=== PATIENT | male | born 1970 | race Caucasian/White ===

== ENCOUNTER 2022-11-08 13:57 | Outpatient (AMB) | payer MEDICAID, SELFPAY ==
--- NOTE | 2022-11-08 10:25 | MHC.OFFVIS ---
Intake Intake Visit Reasons: LDCT SD Allergies No Known Allergies Allergy (Unverified 12/02/19 15:49) HPI LDCT SD HPI Details Initial visit for this 52yo smoker with a 25+PYH. Patient has been smoking since age 15 for 37 years at 1/2-1ppd. Now down to 1/4ppd. . Denies marijuana use. Denies second hand smoke exposure. Denies exposure to chemicals or substances like asbestos. . Denies known family history of lung cancer. Dad had oral cancer. Denies personal history of cancers. Denies chest CT in last year. . Denies recent travel outside the [place]. Denies recent respiratory illness or recent hospitalization for respiratory issues. Denies testing positive for COVID. Admits receiving COVID Vaccine. x 5. . Denies fever, chills, new/worsening cough, hemoptysis, hoarseness or dysphagia. Denies significant chest pain, significant dyspnea or unintentional weight loss. Patient Lung Cancer Screening Questionnaire reviewed with patient by provider. . Shared Decision Making Completed. Patient meets criteria. Discussed in detail with patient, the risk vs benefit of LDCT screening. Patient consents to proceed with scan. Discussed smoking cessation. [facility] Medical History (Updated 11/08/22 @ 14:10 by Sofia Vázquez PA-C) Depression GERD (gastroesophageal reflux disease) History of colon polyps (~2017) HTN (hypertension) Microscopic hematuria Nephrolithiasis Nicotine dependence, cigarettes, uncomplicated Surgical History (Updated 10/31/22 @ 12:32 by Sofia Vázquez PA-C) History of colonoscopy History of esophagogastroduodenoscopy (EGD) Family History (Updated 11/08/22 @ 14:18 by Sofia áVzquez PA-C) Father Oral cancer Social History (Updated 11/08/22 @ 14:10 by Sofia Vázquez PA-C) Patient Tobacco Use Status: Current everyday Tobacco user Tobacco use type: Cigarette Years Smoked: (onset 15yo, 1/2-1ppd x 37yrs, 25+PYH) Assessment & Plan Assessment & Plan (1) Nicotine dependence, cigarettes, uncomplicated: Comment: (current smoker - onset 15yo, 1/2-1ppd x 37yrs, 25+PYH) Code(s): F17.210 - Nicotine dependence, cigarettes, uncomplicated Plan: - SDM visit completed today in office. - Patient meets criteria for LDCT for lung cancer screening purposes and is asymptomatic. - Smoking cessation counseling offered. Patients can always call [phone]. - Will arrange for a LDCT scan of the chest for screening purposes at [facility]. - Risks, benefits, and alternatives were discussed in detail and the patient agrees to proceed. - Risks discussed include but are not limited to: radiation exposure, anxiety during testing and while awaiting results, false negatives, false positives and possibility of additional intervention such as further imaging or surgical procedures for benign disease. - Benefits are obviously detection of lung cancer at an early stage which can lead to improved outcomes. - Discussed the importance of screening program compliance with adherence to yearly LDCT scan as scheduled - or sooner interval scans for personalized screening regimen. - Discussed follow up plan. Our office will send a letter discussing results and if needed set up phone call and office visit based on CT findings. - Patient educated on results categorization and the management decisions for suspicious findings potentially found on the screening LDCT scan. Any patient with a Lung RADS score of 3 or 4 will be reviewed by a multidisciplinary team at [facility] to form a plan of action in regards to scan findings. - If further work up is warranted for a suspicious lung finding this will be followed by the Lung Cancer Screening program in conjunction with the Thoracic Surgery Department at [facility]. - A copy of the office note and LDCT will be sent to the patient's PCP - as well as documentation on any associated further plans of care. - Incidental findings on LDCT are the PCP's responsibility. These findings are indicated with an S finding on the LDCT Assessment. A note discussing the findings will be sent to the PCP who is then responsible for further management. - All questions answered.? Coding Level of Care Code Lung Cancer Screening G0296 Diagnoses Nicotine dependence, cigarettes, uncomplicated F17.210
== END 2022-11-08 14:42 | disposition home or self-care (01) ==
PROVIDERS: PCP Family Medicine; Visit Provider Physician Assistant Medical
DX: F17.210 Nicotine dependence, cigarettes, uncomplicated (principal)
CPT/HCPCS: G0296

== ENCOUNTER 2022-11-08 14:20 | Outpatient (REF) | payer MEDICAID, SELFPAY ==
--- NOTE | ~2022-11-08 | CT_ITS ---
EXAMINATION: CT CHEST SCREENING CLINICAL INFORMATION: 38 pack-year smoking history COMPARISON: None available. TECHNIQUE: Multidetector volumetric CT imaging of the chest is performed without contrast using low dose technique. Additional 2D coronal and sagittal reformatted images and axial 3D maximum intensity projection (MIP) images are generated on the CT workstation. This CT examination was performed using dose optimization techniques as appropriate, variously including the following: *Automated exposure control *Adjustment of mA and/or kV according to patient size (this includes techniques or standardized protocols for targeted exams where dose is matched to indication/reason for exam; i.e. extremities or head) *Use of iterative reconstruction technique DLP: 78 mGy-cm FINDINGS: LUNGS: The lungs are clear with no evidence of inflammation or nodules. There is mild bibasilar dependent hypoaeration. MEDIASTINUM: The thyroid is unremarkable. There is no thoracic aortic aneurysm. There are mild atherosclerotic calcifications of the great vessel origins and thoracic aorta. 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 No mediastinal or hilar lymphadenopathy is seen. CORONARY ARTERY CALCIFICATION: None visualized on this study. PLEURA: There is no pleural effusion. No pleural mass or thickening. AXILLA: No lymphadenopathy. UPPER ABDOMEN: The left adrenal gland contains a 2.3 x 1.8 cm benign fat-containing adenoma with precontrast Hounsfield value of -10.8 units. OSSEOUS STRUCTURES: There is mild lower thoracic and upper lumbar spondylosis. No acute or aggressive osseous abnormality is seen. CT/CT lung screening IMPRESSION: 1. No pulmonary nodule is seen. 2. There is no pulmonary mass, infiltrate or groundglass opacity. 3. There is no thoracic lymphadenopathy or pleural effusion. 4. An aberrant right subclavian artery is noted. 5. A 2.3 cm benign, fat-containing left adrenal adenoma is seen. This requires no imaging follow-up. Current ACR [employer]ER RECOMMENDATIONS regarding incidental adrenal masses include; - Imaging can characterize adrenal adenomas with high accuracy but cannot be used to distinguish hyperfunctioning from nonhyperfunctioning masses - Current guidelines from the [place] [employer] and the [place] [employer] recommend an initial biochemical evaluation of all adrenal incidentalomas to exclude pheochromocytoma, subclinical [place]?s syndrome, and hyperaldosteronism. 6. There is some mild thoracic and upper lumbar spondylosis. No acute or aggressive finding is noted. ASSESSMENT: Lung-RADS category 1: Negative RECOMMENDATION: Routine annual low-dose CT screening in 12 months.
== END 2022-11-08 14:21 | disposition home or self-care (01) ==
LOC: HO.CT 14:20
PROVIDERS: Visit Provider Physician Assistant Medical
DX: Z12.2 Encounter for screening for malignant neoplasm of respiratory organs (principal); F17.210 Nicotine dependence, cigarettes, uncomplicated
CPT/HCPCS: 71271; G0296

== ENCOUNTER 2022-12-04 08:03 | Outpatient (AMB) | payer MEDICAID, SELFPAY ==
--- NOTE | 2022-12-04 08:21 | MHC.OFFVIS ---
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 He states that he gets random episodes of chest pain and can happen any time. Not clearly exertion. He also gets short of breath. This can happen with exertion but on rare occasions have also happen at rest. No history of any coronary artery disease or myocardial infarction or cardiomyopathy. Long history of smoking and he states he has cut down a lot. He also has a history of alcohol excess but states he has cut back on that too. Otherwise, family history of cardiac issues. According to him, grandmother had bicuspid aortic valve and had surgery for the same. Mother with possible leaky valve type issue but details are not clear. [facility] Medical History (Updated 12/04/22 @ 08:34 by Rafael Mahan MD) Nicotine dependence, cigarettes, uncomplicated History of colon polyps (~2017) Microscopic hematuria Nephrolithiasis Depression HTN (hypertension) GERD (gastroesophageal reflux disease) Surgical History History of esophagogastroduodenoscopy (EGD) History of colonoscopy Family History (Updated 12/04/22 @ 08:35 by Rafael Mahan MD) Father Oral cancer Maternal Grandmother Bicuspid aortic valve Mother Heart problem Social History (Updated 12/04/22 @ 08:36 by Rafael Mahan MD) Alcohol intake: former Patient Tobacco Use Status: Current everyday Tobacco user Tobacco use type: Cigarette Years Smoked: (onset 15yo, 1/2-1ppd x 37yrs, 25+PYH) Review of Systems Const Denies chills, Denies daytime sleepiness, Denies fatigue, Denies fever(s), Denies frequent falls, Denies night sweats, Denies snoring, Denies weakness, Denies weight gain and Denies weight loss Eyes Denies loss of vision ENT Denies dizziness and Denies hearing loss Card Denies chest pain, Denies chest pain with activity, Denies syncope, Denies rapid heart rate, Denies edema, Denies claudication, Denies leg edema, Denies lightheadedness, Denies palpitations, Denies dyspnea, Denies dyspnea on exertion and Denies orthopnea Resp Denies cough, Denies excessive phlegm production, Denies dyspnea, Denies dyspnea on exertion, Denies snoring and Denies wheezing GI Denies abdominal pain, Denies hematochezia, Denies change in bowel habits, Denies change in stool character, Denies heartburn, Denies nausea and Denies vomiting Denies hematuria, Denies dysuria and Denies urinary frequency Musc Denies arthralgias, Denies muscle weakness, Denies numbness and Denies tingling Skin/Breast Denies nail changes and Denies rash Neuro Denies Abnormal speech present, Denies dizziness, Denies syncope, Denies frequent falls, Denies loss of vision, Denies memory loss, Denies numbness, Denies tingling and Denies weakness Psych Denies depression and Denies memory loss Endo Denies fatigue and Denies palpitations Aller/Immun Denies wheezing Physical Exam Vital Signs: Last Vital Signs Pulse 84 12/04/22 08:24 BP 134/80 12/04/22 08:24 BMI result Body Mass Index 24.0 Const General: comfortable and no acute distress Orientation/consciousness: patient oriented x3 HEENT Other: Unremarkable Head: Yes normal to inspection Neck Neck: Yes normal visual inspection Chest Chest palpation & inspection: normal inspection of the chest Resp Auscultation: clear to auscultation bilaterally Cardio Palpation: normal PMI Heart sounds: S1 normal heart sound present, S2 normal heart sound present, no gallops, no murmurs and no rubs GI Palpation (GI): Soft to palpation Back/Spine/Pelvis Other: unremarkable Skin General skin exam: no rashes or lesions noted Neuro General: patient oriented x3 Speech: No Abnormal speech present Extrem General: Yes normal to inspection Psych Mental Status: mental status grossly normal Office Procedures EKG Details: EKG with sinus rhythm at 84/Min; incomplete right bundle-branch block; no significant ST-T changes and otherwise unremarkable. [id number], Complete Assessment & Plan Assessment & Plan (1) SOB (shortness of breath): Code(s): R06.02 - Shortness of breath (2) Precordial chest pain: Code(s): R07.2 - Precordial pain (3) Family history of bicuspid aortic valve: Code(s): Z82.79 - Family history of other congenital malformations, deformations and chromosomal abnormalities Plan Baseline EKG unremarkable. Based on the symptoms of chest pain and shortness of breath, will proceed with further workup. Echocardiogram and stress test can be completed. Based on findings, will plan further care. Orders: Orders CA echo transthoracic complete Today R06.02 - Shortness of breath CA echo stress exercise Today R07.2 - Precordial pain Coding Level of Care Code New Pt Level 4 (35467) Diagnoses SOB (shortness of breath) R06.02 Precordial chest pain R07.2 Family history of bicuspid aortic valve Z82.79 CPT Codes EKG - CPT: 64142-[id number], Complete ([id number])
[2022-12-04 08:24] VITALS: BP 134/80; PULSE 84; BMI 24.0
== END 2022-12-04 08:43 | disposition home or self-care (01) ==
PROVIDERS: PCP Student in an Organized Health Care Education/Training Program; Visit Provider Internal Medicine
DX: R06.02 Shortness of breath (principal); R07.2 Precordial pain; Z82.79 Family history of other congenital malformations, deformations and chromosomal abnormalities
CPT/HCPCS: 93010; 99204

== ENCOUNTER → 2022-12-04 08:03 | Outpatient (BNVA) | payer MEDICAID, SELFPAY | PROVIDERS: PCP Student in an Organized Health Care Education/Training Program; Visit Provider Internal Medicine | DX: R06.02 Shortness of breath (principal); R07.2 Precordial pain; Z82.79 Family history of other congenital malformations, deformations and chromosomal abnormalities | CPT/HCPCS: 93005 ==

== ENCOUNTER → 2023-01-10 07:40 | Outpatient (REF) | payer MEDICAID, SELFPAY ==
--- NOTE | 2023-01-10 07:43 | CA_ITS ---
Transthoracic Echocardiogram Patient (Last, First, Middle): Cortez Westfall, Gender: Male Date of : 1970 Age: 52 Procedure Date: 01/10/2023 Procedure Type: Transthoracic Echocardiogram Location: OP Height: 175.26 cm Weight: 72.58 kg BSA: 1.88 m2 Heart Rate: 72 bpm BP: 128 / 80 mmHg Night Assistant: LORENA Referring MD: Rafael Mahan MD Salsa Dance Instructor: Alphonse Gutierrez MD Symptoms: R06.02 - Shortness of breath/Fam hx bicuspid av Study Quality: Adequate ECG Rhythm: Sinus Conclusions: - 1. Normal measured LVEF of 60 65% with normal filling pattern 2. Normal cardiac valvular Dopplers 3. No gross pericardial effusion Findings Left Ventricle Normal left ventricular size, thickness, and systolic function. The visually estimated ejection fraction is between 60-65%. Spectral Doppler is indicative of a normal filling pattern. Peak GLS is -17.4%, borderline low. Right Ventricle Normal right ventricular cavity size and systolic function. Atria Both atria are normal in size. There is no evidence of interatrial shunt. Aortic Valve The aortic valve was not well visualized. There is no aortic valve stenosis. There is no aortic valve regurgitation. limited visualization of aortic valve, appears to be tricuspid although further imaging may be necessary Mitral Valve Likely normal mitral valve structure and function. There is trace mitral valve regurgitation. There is no mitral valve stenosis. Pulmonic Valve The pulmonic valve was not well visualized. Tricuspid Valve Likely normal tricuspid valve structure and function. Tricuspid regurgitation envelope is inadequate for calculation of right ventricular systolic pressure. Normal right atrial pressure. Great Vessels All visible segments of the aorta are normal in size. The pulmonary artery was not well visualized. There is no dilatation of the ascending aorta. Venous The inferior vena cava is normal in size and collapses greater than 50% with inspiration. Pericardium/Pleural There is no evidence of pericardial effusion. Prior Study Comparison No prior study available for comparison. Measurements 2D Linear Measurements IVSd: 1.00 0.6-0.9/0.6-1.0 cm LVIDd: 5.00 3.9-5.3/4.2-5.9 cm LVIDd Index: 2.66 2.4-3.2/2.2-3.1 cm/m2 LVIDs: 3.40 2.0-3.6 cm LVPWd: 0.70 0.7-1.1 cm LA Diam: 3.60 2.7-3.8/3.0-4.0 cm LAIDs Index: 1.91 1.5-2.3 cm/m2 LV Mass: 182.79 67-162/88-224 g LV Mass Index: 97.23 43-95/49-115 g/m2 LVOT Diam: 2.30 3.0+(-)1.3 cm Mitral Valve MV Pk E: 0.97 MV PK A: 0.86 MV Decel Time: 185.00 E/A: 1.10 E'Lateral: 12.90 E'Medial: 7.18 E/E' Med: 13.60 E/E' Lat: 7.50 PHT: 54.00 MVA PHT: 4.07 Decel Patrick: 5.25 Aortic Valve AoV Pk Ishan: 1.31 AoV Pk Grad: 7.00 ROLANDA: 3.62 LVOT LVOT Pk Ishan: 1.06 LVOT Mn Ishan: 0.82 LVOT VTI: 0.22 LVOT Pk Grad: 4.00 LVOT Mn Grad: 3.00 LVOT Diam: 2.30 LVOT Area: 4.15 Diastolic Function MV Pk E: 0.97 MV Pk A: 0.86 E/A: 1.10 E'Medial: 7.18 E/E' Med: 13.60 E' Laterial: 12.90 E/E' Lat: 7.50 Right Ventricle TAPSE (mm): 17.30 TVS' Ishan: 10.40 Tricuspid Valve RA Press: 3.00 Great Vessels Aorta Sinus of Valsalva: 3.30 2.0-3.5 cm Ao Asc: 3.10 2.1-3.4 cm Ao Arch: 2.50 Ao Desc: 1.80 Pulmonary Valve PV Pk Ishan: 0.67 Peak PV Grad: 2.00 Updated in Other Vendor System with Status of Final Alphonse Gutierrez MD electronically signed on 01/11/2023 10:31:34 AM with status of Final
== END ==
LOC: HO.CARD 07:40
PROVIDERS: PCP Student in an Organized Health Care Education/Training Program; Visit Provider Internal Medicine
DX: R06.02 Shortness of breath (principal)
CPT/HCPCS: 93306; 93356

== ENCOUNTER → 2023-01-10 07:43 | Outpatient (BNV) | payer MEDICAID, SELFPAY | PROVIDERS: PCP Student in an Organized Health Care Education/Training Program; Visit Provider Internal Medicine Cardiovascular Disease | DX: R06.02 Shortness of breath (principal); I45.10 Unspecified right bundle-branch block | CPT/HCPCS: 93306 ==

== ENCOUNTER → 2023-01-17 10:40 | Outpatient (REF) | payer MEDICAID, SELFPAY ==
--- NOTE | 2023-01-17 10:42 | CA_ITS ---
Acquisition Time: 2023-01-17 10:54:32 Total Exercise Time: 00:05:24 Test Indications: PRECORDIAL PAIN Medications: AMLODIPINE ESCITALOPRAM OMPERAZOLE Protocol: GADIEL Max HR: 164 BPM 98% of Pred: 166 BPM Max BP: 178/080 mmHG Max Work Load: 7.0 METS Exercise stress test exercise 5 min 24 sec of Gadiel protocol achieving 97% MPHR, without anginal symptoms, without arrhythmias, with normotensive response to exercise, without EKG changes, Echo images obtained by tect at rest and immedately post peak exercise. Definity contrast used. Test reviewed with Dr. Andrade. Referred By: Rafael Mahan Overread By: Ashlie Medina
== END ==
LOC: HO.CARD 10:40
PROVIDERS: PCP Student in an Organized Health Care Education/Training Program; Visit Provider Internal Medicine
DX: R07.2 Precordial pain (principal)
CPT/HCPCS: 93350; Q9957

== ENCOUNTER 2023-01-20 08:27 | Outpatient (AMB) | payer MEDICAID, SELFPAY ==
[2023-01-20 08:30] VITALS: BP 114/72; PULSE 85; BMI 23.7
--- NOTE | 2023-01-20 08:30 | MHC.OFFVIS ---
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 He recently underwent an echocardiogram and stress test. Today he reports he has been doing well. He did get a sharp pain in his left chest when he reached his left arm over his right shoulder to scratch his back. This is the discomfort he says he has been getting periodically at times with certain movements of that left arm. He has no chest pressure heaviness or tightness brought on by physical activity. He has vague reports of shortness of breath which he says is separate and can occur at any time, again not brought on by activity. No palpitations, presyncope, syncope, PND, orthopnea or edema. He takes his meds as directed. [facility] Medical History Nicotine dependence, cigarettes, uncomplicated History of colon polyps (~2017) Microscopic hematuria Nephrolithiasis Depression HTN (hypertension) GERD (gastroesophageal reflux disease) Surgical History History of esophagogastroduodenoscopy (EGD) History of colonoscopy Family History Father Oral cancer Maternal Grandmother Bicuspid aortic valve Mother Heart problem Social History Alcohol intake: former Patient Tobacco Use Status: Current everyday Tobacco user Tobacco use type: Cigarette Years Smoked: (onset 15yo, 1/2-1ppd x 37yrs, 25+PYH) Review of Systems Const All systems reviewed & are unremarkable except as noted in HPI and below ENT Denies dizziness Card Reports chest pain (Sharp, left chest when he moves left arm and shoulder at times), Denies chest pain at rest, Denies chest pain with activity, Denies rapid heart rate, Denies pedal edema, Denies edema, Denies leg edema, Denies lightheadedness, Denies palpitations, Denies dyspnea, Denies dyspnea on exertion and Denies orthopnea Resp Denies cough, Denies dyspnea and Denies dyspnea on exertion GI Denies hematochezia and Denies change in stool character Musc Denies abnormal gait, Denies limited range of motion, Denies muscle cramps, Denies muscle weakness, Denies numbness, Denies radiating pain into limb, Denies stiffness and Denies tingling Neuro Denies abnormal gait, Denies dizziness, Denies numbness and Denies tingling Endo Denies palpitations Physical Exam Vital Signs: Last Vital Signs Pulse 85 01/20/23 08:30 BP 114/72 01/20/23 08:30 BMI result Body Mass Index 23.7 Const General: cooperative, healthy appearing, comfortable and no acute distress Orientation/consciousness: patient oriented x3 Neck Neck: Yes normal visual inspection Resp Effort & Inspection: normal respiratory effort Auscultation: clear to auscultation bilaterally, no crackles, no rales, no rhonchi and no wheezes Cardio Jugular venous distension: no JVD Rate: regular rate Rhythm: regular rhythm Heart sounds: S1 normal heart sound present, S2 normal heart sound present, no murmurs and no rubs Neuro General: patient oriented x3 Extrem General: Yes normal to inspection Psych Appearance: grossly normal Mental Status: mental status grossly normal Speech and movement: Normal speech and movement present Assessment & Plan Assessment & Plan (1) Precordial chest pain: Code(s): R07.2 - Precordial pain Plan: Report of intermittent sharp left chest discomfort, brief, occurring with activities that involve movement of left arm and shoulder. No tenderness to palpation. EKG done last visit showing sinus rhythm with incomplete right bundle branch block, rate 84. Echocardiogram done 01/10/2023 showing EF 60-65%, no significant valve abnormalities, no pericardial effusion. He had stress echocardiogram on 01/17/2023 with exercise 5 minutes 24 seconds with no anginal symptoms, no EKG changes and no echo evidence of ischemia. Spent time reviewing results with him in detail. Based on his description of symptoms it seems more musculoskeletal in nature. He describes getting his pain 2 days ago when he reached his left arm over his right shoulder to scratches back and the pain occurred. This sounds more like musculoskeletal discomfort. He also has evidence of deconditioning as heart rate reached 97% mph are with 5.5 minutes of exercise. He tells me he does no routine physical activity. Suggested that he work on increasing physical activity as tolerated. No evidence that his chest discomfort is cardiac in nature. Cardiology follow-up as needed. (2) SOB (shortness of breath): Code(s): R06.02 - Shortness of breath Plan: Vague description of shortness of breath which he states occurs at times. Not clearly brought on by exertion. Stress echocardiogram as above with no significant shortness of breath. No cardiac findings for this symptom. (3) Nicotine dependence, cigarettes, uncomplicated: Comment: (current smoker - onset 15yo, 1/2-1ppd x 37yrs, 25+PYH) Code(s): F17.210 - Nicotine dependence, cigarettes, uncomplicated Plan: Continues to smoke. Benefits of smoking cessation reviewed (4) Family history of bicuspid aortic valve: Code(s): Z82.79 - Family history of other congenital malformations, deformations and chromosomal abnormalities Plan: Grandmother had history of bicuspid aortic valve. Echocardiogram done on this patient 01/10/2023 shows aortic valve not well visualized, appears to be tricuspid, no aortic stenosis and no aortic regurgitation. Since not well visualized future echo can be done if he has heart murmur or any concerning symptoms. Coding Level of Care Code Est Pt Level 3 (38330) Diagnoses Precordial chest pain R07.2 SOB (shortness of breath) R06.02 Nicotine dependence, cigarettes, uncomplicated F17.210 Family history of bicuspid aortic valve Z82.79 Time Spent (min) 22
== END 2023-01-20 08:50 | disposition home or self-care (01) ==
PROVIDERS: PCP Student in an Organized Health Care Education/Training Program; Visit Provider Nurse Practitioner Family
DX: R07.2 Precordial pain (principal); R06.02 Shortness of breath; F17.210 Nicotine dependence, cigarettes, uncomplicated; Z82.79 Family history of other congenital malformations, deformations and chromosomal abnormalities
CPT/HCPCS: 99213

== ENCOUNTER → 2023-01-20 08:27 | Outpatient (BNVA) | payer MEDICAID, SELFPAY | PROVIDERS: PCP Student in an Organized Health Care Education/Training Program; Visit Provider Nurse Practitioner Family | DX: R07.2 Precordial pain (principal); R06.02 Shortness of breath; F17.210 Nicotine dependence, cigarettes, uncomplicated; Z82.79 Family history of other congenital malformations, deformations and chromosomal abnormalities | CPT/HCPCS: 99212 ==

== ENCOUNTER 2023-01-24 09:27 | Day surgery (SDC) | payer MEDICAID, SELFPAY ==
--- NOTE | 2023-01-23 08:56 | P.CONAN_ITS ---
Documented by User: Jeannette Arroyo NP 01/23/23 08:57 HPI - Anesthesia Eval Consult details Narrative: 52yo M for Colonoscopy [facility] Active Problems Active Problems: All Active Problems (Updated 12/04/22 @ 08:34 by Rafael Mahan MD) Family history of bicuspid aortic valve (Acute) Precordial chest pain (Acute) SOB (shortness of breath) (Acute) Nicotine dependence, cigarettes, uncomplicated (Acute) Past Medical History Medical History Nicotine dependence, cigarettes, uncomplicated History of colon polyps (~2017) Microscopic hematuria Nephrolithiasis Depression HTN (hypertension) GERD (gastroesophageal reflux disease) Family History Family History Father Oral cancer Maternal Grandmother Bicuspid aortic valve Mother Heart problem Surgical History Surgical History (Updated 01/23/23 @ 13:46 by Emily Cordero RN) History of excision of pilonidal cyst History of esophagogastroduodenoscopy (EGD) History of colonoscopy Social History Alcohol intake: former Patient Tobacco Use Status: Current everyday Tobacco user Tobacco use type: Cigarette Cigarette Packs Per Day: 0.5 Cigarettes Per Day: 10.0 Years Smoked: (onset 15yo, 1/2-1ppd x 37yrs, 25+PYH) Second Hand Smoke Exposure: No Meds Allergies Allergy/AdvReac Type Severity Reaction Status Date / Time No Known Allergies Allergy Verified 01/20/23 08:33 Home Medications Medication Instructions Recorded Confirmed Last Taken Type amlodipine 10 mg tablet 10 mg PO DAILY 12/04/22 01/20/23 Unknown History escitalopram oxalate 10 mg tablet 10 mg PO QAM 12/04/22 01/20/23 Unknown History nicotine (polacrilex) 2 mg gum 2 mg PO 12/04/22 01/20/23 Unknown History omeprazole 20 mg capsule,delayed 20 mg PO QAM 12/04/22 01/20/23 Unknown History release multivitamin 1 tab PO DAILY 01/23/23 01/23/23 Unknown History Exam Exam Date and Time: January 23, 2023 0856 Narrative Narrative: EKG 11/2022 sinus rhythm at 84/Min; incomplete right bundle-branch block; no significant ST- T changes and otherwise unremarkable ECHO 12/2022 Conclusions: - 1. Normal measured LVEF of 60 65% with normal filling pattern 2. Normal cardiac valvular Dopplers 3. No gross pericardial effusion Stress ECHO 01/2023 Conclusion: Normal stress echo at the achieved workload. Assessment and Plan Assessment Anesthesia Assessment: Chart Reviewed Documented by User: Abraham Vance MD 02/06/23 17:42 HPI - Anesthesia Eval Consult details Narrative: 52yo M for Colonoscopy tremors both hands occassionally PMFSH Past Medical History Medical History Nicotine dependence, cigarettes, uncomplicated History of colon polyps (~2016) Microscopic hematuria Nephrolithiasis Depression HTN (hypertension) GERD (gastroesophageal reflux disease) Functional capacity: independent ambulation Family History Family History Father Oral cancer Maternal Grandmother Bicuspid aortic valve Mother Heart problem Family history of problems with anesthesia: No Surgical History Surgical History (Updated 01/23/23 @ 13:46 by Emily Cordero RN) History of excision of pilonidal cyst History of esophagogastroduodenoscopy (EGD) History of colonoscopy History of Problems with Anesthesia: No Social History Alcohol intake: former Patient Tobacco Use Status: Current everyday Tobacco user Tobacco use type: Cigarette Cigarette Packs Per Day: 0.5 Cigarettes Per Day: 10.0 Years Smoked: (onset 15yo, 1/2-1ppd x 37yrs, 25+PYH) Second Hand Smoke Exposure: No Meds Allergies Allergy/AdvReac Type Severity Reaction Status Date / Time No Known Allergies Allergy Verified 01/20/23 08:33 Home Medications Medication Instructions Recorded Confirmed Last Taken Type amlodipine 10 mg tablet 10 mg PO DAILY 12/04/22 01/20/23 Unknown History escitalopram oxalate 10 mg tablet 10 mg PO QAM 12/04/22 01/20/23 Unknown History nicotine (polacrilex) 2 mg gum 2 mg PO 12/04/22 01/20/23 Unknown History omeprazole 20 mg capsule,delayed 20 mg PO QAM 12/04/22 01/20/23 Unknown History release multivitamin 1 tab PO DAILY 01/23/23 01/23/23 Unknown History Exam Airway Mallampati Class: III Loose/Missing/Broken Teeth: Yes Assessment and Plan Assessment Anesthesia Assessment: Anesthesia Plan Discussed Final Anesthetic Review Family History of Problems with Anesthesia: No History of Problems with Anesthesia: No NPO: Yes ASA Class: III Final Preanesthetic Review: Meds/Allgs Chart Reviewed, Consent Obtained/Reviewed and Anes Risks/Benef Reviewed Patient Risk: Intermediate Procedure Risk: Intermediate Anesthetic Plan Anesthetic Plan: MAC: and Agree w/ Assess. and Plan Disposition: Standard PACU
[2023-01-24 10:51] VITALS: BMI 26.6
[2023-01-24 11:10] VITALS: BP 163/105; PULSE 118; RESP 16; TEMP 37.1; O2SAT 98
[2023-01-24] MEDS: Lactated Ringers 1,000 ML 100 ML IVCONT (11:11)
--- NOTE | 2023-01-24 11:11 | PC.NURSE ---
patient HR 100-120's and BP 163/105. patient very tremorous, arms shaking. Dr. Vance aware via [place].
--- NOTE | 2023-01-24 12:32 | PM.OP ---
Brief Operative Note Date of Service: 01/24/23 Pre-op diagnosis: Screening Post-op diagnosis: other (Colon polyps) Procedure: Colonoscopy to the cecum with hot snare polypectomy of appendiceal orifice polyp and transverse colon polyp, cold snare polypectomty at 50cm, and biopsies from cecum Surgeon: Darshan Khan MD Anesthesia: MAC Was an Business Unit Controller used for this Procedure?: No Estimated blood loss (mL): 2.0 Pathology: other (A. Polyp at 50cm B. Appendiceal orifice polyp C. Biopsies from cecum D. Transverse colon polyp) Condition: stable Disposition: PACU
[2023-01-24 12:37] VITALS: BP 129/84; PULSE 97; RESP 15; TEMP 37.6; O2SAT 98
[2023-01-24 12:52] VITALS: BP 127/82; PULSE 93; RESP 16; TEMP 37.3; O2SAT 97
--- NOTE | 2023-01-24 13:15 | OP_ITS ---
DATE OF SERVICE: 01/24/2023 SURGEON: Darshan Khan MD INDICATIONS: The patient presents for evaluation of family history of colon cancer, and colorectal cancer screening. Full consent has been obtained from him for this, including risks of bleeding and perforation. PREOPERATIVE DIAGNOSIS: Colorectal cancer screening and family history of colon cancer. POSTOPERATIVE DIAGNOSIS: PROCEDURE PERFORMED: Colonoscopy to the cecum with cold snare polypectomy x 1, hot snare polypectomy x 2, and biopsies. ESTIMATED BLOOD LOSS: COMPLICATIONS: ANESTHESIA: Monitored anesthesia care. ASSISTANTS: SPECIMENS: POSTOPERATIVE DIAGNOSES: Colorectal cancer screening and family history of colon cancer, colon polyps, questionable area in the cecum that was biopsied, diverticulosis, and internal hemorrhoids. DESCRIPTION OF PROCEDURE: The patient was placed in the left lateral decubitus position. The digital rectal exam revealed no abnormalities. The [employer] video pediatric colonoscope was entered into the rectum and advanced easily to the cecum. Once in the cecum, I did identify cecal pouch with appendiceal orifice and a normal-appearing ileocecal valve. The entire cecum was well visualized. In the appendiceal orifice was an approximately 5 or 6 mm grossly adenomatous polyp that was prolapsing into the cecum itself. This was removed by hot snare polypectomy and recovered with a biopsy forceps. The polypectomy site appeared clean, without any sign of residual polyp nor bleeding. Also in the cecum, in the vicinity of the appendiceal orifice, but separate from it, was an area of some central minimal ulceration, but with some surrounding edematous margins. It was not clear if this was definitively a mass or a diverticulum. Multiple biopsies were obtained from the margins of this. The remainder of the cecum appeared normal. The scope was then slowly withdrawn assessing all mucosal surfaces carefully. Preparation was excellent. In the transverse colon was an approximately 10 mm polyp, which was removed by hot snare polypectomy and recovered by suction. The polypectomy site appeared clean, without any sign of residual polyp nor bleeding. At 50 cm was an approximately 6 mm polyp, which was removed by cold snare polypectomy and recovered by suction. The polypectomy site appeared to be clean, without any sign of residual polyp nor any significant bleeding. I did not visualize any other polyps, colitis, or angiodysplasia. There was a mild amount of sigmoid diverticulosis. In the rectum, the scope was retroflexed visualizing internal hemorrhoids, but no other pathology. The scope was straightened and withdrawn from the patient. He tolerated the procedure well and was returned to the recovery area in stable condition. IMPRESSION: 1. Colon polyps. 2. Questionable area in the cecum, status post biopsy. 3. Diverticulosis. 4. Internal hemorrhoids. PLAN: The results of the pathology will be checked. Given the finding in the appendiceal orifice, if it is an adenoma, and his family history of colon cancer, I would recommend a repeat colonoscopy within 2 years for further screening and surveillance. Further decisions will also be made depending upon the findings on the biopsies from the cecum. He was advised not to use any aspirin and NSAIDs for at least 1 week. He will otherwise see me in the interim on a p.r.n. basis. This has been discussed with the patient and his mother. Of note, he did have a lot of coughing during the procedure, which most likely is related to his smoking history. This has been discussed with the patient and his mother as well MD MARLEN Mehta/ELIZABETH / [id number] MTDKaley
== END 2023-01-24 13:15 | disposition home or self-care (01) ==
PROVIDERS: PCP Student in an Organized Health Care Education/Training Program; Visit Provider Internal Medicine
PROC: 0DJD8ZZ Inspection of Lower Intestinal Tract, Via Natural or Artificial Opening Endoscopic (ICD-10-PCS; CPT 45378; principal; 2023-01-24 10:50)
DX: Z12.11 Encounter for screening for malignant neoplasm of colon (principal); D12.5 Benign neoplasm of sigmoid colon; D12.3 Benign neoplasm of transverse colon; K57.30 Diverticulosis of large intestine without perforation or abscess without bleeding; K64.8 Other hemorrhoids; Z80.0 Family history of malignant neoplasm of digestive organs; I10 Essential (primary) hypertension; K21.9 Gastro-esophageal reflux disease without esophagitis; F17.210 Nicotine dependence, cigarettes, uncomplicated; Z79.899 Other long term (current) drug therapy
CPT/HCPCS: 45385; 45380; 88305; J2250; J2704; J3010

== ENCOUNTER 2023-01-29 08:00 | Outpatient (REF) | payer MEDICAID, SELFPAY ==
[2023-01-29 11:08] LABS: MANUAL DIFF FLAG NO
[2023-01-29 11:53] LABS: Basophils Percent Auto 0.5 % (0-2); Eosinophils Absolute Auto 0.2 X10*3/uL (0.0-0.4); Eosinophils Percent Auto 1.8 % (0-4); Hematocrit 42.1 % (42.0-52.0); Hemoglobin 13.4 g/dl (14.0-18.0); Imm Gran Abs Auto 0.03 X10*3/uL (0.00-0.03); Imm Gran Pct Auto 0.4 % (0.0-0.4); Lymphocytes Absolute Auto 2.9 X10*3/uL (1.2-4.9); Lymphocytes Percent Auto 35.5 % (20-40); Mean Corpuscular HGB Conc 31.8 g/dl (31.0-36.0); Mean Corpuscular Hemoglobin 29.6 pg (27.0-33.0); Mean Corpuscular Volume 93.1 fL (80.0-98.0); Mean Platelet Volume 10.3 fL (9.4-12.4); Monocytes Absolute Auto 0.5 X10*3/uL (0.1-1.2); Monocytes Percent Auto 5.9 % (2-11); Neutrophils Absolute Auto 4.6 x10*3/uL (2.0-8.3); Neutrophils Percent Auto 55.9 % (45-73); Platelet Count 316 X10*3/uL (160-400); Red Blood Count 4.52 X10*6/uL (4.60-5.80); Red Cell Distribution Width 16.4 % (11.0-16.0); White Blood Count 8.2 X10*3/uL (4.8-10.8)
[2023-01-29 12:03] LABS: Alanine Aminotransferase 30 U/L (0-40); Albumin Level 4.4 g/dL (3.5-5.0); Alkaline Phosphatase 129 U/L (39-117); Anion Gap 12 (12-20); Aspartate Amino Transferase 40 U/L (5-37); Bilirubin Total 0.3 mg/dL (0.0-1.0); Blood Urea Nitrogen 11 mg/dL (9-16); Calcium 9.9 mg/dL (8.4-10.2); Carbon Dioxide 25 mmol/L (22-29); Chloride 109 mmol/L (96-108); Cholesterol 209 mg/dL (<200); Cortisol Random 15.1 ug/dL; Estimated Glomerular Filt Rate > 60; Glucose Random 119 mg/dL (60-115); HDL Cholesterol 51 mg/dL (>40); LDL Cholesterol Calculated 132 mg/dL (<100); Potassium 3.9 mmol/L (3.3-5.1); Sodium 142 mmol/L (135-145); Total Protein 7.8 g/dL (6.5-8.0); Triglycerides 134 mg/dL (<150)
[2023-01-31 03:33] LABS: DHEA Sulfate 29 mcg/dL (32-279)
[2023-02-04 11:53] LABS: Metanephrine, Free 74 pg/mL (<=57); Normetanephrines, Free 175 pg/mL (<=148); Total Metanephrine, Free 249 pg/mL (<=205)
[2023-02-04 17:48] LABS: Aldosterone/Renin Ratio 2.1 Ratio (0.9-28.9); Plasma Renin Activity 0.48 ng/mL/h (0.25-5.82)
== END 2023-01-29 08:01 | disposition home or self-care (01) ==
LOC: HO.LAB 08:00
PROVIDERS: PCP Student in an Organized Health Care Education/Training Program; Visit Provider Student in an Organized Health Care Education/Training Program
DX: E27.8 Other specified disorders of adrenal gland (principal); E78.2 Mixed hyperlipidemia
CPT/HCPCS: 36415; 80053; 80061; 82088; 82533; 82627; 83835; 85025

== ENCOUNTER 2023-01-30 11:54 | Outpatient (REF) | payer MEDICAID, SELFPAY ==
[2023-01-30 12:22] LABS: Appearance Urine Clear; Color Urine Yellow; Glucose Urine UA Negative (Negative); Leukocyte Esterase Urine Negative (Negative); Nitrite Urine Negative (Negative); PH 6.5 (5.0-9.0); Specific Gravity - Urine 1.025 (1.005-1.025); Urine Blood Negative (Negative); Urine Ketones Negative (Negative); Urine Protein Negative (Neg-Trace)
[2023-02-07 07:29] LABS: Creatinine Random Urine 134 mg/dL (20-320); Metanephrine, Free Rand Ur 149 mcg/g cr (21-153); Normetanephrine, Free Rand Ur 295 mcg/g cr (108-524); Total Metanephrine, Free RU 444 mcg/g cr (149-603)
== END 2023-01-30 11:55 | disposition home or self-care (01) ==
LOC: HO.LNP 11:54
PROVIDERS: Visit Provider Student in an Organized Health Care Education/Training Program
DX: E27.8 Other specified disorders of adrenal gland (principal); R31.29 Other microscopic hematuria
CPT/HCPCS: 81003; 83835

== ENCOUNTER 2023-03-05 11:09 | Outpatient (REF) | payer MEDICAID, SELFPAY ==
[2023-03-05 13:36] LABS: Rheumatoid Factor < 13.0 IU/mL (<15.0)
[2023-03-05 13:54] LABS: Alanine Aminotransferase 43 U/L (0-40); Albumin Level 4.4 g/dL (3.5-5.0); Alkaline Phosphatase 114 U/L (39-117); Anion Gap 11 (12-20); Aspartate Amino Transferase 38 U/L (5-37); Bilirubin Total 0.4 mg/dL (0.0-1.0); Blood Urea Nitrogen 10 mg/dL (9-16); C Reactive Protein 0.58 mg/dL (< or = 0.50); Calcium 9.5 mg/dL (8.4-10.2); Carbon Dioxide 26 mmol/L (22-29); Chloride 107 mmol/L (96-108); Estimated Glomerular Filt Rate > 60; Glucose Random 98 mg/dL (60-115); Iron 19 mcg/dL (45-160); Percent Iron Saturation 5 % (15-50); Potassium 3.9 mmol/L (3.3-5.1); Sodium 140 mmol/L (135-145); Total Iron Binding Capacity 419 mcg/dL (228-428); Total Protein 7.8 g/dL (6.5-8.0); Unsaturated Iron Binding 400 ug/dL; Uric Acid 3.8 mg/dL (3.4-7.0)
[2023-03-05 14:03] LABS: Erythrocyte Sedimentation Rate 12 MM/HR (0-15)
[2023-03-05 14:14] LABS: Ferritin 26 ng/mL (20-250)
[2023-03-07 12:23] LABS: Cyclic Citrullinated Peptide <16 UNITS
[2023-03-07 14:24] LABS: Anti Nuclear Antibody Screen NEGATIVE (NEGATIVE)
[2023-03-07 22:58] LABS: Prot Elec - Albumin 4.3 g/dL (3.8-4.8); Prot Elec - Alpha1 0.3 g/dL (0.2-0.3); Prot Elec - Alpha2 0.8 g/dL (0.5-0.9); Prot Elec - Beta 1 0.6 g/dL (0.4-0.6); Prot Elec - Beta 2 0.5 g/dL (0.2-0.5); Prot Elec - Gamma 0.9 g/dL (0.8-1.7); Prot Elec - Total Protein 7.4 g/dL (6.1-8.1)
[2023-03-11 17:03] LABS: IgA 396 mg/dL (47-310); IgG 1065 mg/dL (600-1640); IgM 23 mg/dL (50-300)
== END 2023-03-05 11:10 | disposition home or self-care (01) ==
LOC: HO.HHCL 11:09
PROVIDERS: Visit Provider Student in an Organized Health Care Education/Training Program
DX: M25.50 Pain in unspecified joint (principal)
CPT/HCPCS: 36415; 80053; 82728; 82784; 83540; 84165; 84550; 85652; 86038; 86140; 86200; 86334; 86431

== ENCOUNTER 2023-04-12 07:39 | Outpatient (REF) | payer MEDICAID, SELFPAY ==
[2023-04-12 10:45] LABS: Thyroid Stimulating Hormone 1.76 uIU/mL (0.32-4.0)
[2023-04-12 11:22] LABS: T4 Thyroxine 7.2 ug/dL (4.5-12.0)
[2023-04-19 18:29] LABS: Cortisol, Free 1.34 mcg/dL
== END 2023-04-12 07:40 | disposition home or self-care (01) ==
LOC: HO.LAB 07:39
PROVIDERS: PCP Student in an Organized Health Care Education/Training Program; Visit Provider Psychiatry & Neurology Neurology
DX: G25.0 Essential tremor (principal)
CPT/HCPCS: 36415; 82530; 84436; 84443

== ENCOUNTER 2023-04-16 11:24 | Outpatient (REF) | payer MEDICAID, SELFPAY ==
[2023-04-20 10:54] LABS: PEU-Protein Creat Ratio Rand 0.058 (0.025-0.148); PEU-Rand. Prot/Creat Ratio 58 mg/g creat (25-148); PEU-Random Ur. Gamma Globulin 0 %; PEU-Random Urine A1 Globulin 0 %; PEU-Random Urine A2 Globulin 0 %; PEU-Random Urine Albumin 100 %; PEU-Random Urine Beta Globulin 0 %; PEU-Random Urine Creatinine 173 mg/dL (20-320); PEU-Random Urine Protein 10 mg/dL (5-25)
== END 2023-04-16 11:25 | disposition home or self-care (01) ==
LOC: HO.HHCL 11:24
PROVIDERS: Visit Provider Student in an Organized Health Care Education/Training Program
DX: M25.50 Pain in unspecified joint (principal)
CPT/HCPCS: 82570; 84156; 84166

== ENCOUNTER 2023-08-08 10:07 | Outpatient (REF) | payer MEDICAID, SELFPAY ==
--- NOTE | ~2023-08-08 | US_ITS ---
EXAMINATION: US RETROPERITONEAL LIMITED (RENAL ONLY) CLINICAL INFORMATION: Noted in CT abdomen left kidney lesion of 0.8 cm described as exophytic lesion. COMPARISON: Ultrasound abdomen 10/18/2016. CT abdomen and pelvis 04/04/2011. TECHNIQUE: Real-time imaging of the kidneys. FINDINGS: RIGHT KIDNEY: 11.8 x 5.0 x 5.0 cm (SAG x AP x TRV). The kidney is normal in size, contour, and echogenicity. Renal cortical thickness is normal. No focal parenchymal lesions or hydronephrosis. 0.4 x 0.2 x 0.4 cm nonobstructing calculus is seen in the mid to lower pole. LEFT KIDNEY: 12.0 x 6.1 x 5.1 cm (SAG x AP x TRV). The kidney is normal in size, contour, and echogenicity. Renal cortical thickness is normal. No renal calculi or hydronephrosis. 0.5 x 0.4 x 0.7 cm simple exophytic cyst is seen in the mid kidney, no imaging follow-up is recommended. US/US renal BI IMPRESSION: 1. 0.4 cm nonobstructing calculus in the mid to lower pole of the right kidney. 2. 0.7 cm simple exophytic cyst in the mid left kidney, no imaging follow-up is recommended.
== END 2023-08-08 10:08 | disposition home or self-care (01) ==
LOC: HO.US 10:07
PROVIDERS: PCP Student in an Organized Health Care Education/Training Program; Visit Provider Student in an Organized Health Care Education/Training Program
DX: N28.9 Disorder of kidney and ureter, unspecified (principal)
CPT/HCPCS: 76775

== ENCOUNTER 2023-10-09 08:00 | Outpatient (REF) | payer MEDICAID, SELFPAY ==
[2023-10-09 11:37] LABS: Hemoglobin 15.6 g/dl (14.0-18.0); Mean Corpuscular HGB Conc 33.2 g/dl (31.0-36.0); Mean Corpuscular Hemoglobin 35.1 pg (27.0-33.0); Mean Corpuscular Volume 105.9 fL (80.0-98.0); Mean Platelet Volume 9.9 fL (9.4-12.4); Platelet Count 321 X10*3/uL (160-400); Red Blood Count 4.44 X10*6/uL (4.60-5.80); Red Cell Distribution Width 14.3 % (11.0-16.0); White Blood Count 6.3 X10*3/uL (4.8-10.8)
[2023-10-09 11:47] LABS: Estimated Average Glucose 100 mg/dL; Hemoglobin A1c % 5.1 % (<6.0)
[2023-10-09 12:04] LABS: Ferritin 96 ng/mL (20-250); TSH reflex Free T4 0.93 uIU/mL (0.32-4.0)
[2023-10-09 12:16] LABS: Alanine Aminotransferase 19 U/L (0-40); Albumin Level 4.1 g/dL (3.5-5.0); Alkaline Phosphatase 119 U/L (39-117); Anion Gap 11 (12-20); Aspartate Amino Transferase 28 U/L (5-37); Bilirubin Total 0.3 mg/dL (0.0-1.0); Blood Urea Nitrogen 12 mg/dL (9-16); C Reactive Protein 0.24 mg/dL (< or = 0.50); Calcium 9.6 mg/dL (8.4-10.2); Carbon Dioxide 23 mmol/L (22-29); Chloride 111 mmol/L (96-108); Cholesterol 254 mg/dL (<200); Estimated Glomerular Filt Rate > 60; Glucose Random 111 mg/dL (60-115); HDL Cholesterol 40 mg/dL (>40); Iron 183 mcg/dL (45-160); LDL Cholesterol Calculated 144 mg/dL (<100); Percent Iron Saturation 50 % (15-50); Potassium 4.2 mmol/L (3.3-5.1); Sodium 141 mmol/L (135-145); Total Iron Binding Capacity 366 mcg/dL (228-428); Total Protein 7.4 g/dL (6.5-8.0); Triglycerides 354 mg/dL (<150); Unsaturated Iron Binding 183 ug/dL
[2023-10-09 13:36] LABS: CT PCR NOT DETECTED (Not Detect.); NG PCR NOT DETECTED (Not Detect.)
[2023-10-09 15:05] LABS: Folate 4.8 ng/mL (> or = 4.0); Vitamin B12 199 pg/mL (200-900)
[2023-10-10 08:43] LABS: Syphilis Screen Nonreactive (Nonreactive)
[2023-10-10 09:40] LABS: HBS Num1 > 1000.00 mIU/mL (0-7.99); HBc Num1 0.07 S/CO (0.00-0.79); HBsAGNum1 0.29 S/CO (0.00-0.99); HIV AB/AG Nonreactive (Nonreactive); HIV Num 1 0.06 S/CO (0.00-0.99); Hepatitis B Core Antibody Nonreactive (Nonreactive); Hepatitis B Surface Antigen Negative (Negative); ~HepC Num1 0.12 S/CO (0.00-0.79); ~Hepatitis B Surface Antibody REACTIVE (Nonreactive); ~Hepatitis C Antibody Nonreactive (Nonreactive)
== END 2023-10-09 08:01 | disposition home or self-care (01) ==
LOC: HO.HHCL 08:00
PROVIDERS: Visit Provider Student in an Organized Health Care Education/Training Program
DX: Z00.00 Encounter for general adult medical examination without abnormal findings (principal)
CPT/HCPCS: 36415; 80053; 80061; 82607; 82728; 82746; 83036; 83540; 84443; 85027; 86140; 86704; 86706; 86780; 86803; 87340; 87389; 87491; 87591

== ENCOUNTER 2023-10-23 10:17 | Outpatient (AMB) | payer MEDICAID, SELFPAY ==
--- NOTE | 2023-10-23 10:32 | MHC.OFFVIS ---
Intake Visit Reasons: nephrolithiasis(IMAGING 08/08) Intake Note: New patient is present for Nephrolithiasis/ Exophtic Cyst/Kidney Stone Ultrasound completed: 08/08/23 Urology Med:None Antibiotic Allergies: None Blood Thinner: None Patient states that currently he is not in pain, currently Asymptomatic. Patient reports there is some pain time to time but nothing to bad. Patient reports that he has a history of kidney stones. Reports that he is not on medications for bladder,prostate or stones. Billing Supervisor Required: No Accompanied by: Self / Same As Patient Allergies No Known Allergies Allergy (Verified 10/23/23 10:46) Medication List - Last Reconciled 10/23/23 by Jerome Cutler MD amlodipine 10 mg PO DAILY amlodipine 5 mg PO DAILY ascorbic acid (vitamin C) 250 mg PO QAM carbamide peroxide 6.5% (Ear Drops (carbamide peroxide)) drps otic (ears) cetirizine 10 mg PO DAILY escitalopram oxalate 20 mg PO QAM ferrous gluconate 324 mg PO QAM multivitamin 1 tab PO DAILY nicotine (polacrilex) 2 mg PO omega 2-qhi-bfc-fish oil 300 mg (120 mg- 180mg)-1,000 mg 1 cap PO DAILY omeprazole 20 mg PO QAM propranolol ER 60 mg PO QAM sodium chloride 0.65% (Deep Sea Nasal) 1 spray intranasal DAILY PRN HPI Comments Details: Cortez is a 53-year-old male who is here has been evaluation due to history of kidney stones. History of nicotine use. The patient states that he has had kidney stones for over 10 years. He has previously passed stones. I have reviewed renal ultrasound 07/2023, 4 mm nonobstructing right renal stone and 0.7 cm exophytic simple left renal cyst. The patient states that he drinks a lot of water with lemon. I have discussed checking a 24 hour urine collection and will continue to monitor kidney stone. [facility] Medical History (Updated 10/23/23 @ 11:30 by Jerome Cutler MD) Renal lesion Skin lesion Anemia, unspecified Tremor of both hands Hyperlipidemia Nicotine dependence, cigarettes, uncomplicated History of colon polyps (~2017) Microscopic hematuria Nephrolithiasis Depression HTN (hypertension) GERD (gastroesophageal reflux disease) Surgical History History of excision of pilonidal cyst History of esophagogastroduodenoscopy (EGD) History of colonoscopy Family History Father Oral cancer Maternal Grandmother Bicuspid aortic valve Mother Heart problem Social History Alcohol intake: former Patient Tobacco Use Status: Current everyday Tobacco user Tobacco use type: Cigarette Cigarette Packs Per Day: 0.5 Cigarettes Per Day: 10.0 Years Smoked: (onset 15yo, 1/2-1ppd x 37yrs, 25+PYH) Second Hand Smoke Exposure: No Review of Systems Const All systems reviewed & are unremarkable except as noted in HPI and below Reports no additional complaints Eyes Reports no additional complaints ENT Reports no additional complaints Card Reports no additional complaints Resp Reports no additional complaints GI Reports no additional complaints Reports as per HPI Musc Reports no additional complaints Skin/Breast Reports system reviewed and no additional complaints, except as documented Neuro Reports no additional complaints Psych Reports no additional complaints Endo Reports no additional complaints Tomer/Lymph Reports no additional complaints Aller/Immun Reports no additional complaints Physical Exam Const General: healthy appearing, no acute distress and well developed Orientation/consciousness: patient oriented x3 HEENT Head: Yes normocephalic and Yes atraumatic Eyes Conjunctivae: conjunctivae normal Neck Neck: Yes normal visual inspection Chest Chest palpation & inspection: normal inspection of the chest Resp Effort & Inspection: normal respiratory effort Cardio Jugular venous distension: no JVD GI Inspection: Yes normal to inspection Neuro General: patient oriented x3 Psych Appearance: grossly normal Affect: normal affect Results AMB Urinalysis, Automated UA Leukoctes 0 Leah/uL Last Edit by MARCO A Sanchez on 10/23/23 11:13 UA Nitrite Negative Last Edit by MARCO A Sanchez on 10/23/23 11:13 UA Urobilinogen 0.2 mg/dL Last Edit by MARCO A Sanchez on 10/23/23 11:13 UA Protein 15 mg/dL Last Edit by MARCO A Sanchez on 10/23/23 11:13 UA pH 5.5 Last Edit by MARCO A Sanchez on 10/23/23 11:13 UA Blood 0 Jimbo/uL Last Edit by Gogo Givens, PAOLAA on 10/23/23 11:13 UA Specific Hermon 1.025 Last Edit by Gogo Givens, MARCO A on 10/23/23 11:13 UA Ketone Negative Last Edit by MARCO A Sanchez on 10/23/23 11:13 UA Bilirubin 0 mg/dL Last Edit by Gogo Givens PAOLAA on 10/23/23 11:13 UA Glucose 0 mg/dL Last Edit by Gogo Givens MARCO A on 10/23/23 11:13 Results Reviewed Results Reviewed: Date of Service: 08/08/23 EXAMINATION: US RETROPERITONEAL LIMITED (RENAL ONLY) CLINICAL INFORMATION: Noted in CT abdomen left kidney lesion of 0.8 cm described as exophytic lesion. COMPARISON: Ultrasound abdomen 10/18/2016. CT abdomen and pelvis 04/04/2011. TECHNIQUE: Real-time imaging of the kidneys. FINDINGS: RIGHT KIDNEY: 11.8 x 5.0 x 5.0 cm (SAG x AP x TRV). The kidney is normal in size, contour, and echogenicity. Renal cortical thickness is normal. No focal parenchymal lesions or hydronephrosis. 0.4 x 0.2 x 0.4 cm nonobstructing calculus is seen in the mid to lower pole. LEFT KIDNEY: 12.0 x 6.1 x 5.1 cm (SAG x AP x TRV). The kidney is normal in size, contour, and echogenicity. Renal cortical thickness is normal. No renal calculi or hydronephrosis. 0.5 x 0.4 x 0.7 cm simple exophytic cyst is seen in the mid kidney, no imaging follow-up is recommended. IMPRESSION: 1. 0.4 cm nonobstructing calculus in the mid to lower pole of the right kidney. 2. 0.7 cm simple exophytic cyst in the mid left kidney, no imaging follow-up is recommended. Assessment & Plan Assessment & Plan (1) Renal cyst: Code(s): N28.1 - Cyst of kidney, acquired Category: Medical (2) Nephrolithiasis: Code(s): N20.0 - Calculus of kidney Category: Medical (3) History of nicotine use: Code(s): Z87.891 - Personal history of nicotine dependence Category: Medical Plan Reviewed renal ultrasound 08/08/2023, 4 mm nonobstructing right renal stone and 0.7 cm exophytic simple left renal cyst. The patient states that he drinks a lot of water with lemon. I have discussed checking a 24 hour urine collection and will continue to monitor kidney stone. Orders: Orders AMB Urinalysis Automated Today Z13.9 - Encounter for screening, unspecified Patient Instructions: The patient had an opportunity to ask questions regarding treatment plan. The patient expressed understanding and agreement with the above treatment plan. The patient is aware they should contact our office by phone for worsening of their current condition or the appearance of new symptoms. Compliance is encouraged with any medications and followup testing that is ordered. It is a privilege to be allowed the opportunity to participate in the urologic care of your patient. If you have any questions or concerns regarding treatment for the above conditions please do not hesitate to contact me. The office telephone contact is [phone]. This note is constructed in part using voice recognition software. While every effort has been made to ensure accuracy high school guidance counselor errors may have been included. Yours sincerely, Jerome Cutler MD Coding Level of Care Code New Pt Level 3 (28909) Diagnoses Renal cyst N28.1 Nephrolithiasis N20.0 History of nicotine use Z87.891
== END 2023-10-23 11:23 | disposition home or self-care (01) ==
PROVIDERS: PCP Student in an Organized Health Care Education/Training Program; Visit Provider Urology
DX: N28.1 Cyst of kidney, acquired (principal); N20.0 Calculus of kidney; Z87.891 Personal history of nicotine dependence; Z13.9 Encounter for screening, unspecified
CPT/HCPCS: 99203

== ENCOUNTER → 2023-10-23 10:17 | Outpatient (BNVA) | payer MEDICAID, SELFPAY | PROVIDERS: PCP Student in an Organized Health Care Education/Training Program; Visit Provider Urology | DX: N28.1 Cyst of kidney, acquired (principal); N20.0 Calculus of kidney; Z87.891 Personal history of nicotine dependence | CPT/HCPCS: 81003; 99202 ==

== ENCOUNTER 2023-12-25 14:30 | Outpatient (REF) | payer MEDICAID, SELFPAY ==
--- NOTE | ~2023-12-25 | CT_ITS ---
EXAMINATION: CT LOW-DOSE SCREENING CHEST WITHOUT CONTRAST CLINICAL INFORMATION: Nicotine dependence, cigarettes, uncomplicated. The patient is a current smoker with a 38 pack-year history of smoking. COMPARISON: CT chest November 08, 2022. TECHNIQUE: Multidetector volumetric CT imaging of the chest is performed on a Siemens SOMATOM Definition scanner without contrast using low dose technique. Additional 2D coronal and sagittal reformatted images and axial 3D maximum intensity projection (MIP) images are generated on the CT workstation. This CT examination was performed using dose optimization techniques as appropriate, variously including the following: *Automated exposure control *Adjustment of mA and/or kV according to patient size (this includes techniques or standardized protocols for targeted exams where dose is matched to indication/reason for exam; i.e. extremities or head) *Use of iterative reconstruction technique TOTAL EXAM DLP: 50 mGy-cm. CTDIvol: 1.43 mGy. FINDINGS: PULMONARY NODULES: No suspicious pulmonary nodules. LUNGS: Lungs bilaterally symmetrically expanded. There is mild emphysema and bronchial thickening without bronchiectasis. No effusion or pneumothorax. Central airways patent. MEDIASTINUM: No mediastinal, hilar or axillary adenopathy or free fluid collection. CORONARY ARTERY CALCIFICATION: None visualized on this study. THYROID GLAND: Unremarkable to the extent seen. CARDIOVASCULAR STRUCTURES: There is an aberrant right subclavian artery. Aortic and heart size normal. No pericardial effusion. CHEST WALL/AXILLA: Unremarkable. UPPER ABDOMEN: Included portions of the solid organs in the upper abdomen unremarkable on noncontrast imaging. Fat-containing left adrenal adenoma is unchanged and needs no additional imaging or follow-up. OSSEOUS STRUCTURES: No suspicious focal findings. CT/CT lung screening IMPRESSION: No findings seen suspicious for malignancy. ASSESSMENT: 1. Lung-RADS Category 1: Negative. There are no nodules or there are definitely benign nodules. N/A 2. Lung-RADS Category S: Negative. There are no clinically significant or potentially clinically significant findings not related to the lungs requiring urgent additional evaluation. RECOMMENDATION: Continued routine annual low-dose CT lung screening in 1 year is recommended. An order for CT CHEST LOW DOSE CANCER SCREENING ([id number]) can be placed. Electronically signed by: Tarun Cotton MD 02/06/2024 11:23 PM [facility]
== END 2023-12-25 14:31 | disposition home or self-care (01) ==
LOC: HO.CT 14:30
PROVIDERS: PCP Student in an Organized Health Care Education/Training Program; Visit Provider Physician Assistant Medical
DX: Z12.2 Encounter for screening for malignant neoplasm of respiratory organs (principal); F17.210 Nicotine dependence, cigarettes, uncomplicated
CPT/HCPCS: 71271

== ENCOUNTER 2024-01-08 08:02 | Outpatient (REF) | payer MEDICAID, SELFPAY ==
[2024-01-08 11:10] LABS: Hematocrit 44.6 % (42.0-52.0); Hemoglobin 15.3 g/dl (14.0-18.0); Mean Corpuscular HGB Conc 34.3 g/dl (31.0-36.0); Mean Corpuscular Hemoglobin 34.5 pg (27.0-33.0); Mean Corpuscular Volume 100.7 fL (80.0-98.0); Mean Platelet Volume 9.9 fL (9.4-12.4); Platelet Count 332 X10*3/uL (160-400); Red Blood Count 4.43 X10*6/uL (4.60-5.80); Red Cell Distribution Width 14.1 % (11.0-16.0); White Blood Count 6.9 X10*3/uL (4.8-10.8)
[2024-01-08 11:33] LABS: Alanine Aminotransferase 25 U/L (0-40); Albumin Level 4.2 g/dL (3.5-5.0); Alkaline Phosphatase 107 U/L (39-117); Anion Gap 11 (12-20); Aspartate Amino Transferase 32 U/L (5-37); Bilirubin Total 0.3 mg/dL (0.0-1.0); Blood Urea Nitrogen 8 mg/dL (9-16); Calcium 9.8 mg/dL (8.4-10.2); Carbon Dioxide 24 mmol/L (22-29); Chloride 110 mmol/L (96-108); Cholesterol 193 mg/dL (<200); Estimated Glomerular Filt Rate > 60; Glucose Random 110 mg/dL (60-115); HDL Cholesterol 40 mg/dL (>40); Iron 56 mcg/dL (45-160); LDL Cholesterol Calculated 123 mg/dL (<100); Percent Iron Saturation 17 % (15-50); Potassium 3.9 mmol/L (3.3-5.1); Sodium 141 mmol/L (135-145); Total Iron Binding Capacity 333 mcg/dL (228-428); Total Protein 7.4 g/dL (6.5-8.0); Triglycerides 154 mg/dL (<150); Unsaturated Iron Binding 277 ug/dL
[2024-01-08 11:48] LABS: Creatinine Urine 194.82 mg/dL; Microalbum/Creatinine Ratio Ur 7.1 ug/mg cr (<30)
[2024-01-08 11:53] LABS: Ferritin 105 ng/mL (20-250)
[2024-01-08 12:05] LABS: Vitamin B12 486 pg/mL (200-900)
== END 2024-01-08 08:03 | disposition home or self-care (01) ==
LOC: HO.HHCL 08:02
PROVIDERS: Visit Provider Student in an Organized Health Care Education/Training Program
DX: D64.9 Anemia, unspecified (principal); E78.5 Hyperlipidemia, unspecified; I10 Essential (primary) hypertension
CPT/HCPCS: 36415; 80053; 80061; 82043; 82570; 82607; 82728; 82746; 83540; 85027

== ENCOUNTER 2024-01-22 09:43 | Outpatient (AMB) | payer MEDICAID, SELFPAY ==
--- NOTE | 2024-01-22 09:40 | MHC.OFFVIS ---
Intake Visit Reasons: 3m/[facility] Intake Note: Patient is present for 3M/[facility] U[facility] Medication:NONE Antibiotic Allergy:NONE Blood Thinner:NONE Private Branch Exchange Operator Required: No Allergies No Known Allergies Allergy (Verified 01/22/24 09:42) Medication List - Last Reconciled 01/22/24 by Jerome Cutler MD amlodipine 10 mg PO DAILY amlodipine 5 mg PO DAILY ascorbic acid (vitamin C) 250 mg PO QAM carbamide peroxide 6.5% (Ear Drops (carbamide peroxide)) drps otic (ears) cetirizine 10 mg PO DAILY escitalopram oxalate 20 mg PO QAM ferrous gluconate 324 mg PO QAM multivitamin 1 tab PO DAILY nicotine (polacrilex) 2 mg PO omega 1-otj-fec-fish oil 300 mg (120 mg- 180mg)-1,000 mg 1 cap PO DAILY omeprazole 20 mg PO QAM propranolol ER 60 mg PO QAM sodium chloride 0.65% (Deep Sea Nasal) 1 spray intranasal DAILY PRN HPI Comments Details: 01/22/24--telehealth video follow-up, history of nephrolithiasis. Discussed 24 hour urine results: Total volume 1.6 L, Calcium 80 mg; Oxalate 34 mg, Sodium 95, Citrate 338 mg. Instructed on importance of fluid intake, Low oxalate diet, low sodium diet. Discussed increase fluids, increase citrate in the diet. Plan monitor kidneys. PSA screening. Follow-up in 1 year renal ultrasound and PSA prior. 10/23/23--Cortez is a 53-year-old male who is here has been evaluation due to history of kidney stones. History of nicotine use. The patient states that he has had kidney stones for over 10 years. He has previously passed stones. I have reviewed renal ultrasound 07/2023, 4 mm nonobstructing right renal stone and 0.7 cm exophytic simple left renal cyst. The patient states that he drinks a lot of water with lemon. I have discussed checking a 24 hour urine collection and will continue to monitor kidney stone. [facility] Medical History Renal lesion Skin lesion Anemia, unspecified Tremor of both hands Hyperlipidemia Nicotine dependence, cigarettes, uncomplicated History of colon polyps (~2017) Microscopic hematuria Nephrolithiasis Depression HTN (hypertension) GERD (gastroesophageal reflux disease) Surgical History History of excision of pilonidal cyst History of esophagogastroduodenoscopy (EGD) History of colonoscopy Family History Father Oral cancer Maternal Grandmother Bicuspid aortic valve Mother Heart problem Social History Alcohol intake: former Patient Tobacco Use Status: Current everyday Tobacco user Tobacco use type: Cigarette Cigarette Packs Per Day: 0.5 Cigarettes Per Day: 10.0 Years Smoked: (onset 15yo, 1/2-1ppd x 37yrs, 25+PYH) Second Hand Smoke Exposure: No Review of Systems Const All systems reviewed & are unremarkable except as noted in HPI and below Reports no additional complaints Eyes Reports no additional complaints ENT Reports no additional complaints Card Reports no additional complaints Resp Reports no additional complaints GI Reports no additional complaints Reports as per HPI Musc Reports no additional complaints Skin/Breast Reports system reviewed and no additional complaints, except as documented Neuro Reports no additional complaints Psych Reports no additional complaints Endo Reports no additional complaints Tomer/Lymph Reports no additional complaints Aller/Immun Reports no additional complaints Telehealth Telehealth Telehealth Platform: [facility] Location of provider rendering services: practice address Location of patient: address on file Patient Identification confirmed using: Name, : Yes Telehealth method: video Patient verbally consented to treatment: Yes Patient verbally consented to billing insurance company: Yes Patient informed of any privacy concerns related to visit: Yes Results Reviewed Results Reviewed: Date of Service: 08/08/23 EXAMINATION: US RETROPERITONEAL LIMITED (RENAL ONLY) CLINICAL INFORMATION: Noted in CT abdomen left kidney lesion of 0.8 cm described as exophytic lesion. COMPARISON: Ultrasound abdomen 10/18/2016. CT abdomen and pelvis 04/04/2011. TECHNIQUE: Real-time imaging of the kidneys. FINDINGS: RIGHT KIDNEY: 11.8 x 5.0 x 5.0 cm (SAG x AP x TRV). The kidney is normal in size, contour, and echogenicity. Renal cortical thickness is normal. No focal parenchymal lesions or hydronephrosis. 0.4 x 0.2 x 0.4 cm nonobstructing calculus is seen in the mid to lower pole. LEFT KIDNEY: 12.0 x 6.1 x 5.1 cm (SAG x AP x TRV). The kidney is normal in size, contour, and echogenicity. Renal cortical thickness is normal. No renal calculi or hydronephrosis. 0.5 x 0.4 x 0.7 cm simple exophytic cyst is seen in the mid kidney, no imaging follow-up is recommended. IMPRESSION: 1. 0.4 cm nonobstructing calculus in the mid to lower pole of the right kidney. 2. 0.7 cm simple exophytic cyst in the mid left kidney, no imaging follow-up is recommended. Assessment & Plan Assessment & Plan (1) Nephrolithiasis: Code(s): N20.0 - Calculus of kidney Category: Medical (2) Renal cyst: Code(s): N28.1 - Cyst of kidney, acquired Category: Medical (3) Screening PSA (prostate specific antigen): Code(s): Z12.5 - Encounter for screening for malignant neoplasm of prostate Category: Medical Plan Discussed increase fluids, increase citrate in the diet. Plan monitor kidneys. PSA screening. Follow-up in 1 year renal ultrasound and PSA prior. Orders: Orders US renal BI 11 Months N20.0 - Calculus of kidney, N28.1 - Cyst of kidney, acquired PSA,Total (Free>4and<10) 10 Months Z12.5 - Encounter for screening for malignant neoplasm of prostate Patient Instructions: The patient had an opportunity to ask questions regarding treatment plan. The patient expressed understanding and agreement with the above treatment plan. The patient is aware they should contact our office by phone for worsening of their current condition or the appearance of new symptoms. Compliance is encouraged with any medications and followup testing that is ordered. It is a privilege to be allowed the opportunity to participate in the urologic care of your patient. If you have any questions or concerns regarding treatment for the above conditions please do not hesitate to contact me. The office telephone contact is [phone]. This note is constructed in part using voice recognition software. While every effort has been made to ensure accuracy wrapper selector errors may have been included. Yours sincerely, Jerome Cutler MD Coding Level of Care Code Tele Est Pt Level 4 (63477) Diagnoses Nephrolithiasis N20.0 Renal cyst N28.1 Screening PSA (prostate specific antigen) Z12.5
== END 2024-01-22 10:35 | disposition home or self-care (01) ==
LOC: HO.HUSH 09:43
PROVIDERS: PCP Student in an Organized Health Care Education/Training Program; Visit Provider Urology
DX: N20.0 Calculus of kidney (principal); N28.1 Cyst of kidney, acquired; Z12.5 Encounter for screening for malignant neoplasm of prostate
CPT/HCPCS: 99214

== ENCOUNTER 2024-04-27 08:09 | Outpatient (REF) | payer MEDICAID, SELFPAY ==
--- OUTSIDE RECORDS SUMMARY | 2024-04-27 08:20 | XMS_ITS | Patient Health Record ---
Author Organization [facility] Address [address] [place] [address] Care Team Providers Care Technical Program Manager Name Role Phone Keli Montalvo Primary Care Provider Darshan Ball [phone] ALLERGIES Allergen (clinical drug ingredient) Drug/Non Drug Allergy documented on EMR Reaction Allergy Type Onset Date Status seasonal (uncoded) Unknown Allergy A ctive REASON FOR REFERRAL No Information MEDICATIONS Medication SIG (Take, Route, Frequency, Duration) Notes Start Date End Date Status Escitalopram Oxalate 10 MG TAKE 1 TABLET BY MOUTH DAILY IN THE MORNING Oral for 30 Active Tylenol Allergy Sinus Not-Taking Multi Vitamin/Minerals Active amLODIPine Besylate 10 MG 1 tablet Orall y Once a day Active Omeprazole 20 MG 1 capsule Orally Onc e a day for 30 day(s) 12/27/2016 Active ibuprofen Active SOCIAL HISTORY Tobacco Use: Social History Observation Description Date Details (start date - stop date) Current Smoker NA - NA Sex Assigned At : Social History Observation Description Sex Assigned At Unknown Tobacco Use/Smoking Question Answer Notes Patient is a current smoker How often do you smoke cigarettes? every day How many cigarettes a day do you smoke? 5 or les s How soon after you wake up do you smoke your fir st cigarette? after 60 minutes Are you interested in quitting? Ready to quit Alcohol Screen Question Answer Notes Did you have a drink contain ing alcohol in the past year? Yes How often did you have a dri nk containing alcohol in the past year? 2 to 4 times a month (2 points) How many drinks did you have on a typical day when you were drinking in the past year? 1 or 2 drinks (0 point) How often did you have 6 or more drinks on one occasion in the past year? Never (0 point) Points 2 Interpretation Negative PROBLEMS Problem Type ICD Code Onset Dates Problem Status W/U Status Risk SNOMED Code Notes Problem Gastroesophageal reflux disease, esophagitis presence not specified (K21.9) Active confirmed 657117833 Problem Abdominal pain, epigastric (R10.13) Active confirmed 44296183 Problem Irritable bowel syndrome, unspecified type (K58.9) Active confirmed 83750150 Problem Family history of colon cancer (Z80.0) Active confirmed 138589410 Problem Encounter for screening for malignant neoplasm of colon (Z12.11) Active confirmed 101700409 Problem Gastroesophageal reflux disease with esophagitis without hemorrhage (K21.00) Active confirmed 542322445 Problem Diverticulosis of large intestine without perforation or abscess without bleeding (K57.30) Active confirmed Diverticul ar disease of colon (882448429) PLAN OF TREATMENT Future Test Test Name Order Date UPPER GI ENDOSCOPY 12/27/2016 COLONOSCOPY 12/27/2016 COLONOSCOPY 11/26/2022 Insurance Providers Payer Name Payer Address Payer Phone Subscriber Number Group Number Insured Name Patient Relationship to Insured Coverage Start Date Coverage End Date [facility]ICA[facility] [address] [place] [address] [id number] JAROD HUSSEIN Self - patient is the insured MEDICAL (GENERAL) HISTORY Medical History History ICD Code Hypertension Nephrolithiasis Denies ME,DM,CVA,Lung disease,renal dise ase Depression GERD--upper endoscopy in Feb revealed a small hiatal hernia and some erosive esophagitis, but biopsies were negative for Girard's esophagus Colonoscopy in February revealed only a hyperplastic polyp that was removed. Surgical History Surgery Date(Month/Year) Pilonidal cyst excision
--- OUTSIDE RECORDS SUMMARY | 2024-04-27 08:21 | XMS_ITS ---
Author Organization [facility] Address [address] [place] [address] Care Team Providers Care Trial Examiner Name Role Phone Keli Montalvo Primary Care Provider Darshan Ball [phone] ALLERGIES Allergen (clinical drug ingredient) Drug/Non Drug Allergy documented on EMR Reaction Allergy Type Onset Date Status seasonal (uncoded) Unknown Allergy A ctive REASON FOR VISIT Patient presents today for a COLON SCREENING MEDICATIONS Medication SIG (Take, Route, Frequency, Duration) Notes Start Date End Date Status Escitalopram Oxalate 10 MG TAKE 1 TABLET BY MOUTH DAILY IN THE MORNING Oral for 30 Active Tylenol Allergy Sinus Not-Taking Multi Vitamin/Minerals Active Omeprazole 20 MG 1 capsule Orally Onc e a day for 30 day(s) 12/27/2016 Active ibuprofen Active amLODIPine Besylate 10 MG 1 tablet Orall y Once a day Active SOCIAL HISTORY Tobacco Use: Social History [...] Risk SNOMED Code Notes Problem Gastroesophageal reflux disease with esophagitis without hemorrhage (K21.00) Active confirmed 627755002 VITAL SIGNS BMI 23.63 kg/m2 11/26/2022 Blood pressure systolic 000 mm Hg 11/27/19 23 Blood pressure diastolic 00 mm Hg 023 Height 69 in 11/26/2022 Temperature 99.3 degrees Fahrenheit 11/27/19 23 Weight 160 lbs 11/26/2022 Encounters Encounter Location Date Provider Diagnosis [facility] [address] [place] [address] 11/26/2022 Darshan Khan Family history of co angela cancer Z80.0 ; Gastroesophageal reflux disease with esophagitis without hemorrhage K21.00 and Encounter for screening for malignant neoplasm of colon Z12.11 ASSESSMENTS Encounter Date Diagnosis Assessment Notes Treatment Notes Treatment Clinical Notes 11/26/2022 Family history of co angela cancer (ICD-10 - Z80.0) 11/26/2022 Gastroesophageal ref lux disease with esophagitis without hemorrhage (ICD-10 - K21.00) 11/26/2022 Encounter for screen ing for malignant neoplasm of colon (ICD-10 - Z12.11) PLAN OF TREATMENT Future Test Test Name Order Date COLONOSCOPY 11/26/2022 Next Appt Details Follow Up: prn, Reason: Progress Notes * Examination Category Sub-Category Detail Notes General Examination GENERAL APPEARANCE: pleasant , well nourished, well developed, in no acute distress HEAD: EYES: sclera non-icteric EARS: NOSE: THROAT: NECK/THYROID: no cervical lymphade nopathy, neck supple HEART: S1, S2 normal CHEST: LUNGS: clear to auscultatio n bilaterally ABDOMEN: normal bowel sounds, no guarding or rigidity, no guarding or rigidity, no masses palpable, soft, nontender, nondistended NEUROLOGIC: alert and oriented SKIN: nonjaundiced, no spi geoff angiomata EXTREMITIES: no edema PERIPHERAL PULSES: BACK: BREASTS: MUSCULOSKELETAL: MALE GENITOURINARY: LYMPH NODES: RECTAL EXAM: FEMALE GENITOURINARY: ORAL CAVITY: mucosa moist
--- OUTSIDE RECORDS SUMMARY | 2024-04-27 08:21 | XMS_ITS ---
Author Organization [facility] Address [address] [place] [address] Care Team Providers Care Vehicle Upholsterer Name Role Phone Keli Montalvo Primary Care Provider Darshan Ball [phone] REASON FOR VISIT Address path Encounters Encounter Location Date Provider Diagnosis [facility] [address] [place] [phone] 03/06/2023 Darshan Khan PLAN OF TREATMENT No Information
--- OUTSIDE RECORDS SUMMARY | 2024-04-27 08:21 | XMS_ITS ---
Author Organization [facility] Address [address] [place] [address] Care Team Providers Care Materials Planning Manager Name Role Phone Keli Montalvo Primary Care Provider Darshan Ball [phone] REASON FOR VISIT screening,fam hx colon ca PROBLEMS Problem Type ICD Code Onset Dates Problem Status W/U Status Risk SNOMED Code Notes Problem Diverticulosis of large intestine without perforation or abscess without bleeding (K57.30) Active confirmed Diverticul ar disease of colon (351017641) Encounters Encounter Location Date Provider Diagnosis [facility] [place] [facility] [address] [place], [place] [id number] 01/24/2023 Darshan Khan Encounter for scre ening colonoscopy Z12.11 ; Colon polyps K63.5 ; Family history of colon cancer Z80.0 ; Diverticulosis of large intestine without perforation or abscess without bleeding K57.30 and Other hemorrhoids K64.8 ASSESSMENTS Encounter Date Diagnosis Assessment Notes Treatment Notes Treatment Clinical Notes 01/24/2023 Encounter for screening colonoscopy (ICD-10 - Z12.11) 01/24/2023 Colon polyps (ICD-10 - K63.5) 01/24/2023 Family history of colon cancer (ICD-10 - Z80.0) 01/24/2023 Diverticulosis of large intestine without perforation or abscess without bleeding (ICD-10 - K57.30) 01/24/2023 Other hemorrhoids (ICD-10 - K64.8) PLAN OF TREATMENT No Information
[2024-04-27 11:14] LABS: Hematocrit 44.3 % (42.0-52.0); Hemoglobin 14.9 g/dl (14.0-18.0); Mean Corpuscular HGB Conc 33.6 g/dl (31.0-36.0); Mean Corpuscular Hemoglobin 34.3 pg (27.0-33.0); Mean Corpuscular Volume 101.8 fL (80.0-98.0); Mean Platelet Volume 10.3 fL (9.4-12.4); Platelet Count 290 X10*3/uL (160-400); Red Blood Count 4.35 X10*6/uL (4.60-5.80)
[2024-04-27 11:26] LABS: Alanine Aminotransferase 42 U/L (0-40); Albumin Level 4.2 g/dL (3.5-5.0); Alkaline Phosphatase 100 U/L (39-117); Anion Gap 10 (12-20); Aspartate Amino Transferase 37 U/L (5-37); Bilirubin Total 0.5 mg/dL (0.0-1.0); Blood Urea Nitrogen 8 mg/dL (9-16); Calcium 9.2 mg/dL (8.4-10.2); Carbon Dioxide 27 mmol/L (22-29); Chloride 109 mmol/L (96-108); Cholesterol 173 mg/dL (<200); Estimated Glomerular Filt Rate > 60; Glucose Random 109 mg/dL (60-115); HDL Cholesterol 42 mg/dL (>40); LDL Cholesterol Calculated 96 mg/dL (<100); Potassium 4.1 mmol/L (3.3-5.1); Sodium 142 mmol/L (135-145); Total Protein 7.5 g/dL (6.5-8.0); Triglycerides 178 mg/dL (<150)
== END 2024-04-27 08:10 | disposition home or self-care (01) ==
LOC: HO.HHCL 08:09
PROVIDERS: Visit Provider Student in an Organized Health Care Education/Training Program
DX: E78.5 Hyperlipidemia, unspecified (principal); D75.89 Other specified diseases of blood and blood-forming organs
CPT/HCPCS: 36415; 80053; 80061; 85027

== ENCOUNTER 2024-07-09 12:20 | Outpatient (REF) | payer MEDICAID, SELFPAY ==
--- OUTSIDE RECORDS SUMMARY | 2024-07-09 13:03 | XMS_ITS | Clinical Summary ---
Author Organization [employer] Address [address] [place] [address] Care Team Providers Care Data Systems Manager Name Role Phone Keli Montalvo MD Primary Care Pro vider Allergies No known active allergies Medications * This document contains information received from the source organization and may not represent a complete record from that organization. nicotine polacrilex (Nicorelief) 2 MG gum Chew 1 each (2 mg) if needed for smoking cessation. 100 each 01/14/20 23 Active Multiple Vitamin (multivitamin) tablet TAKE 1 TABLET BY MOUTH EVERY MORNING 90 tablet 1 01/14/20 24 Active acetaminophen (Tylenol) 500 MG tablet Take 1 tablet (500 mg) by mouth every 6 (six) hours if needed for mild pain for up to 20 doses. 20 tablet 02/04/20 24 Active omeprazole (PriLOSEC) [address] capsule TAKE 1 CAPSULE BY MOUTH BEFORE BREAKFAST. DO NOT CRUSH OR CHEW. 90 capsule 1 02/10/20 24 Active escitalopram (Lexapro) 20 MG tablet TAKE 1 TABLET BY MOUTH EVERY MORNING 90 tablet 1 02/10/20 24 Active propranolol LA (Inderal LA) 60 MG 24 hr capsule TAKE 1 CAPSULE BY MOUTH EVERY MORNING. DO NOT CRUSH, CHEW OR SPLIT. 90 capsule 1 02/10/20 24 Active tretinoin (Retin-A) 0.025 % creamIndicatio ns:Epidermoid cyst Apply topically at bedtime. 45 g 2 02/17/20 24 12/03/2 025 Active atorvastatin (Lipitor) 20 MG tablet Take 1 tablet (20 mg) by mouth Once per day. 90 tablet 04/16/19 25 026 Active cyanocobalamin (Vitamin B-12) 500 MCG tablet Take 1 tablet (500 mcg) by mouth Once per day. 90 tablet 1 04/27/19 25 026 Active cetirizine (ZyrTEC) 10 MG tablet Take 1 tablet (10 mg) by mouth Once per day. 90 tablet 04/27/19 25 025 Active omega-3 (Ultra Rebecca 3) 1000 MG capsule TAKE 1 CAPSULE BY MOUTH EVERY DAY 90 capsule 1 05/20/19 25 Active amLODIPine (Norvasc) 5 MG tablet TAKE 1 TABLET BY MOUTH EVERY DAY 90 tablet 06/16/19 25 Active Ascorbic Acid (vitamin C) 250 MG tablet Take 1 tablet (250 mg) by mouth 3 (three) times a week. 40 tablet 07/10/19 25 Active sodium chloride ([place] Nasal [place]) 0.65 % nasal spray Administer 1 spray into each nostril if needed for congestion. 30 mL 2 07/10/19 25 026 Active ferrous gluconate (Fergon) 324 (38 Fe) MG tablet Take 1 tablet (324 mg) by mouth 3 (three) times a week. 40 tablet 07/10/19 25 Active sodium chloride ([place] Nasal [place]) 0.65 % nasal spray Administer 1 spray into each nostril if needed for congestion. 30 mL 2 07/15/19 24 025 Discontinued(Re order (will not trigger notification to Pharmacy)) tretinoin (Retin-A) 0.025 % creamIndicatio ns:Milium Apply topically at bedtime. 45 g 11 09/23/19 24 025 Discontinued(Ot her) amLODIPine (Norvasc) 5 MG tablet TAKE 1 TABLET BY MOUTH EVERY DAY 90 tablet 03/09/20 24 025 Discontinued(Re order (will not trigger notification to Pharmacy)) ferrous gluconate (Fergon) 324 (38 Fe) MG tablet Take 1 tablet (324 mg) by mouth 3 (three) times a week. 40 tablet 04/16/19 25 025 Discontinued(Re order (will not trigger notification to Pharmacy)) Ascorbic Acid (vitamin C) 250 MG tablet Take 1 tablet (250 mg) by mouth 3 (three) times a week. 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 The left adrenal gland contains a 2.3 x 1.8 cm benign fat containing adenoma-this requires no image follow up . No pulmonary nodules or masses . -seems from the description of mass a myelolipoma ? -will discuss w pt CT image results at upcoming visit ( obtained report after pt left ) -will check at next apt DHEAS,am cortisol,serum,urine metanephrines,aldosterone and renin -given mass is less than 4 cm,will do f up image in 3 and 6 months and then annually for 1-2 years with US vs consider endo referral at next apt Hyperlipidemia 10/04/2022 Assessment & Plan (11/15/2022 11:53 PM EDT): 08/2022 total ch 202, HDL 41, LDL 122, trig 244 ASCVD 14% ( rec x statins) -advised life style changes advised -pt refusing to start statins xnow -advised to avoid ETOH consumption -repeat fasting lipids in fasting in 5 weeks -ordered today -and will f result at next apt Assessment & Plan (10/04/2022 8:53 PM EDT): 08/2022 total ch 202, HDL 41, LDL 122, trig 244 ASCVD 14% ( rec x statins) -advised life style changes advised -pt refusing to start statins xnow -advised to avoid ETOH consumption -repeat fasting lipids and chem in 3 mo Tobacco use 09/04/2022 Assessment & Plan (11/15/2022 11:16 PM EDT): Started smoking 16 years until now -per pt currently down to 1 from 10 cigarettes a day but used to smoke x 10 years 1 PQT a day ---smoking so far x 37 years -PQT calc a year 27.7 -CT chest low dose screening 10/2022: Mild bibasilar dependent hypoaeration . There are mild atherosclerotic calcifications of the great vessels origins and thoracic aorta ,none coronary artery calcification. The left adrenal gland contains a 2.3 x 1.8 cm benign fat containing adenoma-this requires no image follow up . No pulmonary nodules or masses . -advised to continue tobacco cessation -continue nicotine patches 14 mg daily -for another 4 weeks ( to complete 8 weeks) and then will decrease to 7 mg(px today for 2 weeks) + gums -continue to monitor x cessation -will need AAA US screening at 63 y of age Assessment & Plan (10/04/2022 8:49 PM EDT): Started smoking 16 years until now -10 cigarettes a day but used to smoke x 10 years 1 PQT a day ---smoking so far x 37 years -PQT calc a year 27.7 ---currently reports x last month 5 cig a day -advised in length x tobacco cessation -pt interested in stopping -start nicotine patches 14 mg daily -will try for 8 weeks and then will decrease to 7 mg + start gums-prescribed at last visit but only tried gums -start bupropion -continue to monitor x cessation -referred to lung ca screening program -apt x 10/2022 -will need AAA US screening at 63 y of age Assessment & Plan (09/04/2022 6:06 PM EDT): Started smoking 16 years until now -10 cigarettes a day but used to smoke x 10 years 1 PQT a day ---smoking so far x 37 years -PQT calc a year 27.7 -advised in length x tobacco cessation -pt interested in stopping -start nicotine patches 14 mg daily -will try for 8 weeks and then will decrease to 7 mg + start gums -continue to monitor x cessation -referred today to lung ca screening program -will need AAA US screening at 63 y of age Alcohol abuse 09/04/2022 Assessment & Plan (11/15/2022 11:50 PM EDT): Pt w hx of heavy drinking ,later drinking once or twice a week -drinking hard liquor as vodka can finish 1 bottle a day And for the past 6 weeks stopped -had 1 glass of wine last week Does reports some withdrawal symptoms as tremors and palpitations the 1st two days that is not drinking and then feels well -advised pt to go to meetings for substance dx in [facility] building or AA meetings -pt to start care by [facility] team Assessment & Plan (10/04/2022 8:54 PM EDT): Pt w hx of heavy drinking ,now reports drinking once or twice a week -drinking hard liquor as vodka can finish 1 bottle a day Does reports some withdrawal symptoms as tremors and palpitations the 1st two days that is not drinking and then feels well -States not to be drinking for the past month -advised pt to go to AA meetings but wants to think about it -advised to go to alcohol abuse program at [facility] and pt agreed -cced today this note to [facility] team -continue to monitor -if continues drinking will start folic acid and thiamine but states not drinking x last month and normal labs Assessment & Plan (09/04/2022 6:04 PM EDT): Pt w hx of heavy drinking ,now reports drinking once or twice a week -drinking hard liquor as vodka can finish 1 bottle a day Does reports some withdrawal symptoms as tremors and palpitations the 1st two days that is not drinking and then feels well -advised pt to go to meetings for substance dx in [facility] building or AA meetings but wants to think about it-I explained about naltrexone option that can be tx there but wants to hold x now -pt to start care w therapy here Health care maintenance 09/04/2022 Assessment & Plan (11/15/2022 11:48 PM EDT): -pt reports neg Tb test -colonoscopy-per pt has polyps aprox 5 y ago told need to repeat --referred already-apt x 11/2022 -vaccines: s/P hep Bx3-immune,,covid 19x4 and Bivalent x1, p23 in 2017-S/p p20 x smoking hx ,tdap 2017,zoster vaccine x2 ----- 08/2022 : WBC wnl,lymph mild elevated to 4.142--repeat CBC today Assessment & Plan (10/04/2022 8:57 PM EDT): -pt reports neg Tb test -colonoscopy-per pt has polyps aprox 5 y ago told need to repeat but was told by GI that needs referral --referred already-apt x 11/2022 -vaccines: s/P hep Bx3-immune,,covid 19x4 and Bivalent x1, p23 in 2017-S/p p20 x smoking hx ,tdap 2017,zoster vaccine x2 ----- 08/2022 : WBC wnl,lymph mild elevated to 4.142--repeat CBC in 3 mo Assessment & Plan (09/04/2022 6:10 PM EDT): -pt reports neg Tb test -colonoscopy-per pt has polyps aprox 5 y ago told need to repeat but was told by GI that needs referral --referred today -vaccines: s/P hep Bx3,covid 19x4 and Bivalent x1, p23 in 2017-today p20 x smoking hx ,tdap 2017,zoster vaccine x2 -labs x annual exam-will RTC in fasting -pt agreed to have STI testing including HIV to have for baseline Dental calculus 05/29/2022 Dental caries extending into pulp 05/09/2022 Periodontal disease 05/09/2022 Chronic gastritis 09/23/2016 Assessment & Plan (11/15/2022 11:09 PM EDT): Chronic gastritis on PPis Father w gastric ca hx -referred to his GI to continue care --Has apt x 11/2022 Assessment & Plan (10/04/2022 8:31 PM EDT): Chronic gastritis on PPis Father w gastric ca hx -referred to his GI to continue care --Has apt x 11/2022 Assessment & Plan (09/04/2022 5:42 PM EDT): Chronic gastritis on PPis Father w gastric ca hx -referred today to his GI to continue care Essential hypertension 09/23/2016 Assessment & Plan (11/15/2022 11:50 PM EDT): BP controlled today Reports home BP < 140/90 EKG 08/2022 HR 103 NSR no ischemic findings 08/2022 Microalb neg -Continue amlodipine 5 mg daily -saw business services intern in 05/2022 Normal complete exam per pt -referred to cards with non specific sporadic chest discomfort and with comorbidities --apt x 11/2022 Assessment & Plan (10/04/2022 8:55 PM EDT): BP noted mild elevated diastolic but states at home is < 140/90 On amlodipine started 4 weeks ago w no SE EKG 08/2022 HR 103 NSR no ischemic findings 08/2022 Microalb neg -Continue amlodipine 5 mg daily -will monitor BP at next visit and pt to bring home BP readings 3 times a week -saw business services intern in 05/2022 Normal complete exam per pt -referred to cards with non specific sporadic chest discomfort and with comorbidities --apt x 11/2022 Assessment & Plan (09/04/2022 6:05 PM EDT): Pt w HTN dx not taking meds given lost care Used to take amlodipine w no SE EKG today HR 103 NSR no ischemic findings -advised pt to resume amlodipine 5 mg daily -will monitor BP at next visit -saw business services intern in 05/2022 Normal complete exam per pt -microalb -referred today to cards with non specific sporadic chest discomfort and with comorbidities Kidney stone 09/23/2016 Mild major depression, single episode 09/23/2016 Assessment & Plan (11/15/2022 11:52 PM EDT): PHQ9 : 8<---15 ,DARINEL 7, feeling depressed x more than 10 years ,denies SI ,no noel no hallucinations , no fx hx of psych dx ,tried in the past bupropion x depression and smoking cessation but lost care ,denies SE w med. Tried fluoxetine but caused dizziness and blurry vision ,Insomnia,and sleepy In am as well resumed recent bupropion BID causing worsening anxiety and insomnia. - saw pt at last apt -already spoke w CM x job insecurity -stop bupropion and will try escitalopram-will start low dose to eval if pt tolerates -will take 5 mg daily for 2 weeks ( 1/2 Tab ) and then 10 mg daily if tolerating -discussed possible SE and risk of SI -advised to stop med in that case and call 911 -will monitor in 6 weeks Assessment & Plan (10/04/2022 8:58 PM EDT): PHQ9 : 13 feeling depressed x more than 10 years ,denies SI ,no noel no hallucinations , no fx hx of psych dx ,tried in the past bupropion x depression and smoking cessation but lost care ,denies SE w med. Tried fluoxetine but caused dizziness and blurry vision ,Insomnia,and sleepy In am - saw pt at last apt -already spoke w CM x job insecurity -stop fluoxetine and pt states would prefer to try bupropion but I am concern w risk of seizures with alcohol abuse and reported mild withdrawal symptoms before --pt states he is not drinking Since last 4 weeks and he used ti take med years ago w no SE-pt understands the risk for seizures if taking med and mixing w alcohol and prefers to try bupropion rather than other SSRis offered today--will start 100 mg daily x 3 days and then to increase to BID -will monitor in 6 weeks Assessment & Plan (09/05/2022 10:18 AM EDT): Assessment: Patient with history of depression, (depressed mood, decreased interest in activities he used to enjoy, ) and Alcohol use (2-4 times a month, 10 or more drinks). Symptoms are in the context of bio-psychosocial stressors. [place] declined referral to OP therapy at this time and reported that he will consider follow up BE's. Patient will benefit from follow up BE's. (modality/interventions). At this time Cortez Westfall meets criteria for Visit Diagnoses: Problem List Items Addressed This Visit Other Mild major depression, single episode (CMS/HCC) Patient ready to address current needs No PLAN: 1. Follow up with [facility]: Recommended for follow-up: Patient will consider 2. Patient goal is to decrease depression symptoms and increase coping mechanisms 3. Behavioral Recommendations a. Explore coping mechanisms b. Consider OP therapy and follow up BE's Assessment & Plan (09/04/2022 6:10 PM EDT): PHQ9 : 13 feeling depressed x more than 10 years ,denies SI ,no noel no hallucinations , no fx hx of psych dx ,tried in the past bupropion x depression and smoking cessation but lost care ,denies SE w med. - saw today pt in clinic -already spoke w CM x job insecurity -will start fluoxetine 10 mg daily x now ( initially planned x resume bupropion but I am concern w risk of seizures with alcohol abuse and reported mild withdrawal symptoms)--I called pt and informed change in med and to not take bupropion. -will f here in 4 weeks Resolved Problems Problem Noted Date Diagnosed Date Resolved Date Normocytic anemia 03/06/2023 01/14/2024 Microscopic hematuria 09/23/20162022 Assessment & Plan (11/15/2022 11:10 PM EDT): Mention from hx that had hematuria and hx of nephrolithiasis -will check UA to check x blood Assessment & Plan (10/04/2022 8:32 PM EDT): Mention from hx that had hematuria and hx of nephrolithiasis -will check UA to check x blood -Was ordered at lat visit but not done at lab- will reorder at next apt in 3 mo Assessment & Plan (09/04/2022 5:44 PM EDT): Mention from hx that had hematuria and hx of nephrolithiasis -will check UA to check x blood Encounters Date Type Department Care Team Description 07/09/2024 11:15 AM EDT Office Visit [facility] [address] [place] [id number] Keli Montalvo MD Arthralgia, unspecified joint (Primary Dx) 07/09/2024 Travel 07/08/2024 Telephone [facility] [address] [place], [place] [address] [address] Keli Montalvo MD chart prep 07/01/2024 Patient Outreach [facility] [place] [address] Keli Montalvo MD Pre-visit Planning (Pre visit planning LVM ) 06/14/2024 Refill [facility] [address] [place] [address] Jesus Quach MD 06/11/2024 1:45 PM EDT Office Visit [facility] [place] [place] [address] Tyson Ortega MD Alcohol use disorder, severe, dependence (CMS/HCC) (Primary Dx) 06/11/2024 Travel 06/04/2024 Telephone [facility] [place] [address] Lacey Shah RN AUD f/u 05/28/2024 Population Health Risk Score [facility] ([facility]) Department [address] [place] [phone] Provider, Population Health Generic 05/26/2024 Telephone [facility] [place] [address] Keli Montalvo MD june05/18/2024 Refill [facility] [place] [address] Keli Montalvo MD 04/27/2024 Refill [facility] [address] [facility] [place] [address] Keli Montalvo MD 04/16/2024 Refill [facility] [address] [facility] [place] [address] Keli Montalvo MD from Last 3 Months Immunizations Name Administration Dates Next Due Hep B, adult 11/20/2017,12/20/2016,11/06/2016 Influenza Injectable Quadriv alant Preservative Free IIV4 MDCK 02/02/2021 Influenza injectable quadriv alent preservative free 01/13/2023,02/16/2018 Pfizer Covid-19 Vaccine 12+ 01/14/2024,0 04/16/2023,02/02/2021,07/25,06/29/2020 Pfizer Covid-19 Vaccine 12+ corinna-sucrose (Godinez Cap) 09/14/2021,06/29/2020 Pneumococcal Conjugate PCV 20 09/04/2022 Pneumococcal Polysaccharide PPSV23 09/23/2016 Tdap 09/23/2016 Zoster, Recombinant 07/31/2022,05/29/2022 Family History Medical History Relation Name Comments gastric ca Father parathyroid cancer??, heart disease , pituitary adenoma [Other] Mother Relation Name Status Comments Father Mother Social History Tobacco Use Types Packs/Day Years Used Date Smoking Tobacco: Some Days Cigarettes 0.1 20 Passive Smoke Exposure: Past Smokeless Tobacco: Never Tobacco Cessation:Ready to Q uit: Not Asked; Counseling Given: Not Answered Comments:Started smoking 16 years until now -10 cigarettes a day but used to smoke x 10 years 1 PQT a day ---smoking so far x 37 years -PQT calc a year 27.7 Alcohol Use Standard Drinks/Week Comments Yes 0 (1 standard drink = 0.6 oz pure alcohol) hx of heavy alcohol use -now twice atwice -hard liquor 1 bottle Alcohol Answer Date Recorded Frequency of Alcohol Consumption Not on file 01/14/2024 Average Number of Drinks Not on file 024 Frequency of Binge Drinking Not on file 12/17 Score 0 01/14/2024 Depression Answer Date Recorded Patient Health Questionnaire-9 Score 2 09/16/2023 Patient Health Questionnaire-9 Score 2 09/16/2023 Last PHQ-9: Questionnaire Data Not on file 0 09/16/2023 Housing Stability Answer Date Recorded What is your housing situation today? I have dar griffith 01/14/[address] you li ve. Do you have problems with any of the following? None of the above 01/14/2024 Food Insecurity Answer Date Recorded Within the past 12 months, y ou worried that your food would run out before you got money to buy more: Never True 01/14/2024 Within the past 12 months,th e food you bought just didn't last and you didn't have enough money to get more: Never True Transportation Answer Date Recorded In the past 12 months, has l ack of transportation kept you from medical appts, meetings, work or from getting things needed for daily living? No 01/14/2024 Utilities Answer Date Recorded In the past 12 months, has t he electric, gas, oil or water company threatened to shut off services in your home? No 01/14/2024 Depression Answer Date Recorded Patient Health Questionnaire-2 Score 0 09/16/2023 Internet Access Answer Date Recorded Internet Access Q1 Yes 01/14/2024 Internet Access Q2 Not on file 01/14/2024 Sex and Gender Information Value Date Recorded Sex Assigned at Male 01/14/2022 10:24 AM EDT Legal Sex Male 10:24 AM EDT Gender Identity Male 01/14/2022 10:24 AM EDT Sexual Orientation Straight 01/14/2022 10 :24 AM EDT Last Filed Vital Signs Vital Sign Reading Time Taken Comments Blood Pressure 124/85 07/09/2024 11:15 AM EDT Pulse 84 07/09/2024 11:15 AM EDT Temperature 36.1 ??C (96.9 ??F) 07/09/2024 11:15 AM E DT Respiratory Rate 17 07/09/2024 11:15 AM EDT Oxygen Saturation 98% 07/09/2024 11:15 AM EDT Inhaled Oxygen Concentration - - Weight 80.5 kg (177 lb 6.4 oz) 07/09/2024 11:15 AM EDT Height 174.6 cm (5' 8.75 ) 07/09/2024 11:15 AM E DT Body Mass Index 26.39 07/09/2024 11:15 AM EDT Plan of Treatment Upcoming Encounters Date Type Department Care Team (Late st Contact Info) Description 07/26/2024 9:45 AM EDT Office Visit [facility] [address] [place] [address] Arlene Jarrell, OD [address] [place] [address] 08/13/2024 1:30 PM EDT Office Visit [facility] [address] [place] [address] Tyson Ortega MD [address] [place] [address] 10/13/2024 10:45 AM EDT Office Visit [facility] [address] [place] [address] Keli Montalvo MD [address] [place], [place] [phone] Health Maintenance Due Date Last Done Comments CT Colonography 1968 FIT DNA/Cologuard 1968 FIT 1968 FOBT 1968 Sigmoidoscopy 1968 Influenza Vaccine (#1) 2023 , 02/02/2021, 02/16/2018 Dental Oral Exam 12/08/2023 06/06/2023, 05/01/2022 Dental Prophylaxis 12/08/2023 06/06/2023, 05/29/2022 Dental X-Ray: Bitewings 06/06/2024 06/06/2023, 05/01 Depression Screening 09/15/2024 09/16/2023, 09/16/19 24 Alcohol/Substance Use Screening 01/13/2025 01/14/2024 SDOH Screening 01/13/2025 01/14/2024 Dental X-Ray: Full Mouth 05/02/2025 05/01/2022 Tobacco Screening 07/09/2025 07/09/2024 DTaP/Tdap/Td Vaccines (2 - Td or Tdap) 09/23/2026 09/23/2016 Colonoscopy 01/25/2028 01/24/2023 Colorectal Cancer Screening 01/25/2028 Lipid Panel 04/27/2029 04/27/2024, 12/16, 10/09/2023, Additional history exists RSV Patients and Patients Aged 60 years or older (1 - 1-dose 75+ series) 10/09/2043 Hepatitis B Vaccines Completed 11/20/2017, 12/20/2016, 11/06/2016 Zoster Vaccines Completed 07/31/2022, 05/29/2022 Pneumococcal Vaccine: 50+ Years Completed 09/04/2022, 09/23/2016 HIV Screening Completed 10/09/2023, 09/12/2022 Hepatitis C Screening Completed 10/09/2023, 023 COVID-19 Vaccine Completed 01/14/2024, , 02/02/2022, Additional history exists HIB Vaccines Aged Out No longer eligi ble based on patient's age to complete this topic HPV Vaccines Aged Out No longer eligi ble based on patient's age to complete this topic Hepatitis A Vaccines Aged Out No long er eligible based on patient's age to complete this topic IPV Vaccines Aged Out No longer eligi ble based on patient's age to complete this topic Meningococcal Vaccine Aged Out No angela ga eligible based on patient's age to complete this topic RSV under 20 months Aged Out No longe r eligible based on patient's age to complete this topic Rotavirus Vaccines Aged Out No longer eligible based on patient's age to complete this topic Procedures Procedure Name Priority Date/Time Associated Diagnosis Comments CBC Routine 04/27/2024 8:11 AM EST Macrocytosis LIPID PANEL, STANDARD Routine 04/27/2024 8:11 AM EST Hyperlipidemia, unspecified hyperlipidemia type COMPREHENSIVE METABOLIC PANEL Routine 04/27/2024 8:11 AM EST Hyperlipidemia, unspecified hyperlipidemia type HEPATITIS C AB W/REFL TO HCV RNA, QN, PCR Routine 10/09/2023 8:05 AM EDT Annual physical exam HIV 1/2 ANTIGEN/ANTIBODY, FOURTH GENERATION W/RFL Routine 10/09/2023 8:05 AM EDT Annual physical exam PROPHYLAXIS - ADULT Routine 06/06/2023 1 0:00 AM EDT Periodontal disease Dental calculus BITEWINGS - 4 RADIOGRAPHIC IMAGES Routine 06/06/2023 10:00 AM EDT Periodontal disease Dental calculus Dental caries extending into pulp Dental caries PERIODIC ORAL EVALUATION - ESTABLISHED PATIENT Routine 06/06/2023 10:00 AM EDT HM COLONOSCOPY Routine 01/24/2023 11:12 AM EST INTRAORAL - COMPLETE SERIES OF RADIOGRAPHIC IMAGES Routine 05/01/2022 9:15 AM EST from Last 3 Months or Most Recently Relevant to Health Maintenance Results * (ABNORMAL) CBC (04/27/2024 8:11 AM EST) White Blood Count 9.0 4.8 - 10.8 X10*3/uL [facility] Red Blood Count 4.35(L) 4.60 - 5.80 X10*6/uL [facility] Hemoglobin 14.9 14.0 - 18.0 g/dl [facility] Hematocrit 44.3 42.0 - 52.0 % [facility] Mean Corpuscular Volume 101.8(H) 80.0 - 98.0 fL [facility] Mean Corpuscular Hemoglobin 34.3(H) 27.0 - 33.0 pg [facility] Mean Corpuscular HGB Conc 33.6 31.0 - 36.0 g/dl [facility] Red Cell Distribution Width 14.0 11.0 - 16.0 % [facility] Platelet Count 290 160 - 400 X10*3/uL [facility] Mean Platelet Volume 10.3 9.4 - 12.4 fL [facility] NRBC Pct Auto 0.0 0.0 - 0.2 /100WBC [facility] NRBC Abs Auto 0.000 0.0 - 0.012 X10*3/uL [facility] Blood Venous blood specimen / Unknown 04/27/2024 8:11 AM EST 04/27/2024 10:51 AM EST us Keli Colon MD LAB BLOOD ORDERAB LES Final Result [facility] [address] [place] [phone] * (ABNORMAL) Lipid Panel, Standard (04/27/2024 8:11 AM EST) Triglycerides 178(H) <150 mg/dL [facility] Comment:Desirable Triglyceri de: less than 150 mg/dLBorderline High Triglyceride 150-199 mg/dLHigh Triglyceride: 200-499 mg/dLVery High Triglyceride: greater than or equal to 5OO mg/dL Cholesterol 173 <200 mg/dL [facility] Comment:Desirable Cholestero l: less than 200 mg/dLBorderline High Cholesterol: 200-239 mg/dLHigh Cholesterol: greater than 239 mg/dL LDL Cholesterol Calculated 96 <100 mg/dL [facility] Comment:Desirable LDL: less than 100 mg/dLNear Optimal/Above Optimal LDL: 110- 129 mg/dLBorderline High LDL: 130-159 mg/dLHigh LDL: 160-189 mg/dLVery High LDL: greater than or equal to 190 mg/dL HDL Cholesterol 42 >40 mg/dL [facility] Comment:Desirable HDL: great er than 40 mg/dL Note: This HDL assay may give artificially low results in patients with liver disease. Blood Venous blood specimen / Unknown 04/27/2024 8:11 AM EST 04/27/2024 10:51 AM EST us Keli Colon MD LAB BLOOD ORDERAB LES Final Result [facility] [address] [place] [phone] * (ABNORMAL) Comprehensive Metabolic Panel (04/27/2024 8:11 AM EST) Sodium 142 135 - 145 mmol/L [facility] Potassium 4.1 3.3 - 5.1 mmol/L [facility] Chloride 109(H) 96 - 108 mmol/L [facility] Carbon Dioxide 27 22 - 29 mmol/L [facility] Anion Gap 10(L) 12 - 20 [facility] Urea Nitrogen (BUN) 8(L) 9 - 16 mg/dL [facility] Creatinine, Serum 0.59 0.5 - 1.4 mg/dL [facility] Estimated Glomerular Filt Rate >60 [facility] Comment:Chronic Kidney Disea se: Estimated GFR < 60 mL/min/1.40a6Ptvzon Kidney Disease: Estimated GFR < 15 mL/min/1.73m2 Glucose 109 60 - 115 mg/dL [facility] Calcium 9.2 8.4 - 10.2 mg/dL [facility] Bilirubin, Total 0.5 0.0 - 1.0 mg/dL [facility] Aspartate Amino Transferase 37 5 - 37 U/L [facility] Alanine Aminotransferase 42(H) 0 - 40 U/L [facility] Total Protein 7.5 6.5 - 8.0 g/dL [facility] Albumin Level 4.2 3.5 - 5.0 g/dL [facility] Alkaline Phosphatase 100 39 - 117 U/L [facility] Blood Venous blood specimen / Unknown 04/27/2024 8:11 AM EST 04/27/2024 10:51 AM EST Keli Colon MD LAB BLOOD ORDERAB LES Final Result Performing Organization Address [facility]/ZIP Co de Phone Number [facility] [address] [place] [address] [phone] * Hepatitis C Antibody with Reflex to HCV, RNA, Quantitative, Real-Time PCR (10/09/2023 8:05 AM EDT) Hepatitis C Antibody Nonreactive Nonreactive [facility] Comment:Antibodies to HCV no t detected; does not exclude early acuteHCV infection. Blood Venous blood specimen / Unknown 10/09/2023 8:05 AM EDT 10/09/2023 11:21 AM EDT us Keli Colon MD LAB BLOOD ORDERAB LES Final Result Performing Organization Address [facility]/ZIP Co de Phone Number [facility] [address] [place] [address] [phone] * HIV-1/2 Antigen and Antibodies, Fourth Generation, with Reflexes (10/09/2023 8:05 AM EDT) HIV AB/AG Nonreactive Nonreactive [facility] Comment:HIV-1 p24 Ag and/or HIV-1/HIV-2 Ab not detected.A test result that is nonreactive does not exclude thepossibility of exposure to or infection with HIV-1 and/orHIV-2. Nonreactive results in this assay for individualswith prior exposure to HIV-1 and/or HIV-2 may be due toantigen and antibody levels that are below the limit ofdetection of this assay.The [employer] HIV Ag/Ab Combo assay result andsupplemental assay results should be interpreted inconjunction with the patient's clinical presentation,history and other laboratory results. If the results areinconsistent with clinical evidence, additional testing issuggested to confirm the result. Blood Venous blood specimen / Unknown 10/09/2023 8:05 AM EDT 10/09/2023 11:21 AM EDT Keli Colon MD LAB BLOOD ORDERAB LES Final Result [facility] [address] [place] [phone] * Hm Colonoscopy (01/24/2023 11:12 AM EST) Historical Provider HEALTH MAINTENANCE Final Result from Last 3 Months or Most Recently Relevant to Health Maintenance Insurance [facility] C3 DENTAL-[facility] MEDICAID STAND ADULT Care Teams Data Systems Manager Relationship Specialty Start Date End Date Keli Montalvo MD [address] [place] [phone] PCP - General Internal Medicine 11/14/22
--- OUTSIDE RECORDS SUMMARY | 2024-07-09 13:03 | XMS_ITS | Encounter Summary ---
Author Organization [employer] Address [address] [facility] [address] [address] 7t [place] [address] Care Team Providers Care Deputy Director Of Public Works Name Role Phone Keli Montalvo MD Primary Care Pro vider Encounter Details Date Type Department Care Team (Late Contact Info) Description 05/17/2022 Abstract [facility] ADULT DENTAL [address] [place] [address] El Lockhart, DUNG Social History Tobacco Use Types Packs/Day Years Used Date Smoking Tobacco: Former Cigarettes 0.5 20 Smokeless Tobacco: Former Alcohol Use Standard Drinks/Week Comments Yes 0 (1 standard drink = 0.6 oz pur e alcohol) Sex and Gender Information Value Date Recorded Sex Assigned at Male 01/14/2022 10:24 AM EDT Legal Sex Male 10:24 AM EDT Gender Identity Male 01/14/2022 10:24 AM EDT Sexual Orientation Straight 01/14/2022 10 :24 AM EDT COVID-19 Exposure Response Date Recorded In the last 10 days, have yo u been in contact with someone who was confirmed or suspected to have Coronavirus/COVID-19? No / Unsure 05/09/2022 2:21 PM EST documented as of this encounter Plan of Treatment Upcoming Encounters Date Type Department Care Team (Late Contact Info) Description 07/26/2024 9:45 AM EDT Office Visit [facility] OPTOMETRY [address] [place] [address] Arlene Jarrell OD [address] [place] [address] 08/13/2024 1:30 PM EDT Office Visit [facility] MEDICINE [address] [place] [address] Tyson Ortega MD [address] [place] [address] 10/13/2024 10:45 AM EDT Office Visit [facility] MEDICINE [address] [place] [address] [phone] Keli Montalvo MD [address] [place] [address] [phone] documented as of this encounter Visit Diagnoses Not on filedocumented in this encounter Care Teams Deputy Director Of Public Works Relationship Specialty Start Date End Date Keli Montalvo MD [address] [place] [address] [phone] PCP - General Internal Medicine 11/14/22 documented as of this encounter
--- OUTSIDE RECORDS SUMMARY | 2024-07-09 13:03 | XMS_ITS | Encounter Summary ---
Author Organization [employer] Address [address] [facility] 7t [place] [address] Care Team Providers Care Teletype Mechanic Name Role Phone Keli Montalvo MD Primary Care Pro vider Reason for Visit * Reason Onset Date Comments New Patient Appt 09/19/2022 Encounter Details Date Type Department Care Team ([facility] st Contact Info) Description 09/19/2022 Telephone [facility] MEDICINE [address] [place], [place] [phone] Jesus Quach MD [address] [place] [address] New Patient Appt Social History Tobacco Use Types Packs/Day Years Used Date Smoking Tobacco: Every Day Cigarettes 0.3 20 Smokeless Tobacco: Former Comments:Started smoking 14 years until now -10 cigarettes a day but used to smoke x 10 years 1 PQT a day ---smoking so far x 37 years -PQT calc a year 27.7 Alcohol Use Standard Drinks/Week Comments Yes 0 (1 standard drink = 0.6 oz pure alcohol) hx of heavy alcohol use -now twice atwice -hard liquor 1 bottle Alcohol Answer Date Recorded How often do you have a drink containing alcohol ? 2 09/04/2022 How many drinks containing a lcohol do you have on a typical day when you are drinking? 4 09/04/2022 How often do you have six or more drinks on one occasion? 2 09/04/2022 Sex and Gender Information Value Date Recorded [...] suspected to have Coronavirus/COVID-19? No / Unsure 09/20/2022 8:24 AM EDT documented as of this encounter Miscellaneous Notes * Telephone Encounter - Jostin Milton Maxwell - 09/19/2022 11:47 AM EDT Tc to , to offer NIB FINISHER Appt, pt states is not interested at the time for Paper Core Machine Operator with Facility. Advised if change of mind to please give facility a call at [phone] documented in this encounter Plan of Treatment Upcoming Encounters Date Type Department Care Team (Late st Contact Info) Description 07/26/2024 9:45 AM EDT Office Visit [facility] OPTOMETRY [address] [place] [phone] Arlene Jarrell, MACKENZIE [address] [place] [phone] 08/13/2024 1:30 PM EDT Office Visit [facility] MEDICINE [address] [place] [address] Tyson Ortega MD [address] [place] [address] 10/13/2024 10:45 AM EDT Office Visit [facility] MEDICINE [address] [place] [address] Keli Montalvo MD [address] [place] [phone] documented as of this encounter Visit Diagnoses Not on filedocumented in this encounter Additional Health Concerns Assessment Noted Time PHQ-9 Depression Total Score: 15 023 2:15 PM EDT documented as of this encounter Care Teams Teletype Mechanic Relationship Specialty Start Date End Date Keli Montalvo MD [address] [place] [phone] PCP - General Internal Medicine 11/14/22 documented as of this encounter
--- OUTSIDE RECORDS SUMMARY | 2024-07-09 13:03 | XMS_ITS | Encounter Summary ---
Author Organization [employer] Address [address] [facility] [address] 7t [place] [address] Care Team Providers Care Memorial Counselor Name Role Phone Keli Montalvo MD Primary Care Pro vider Encounter Details Date Type Department Care Team (Late Contact Info) Description 06/24/2022 Abstract [facility] ADULT DENTAL [address] [place] [address] Pippa, Keyanna [address] [place] [address] Social History Tobacco Use Types Packs/Day Years [...] suspected to have Coronavirus/COVID-19? No / Unsure 06/27/2022 10:51 AM EDT documented as of this encounter Plan of Treatment Upcoming Encounters Date Type Department Care Team (Late Contact Info) Description 07/26/2024 9:45 AM EDT Office Visit [facility] OPTOMETRY [address] [place] [address] Chrystal Arlene, OD [address] [place] [address] 08/13/2024 1:30 PM EDT Office Visit [facility] MEDICINE [address] [place] [address] Tyson Ortega MD [address] [place] [address] 10/13/2024 10:45 AM EDT Office Visit [facility] MEDICINE [address] [place] [address] Keli Montalvo MD [address] [place] [address] documented as of this encounter Visit Diagnoses Not on filedocumented in this encounter Care Teams Memorial Counselor Relationship Specialty Start Date End Date Keli Montalvo MD [address] [place] [phone] PCP - General Internal Medicine 11/14/22 documented as of this encounter
--- OUTSIDE RECORDS SUMMARY | 2024-07-09 13:03 | XMS_ITS | Encounter Summary ---
Author Organization [employer] Address [address] [facility] 7t [place] [address] Care Team Providers Care Featheredger And Reducer Machine Name Role Phone Keli Montalvo MD Primary Care Pro vider Reason for Visit * Reason Onset Date Comments New Patient Appt 07/31/2022 Encounter Details Date Type Department Care Team ([facility] st Contact Info) Description 07/31/2022 Telephone [facility] MEDICINE [address] [place], [place] [phone] Jesus Quach MD [address] [place] [address] New Patient Appt Social History Tobacco Use Types Packs/Day Years Used Date Smoking Tobacco: Some Days Cigarettes 0.3 20 Smokeless Tobacco: Former Alcohol Use Standard [...] suspected to have Coronavirus/COVID-19? No / Unsure 07/31/2022 1:48 PM EDT documented as of this encounter Miscellaneous Notes * Telephone Encounter - Jostin Milton Maxwell - 07/31/2022 3:11 PM EDT New Patients Par Catalinokade Milton called to schedule New patient appt, pt did not answer left voicemail to give a call at [phone]. documented in this encounter Plan of Treatment Upcoming Encounters Date Type Department Care Team (Late st Contact Info) Description 07/26/2024 9:45 AM EDT Office Visit [facility] OPTOMETRY [address] [place] [address] Arlene Jarrell, OD [address] [place] [address] 08/13/2024 1:30 PM EDT Office Visit [facility] MEDICINE [address] [place] [phone] Tyson Ortega MD [address] [place] [address] 10/13/2024 10:45 AM EDT Office Visit [facility] MEDICINE [address] [place] [address] Keli Montalvo MD [address] [place] [address] documented as of this encounter Visit Diagnoses Not on filedocumented in this encounter Care Teams Featheredger And Reducer Machine Relationship Specialty Start Date End Date Keli Montalvo MD [address] [place] [phone] PCP - General Internal Medicine 11/14/22 documented as of this encounter
--- OUTSIDE RECORDS SUMMARY | 2024-07-09 13:03 | XMS_ITS | Encounter Summary ---
Author Organization [employer] Address [address] [facility] [place] [address] Care Team Providers Care Family Independence Case Manager Name Role Phone Keli Montalvo MD Primary Care Pro vider Reason for Visit * Reason Onset Date Comments chart prep 07/08/2024 Encounter Details Date Type Department Care Team ([facility] st Contact Info) Description 07/08/2024 Telephone [facility] MEDICINE [address] [place] [address] Keli Montalvo MD [address] [place] [address] chart prep Social History Tobacco Use Types Packs/Day Years Used Date Smoking Tobacco: Some Days Cigarettes 0.1 20 Passive Smoke Exposure: Past Smokeless Tobacco: Never Comments:Started smoking 14 years until now -10 [...] Orientation Straight 01/14/2022 10 :24 AM EDT documented as of this encounter Miscellaneous Notes * Telephone Encounter - Shaila Ivey MA - 07/08/2024 4:11 PM EDT Chart Prep Labs: done Images: done Vaccines due: Updated Referrals: Plastic Surgery Requested notes by Fax. Waiting for notes. Screenings: Foot Exam Overdue care gaps: Sbirt, SDOH, PQ9, GAD7, Disability , and Oral Health documented in this encounter Plan of Treatment Upcoming Encounters Date Type Department Care Team (Late st Contact Info) Description 07/26/2024 9:45 AM EDT Office Visit [facility] OPTOMETRY [address] [place] [address] Chrystal Arlene, OD [address] [place] [address] 08/13/2024 1:30 PM EDT Office Visit [facility] MEDICINE [address] [place] [address] Tyson Ortega MD 230 [place] [address] 10/13/2024 10:45 AM EDT Office Visit [facility] MEDICINE [address] [place] [address] Keli Montalvo MD [address] [place] [address] documented as of this encounter Visit Diagnoses Not on filedocumented in this encounter Additional Health Concerns Assessment Noted Time PHQ-9 Depression Total Score: 2 09/16/19 24 10:50 AM EDT documented as of this encounter Care Teams Family Independence Case Manager Relationship Specialty Start Date End Date Keli Montalvo MD [address] [place] [address] [phone] PCP - General Internal Medicine 11/14/22 documented as of this encounter
--- OUTSIDE RECORDS SUMMARY | 2024-07-09 13:03 | XMS_ITS | Encounter Summary ---
Author Organization [employer] Address [address] [facility] [address] 7t [place] [address] Care Team Providers Care Driver/Sales Workers Name Role Phone Keli Montalvo MD Primary Care Pro vider Encounter Details Date Type Department Care Team (Late st Contact Info) Description 03/04/2024 Orders Only [facility] MEDICINE [address] [place] [address] Provider, MD Katia Social History Tobacco Use Types Packs/Day Years [...] Description 07/26/2024 9:45 AM EDT Office Visit [facility] OPTOMETRY [address] [place] [address] Arlene Jarrell, OD [address] [place] [address] 08/13/2024 1:30 PM EDT Office Visit [facility] MEDICINE [address] [place] [address] Tyson Ortega MD [address] [place] [address] 10/13/2024 10:45 AM EDT Office Visit [facility] MEDICINE [address] [place] [address] Keli Montalvo MD [address] [place] [address] documented as of this encounter Procedures Procedure Name Priority Date/Time Associated Diagnosis Comments HM COLONOSCOPY Routine 01/24/2023 11:12 AM EST documented in this encounter Results * Hm Colonoscopy (01/24/2023 11:12 AM EST) us Historical Provider HEALTH MAINTENANCE Final Result documented in this encounter Visit Diagnoses Not on filedocumented in this encounter Additional Health Concerns Assessment Noted Time PHQ-9 Depression Total Score: 2 09/16/19 24 10:50 AM EDT documented as of this encounter Care Teams Driver/Sales Workers Relationship Specialty Start Date End Date Keli Montalvo MD [address] [place] [address] PCP - General Internal Medicine 11/14/22 documented as of this encounter
--- OUTSIDE RECORDS SUMMARY | 2024-07-09 13:03 | XMS_ITS | Encounter Summary ---
Author Organization [employer] Address [address] [facility] [place] [address] Care Team Providers Care Instructional Design Specialist Name Role Phone Keli Montalvo MD Primary Care Pro vider Reason for Visit * Reason Onset Date Comments Med Refill 05/14/2023 Encounter Details Date Type Department Care Team (Late st Contact Info) Description 05/14/[address] [facility] MEDICINE [address] [place] [address] Keli Montalvo MD [address] [place] [address] Social History Tobacco Use Types Packs/Day Years Used Date Smoking Tobacco: Former Cigarettes 0.1 20 Passive Smoke Exposure: Past [...] more drinks on one occasion? 2 09/04/2022 Depression Answer Date Recorded Patient Health Questionnaire-9 Score 2 01/13/2023 Patient Health Questionnaire-9 Score 2 01/13/2023 Last PHQ-9: Questionnaire Data Not on file 1 Housing Stability Answer Date Recorded What is your housing situation today? I have dar griffith 12/30/[address] you li ve. Do you have problems with any of the following? None of the above 12/30/2022 Food Insecurity Answer Date Recorded Within the past 12 months, y ou worried that your food would run out before you got money to buy more: Never True 12/30/2022 Within the past 12 months,th e food you bought just didn't last and you didn't have enough money to get more: Never True Transportation Answer Date Recorded In the past 12 months, has l ack of transportation kept you from medical appts, meetings, work or from getting things needed for daily living? No 12/30/2022 Utilities Answer Date Recorded In the past 12 months, has t he electric, gas, oil or water company threatened to shut off services in your home? No 12/30/2022 Depression Answer Date Recorded Patient Health Questionnaire-2 Score 0 01/13/2023 Sex and Gender Information Value Date Recorded [...] 9:45 AM EDT Office Visit [facility] OPTOMETRY [address] [place] [address] Arlene Jarrell, OD [address] [place] [address] 08/13/2024 1:30 PM EDT Office Visit [facility] MEDICINE [address] [place] [address] Tyson Ortega MD 230 [place] [address] 10/13/2024 10:45 AM EDT Office Visit [facility] MEDICINE [address] [place] [address] Keli Montalvo MD [address] [place] [address] documented as of this encounter Visit Diagnoses Not on filedocumented in this encounter Additional Health Concerns Assessment Noted Time PHQ-9 Depression Total Score: 2 01/14/20 9:57 AM EDT documented as of this encounter Care Teams Instructional Design Specialist Relationship Specialty Start Date End Date Keli Montalvo MD [address] [place] [address] PCP - General Internal Medicine 11/14/22 documented as of this encounter
--- OUTSIDE RECORDS SUMMARY | 2024-07-09 13:03 | XMS_ITS | Encounter Summary ---
Author Organization [employer] Address [address] [facility] [address] 7[address] [place] [address] Care Team Providers Care Electrician Aircraft Name Role Phone Keli Montalvo MD Primary Care Pro vider Encounter Details Date Type Department Care Team (Latest Contact Info) Description 07/09/2024 Travel Social History Tobacco Use Types Packs/Day Years [...] Description 07/26/2024 9:45 AM EDT Office Visit [facility] OPTOMETRY [address] [place] [address] Chrystal Arlene, OD [address] [place] [address] 08/13/2024 1:30 PM EDT Office Visit [facility] MEDICINE [address] [place] [phone] Tyson Ortega MD [address] [place] [address] 10/13/2024 10:45 AM EDT Office Visit [facility] MEDICINE [address] [place] [address] Keli Montalvo MD [address] [place] [address] documented as of this encounter Visit Diagnoses Not on filedocumented in this encounter Additional Health Concerns Assessment Noted Time PHQ-9 Depression Total Score: 2 09/16/19 24 10:50 AM EDT documented as of this encounter Care Teams Electrician Aircraft Relationship Specialty Start Date End Date Keli Montalvo MD [address] [place] [phone] PCP - General Internal Medicine 11/14/22 documented as of this encounter
--- OUTSIDE RECORDS SUMMARY | 2024-07-09 13:03 | XMS_ITS | Encounter Summary ---
Author Organization [employer] Address [address] [facility] 7 [place] [address] Care Team Providers Care Reformatory Attendant Name Role Phone Keli Montalvo MD Primary Care Pro vider Reason for Visit * Reason Comments Follow-up Chronic condition Encounter Details Date Type Department Care Team (Late st Contact Info) Description 07/09/2024 11:15 AM EDT Office Visit [facility] [address] [place] [address] Keli Montalvo MD [address] [place] [address] Arthralgia, unspecified joint (Primary Dx) Social History Tobacco Use Types Packs/Day Years [...] AM EDT documented as of this encounter Last Filed Vital Signs Vital Sign Reading [...] Mass Index 26.39 07/09/2024 11:15 AM EDT documented in this encounter Plan of Treatment Upcoming Encounters Date Type Department Care Team (Late st Contact Info) Description 07/26/2024 9:45 AM EDT Office Visit [facility] [address] [place], [place] [phone] Arlene Jarrell, OD [address] [place] [address] 08/13/2024 1:30 PM EDT Office Visit [facility] [address] [place] [address] Tyson Ortega MD [address] [place] [address] 10/13/2024 10:45 AM EDT Office Visit [facility] [address] [place] [address] Keli Motnalvo MD [address] [place] [address] Scheduled Orders Name Type Priority Associated Diagnoses Orde r Schedule TSH with Reflex to Free T4 Lab Routine Arthralgia, unspecified joint Expected: 07/09/2024 (Approximate), Expires: 07/09/2025 C-reactive Protein Lab Routine Arthralgia, unspecified joint Expected: 07/09/2024 (Approximate), Expires: 07/09/2025 Sed Rate by Modified Westergren Lab Routine Arthralgia, unspecified joint Expected: 07/09/2024 (Approximate), Expires: 07/09/2025 Uric acid Lab Routine Arthralgia, unspecified joint Expected: 07/09/2024 (Approximate), Expires: 07/09/2025 ANTHONY Screen,IFA, with Reflex to Titer and Pattern Lab Routine Arthralgia, unspecified joint Expected: 07/09/2024 (Approximate), Expires: 07/09/2025 documented as of this encounter Visit Diagnoses Diagnosis Arthralgia, unspecified joint- Primary documented in this encounter Additional Health Concerns Assessment Noted Time PHQ-9 Depression Total Score: 2 09/16/19 24 10:50 AM EDT documented as of this encounter Care Teams Reformatory Attendant Relationship Specialty Start Date End Date Keli Montalvo MD [address] [place] [phone] PCP - General Internal Medicine 11/14/22 documented as of this encounter
--- OUTSIDE RECORDS SUMMARY | 2024-07-09 13:03 | XMS_ITS | Encounter Summary ---
Author Organization [employer] Address [address] [facility] [address] 7[address] [place] [address] Care Team Providers Care Production Assistant Name Role Phone Keli Montalvo MD Primary Care Pro vider Encounter Details Date Type Department Care Team ([facility] Contact Info) Description 06/12/2022 Abstract [facility] [address] [place] [address] [place], [place] [address] [place] [address] Social History Tobacco Use Types Packs/Day Years [...] suspected to have Coronavirus/COVID-19? No / Unsure 06/14/2022 12:54 PM EDT documented as of this encounter Plan of Treatment Upcoming Encounters Date Type Department Care Team (Late Contact Info) Description 07/26/2024 9:45 AM EDT Office Visit [facility] [address] [place] [address] Chrystal Arlene, OD [address] [place] [address] 08/13/2024 1:30 PM EDT Office Visit [facility] [address] [place] [address] Tyson Ortega MD [address] [place] [address] 10/13/2024 10:45 AM EDT Office Visit [facility] [address] [place] [address] Keli Montalvo MD [address] [place] [address] documented as of this encounter Visit Diagnoses Not on filedocumented in this encounter Care Teams Production Assistant Relationship Specialty Start Date End Date Keli Montalvo MD [address] [place] [phone] PCP - General Internal Medicine 11/14/22 documented as of this encounter
[2024-07-09 13:52] LABS: Uric Acid 5.1 mg/dL (3.4-7.0)
[2024-07-09 14:07] LABS: Erythrocyte Sedimentation Rate 12 MM/HR (0-15)
[2024-07-09 14:09] LABS: TSH reflex Free T4 1.48 uIU/mL (0.32-4.0)
[2024-07-13 11:33] LABS: Anti Nuclear Antibody Pattern Nuclear, Speckled; Anti Nuclear Antibody Screen POSITIVE (NEGATIVE); Anti Nuclear Antibody Titer 1:40 titer
== END 2024-07-09 12:21 | disposition home or self-care (01) ==
LOC: HO.HHCL 12:20
PROVIDERS: Visit Provider Student in an Organized Health Care Education/Training Program
DX: M25.50 Pain in unspecified joint (principal)
CPT/HCPCS: 36415; 84443; 84550; 85652; 86038; 86039; 86140

== ENCOUNTER 2024-11-05 12:17 | Day surgery (SDC) | payer MEDICAID, SELFPAY ==
--- OUTSIDE RECORDS SUMMARY | 2024-10-19 13:58 | XMS_ITS | Patient Health Record ---
Author Organization [facility] Address [address] [place] [address] Care Team Providers Care Continuous Improvement Manager Name Role Phone Keli Montalvo Primary Care Provider Darshan Ball Unavailable [phone] Allergies Allergen (clinical drug ingredient) Drug/Non Drug Allergy documented on EMR Reaction Allergy Type Onset Date Status seasonal (uncoded) Unknown Allergy A ctive Reason For Referral Referring Provider First Name Keli Referring Provider Last Name Anuj beltran Referred Organization [facility] Referred Provider Darshan Khan Referred Address [address] [facility],[place], [place],[address], Referred Provider Specialty Gastroentero logy General Notes Tara Zuniga 2024 07:39:37 AM >requested a m;[facility] referral from [facility] for visit with Dr. Khan on 10-19-24, Tara Zuniga 09/20/2024 05:40:08 PM >, Tara Zuniga 09/20/2024 05:40:15 PM > requested referral again Referral Priority Routine Medications Medication SIG (Take, Route, Frequency, Duration) Notes Start Date End Date Status Vitamin C 250 MG TAKE 1 TABLET BY AJ 3 TIMES A WEEK Oral for 90 Days Active Omeprazole 20 MG 1 capsule Orally Onc e a day for 30 day(s) 12/27/2016 Active Propranolol HCl ER 60 MG TAKE 1 CAPSULE BY MOUTH EVERY DAY Oral for 90 Days Active ibuprofen PRN Active Cetirizine HCl 10 MG TAKE 1 TABLET BY [facility] DAILY Oral for 90 Days Active Testosterone Cypionate 200 MG/ML INJECT 0.5 ML (100 MG) INTRAMUSCULARLY EVERY 7 DAYS. DISCARD EACH VIAL AFTER USE. Intramuscular for 28 Days Active Tylenol Allergy Sinus Not-Taking Escitalopram Oxalate 10 MG TAKE 1 TABLET BY MOUTH DAILY IN THE MORNING Oral for 30 Active Atorvastatin Calcium 20 MG TAKE 1 TABLET BY MOUTH EVERY DAY Oral for 90 Days Active amLODIPine Besylate 5 MG TAKE 1 TABLET BY MOUTH DAILY Oral for 90 Days Active dexAMETHasone 1 MG TAKE 1 TABLET BY AJ TH ONCE AT 11 pm THE NIGHT BEFORE YOUR 8 am BLOOD work Oral for 1 Days Not-Taking Multivitamin - TAKE 1 TABLET BY AJ TH EVERY DAY IN THE MORNING Oral for 90 Days Active Acetaminophen Extra Strength 500 MG TAKE 1 TABLET BY MOUTH EVERY 8 HOURS NEEDED FOR PAIN FOR UP TO 7 DAYS Oral for 7 Days Active amLODIPine Besylate 10 MG 1 tablet Orally Once a day Not-Taking Escitalopram Oxalate 20 MG TAKE 1 TABLET BY MOUTH EVERY DAY IN THE MORNING Oral for 90 Days Not-Taking Ferrous Gluconate 324 (38 Fe) MG TAKE 1 TABLET BY MOUTH 3 TIMES A WEEK Oral for 90 Days QOD Active Multi Vitamin/Minerals Active Immunizations Vaccine Route Administration Date Status Comme nts Influenza Unknown 01/07/2024 Administered Social History Tobacco Use: Social History Observation Description Date Details (start date - stop date) Current Smoker NA - NA Tobacco Use/Smoking Question Answer Notes Patient is [...] Never (0 point) Points 2 Interpretation Negative Section Notes: Smoker 1cigs QD; occ. wine Smoker 8 cigs QD; occ. wine Smoker 1cigs QD; occ. wine Problems Problem Type SNOMED Code ICD Code Onset Dates Problem Status W/U Status Risk Notes Problem 363218258 Encounter for screening for malignant neoplasm of colon (Z12.11) Active confirmed Problem Diverticulosis o f large intestine without perforation or abscess without bleeding (K57.30) Active confirmed Problem 81648413 Abdominal pain, epigastric (R10.13) Active confirmed Problem 556594249 Gastroesophageal reflux disease, esophagitis presence not specified (K21.9) Active confirmed Problem 942076117 Family history o f colon cancer (Z80.0) Active confirmed Problem 10012290 Irritable bowel syndrome, unspecified type (K58.9) Active confirmed Problem Serrated polyp of colon (574487240) Serrated polyp of colon (K63.5) Active confirmed Problem 532188666 Gastroesophageal reflux disease with esophagitis without hemorrhage (K21.00) Active confirmed Problem History of adenomatous polyp of colon (949201871) History of adenomatous polyp of colon (Z86.0101) Active confirmed Vital Signs Temperature 98.6 degrees Fahrenheit 10/19/2024 Blood pressure diastolic 01 mm Hg 10/19/2024 Height 69 in 10/19/2024 Blood pressure systolic 001 mm Hg 10/19/2024 Weight 175.2 lbs 10/19/2024 BMI 25.87 kg/m2 10/19/2024 Procedures Procedure Date Ordered Date Performed Result Body Sit e COLONOSCOPY 10/19/2024 N/A Encounters Encounter Location Date Provider Diagnosis [facility] [address] [place] [phone] 10/19/2024 Darshan Khan Gastroesophageal ref lux disease, esophagitis presence not specified K21.9 ; Family history of colon cancer Z80.0 ; History of adenomatous polyp of colon Z86.0101 ; Serrated polyp of colon K63.5 and Colon cancer screening Z12.11 Assessments Encounter Date Diagnosis (ICD Code) Assessment Notes Treatment Notes Treatment Clinical Notes Section Notes 10/19/2024 Gastroesophageal reflux disease, esophagitis presence not specified (ICD-10 - K21.9) 10/19/2024 Family history of colon cancer (ICD-10 - Z80.0) 10/19/2024 History of adenomatous polyp of colon (ICD-10 - Z86.0101) 10/19/2024 Serrated polyp of colon (ICD-10 - K63.5) 10/19/2024 Colon cancer screening (ICD-10 - Z12.11) Plan Of Treatment Pending Test Test Name Order Date COLONOSCOPY 10/19/2024 Future Test Test Name Order Date UPPER GI ENDOSCOPY 12/27/2016 COLONOSCOPY 12/27/2016 COLONOSCOPY 11/26/2022 Next Appt Details Provider Name:Darshan Khan , 11/05/2024 01:30:00 PM, [address] [place] [address] , [place], [place], [phone], Insurance Providers Payer Name Payer Address Payer Phone Subscriber Number Group Number Insured Name Patient Relationship to Insured Coverage Start Date Coverage End Date MEDICAID OF [email or web address] [address] [place] [phone] [id number] JAROD HUSSEIN Self - patient is the insured Medical (General) History Medical History History ICD Code Hypertension Nephrolithiasis Denies HI,DM,CVA,Lung disease,renal dise ase Depression GERD- upper endoscopy in Feb revealed a small hiatal hernia and some erosive esophagitis, but biopsies were negative for Girard's esophagus Colonoscopy in February revealed only a hyperplastic polyp that was removed. Surgical History Surgery Date(Month/Year) Pilonidal cyst excision
--- OUTSIDE RECORDS SUMMARY | 2024-10-19 13:58 | XMS_ITS | Clinical Summary ---
Author Organization [employer] Address [address] [place] [address] Care Team Providers Care Statistics Tutor Name Role Phone Keli Montalvo MD Primary Care Pro vider Allergies No known active allergies Medications * This document contains information received from the source organization and may not represent a complete record from that organization. nicotine polacrilex (Nicorelief) 2 MG gum Chew 1 each (2 mg) if needed for smoking cessation. 100 each 01/14/20 23 Active acetaminophen (Tylenol) 500 MG tablet Take 1 tablet (500 mg) by mouth every 6 (six) hours if needed for mild pain for up to 20 doses. 20 tablet 02/04/20 24 Active propranolol LA (Inderal LA) 60 MG 24 hr capsule TAKE 1 CAPSULE BY MOUTH EVERY MORNING. DO NOT CRUSH, CHEW OR SPLIT. 90 capsule 1 02/10/20 24 Active tretinoin (Retin-A) 0.025 % creamIndicatio ns:Epidermoid cyst Apply topically at bedtime. 45 g 2 02/17/20 24 025 Active cyanocobalamin (Vitamin B-12) 500 MCG tablet Take 1 tablet (500 mcg) by mouth Once per day. 90 tablet 1 04/27/19 25 026 Active omega-3 (Ultra Atwood 3) 1000 MG capsule TAKE 1 CAPSULE BY MOUTH EVERY DAY 90 capsule 1 05/20/19 25 Active Ascorbic Acid (vitamin C) 250 MG tablet Take 1 tablet (250 mg) by mouth 3 (three) times a week. 40 tablet 07/10/19 25 Active sodium chloride (Deaf Smith Nasal Harris) 0.65 % nasal spray Administer 1 spray into each nostril if needed for congestion. 30 mL 2 07/10/19 25 026 Active ferrous gluconate (Fergon) 324 (38 Fe) MG tablet Take 1 tablet (324 mg) by mouth 3 (three) times a week. 40 tablet 07/10/19 25 Active atorvastatin (Lipitor) 20 MG tablet TAKE 1 TABLET BY MOUTH EVERY DAY 90 tablet 1 07/28/19 25 Active escitalopram (Lexapro) 20 MG tablet TAKE 1 TABLET BY MOUTH DAILY IN THE MORNING 90 tablet 1 08/13/19 25 Active omeprazole (PriLOSEC) [address] capsule TAKE 1 CAPSULE BY MOUTH DAILY BEFORE BREAKFAST. DO NOT BREAK, CRUSH, DISSOLVE OR CHEW 90 capsule 1 08/13/19 25 Active Multiple Vitamin (Multivitamin) tablet TAKE 1 TABLET BY MOUTH EVERY MORNING 90 tablet 1 08/13/19 25 Active cetirizine (ZyrTEC) 10 MG tablet Take 1 tablet (10 mg) by mouth Once per day. 90 tablet 08/20/19 25 025 Active amLODIPine (Norvasc) 5 MG tablet TAKE 1 TABLET BY MOUTH EVERY DAY 90 tablet 1 09/24/19 25 Active amLODIPine (Norvasc) 5 MG tablet TAKE 1 TABLET BY MOUTH EVERY DAY 90 tablet 06/16/19 25 025 Discontinued(Re order (will not trigger notification to Pharmacy)) carbamide peroxide (Debrox) 6.5 % otic solution Administer 5-10 drops into affected ear(s) 2 times daily for 4 days. 30 mL 10/14/19 25 025 Active Problems Problem Noted Date Diagnosed Date Chronic pain of both knees 10/13/2024 Hypogonadism, testicular 07/09/2024 Ill-fitting dentures 02/04/2024 Closed fracture of tooth [...] to go to alcohol abuse program at [facility] and pt agreed -cced today this [...] in 2017-today p20 x smoking hx ,tdap 2016,zoster vaccine x2 -labs x annual exam-will RTC [...] neg -Continue amlodipine 5 mg daily -saw trim machine adjuster in 05/2022 Normal complete exam per pt [...] BP readings 3 times a week -saw trim machine adjuster in 05/2022 Normal complete exam per pt [...] -will monitor BP at next visit -saw trim machine adjuster in 05/2022 Normal complete exam per pt [...] needs No PLAN: 1. Follow up with [facility]: Recommended for follow-up: Patient will consider 2. [...] Encounters Date Type Department Care Team Description 10/13/2024 10:45 AM EDT Office Visit [address] [address] Keli Montalvo MD Chronic pain of both knees (Primary Dx); Health care maintenance; Increased abdominal girth; Essential hypertension; Mixed hyperlipidemia; Adrenal incidentaloma (CMS/HCC); Macrocytosis; Alcohol abuse; Mild major depression, single episode (CMS/HCC); Arthralgia, unspecified joint; Tobacco use 10/13/2024 Telephone [facility] [address] [place] [phone] Mervat Diaz Provide support for current mental health needs 10/13/2024 Travel 10/12/[address] [address] Keli Montalvo MD CHART PREP 10/06/2024 Patient Outreach [address] [address] Keli Montalvo MD Pre-visit Planning (SDOH Screening negative and Tobacco screening positive) 09/23/2024 Refill [facility] [address] [place] [address] Jesus Quach MD 09/23/2024 Refill [facility] [address] [place] [address] Keli Montalvo MD 09/08/2024 11:15 AM EDT Office Visit [facility] [address] [place] [address] Tristin, Ashley, OD Presbyopia (Primary Dx) 09/07/2024 10:45 AM EDT Office Visit [facility] ADULT DENTAL [address] [place] [address] Alvaro Glass, DDS 08/20/2024 Refill [facility] [address] [place] [address] Jesus Quach MD 08/19/2024 Refill [facility] [address] [place] [address] Keli Montalvo MD 08/18/2024 Refill [facility] [address] [place] [address] Jesus Quach MD 08/13/2024 1:30 PM EDT Office Visit [facility] [address] [place] [address] Tyson Ortega MD Alcohol use disorder, severe, dependence (CMS/HCC) (Primary Dx) 08/13/2024 Travel 08/11/2024 Refill [facility] [address] [place] [address] Keli Montalvo MD 07/28/2024 Refill [facility] [address] [place] [address] Keli Montalvo MD 07/28/2024 Refill [facility] [address] [place] [address] Keli Montalvo MD 07/27/2024 Refill [facility] [address] [place] [address] Urszula Lynch MD 07/26/2024 11:00 AM EDT Office Visit [facility] ADULT DENT[facility] [address] [place] [address] Fausto Rojas DMD 07/26/2024 9:45 AM EDT Office Visit [facility] [address] [place] [address] Arlene Jarrell, OD Presbyopia (Primary Dx); Dermatochalasis of both upper eyelids; Hypertensive retinopathy of both eyes; Arcus senilis of both eyes; Generalized headaches 07/26/2024 Travel 07/22/2024 Refill [facility] [address] [place] [address] Keli Montalvo MD 07/21/2024 Telephone [facility] [address] [place] [phone] Keli Montalvo MD referral 07/19/2024 Orders Only [facility] [address] [place] [phone] Keli Montalvo MD Polyarthralgia (Primary Dx); ANTHONY positive from Last 3 Months Immunizations Immunization Administration Dates Next Due Hep B, adult 11/20/2017,12/20/2016,11/06/2016 Influenza Injectable Quadriv alant Preservative Free IIV4 MDCK 02/02/2021 Influenza injectable quadriv alent preservative free 01/13/2023,02/16/2018 Pfizer Covid-19 Vaccine 12+ 01/14/2024,0 04/16/2023,02/02/2021,07/25,06/29/2020 Pfizer Covid-19 Vaccine 12+ corinna-sucrose (Godinez Cap) 09/14/2021,06/29/2020 Pneumococcal Conjugate PCV 20 09/04/2022 Pneumococcal Polysaccharide PPSV23 09/23/2016 Tdap 09/23/2016 Zoster, Recombinant 07/31/2022,05/29/2022 Family History Medical History Relation Name Comments gastric ca Father Glaucoma Mother parathyroid cancer??, heart disease , pituitary adenoma [...] Answer Date Recorded Patient Health Questionnaire-9 Score 0 10/13/2024 Patient Health Questionnaire-9 Score 0 10/13/2024 Last PHQ-9: Questionnaire Data Not on file 0 10/13/2024 Housing Stability Answer Date Recorded What is [...] Date Recorded Patient Health Questionnaire-2 Score 0 10/13/2024 Internet Access Answer Date Recorded Internet Access [...] Sign Reading Time Taken Comments Blood Pressure 108/70 10/13/2024 11:02 AM EDT Pulse 74 10/13/2024 11:02 AM EDT Temperature 36.2 C (97.1 F) 10/13/2024 11:02 AM EDT Respiratory Rate 20 10/13/2024 11:02 AM EDT Oxygen Saturation 98% 10/13/2024 11:02 AM EDT Inhaled Oxygen Concentration - - Weight 79.5 kg (175 lb 3.2 oz) 10/13/2024 11:02 AM EDT Height 174.6 cm (5' 8.75 ) 10/13/2024 11:02 AM E DT Body Mass Index 26.06 10/13/2024 11:02 AM EDT Plan of Treatment Upcoming Encounters Date Type Department Care Team (Late st Contact Info) Description 11/12/2024 1:15 PM EDT Office Visit [facility] [address] [place] [phone] Tyson Ortega MD [address] [place] [phone] 12/07/2024 10:00 AM EDT Office Visit [address] [address] Keli Montalvo MD [address] [place] [phone] Health Maintenance Due Date Last Done Comments CT Colonography 1968 FIT DNA/Cologuard 1968 FIT 1968 FOBT 1970 Sigmoidoscopy 1968 Dental Oral Exam 12/08/2023 06/06/2023, 05/01/2022 Dental Prophylaxis 12/08/2023 06/06/2023, 05/29/2022 Dental X-Ray: Bitewings 06/06/2024 06/06/2023, 05/01 Influenza Vaccine (#1) 2024 , 02/02/2021, 02/16/2018 Alcohol/Substance Use Screening 01/13/2025 01/14/2024 Dental X-Ray: Full Mouth 05/02/2025 05/01/2022 SDOH Screening 10/06/2025 10/06/2024 Depression Screening 10/13/2025 10/13/2024, 10/14/19 Disability Screening 10/13/2025 10/13/2024 Tobacco Screening 10/13/2025 10/13/2024 DTaP/Tdap/Td Vaccines (2 - Td or Tdap) [...] patient's age to complete this topic Meningococcal B Vaccine Aged Out No l onger eligible based on patient's age to complete [...] Procedure Name Priority Date/Time Associated Diagnosis Comments CASE PRESENTATION, DETAILED AND EXTENSIVE TREATMENT PLANNING Routine 09/07/2024 10:45 AM EDT 3 EXTRACTION, ERUPTED TOOTH OR EXPOSED ROOT (ELEVATION/FORCEPS REMOVAL) Routine 09/07/2024 10:45 AM EDT CASE PRESENTATION, DETAILED AND EXTENSIVE TREATMENT PLANNING Routine 07/26/2024 11:00 AM EDT INTRAORAL - PERIAPICAL FIRST RADIOGRAPHIC IMAGE Routine 07/26/2024 11:00 AM EDT PALLIATIVE (EMERGENCY) TREATMENT OF DENTAL PAIN - MINOR PROCEDURE Routine 07/26/2024 11:00 AM EDT LIPID PANEL, STANDARD Routine 04/27/2024 8:11 AM [...] Relevant to Health Maintenance Results * (ABNORMAL) Lipid Panel, Standard (04/27/2024 8:11 AM EST) Triglycerides 178(H) <150 mg/dL [facility] Comment:Desirable Triglyceri de: less than 150 mg/dLBorderline High Triglyceride 150-199 mg/dLHigh Triglyceride: 200-499 mg/dLVery High Triglyceride: greater than or equal to 5OO mg/dL Cholesterol 173 <200 mg/dL [facility] Comment:Desirable Cholestero l: less than 200 mg/dLBorderline High Cholesterol: 200-239 mg/dLHigh Cholesterol: greater than 239 mg/dL LDL Cholesterol Calculated 96 <100 mg/dL [facility] Comment:Desirable LDL: less than 100 mg/dLNear Optimal/Above Optimal LDL: 110- 129 mg/dLBorderline High LDL: 130-159 mg/dLHigh LDL: 160-189 mg/dLVery High LDL: greater than or equal to 190 mg/dL HDL Cholesterol 42 >40 mg/dL [facility] Comment:Desirable HDL: great er than 40 mg/dL Note: This HDL assay may give artificially low results in patients with liver disease. Blood Venous blood specimen / Unknown 04/27/2024 8:11 AM EST 04/27/2024 10:51 AM EST us Keli Colon MD LAB BLOOD ORDERAB LES Final Result Performing Organization Address [facility]/ZIP Co de Phone Number [facility] [address] [place] [phone] * Hepatitis C Antibody with Reflex to HCV, RNA, Quantitative, Real-Time PCR (10/09/2023 8:05 AM EDT) Hepatitis C Antibody Nonreactive Nonreactive [facility] Comment:Antibodies to HCV no t detected; does not exclude early acuteHCV infection. Blood Venous blood specimen / Unknown 10/09/2023 8:05 AM EDT 10/09/2023 11:21 AM EDT us Keli Colon MD LAB BLOOD ORDERAB LES Final Result Performing Organization Address [facility]/ZIP Co de Phone Number [facility] [address] [place] [phone] * HIV-1/2 Antigen and Antibodies, Fourth Generation, with Reflexes (10/09/2023 8:05 AM EDT) HIV AB/AG Nonreactive Nonreactive [facility] Comment:HIV-1 p24 Ag and/or HIV-1/HIV-2 Ab not detected.A test result that is nonreactive does not exclude thepossibility of exposure to or infection with HIV-1 and/orHIV-2. Nonreactive results in this assay for individualswith prior exposure to HIV-1 and/or HIV-2 may be due toantigen and antibody levels that are below the limit ofdetection of this assay.The [employer] HIV Ag/Ab Combo assay result andsupplemental assay results should be interpreted inconjunction with the patient's clinical presentation,history and other laboratory results. If the results areinconsistent with clinical evidence, additional testing issuggested to confirm the result. Blood Venous blood specimen / Unknown 10/09/2023 8:05 AM EDT 10/09/2023 11:21 AM EDT Keli Colon MD LAB BLOOD ORDERAB LES Final Result [facility] [address] [place] [phone] * Hm Colonoscopy (01/24/2023 11:12 AM EST) Historical Provider HEALTH MAINTENANCE Final Result from Last 3 Months or Most Recently Relevant to Health Maintenance Insurance [facility] C3 DENTAL-[facility] MEDICAID STAND ADULT Care Teams Statistics Tutor Relationship Specialty Start Date End Date Keli Montalvo MD [address] [place] [phone] PCP - General Internal Medicine 11/14/22
--- OUTSIDE RECORDS SUMMARY | 2024-10-19 13:58 | XMS_ITS | Patient Health Record ---
Author Organization [employer] Address [address] [place], [place] [id number] Care Team Providers Care Attenuator Name Role Phone Fausto Joe MD Primary Care Provider Migration, Provider Unavailable Unavailable Reason For Referral No Information Medications Medication SIG (Take, Route, Frequency, Duration) Notes Start Date End Date Status Wellbutrin XL 150 MG/24 HOURS 1 TAB(S) ORALLY EVERY 24 HOURS; Duration: 90 *Please review and pick correct strength-formulation from [employer] [facility] [employer] options. If intended option is not shown, [...] once a day; Duration: 90 days Active Problems Problem Type SNOMED Code ICD Code Onset Dates Problem Status W/U Status Risk Notes Problem Hypercholesterolemia (15423865) Hypercholesterolemia NOS (272.4) Active confirmed Problem Essential hypertension (11013368) HTN [Hypertension] (401.9) Active confirmed Encounters Encounter Location Date Provider Diagnosis [facility] [address], [place] [phone] 08/28/2024 Provider Migration Plan Of Treatment Pending Test Test Name Order Date PSA 05/23/2009 PSA 01/07/2014 PSA 12/29/2012 PSA 12/26/2011 BMP 12/26/2011 BMP 12/29/2012 BMP 01/07/2014 BMP 05/23/2009 BMP 03/03/2008 LIPID PROFILE 03/03/2008 LIPID PROFILE 05/23/2009 LIPID PROFILE 01/07/2014 LIPID PROFILE 12/29/2012 LIPID PROFILE 12/26/2011 URINALYSIS, AUTOMATED ONLY 12/26/2011 URINALYSIS, AUTOMATED ONLY 12/29/2012 URINALYSIS, AUTOMATED ONLY 01/07/2014 URINALYSIS, AUTOMATED ONLY 05/23/2009 URINALYSIS, AUTOMATED ONLY 03/03/2008 CBC With Differential/Platelet 8 CBC With Differential/Platelet 0 CBC With Differential/Platelet 4 CBC With Differential/Platelet 3 CBC With Differential/Platelet 2 ALT/SGPT 01/07/2014 AST/SGOT 01/07/2014 Insurance Providers Payer Name Payer Address Payer Phone Subscriber Number Group Number Insured Name Patient Relationship to Insured Coverage Start Date Coverage End Date [facility] [address] [place] [phone] [id number] Cortez Westfall Self - patient is the insured Medical (General) History Medical History History ICD Code allergic rhinitis hypertension headache anxiety depression nephrolithiasis hyperlipidemia onychomycosis Surgical History Surgery Date(Month/Year) Pilonidal cyst
--- NOTE | 2024-11-04 12:16 | HO.ANESPROP2 ---
Documented by User: Jeannette Arroyo NP 11/04/24 12:17 HPI - Anesthesia Eval Consult details Narrative: 54yo M for Colonoscopy PMFSH Active Problems Active Problems: All Active Problems Screening PSA (prostate specific antigen) (Acute) Nephrolithiasis (Acute) Renal cyst (Acute) Family history of bicuspid aortic valve (Acute) Precordial chest pain (Acute) SOB (shortness of breath) (Acute) Nicotine dependence, cigarettes, uncomplicated (Acute) Past Medical History Medical History Renal lesion Skin lesion Anemia, unspecified Tremor of both hands Hyperlipidemia Nicotine dependence, cigarettes, uncomplicated History of colon polyps (~2017) Microscopic hematuria Nephrolithiasis Depression HTN (hypertension) GERD (gastroesophageal reflux disease) Family History Family History Father Oral cancer Maternal Grandmother Bicuspid aortic valve Mother Heart problem Family history of problems with anesthesia: No Surgical History Surgical History History of excision of pilonidal cyst History of esophagogastroduodenoscopy (EGD) History of colonoscopy History of Problems with Anesthesia: No Social History Social History Alcohol intake: former Patient Tobacco Use Status: Current everyday Tobacco user Tobacco use type: Cigarette Cigarette Packs Per Day: 0.5 Cigarettes Per Day: 10.0 Years Smoked: (onset 15yo, 1/2-1ppd x 37yrs, 25+PYH) Second Hand Smoke Exposure: No Meds Allergies Allergy/AdvReac Type Severity Reaction Status Date / Time No Known Allergies Allergy Verified 01/22/24 09:42 Home Medications ?Medication ?Instructions ?Recorded ?Confirmed ?Last Taken ?Type amlodipine 10 mg tablet 10 mg PO DAILY 12/04/22 01/22/24 Unknown History nicotine (polacrilex) 2 mg gum 2 mg PO 12/04/22 01/22/24 Unknown History omeprazole 20 mg capsule,delayed 20 mg PO QAM 12/04/22 01/22/24 Unknown History release multivitamin 1 tab PO DAILY 01/23/23 01/22/24 Unknown History amlodipine 5 mg tablet 5 mg PO DAILY 10/23/23 01/22/24 Unknown History ascorbic acid (vitamin C) 250 mg 250 mg PO QAM 10/23/23 01/22/24 Unknown History tablet carbamide peroxide 6.5 % ear drops drp otic (ears) 10/23/23 01/22/24 Unknown History (Ear Drops (carbamide peroxide)) cetirizine 10 mg tablet 10 mg PO DAILY 10/23/23 01/22/24 Unknown History escitalopram oxalate 20 mg tablet 20 mg PO QAM 10/23/23 01/22/24 Unknown History ferrous gluconate 324 mg (38 mg 324 mg PO QAM 10/23/23 01/22/24 Unknown History iron) tablet omega-3 300 mg-dha 120 mg-epa 180 1 cap PO DAILY 10/23/23 01/22/24 Unknown History mg-fish oil 1,000 mg capsule propranolol 60 mg capsule,24 60 mg PO QAM 10/23/23 01/22/24 Unknown History hr,extended release sodium chloride 0.65 % nasal spray 1 spray intranasal DAILY PRN 10/23/23 01/22/24 Unknown History aerosol (Deep Sea Nasal) congestion Exam Pertinent Lab Results Pertinent Lab Results: Laboratory Tests 04/27/24 08:11 WBC 9.0 Hgb 14.9 Hct 44.3 Plt Count 290 Sodium 142 Potassium 4.1 Chloride 109 H Carbon Dioxide 27 BUN 8 L Creatinine 0.59 Assessment and Plan Assessment Anesthesia Assessment: Chart Reviewed Final Anesthetic Review Family History of Problems with Anesthesia: No History of Problems with Anesthesia: No Documented by User: Malinda Peters MD 11/05/24 11:42 PMFSH Past Medical History Medical History Renal lesion Skin lesion Anemia, unspecified Tremor of both hands Hyperlipidemia Nicotine dependence, cigarettes, uncomplicated History of colon polyps (~2017) Microscopic hematuria Nephrolithiasis Depression HTN (hypertension) GERD (gastroesophageal reflux disease) Family History Family History Father Oral cancer Maternal Grandmother Bicuspid aortic valve Mother Heart problem Surgical History Surgical History History of excision of pilonidal cyst History of esophagogastroduodenoscopy (EGD) History of colonoscopy Social History Social History Alcohol intake: former Patient Tobacco Use Status: Current everyday Tobacco user Tobacco use type: Cigarette Cigarette Packs Per Day: 0.5 Cigarettes Per Day: 10.0 Years Smoked: (onset 15yo, 1/2-1ppd x 37yrs, 25+PYH) Second Hand Smoke Exposure: No Meds Allergies Allergy/AdvReac Type Severity Reaction Status Date / Time No Known Allergies Allergy Verified 01/22/24 09:42 Home Medications ?Medication ?Instructions ?Recorded ?Confirmed ?Last Taken ?Type amlodipine 10 mg tablet 10 mg PO DAILY 12/04/22 01/22/24 Unknown History nicotine (polacrilex) 2 mg gum 2 mg PO 12/04/22 01/22/24 Unknown History omeprazole 20 mg capsule,delayed 20 mg PO QAM 12/04/22 01/22/24 Unknown History release multivitamin 1 tab PO DAILY 01/23/23 01/22/24 Unknown History amlodipine 5 mg tablet 5 mg PO DAILY 10/23/23 01/22/24 Unknown History ascorbic acid (vitamin C) 250 mg 250 mg PO QAM 10/23/23 01/22/24 Unknown History tablet carbamide peroxide 6.5 % ear drops drp otic (ears) 10/23/23 01/22/24 Unknown History (Ear Drops (carbamide peroxide)) cetirizine 10 mg tablet 10 mg PO DAILY 10/23/23 01/22/24 Unknown History escitalopram oxalate 20 mg tablet 20 mg PO QAM 10/23/23 01/22/24 Unknown History ferrous gluconate 324 mg (38 mg 324 mg PO QAM 10/23/23 01/22/24 Unknown History iron) tablet omega-3 300 mg-dha 120 mg-epa 180 1 cap PO DAILY 10/23/23 01/22/24 Unknown History mg-fish oil 1,000 mg capsule propranolol 60 mg capsule,24 60 mg PO QAM 10/23/23 01/22/24 Unknown History hr,extended release sodium chloride 0.65 % nasal spray 1 spray intranasal DAILY PRN 10/23/23 01/22/24 Unknown History aerosol (Deep Sea Nasal) congestion Exam Airway Mallampati Class: II TM Dist: >3cm Neck ROM: Full Heart: rrr Lungs: cta Assessment and Plan Assessment Anesthesia Assessment: Anesthesia Plan Discussed Final Anesthetic Review NPO: Yes ASA Class: II Final Preanesthetic Review: No Changes in Pt Med Stat, Meds/Allgs Chart Reviewed, Consent Obtained/Reviewed and Anes Risks/Benef Reviewed Patient Risk: Low Procedure Risk: Low Anesthetic Plan Anesthetic Plan: MAC: Disposition: Standard PACU
[2024-11-05 12:33] VITALS: BP 114/81; PULSE 86; RESP 20; TEMP 36.4; O2SAT 96; BMI 24.4
[2024-11-05] MEDS: Lactated Ringers 1,000 ML 100 ML IVCONT (12:43)
[2024-11-05 15:03] VITALS: BP 107/61; PULSE 68; RESP 16; TEMP 36.9; O2SAT 96
--- NOTE | 2024-11-05 15:27 | P.BOP_ITS ---
Brief Operative Note Date of Service: 11/05/24 Pre-op diagnosis: Screening Post-op diagnosis: other (Colon polyps) Procedure: Colonoscopy to the cecum with hot snare polypectomies x 3 in TC, cecum, and AC; cold biopsies of cecal polyp as well; and cold snare polypectomies in TC, at 50cm, and at 60cm Surgeon: Darshan Khan MD Anesthesia: MAC Was an Graphic Design Specialist used for this Procedure?: No Estimated blood loss (mL): 2.0 Pathology: other (A. Transverse colon polyps x 2 B. Cecal polyp C. Ascending colon polyp D. Polyp at 60cm E. Polyp at 50cm) Condition: stable Disposition: PACU
--- NOTE | 2024-11-06 00:07 | OP_ITS ---
DATE OF SERVICE: 11/05/2024 SURGEON: Darshan Khan MD INDICATIONS: The patient presents for evaluation of colorectal cancer screening in regard to previous history of tubular adenomas of the colon and serrated colon polyps. Full consent has been obtained from him for this, including risks of bleeding and perforation. PREOPERATIVE DIAGNOSIS: POSTOPERATIVE DIAGNOSIS: PROCEDURE PERFORMED: Colonoscopy to the cecum with hot snare polypectomies, cold snare polypectomies, and biopsies. ESTIMATED BLOOD LOSS: COMPLICATIONS: ANESTHESIA: Medication used, monitored anesthesia care. ASSISTANTS: SPECIMENS: PREOPERATIVE DIAGNOSES: Colorectal cancer screening, personal history of tubular adenomas of the colon, personal history of serrated colon polyps. POSTOPERATIVE DIAGNOSES: Colorectal cancer screening, personal history of tubular adenomas of the colon, personal history of serrated colon polyps, colon polyps, diverticulosis, and internal hemorrhoids. DESCRIPTION OF PROCEDURE: The patient was placed in the left lateral decubitus position. The digital rectal exam revealed no abnormalities. The [employer] video pediatric colonoscope was entered into the rectum and advanced easily to the cecum. Once in the cecum, I did identify cecal pouch with appendiceal orifice. The ileocecal valve appeared normal. The entire cecum was well visualized. In the cecum, adjacent to the region of the appendiceal orifice, was a raised area of polypoid type tissue but with a central umbilication. The ridge of the umbilication did appear adenomatous. I used a hot snare to remove all of the grossly adenomatous tissue in piecemeal fashion. All pieces were recovered by suction. I then took some cold biopsies of the base of the polyp in the area of umbilication. This was all put in the same container. The remainder of the cecum appeared normal. The scope was then slowly withdrawn assessing all mucosal surfaces carefully. Preparation was excellent. In the relatively proximal ascending colon was an approximately 12 to 15 mm polyp, which was removed by hot snare polypectomy and then recovered by withdrawing it on the tip of the scope out of the patient. The colonoscope was then re-entered into the rectum and advanced back to the polypectomy site in the ascending colon. The polypectomy site appeared clean, without any sign of residual polyp nor bleeding. In the transverse colon were 2 polyps. One was approximately 5 mm and removed by cold snare polypectomy and recovered by suction. The polypectomy site appeared clean, without any sign of residual polyp nor significant bleeding in the more proximal transverse colon was an approximately 12 mm polyp, which was removed by hot snare polypectomy and recovered by suction. At 60 cm and at 50 cm were flat, but raised approximately 5 or 6 mm polyps, which were removed by cold snare polypectomies. Both polypectomy sites appeared clean, without any sign of residual polyp nor significant bleeding. I did not visualize any other polyps, colitis, nor angiodysplasia. There was a mild amount of sigmoid diverticulosis. In the rectum, scope was retroflexed visualizing internal hemorrhoids, but no other pathology. The rectal mucosa appeared normal. The scope was straightened and withdrawn from the patient. He tolerated the procedure well and was returned to the recovery area in stable condition. IMPRESSION: 1. Colon polyps. 2. Diverticulosis. 3. Internal hemorrhoids. PLAN: The results of the pathology will be checked. He was advised not to use any aspirin nor NSAIDs for 2 weeks. The results of the biopsy will be checked and based on that, we will make plans for a followup colonoscopy. In particular, if the cecal polyp is adenomatous or serrated, then I would definitely recommend a colonoscopy within 1 year. MD MARLEN Mehta/ELIZABETH / [id number] MTDD
== END 2024-11-05 15:23 | disposition home or self-care (01) ==
PROVIDERS: PCP Student in an Organized Health Care Education/Training Program; Visit Provider Internal Medicine
PROC: 0DJD8ZZ Inspection of Lower Intestinal Tract, Via Natural or Artificial Opening Endoscopic (ICD-10-PCS; CPT 45378; principal; 2024-11-05 13:30)
DX: Z12.11 Encounter for screening for malignant neoplasm of colon (principal); Z80.0 Family history of malignant neoplasm of digestive organs; Z86.0101 Personal history of adenomatous and serrated colon polyps; D12.0 Benign neoplasm of cecum; D12.2 Benign neoplasm of ascending colon; D12.3 Benign neoplasm of transverse colon; D12.4 Benign neoplasm of descending colon; R14.0 Abdominal distension (gaseous); D12.5 Benign neoplasm of sigmoid colon; K57.30 Diverticulosis of large intestine without perforation or abscess without bleeding; K64.8 Other hemorrhoids; K21.9 Gastro-esophageal reflux disease without esophagitis; I10 Essential (primary) hypertension; N20.0 Calculus of kidney; F32.A Depression, unspecified; Z79.1 Long term (current) use of non-steroidal anti-inflammatories (NSAID); Z79.899 Other long term (current) drug therapy; F17.210 Nicotine dependence, cigarettes, uncomplicated; Z56.0 Unemployment, unspecified
CPT/HCPCS: 45385; 45380; 88305; J2371; J2704

== ENCOUNTER 2024-12-08 08:34 | Outpatient (REF) | payer MEDICAID, SELFPAY ==
--- OUTSIDE RECORDS SUMMARY | 2024-08-28 17:30 | XMS_ITS ---
Author Organization [employer] Address [address] [place], [place] [phone] Care Team Providers Care Electric Golf Cart Repairer Name Role Phone Fausto Joe MD Primary [...] Date Provider Diagnosis [facility] [address] [place] [phone] 08/28/2024 Provider Migration Plan Of Treatment Medication [...] * Rip HUSSEINoDOB: [birth year] (54 yo M)Acc No.[id number]:08/28/2024 Patient: Cortez JOSÉ Provider: :1970 A ge:53 Y S ex:Male Date:08/28/2024 Address:[address] [place], [place] [phone] Pcp:Fausto Joe MD Subjective: * Chief Complaints: [...] Electronic signature of Prov ider Migration on 12/08/2024 at 09:36 AM EDT Sign off status: Pending * Provider: Date: 08/28/2024 Generated for Eulalio vergara/Dia/Annaitting on: 12/08/2024 09:36 AM EDT
--- OUTSIDE RECORDS SUMMARY | 2024-11-05 08:30 | XMS_ITS ---
Author Organization [facility] Address [address] [place] [address] Care Team Providers Care Corporate Risk Analyst Name Role Phone Keli Montalvo Primary Care Provider Darshan Ball [phone] REASON FOR VISIT screening,hx polyps,serrated polyp of colon, fam hx colon cancer Encounters Encounter Location Date Provider Diagnosis [facility] [place] [address] [place] [phone] 11/05/2024 Darshan Khan Plan Of Treatment No Information Progress Notes * JAROD HUSSEIN ADOB:[birth year] (54 yo M)Acc No.[id number]:11/05/2024 COLON WITH MAC Patient: JAROD JOSÉ Provider: Hadley Khan MD :1970 A ge:54 Y S ex:Male Date:11/05/2024 Address:[address] [place], [place] [phone] Pcp:Keli Colon Subjective: * Chief Complaints: * [...] 0 11/05/2024 Generated for Eulalio vergara/Dia/eTransmitting on: 0 12/08/2024 09:36 AM EDT
--- OUTSIDE RECORDS SUMMARY | 2024-12-03 13:00 | XMS_ITS | Encounter Summary ---
Author Organization [employer] Address [address] [facility] 7t [place] [address] Care Team Providers Care Road Gang Supervisor Name Role Phone Keli Motnalvo MD Primary Care Pro vider Encounter Details Date Type Department Care Team (Late st Contact Info) Description 12/03/2024 1:00 PM EDT Telemedicine [facility] [address] [place] [address] Tyson Ortega MD [address] [place] [address] Alcohol use disorder, severe, dependence (CMS/HCC) (Primary Dx) Social History Tobacco Use Types [...] AM EDT documented as of this encounter Progress Notes * Tyson Ortega MD - 12/03/2024 1:00 PM EDT AUD PHYSICIAN TELE-F/U 12/03/2024 Tele-F/U for the patient with AUD who recently started Naltrexone PO. States he feels better on themedication, but developed some dizziness. States this is tolerable and would like to continue the medication. Denies syncope or LOC. He was at his niece's wedding last week and did not drink, which is quite rare for him. However, she sounds under the influence of alcohol today. He is alert and oriented x3. Admits to drinking today. He would like to schedule an in-person appointment next week. Communications with daughter and brother have been challenging, but making efforts to reach out. Daughter moved to [place] for a graduate school. Making amends with family members (brother who is a police lieutenant patrol). Typically drinks alone, but went out with a friend about 1 month ago. Had 4 whiskey drinks. Admits to being intoxicated. [place] bad both physically and mentally. Would like to stop drinking as he provides care for his elderly mother. He typically drinks like this once a month. Happy with his current a ntidepressant medication (Escitalopram). Denies any use of opiates. Explained potential opiate withdrawal symptoms when taken together. Patient doesn't have access to internet and camera for video. Patient gave verbal consent to be seen in this manner. A complete assessment and plan is detailed in the note, all of which were conducted remotely using virtual technology; video was offered but patient was unable to support video techno logy. Patient identity was verbally confirmed with 2 identifiers at the start of the visit. Patientverbalized being located in the [facility] during the televisit. Provider was located in an Ambulatory exam room at a secure location during the visits. Previous HPI: Patient presents to discuss his alcohol use disorder. Undergone AUD intake in 11/2022. Underlying HTN and MDD. States he has made significant lifestyle modification and is not seeking any MAT medications at this time. Previously admitted to having binge drinking events every month or so. 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 His alcohol use gradually became worse, peaking in 2020 with daily hard liquor (vodka and whiskey) up to 1 pint to 750mL per day. During this time, he admits other people being worriedabout his alcohol consumption. He was often drinking in the morning. He started thinking about thisand made significant effort in reducing the amount. His main goal is to be healthy and have improved relationship with people. Since his last visit, he had durations of 30 days and 45 days without alcohol (with 2-3 days of binging in-between). Currently he is 5-months sober (longest duration in recent years). Denies any legal issues. Never had DT or withdrawal- related seizure. Denies any other drug use. Has been feeling ambivalent about trying MAT for his AUD. Risks, benefits, and potential adverse reactions of various MAT options reviewed. Patient reports Neurology started him on Propranolol LA (Inderal) for tremors. Although this has been helpful with tremors, he notices worsening depression and increased fatigue. PCP recently loweredthe dose of Inderal. He is otherwise satisfied with Escitalopram 20mg dose. Review of Systems Psychiatric/Behavioral: Negative for behavioral problems and dysphoric mood. The patient is not nervous/anxious. Physical Exam Neurological: Mental Status: He is alert. Psychiatric: Mood and Affect: Mood normal. Behavior: Behavior normal. Thought Content: Thought content normal. Judgment: Judgment normal. Diagnoses and all orders for this visit: Alcohol use disorder, severe, dependence (CMS/HCC) (Primary) Patient with AUD Tele Visit Consumes alcohol typically once monthly Some dizziness when Naltrexone PO was started, but no syncope or LOC Patient would like to continue the medication at this time Recently was at a family function (), but did not drink at all He finds this to be a success Admits to drinking today Discussed various treatment options and their risks, benefits and alternatives Previous CBC/LFT does not suggest cirrhosis at this time Admitted to drinking heavily when he was feeling lonely; now he is more aware of his triggers Discussed strategies to handle triggering situations Discussed about action plan when these triggers occur Thinking about volunteering options Also discussed about mindful practices Interested in starting MAT Pharmacologic treatment options discussed Potential adverse effects of the medication reviewed Previously discussed about AA meetings and group meetings offered at [facility] Denies any history of withdrawal-related seizure or DT Discussed about the risks of alcohol withdrawal in a home setting, including DT, seizure and Indications for ER and inpatient detox reviewed Advised to contact the clinic with any worsening symptoms Follow up in 1 week in-person to discuss further Patient agrees with the plan This information has been disclosed to you from records protected by federal confidentiality rules (42 CFR Part 2). The federal rules prohibit you from making any further disclosure of information inthis record that identifies a patient as having or having had a substance use disorder either directly, by reference to publicly available information, or through verification of such identification by another person unless further disclosure is expressly permitted by the written consent of the individual whose information is being disclosed or as otherwise permitted by (see2.3.1). The federal rules restrict any use of the information to investigate or prosecute with regard to a crime any patient with a substance use disorder, except as provided at 2.12??(5) and 2.65. documented in this encounter Plan of Treatment Upcoming Encounters Date Type Department Care Team (Late st Contact Info) Description 12/10/2024 1:30 PM EDT Office Visit [facility] [address] [place] [phone] Tyson Ortega MD [address] [place] [address] [phone] documented as of this encounter Visit Diagnoses Diagnosis Alcohol use disorder, severe, dependence (CMS/HCC)- Primary documented in this encounter Additional Health Concerns Assessment Noted Time PHQ-9 Depression Total Score: 0 10/14/19 25 11:04 AM EDT documented as of this encounter Care Teams Road Gang Supervisor Relationship Specialty Start Date End Date Keli Montalvo MD [address] [place] [address] [phone] PCP - General Internal Medicine 11/14/22 documented as of this encounter
--- NOTE | ~2024-12-08 | US_ITS ---
EXAMINATION: US COMPLETE ABDOMEN WITH LIVER ELASTOGRAPHY CLINICAL INFORMATION: alcohol abuse/dependence, noted enlarged abdominal girth COMPARISON: Abdomen ultrasound 10/18/2016 TECHNIQUE: Real-time imaging of the abdominal viscera. Noninvasive ultrasound liver fibrosis assessment is performed using Anish ElastPQ point quantification shear wave elastography (pSWE) with a C5-2 MHz transducer. Multiple elastography samples are obtained. FINDINGS: PANCREAS: The visualized pancreatic head and body are normal in appearance. The remainder of the pancreas is obscured from visualization by the overlying bowel gas. ABDOMINAL AORTA: No aortic aneurysm is seen. INFERIOR VENA CAVA: Visualized portions are normal. LIVER: The liver demonstrates coarse echotexture. No focal lesion or intrahepatic biliary duct dilatation. The right lobe measures 13 cm in length. The left lobe measures 12 cm in length. The main portal vein is patent with a normal direction of flow and a continuous venous waveform. Shear wave liver elastography median stiffness is 1.6 m/s (reference: normal median stiffness is 1.3 m/s or less). IQR/median stiffness to assess sampling precision is 0.25 (reference: good quality data set is IQR/median stiffness of 0.15 or less). GALLBLADDER: The gallbladder is physiologically distended without evidence of stones, sludge, polyps, wall thickening or pericholecystic fluid. COMMON BILE DUCT: Normal in caliber measuring 0.4 cm in diameter. RIGHT KIDNEY: No hydronephrosis. . There is increased echogenicity of the renal cortex. The kidney measures 12 cm in maximum dimension. 3 mm calcification is present in the central portion of the kidney. There is also a 9 mm anechoic cyst in the same region. LEFT KIDNEY: No hydronephrosis. There is increased echogenicity of the renal cortex. The kidney measures 13.5 cm in maximum dimension. SPLEEN: Unremarkable. The spleen measures 7 cm in maximum dimension. FREE FLUID: None seen. US/US abdomen comp w elastography IMPRESSION: The liver demonstrates a coarse hyperechoic appearance suggesting hepatocellular disease or hepatic steatosis. Liver elastography: In the absence of other known clinical signs, measurements rule out compensated advanced chronic liver disease. If there are known clinical signs, further testing may be needed for confirmation. There is subjectively increased echogenicity of the renal cortex bilaterally raising question of underlying medical renal disease. There is a 3 mm nonobstructing stone in the mid right kidney, similar to the prior. REFERENCE: Society of Radiologists in Ultrasound Liver Stiffness Thresholds (2020): LIVER STIFFNESS THRESHOLDS: *Liver Stiffness equal or less than 1.3 m/s: High probability of being normal. *Liver Stiffness less than 1.7 m/s: In the absence of other known clinical signs, rules out compensated advanced chronic liver disease. *Liver Stiffness 1.7-2.1 m/s: Suggestive of compensated advanced chronic liver disease but need further test for confirmation. *Liver Stiffness over 2.1 m/s: Rules in compensated advanced chronic liver disease. *Liver Stiffness over 2.4 m/s: Suggestive of clinically significant portal hypertension. QUALITY OF DATA SET: *IQR/Median value equal or less than 0.15 implies a quality data set. *IQR/Median value over 0.15 implies a poor quality data set. SIGNIFICANT CHANGE FROM PRIOR EXAM: Significant change if liver stiffness measurement is 10% or greater from prior exam. OTHER CONSIDERATIONS: The stage of liver fibrosis may be overestimated in the setting of acute hepatitis, liver inflammation, elevated liver function tests, hepatic vascular congestion, obstructive cholestasis, non-fasting state, and infiltrative diseases such as amyloidosis and lymphoma. In some patients with NAFLD, the liver stiffness thresholds for compensated advanced chronic liver disease may be lower. In causes other than viral hepatitis and NAFLD, liver stiffness thresholds are not well established. Electronically signed by: Joey Dobbs MD 12/08/2024 12:01 PM EDT
--- OUTSIDE RECORDS SUMMARY | 2024-12-08 09:36 | XMS_ITS | Encounter Summary ---
Author Organization [employer] Address [address] [facility] 7[address] [place] [address] Care Team Providers Care Chief Security And Safety Officer Name Role Phone Keli Montalvo MD Primary Care Pro vider Encounter Details Date Type Department Care Team (Late Contact Info) Description 05/17/[address] [facility] ADULT DENTAL [address] [place] [address] El Lockhart DMD Social History Tobacco Use Types Packs/Day Years [...] Department Care Team (Late Contact Info) Description 12/10/2024 1:30 PM EDT Office Visit [facility] [address] [place] [address] Tyson Ortega MD [address] [place], [place] [phone] documented as of this encounter Visit Diagnoses Not on filedocumented in this encounter Care Teams Chief Security And Safety Officer Relationship Specialty Start Date End Date Keli Montalvo MD [address] [place] [phone] PCP - General Internal Medicine 11/14/22 documented as of this encounter
--- OUTSIDE RECORDS SUMMARY | 2024-12-08 09:36 | XMS_ITS | Encounter Summary ---
Author Organization [employer] Address [address] [facility] 7t [place] [address] Care Team Providers Care Contact Lens Blocker And Cutter Name Role Phone Keli Montalvo MD Primary Care Pro vider Encounter Details Date Type Department Care Team ([facility] Contact Info) Description 06/12/2022 Abstract [facility] AD[facility] [address] [place] [address] Pippa, Keyanna [address] [place] [address] Social History Tobacco Use Types Packs/Day Years [...] Description 12/10/2024 1:30 PM EDT Office Visit [facility] [address] [place], [place] [phone] Tyson Ortega MD [address] [place] [address] documented as of this encounter Visit Diagnoses Not on filedocumented in this encounter Care Teams Contact Lens Blocker And Cutter Relationship Specialty Start Date End Date Keli Montalvo MD [address] [place], [place] [phone] PCP - General Internal Medicine 11/14/22 documented as of this encounter
--- OUTSIDE RECORDS SUMMARY | 2024-12-08 09:36 | XMS_ITS | Patient Health Record ---
Author Organization [facility] Address [address] [place], [place] [phone] Care Team Providers Care Manufacturing Cost Estimator Name Role Phone Fausto Jeo MD Primary Care Provider Migration, Provider Unavailable Unavailable Reason For Referral No Information Medications Medication SIG (Take, Route, Frequency, Duration) Notes Start Date End Date Status Wellbutrin XL 150 MG/24 HOURS 1 TAB(S) ORALLY EVERY 24 HOURS; Duration: 90 *Please review and pick correct strength-formulation from [employer] microcapsspan options. If intended option is not shown, [...] Status W/U Status Risk Notes Problem Hypercholesterolemia (43783270) Hypercholesterolemia NOS (272.4) Active confirmed Problem Essential hypertension (99023447) HTN [Hypertension] (401.9) Active confirmed Encounters Encounter Location Date Provider Diagnosis [facility] [address] [place], [place] [phone] 08/28/2024 Provider Migration Plan Of Treatment Pending Test Test Name Order Date PSA 05/23/2009 PSA 12/26/2011 PSA 12/29/2012 PSA 01/07/2014 BMP 01/07/2014 BMP 12/29/2012 BMP 12/26/2011 BMP 05/23/2009 BMP 03/03/2008 LIPID PROFILE 03/03/2008 LIPID PROFILE 05/23/2009 LIPID PROFILE 12/26/2011 LIPID PROFILE 12/29/2012 LIPID PROFILE 01/07/2014 URINALYSIS, AUTOMATED ONLY 01/07/2014 URINALYSIS, AUTOMATED ONLY 12/29/2012 URINALYSIS, AUTOMATED ONLY 12/26/2011 URINALYSIS, AUTOMATED ONLY 05/23/2009 URINALYSIS, AUTOMATED ONLY 03/03/2008 CBC With Differential/Platelet 8 CBC With Differential/Platelet 0 CBC With Differential/Platelet 2 CBC With Differential/Platelet 3 CBC With Differential/Platelet 4 ALT/SGPT 01/07/2014 AST/SGOT 01/07/2014 Insurance Providers Payer Name Payer Address Payer Phone Subscriber Number Group Number Insured Name Patient Relationship to Insured Coverage Start Date Coverage End Date [facility] [address] [place] [address] [id number] Cortez Westfall Self - patient is the insured Medical (General) History Medical History History ICD Code allergic rhinitis hypertension headache anxiety depression nephrolithiasis hyperlipidemia onychomycosis Surgical History Surgery Date(Month/Year) Pilonidal cyst
--- OUTSIDE RECORDS SUMMARY | 2024-12-08 09:36 | XMS_ITS | Encounter Summary ---
Author Organization [employer] Address [address] [facility] 7 [place] [address] Care Team Providers Care Inspector Insulation Name Role Phone Keli Montalvo MD Primary Care Pro vider Reason for Visit * Reason Onset Date Comments New Patient Appt 07/31/2022 Encounter Details Date Type Department Care Team ([facility] st Contact Info) Description 07/31/2022 Telephone [facility] [address] [place], [place] [phone] Jesus Quach MD [address] [place] [address] New Patient Appt Social History Tobacco Use [...] Miscellaneous Notes * Telephone Encounter - Jostin Maxwell - 07/31/2022 3:11 PM EDT New Patients Par Merceddevin ManriquezMilton called to schedule New patient appt, pt did not answer left voicemail to give a call at [phone]. documented in this encounter Plan of Treatment Upcoming Encounters Date Type Department Care Team (Late st Contact Info) Description 12/10/2024 1:30 PM EDT Office Visit [facility] [address] [place] [address] [phone] Tyson Ortega MD [address] [place] [phone] documented as of this encounter Visit Diagnoses Not on filedocumented in this encounter Care Teams Inspector Insulation Relationship Specialty Start Date End Date Keli Montalvo MD [address] [place] [phone] PCP - General Internal Medicine 11/14/22 documented as of this encounter
--- OUTSIDE RECORDS SUMMARY | 2024-12-08 09:36 | XMS_ITS | Clinical Summary ---
Author Organization [email or web address] Address [address] [place] [address] Care Team Providers Care Parcel Post Carrier Name Role Phone Keli Montalvo MD Primary [...] 1 04/27/19 25 026 Active omega-3 (Ultra Rye 3) 1000 MG capsule TAKE 1 CAPSULE BY MOUTH EVERY DAY 90 capsule 1 05/20/19 25 Active Ascorbic Acid (vitamin C) 250 MG tablet Take 1 tablet (250 mg) by mouth 3 (three) times a week. 40 tablet 07/10/19 25 Active sodium chloride ([place] Nasal [place]) 0.65 % nasal spray Administer 1 spray [...] MORNING 90 tablet 1 08/13/19 25 Active amLODIPine (Norvasc) 5 MG tablet TAKE 1 TABLET BY MOUTH EVERY DAY 90 tablet 1 09/24/19 25 Active naltrexone (Depade) 50 MG tabletIndicati ons:Alcohol use disorder, severe, dependence (CMS/HCC) Take 1 tablet (50 mg) by mouth Once per day. Start with 1/2 tab (=25mg) daily for 4 days, then increase to 1 tab daily. 30 tablet 1 11/13/19 25 025 Active cetirizine (ZyrTEC) 10 MG tablet TAKE 1 TABLET BY MOUTH EVERY DAY 90 tablet 1 11/30/19 25 Active cetirizine (ZyrTEC) 10 MG tablet Take 1 tablet (10 mg) by mouth Once per day. 90 tablet 08/20/19 25 025 Discontinued(Re order (will not trigger [...] to go to alcohol abuse program at [facility] and pt agreed -cced today this note [...] neg -Continue amlodipine 5 mg daily -saw rn neonatal in 05/2022 Normal complete exam per pt [...] BP readings 3 times a week -saw rn neonatal in 05/2022 Normal complete exam per pt [...] -will monitor BP at next visit -saw rn neonatal in 05/2022 Normal complete exam per pt [...] Visit Other Mild major depression, single episode (CMS/[facility]) Patient ready to address current needs No PLAN: 1. Follow up with [facility] [place]: Recommended for follow-up: Patient will consider 2. [...] Encounters Date Type Department Care Team Description 12/06/2024 Telephone [facility] [address] [place] [address] [phone] Keli Montalvo MD chart prep 12/03/2024 1:00 PM EDT Telemedicine [facility] [address] [place] [address] [phone] Tyson Ortega MD Alcohol use disorder, severe, dependence (CMS/HCC) (Primary Dx) 12/03/2024 Travel 11/28/2024 Refill [facility] [address] [place] [address] [phone] Keli Montalvo MD 11/28/2024 Refill [facility] [address] [place] [address] [phone] Jesus Quach MD 11/12/2024 1:15 PM EDT Office Visit [facility] [address] [place] [address] Tyson Ortega MD Alcohol use disorder, severe, dependence (CMS/HCC) (Primary Dx) 11/12/2024 Travel 11/08/2024 Refill [facility] [address] [place] [address] Keli Montalvo MD 11/08/2024 Refill [facility] [address] [place] [address] Keli Montalvo MD 11/05/2024 Orders Only GENERIC EXTERNAL DATA DEPARTMENT Provider, Generic External Data 10/13/2024 10:45 AM EDT Office Visit [facility] [address] [place] [phone] Keli Montalvo MD Chronic pain of both knees (Primary Dx); Health care maintenance; Increased abdominal girth; Essential hypertension; Mixed hyperlipidemia; Adrenal incidentaloma (CMS/HCC); Macrocytosis; Alcohol abuse; Mild major depression, single episode (CMS/HCC); Arthralgia, unspecified joint; Tobacco use 10/13/2024 Telephone [facility] [address] [place] [phone] Mervat Diaz Provide support for current mental health needs 10/13/2024 Travel 10/12/2024 Telephone [facility] [address] [place] [address] [phone] Klei Montalvo MD CHART PREP 10/06/2024 Patient Outreach [facility] [address] [place] [address] [phone] Keli Montalvo MD Pre-visit Planning (SDOH Screening negative and Tobacco screening positive) 09/23/2024 Refill [facility] [address] [place] [address] [phone] Jesus Quach MD 09/23/2024 Refill [facility] [address] [place] [address] [phone] Keli Montalvo MD 09/08/2024 11:15 AM EDT Office Visit [facility] OPTOMET[facility] [address] [place] [phone] Tristin, Ashley, OD Presbyopia (Primary Dx) 09/07/2024 10:45 AM EDT Office Visit [facility] ADULT DENTAL [address] [place] [address] Alvaro Glass DDS from Last 3 Months Immunizations Immunization Administration [...] Sign Reading Time Taken Comments Blood Pressure 118/78 11/12/2024 1:22 PM EDT Pulse 72 11/12/2024 1:22 PM EDT Temperature 36.4 C (97.6 F) 11/12/2024 1:22 PM EDT Respiratory Rate 20 11/12/2024 1:22 PM EDT Oxygen Saturation 98% 10/13/2024 11:02 AM [...] Description 12/10/2024 1:30 PM EDT Office Visit [facility] [address] [place] [address] Tyson Ortega MD [address] [place] [address] Health Maintenance Due Date Last Done Comments CT Colonography 1970 FIT DNA/Cologuard 1970 FIT 1970 FOBT 1970 Sigmoidoscopy 1970 Dental Oral Exam 12/08/2023 06/06/2023, 05/01/2022 Dental Prophylaxis 12/08/2023 06/06/2023, 05/29/2022 Dental X-Ray: Bitewings 06/06/2024 06/06/2023, 05/01 Influenza Vaccine (#1) 2024 , 02/02/2021, 02/16/2018 Alcohol/Substance Use Screening 01/13/2025 01/14/2024 Dental X-Ray: Full Mouth 05/02/2025 05/01/2022 SDOH Screening 10/06/2025 10/06/2024 Depression Screening 10/13/2025 10/13/2024, 10/14/19 25 Disability Screening 10/13/2025 10/13/2024 Tobacco Screening 10/13/2025 [...] Procedure Name Priority Date/Time Associated Diagnosis Comments HEMATOXYLIN AND EOSIN STAIN Routine 11/05/2024 2:14 PM EDT CASE PRESENTATION, DETAILED AND EXTENSIVE TREATMENT PLANNING Routine 09/07/2024 10:45 AM EDT 3 EXTRACTION, ERUPTED TOOTH OR EXPOSED ROOT (ELEVATION/FORCEPS REMOVAL) Routine 09/07/2024 10:45 AM EDT LIPID PANEL, STANDARD Routine 04/27/2024 [...] Recently Relevant to Health Maintenance Results * Hematoxylin and Eosin Stain (11/05/2024 2:14 PM EDT) 11/05/2024 2:14 PM EDT 11/08/2024 8:22 AM EDT [facility] - 11/09/2024 11:38 AM EDT ----- ------- Name: Cortez Westfall Age/Sex: 54/M : 1970 Unit#: [id number] Attend Dr: Darshan Khan MD Re11/05/24 Status: [facility] Location: HO.SSS Disch: ----- ------- SPEC : [id number] RECD: 11/08/24 STATUS: VINCENT FULLER NUM: [id number] PEMA: 11/05/[address] [facility] [address]: Darshan Khan MD ENTERED: 11/08/24 SP TYPE: Surgical OTHR DR: Keli Montalvo MD ORDERED: HE Stain/15, Gross Micro L4/5 Diagnosis A. Colon, transverse, polypectomies: - Tubular adenoma; negative for high-grade dysplasia or carcinoma. - Fragments of sessile serrated lesion/polyp; negative for cytologic dysplasia. B. Cecum, polypectomy: Fragments of sessile serrated lesion/polyp; negative for cytologic dysplasia. C. Colon, ascending, polypectomy: Tubular adenoma; negative for high-grade dysplasia or carcinoma. D. Colon, 60 cm, polypectomy: Fragments of tubular adenoma; negative for high-grade dysplasia or carcinoma. E. Colon, 50 cm, polypectomy: Tubular adenoma; negative for high-grade dysplasia or carcinoma. Clinical History Pre-Op Dx: Screening, polyp, history of malignant neoplasm of digestive colon Post-Op Dx: Colon polyps, diverticulosis, hemorrhoids Microscopic Description A-E. Microscopic sections reviewed. Material Received A. Transverse colon polyps B. Cecal polyp C. Ascending colon polyp D. Colon polyp at 60 cm E. Colon polyp at 50 cm Gross Description A. Received in formalin are 2 viera 4-5 mm soft tissue fragments, the larger of which is inked at the base and bisected, totally submitted in A1. B. Received in formalin are multiple viera 1-3 mm soft tissue fragments, totally submitted in B1. C. Received in formalin is 1 viera 6 mm polypoid soft tissue, inked at the base, bisected, totally submitted in C1. D. Received in formalin are 2 viera 1-3 mm soft tissue fragments, totally submitted in D1. CONTINUED ON NEXT PAGE ----- ------- Name: Cortez Westfall Age/Sex: 54/M : 1970 Unit#: [id number] Attend Dr: Darshan Khan MD Re11/05/24 Status: [facility] Location: [facility] Disch: ----- ------- SPEC : [id number] RECD: 11/08/24 STATUS: VINCENT FULLER NUM: [id number] PEMA: 11/05/24-[address] [facility] [address]: Darshan Khan MD ENTERED: 11/08/24 SP TYPE: Surgical OTHR DR: Keli Montalvo MD ORDERED: HE Stain/15, Gross Micro L4/5 Gross Description (Continued) E. Received in formalin is 1 viera 3 mm soft tissue fragment, totally submitted in E1. (RJD) IHC S/NG Disclaimer NOTE: Unless otherwise stated, all tissue is formalin-fixed and paraffin-embedded. Some or all of the immunohistochemical tests reported herein may have been developed and their performance characteristics determined by [facility]. They have not been cleared or approved by the U.S. Food and Drug Administration (FDA). However, the FDA has determined that such clearance or approval is not necessary. This laboratory is certified under the Clinical Laboratory Improvement Amendments of 1988 (CLIA) as qualified to perform high complexity clinical laboratory testing. Copies To: Keli Montalvo MD [address] [place] [address] [id number] Darshan Khan MD [facility] [address] [place] [address] ----- ------- Signed (signature on file) Aroldo Camacho MD 11/09/24 1138 ----- ------- END OF REPORT Generic External Data Provider LAB BLOOD ORDERAB LES Final Result Performing Organization Address [facility] [address]/ZIP Co de Phone Number [facility] [address] [place] [address] [phone] * (ABNORMAL) Lipid Panel, Standard (04/27/2024 8:11 AM EST) Triglycerides 178(H) <150 mg/dL [facility] Comment:Desirable Triglyceri de: less than 150 mg/dLBorderline High Triglyceride 150-199 mg/dLHigh Triglyceride: 200-499 mg/dLVery High Triglyceride: greater than or equal to 5OO mg/dL Cholesterol 173 <200 mg/dL [facility] Comment:Desirable Cholestero l: less than 200 mg/dLBorderline High Cholesterol: 200-239 mg/dLHigh Cholesterol: greater than 239 mg/dL LDL Cholesterol Calculated 96 <100 mg/dL [facility] Comment:Desirable LDL: less than 100 mg/dLNear Optimal/Above Optimal LDL: 110- 129 mg/dLBorderline High LDL: 130-159 mg/dLHigh LDL: 160-189 mg/dLVery High LDL: greater than or equal to 190 mg/dL HDL Cholesterol 42 >40 mg/dL [facility] Comment:Desirable HDL: great er than 40 mg/dL Note: This HDL assay may give artificially low results in patients with liver disease. Blood Venous blood specimen / Unknown 04/27/2024 8:11 AM EST 04/27/2024 10:51 AM EST us Keli Colon MD LAB BLOOD ORDERAB LES Final Result Performing Organization Address City/[facility] [address]/ZIP Co de Phone Number [facility] [address] [place] [phone] * Hepatitis C Antibody with Reflex to HCV, RNA, Quantitative, Real-Time PCR (10/09/2023 8:05 AM EDT) Hepatitis C Antibody Nonreactive Nonreactive [facility] Comment:Antibodies to HCV no t detected; does not exclude early acuteHCV infection. Blood Venous blood specimen / Unknown 10/09/2023 8:05 AM EDT 10/09/2023 11:21 AM EDT Keli Colon MD LAB BLOOD ORDERAB LES Final Result Performing Organization Address [facility] [address]/ZIP Co de Phone Number [facility] [address] [place] [address] [phone] * HIV-1/2 Antigen and Antibodies, Fourth Generation, with Reflexes (10/09/2023 8:05 AM EDT) HIV AB/AG Nonreactive Nonreactive [facility] Comment:HIV-1 p24 Ag and/or HIV-1/HIV-2 Ab not detected.A test result that is nonreactive does not exclude thepossibility of exposure to or infection with HIV-1 and/orHIV-2. Nonreactive results in this assay for individualswith prior exposure to HIV-1 and/or HIV-2 may be due toantigen and antibody levels that are below the limit ofdetection of this assay.The [employer] HIV Ag/Ab Combo assay result andsupplemental assay results should be interpreted inconjunction with the patient's clinical presentation,history and other laboratory results. If the results areinconsistent with clinical evidence, additional testing issuggested to confirm the result. Blood Venous blood specimen / Unknown 10/09/2023 8:05 AM EDT 10/09/2023 11:21 AM EDT us Keli Colon MD LAB BLOOD ORDERAB LES Final Result Performing Organization Address [facility] [address]/ZIP Co de Phone Number [facility] [address] [place] [address] [phone] * Hm Colonoscopy (01/24/2023 11:12 AM EST) us Historical Provider HEALTH MAINTENANCE Final Result from Last 3 Months or Most Recently Relevant to Health Maintenance Insurance [facility] C3 DENTAL-[facility] MEDICAID STAND ADULT Care Teams Parcel Post Carrier Relationship Specialty Start Date End Date Keli Montalvo MD [address] [place] [phone] PCP - General Internal Medicine 11/14/22
--- OUTSIDE RECORDS SUMMARY | 2024-12-08 09:36 | XMS_ITS | Encounter Summary ---
Author Organization [employer] Address [address] [place] [address] Care Team Providers Care Nursing Informatics Analyst Name Role Phone Keli Montalvo MD Primary Care Pro vider Encounter Details Date Type Department Care Team ([facility] Contact Info) Description 06/24/2022 Abstract [facility] ADULT DENTAL [address] [place] [address] P[place], [place]anna [address] [place] [address] Social History Tobacco Use Types Packs/Day Years [...] Description 12/10/2024 1:30 PM EDT Office Visit [facility] [address] [place], [place] [phone] Tyson Ortega MD [address] [place] [address] documented as of this encounter Visit Diagnoses Not on filedocumented in this encounter Care Teams Nursing Informatics Analyst Relationship Specialty Start Date End Date Keli Montalvo MD [address] [place], [place] [phone] PCP - General Internal Medicine 11/14/22 documented as of this encounter
--- OUTSIDE RECORDS SUMMARY | 2024-12-08 09:36 | XMS_ITS | Encounter Summary ---
Author Organization [employer] Address [address] [place] [address] [place] [address] Care Team Providers Care Shuttle Threader Name Role Phone Keli Montalvo MD Primary Care Pro vider Reason for Visit * Reason Onset Date Comments Med Refill 11/28/2024 Encounter Details Date Type Department Care Team (Late st Contact Info) Description 11/28/2024 Refill [facility] [address] [place] [address] Keli Montalvo MD [address] [place] [address] Social History Tobacco Use Types Packs/Day Years [...] Description 12/10/2024 1:30 PM EDT Office Visit [facility] [address] [place] [address] Tyson Ortega MD [address] [place] [address] documented as of this encounter Visit Diagnoses Not on filedocumented in this encounter Additional Health Concerns Assessment Noted Time PHQ-9 Depression Total Score: 0 10/14/19 25 11:04 AM EDT documented as of this encounter Care Teams Shuttle Threader Relationship Specialty Start Date End Date Keli Montalvo MD [address] [place] [phone] PCP - General Internal Medicine 11/14/22 documented as of this encounter
--- OUTSIDE RECORDS SUMMARY | 2024-12-08 09:36 | XMS_ITS | Patient Health Record ---
Author Organization [facility] Address 10 [facility] [address] [place] [address] Care Team Providers Care Stone Gluer Name Role Phone Keli Montalvo Primary Care Provider Darshan Ball Unavailable [phone] Allergies Allergen (clinical drug ingredient) Drug/Non Drug Allergy documented on EMR Reaction Allergy Type Onset Date Status seasonal (uncoded) Unknown Allergy A ctive Results Component Value Reference Range Notes Pathology (Not yet reviewed by provider) Interpretation: Performing Lab:[facility], [address] [place] [phone] Notes/Report: Reason For Referral Referring Provider First Name Keli Referring Provider Last Name Anuj beltran Referred Organization [facility] Referred Provider Darshan Khan Referred Address [address] [place] [address], ite [address] [place] [phone], Referred Provider Specialty Gastroentero logy General Notes Tara Zuniga 2024 07:39:37 AM >requested a m;[facility] referral from [facility] for visit with Dr. Khan on [...] 10 MG TAKE 1 TABLET BY MO [facility] DAILY Oral for 90 Days Active Testosterone [...] Multivitamin - TAKE 1 TABLET BY AJ EVERY DAY IN THE MORNING Oral for [...] Points 2 Interpretation Negative Section Notes: Smoker 8 cigs QD; occ. wine Smoker 1cigs QD; occ. wine Smoker 1cigs QD; occ. wine Problems Problem Type SNOMED Code ICD Code Onset Dates Problem Status W/U Status Risk Notes Problem Colon cancer screening (034582939) Colon cancer screening (Z12.11) Active confirmed Problem 157913956 Encounter for screening for malignant neoplasm of colon (Z12.11) Active confirmed Problem Diverticular disease of colon (346819918) Diverticulosis of large intestine without perforation or abscess without bleeding (K57.30) Active confirmed Problem 34645246 Abdominal pain, epigastric (R10.13) Active confirmed Problem 742862486 Gastroesophageal reflux disease, esophagitis presence not specified (K21.9) Active confirmed Problem 199694528 Family history o f colon cancer (Z80.0) Active confirmed Problem 86628618 Irritable bowel syndrome, unspecified type (K58.9) Active confirmed Problem Serrated polyp of colon (940603648) Serrated polyp of colon (K63.5) Active confirmed Problem 204474504 Gastroesophageal reflux disease with esophagitis without hemorrhage (K21.00) Active confirmed Problem History of adenomatous polyp of colon (210855510) History of adenomatous polyp of colon (Z86.0101) Active confirmed Vital Signs Temperature 98.6 degrees Fahrenheit 10/19/2024 Blood pressure diastolic 01 mm Hg 10/19/2024 Height 69 in 10/19/2024 Blood pressure systolic 001 mm Hg 10/19/2024 Weight 175.2 lbs 10/19/2024 BMI 25.87 kg/m2 10/19/2024 Procedures Procedure Date Ordered Date Performed Result Body Sit e COLONOSCOPY 10/19/2024 N/A Encounters Encounter Location Date Provider Diagnosis [facility] [address] [place] [id number] 11/05/2024 Darshan Khan [facility] [address] [place] [address] 10/19/2024 Darshan Khan Gastroesophageal ref lux disease, [...] esophagitis presence not specified (ICD-10 - K21.9) Overall, Jarod appears well from a clinical standpoint. It does not appear that he is having any particularly worrisome or new GI symptoms. We did review his current abdominal symptoms and mildly increased reflux symptoms. I explained to him this increasing GI symptomatology is most likely from his dietary indiscretionand weight gain, I do not think this indicates anything worrisome such as worsening esophagitis or peptic ulcer disease. I advised him that he should continue the daily omeprazole at 20 mg but definitely needs to watch his diet and attempt to lose weight. I do not think a repeat upper endoscopy is required. I did recommend a follow-up colonoscopy later this year at a relatively shorter 2-year interval than usual due to the finding of the questionable serrated polyp in the cecum, another serrated polyp in the transverse colon, and his father's significant history of colon cancer in his 40s. We did review the rationale for this in regard to colon cancer prevention. Full consent has been obtained for this, including risks of bleeding and perforation. The procedure will be done with monitored anesthesia care. He was given the below instructions regarding adjustment of his medications for the procedure. Jarod was comfortable with this plan. Thank you again for allowing me to participate in Jarod's care. I shall continue to keep you advised of his progress. 10/19/2024 Family history of colon cancer (ICD-10 - Z80.0) Overall, Jarod appears well from a clinical standpoint. It does not appear that he is having any particularly worrisome or new GI symptoms. We did review his current abdominal symptoms and mildly increased reflux symptoms. I explained to him this increasing GI symptomatology is most likely from his dietary indiscretionand weight gain, I do not think this indicates anything worrisome such as worsening esophagitis or peptic ulcer disease. I advised him that he should continue the daily omeprazole at 20 mg but definitely needs to watch his diet and attempt to lose weight. I do not think a repeat upper endoscopy is required. I did recommend a follow-up colonoscopy later this year at a relatively shorter 2-year interval than usual due to the finding of the questionable serrated polyp in the cecum, another serrated polyp in the transverse colon, and his father's significant history of colon cancer in his 40s. We did review the rationale for this in regard to colon cancer prevention. Full consent has been obtained for this, including risks of bleeding and perforation. The procedure will be done with monitored anesthesia care. He was given the below instructions regarding adjustment of his medications for the procedure. Jarod was comfortable with this plan. Thank you again for allowing me to participate in Jarod's care. I shall continue to keep you advised of his progress. 10/19/2024 History of adenomatous polyp of colon (ICD-10 - Z86.0101) Overall, Jarod appears well from a clinical standpoint. It does not appear that he is having any particularly worrisome or new GI symptoms. We did review his current abdominal symptoms and mildly increased reflux symptoms. I explained to him this increasing GI symptomatology is most likely from his dietary indiscretionand weight gain, I do not think this indicates anything worrisome such as worsening esophagitis or peptic ulcer disease. I advised him that he should continue the daily omeprazole at 20 mg but definitely needs to watch his diet and attempt to lose weight. I do not think a repeat upper endoscopy is required. I did recommend a follow-up colonoscopy later this year at a relatively shorter 2-year interval than usual due to the finding of the questionable serrated polyp in the cecum, another serrated polyp in the transverse colon, and his father's significant history of colon cancer in his 40s. We did review the rationale for this in regard to colon cancer prevention. Full consent has been obtained for this, including risks of bleeding and perforation. The procedure will be done with monitored anesthesia care. He was given the below instructions regarding adjustment of his medications for the procedure. Jarod was comfortable with this plan. Thank you again for allowing me to participate in Jarod's care. I shall continue to keep you advised of his progress. 10/19/2024 Serrated polyp of colon (ICD-10 - K63.5) Overall, Jarod appears well from a clinical standpoint. It does not appear that he is having any particularly worrisome or new GI symptoms. We did review his current abdominal symptoms and mildly increased reflux symptoms. I explained to him this increasing GI symptomatology is most likely from his dietary indiscretionand weight gain, I do not think this indicates anything worrisome such as worsening esophagitis or peptic ulcer disease. I advised him that he should continue the daily omeprazole at 20 mg but definitely needs to watch his diet and attempt to lose weight. I do not think a repeat upper endoscopy is required. I did recommend a follow-up colonoscopy later this year at a relatively shorter 2-year interval than usual due to the finding of the questionable serrated polyp in the cecum, another serrated polyp in the transverse colon, and his father's significant history of colon cancer in his 40s. We did review the rationale for this in regard to colon cancer prevention. Full consent has been obtained for this, including risks of bleeding and perforation. The procedure will be done with monitored anesthesia care. He was given the below instructions regarding adjustment of his medications for the procedure. Jarod was comfortable with this plan. Thank you again for allowing me to participate in Jarod's care. I shall continue to keep you advised of his progress. 10/19/2024 Colon cancer screening (ICD-10 - Z12.11) Overall, Jarod appears well from a clinical standpoint. It does not appear that he is having any particularly worrisome or new GI symptoms. We did review his current abdominal symptoms and mildly increased reflux symptoms. I explained to him this increasing GI symptomatology is most likely from his dietary indiscretionand weight gain, I do not think this indicates anything worrisome such as worsening esophagitis or peptic ulcer disease. I advised him that he should continue the daily omeprazole at 20 mg but definitely needs to watch his diet and attempt to lose weight. I do not think a repeat upper endoscopy is required. I did recommend a follow-up colonoscopy later this year at a relatively shorter 2-year interval than usual due to the finding of the questionable serrated polyp in the cecum, another serrated polyp in the transverse colon, and his father's significant history of colon cancer in his 40s. We did review the rationale for this in regard to colon cancer prevention. Full consent has been obtained for this, including risks of bleeding and perforation. The procedure will be done with monitored anesthesia care. He was given the below instructions regarding adjustment of his medications for the procedure. Jarod was comfortable with this plan. Thank you again for allowing me to participate in Jarod's care. I shall continue to keep you advised of his progress. Plan Of Treatment Pending Test Test Name Order Date COLONOSCOPY 10/19/2024 Pathology 11/05/2024 Future Test Test Name Order Date UPPER GI ENDOSCOPY 12/27/2016 COLONOSCOPY 12/27/2016 COLONOSCOPY 11/26/2022 Insurance Providers Payer Name Payer Address Payer Phone Subscriber Number Group Number Insured Name Patient Relationship to Insured Coverage Start Date Coverage End Date MEDICAID OF [facility] [address] [place] [id number] JOVITA JAROD Self - patient is the insured Medical (General) History Medical History History ICD Code Hypertension Nephrolithiasis Denies DE,DM,CVA,Lung disease,renal dise ase Depression GERD- upper endoscopy in Feb revealed a small hiatal hernia and some erosive esophagitis, but biopsies were negative for Girard's esophagus Colonoscopy in February revealed only a hyperplastic polyp that was removed. Screening colonoscopy in revealed a serrated polyp removed from the transverse colon, a non-adenomatous polyp removed from the appendiceal orifice, and a questionable hyperplastic and/or serrated polyp within an area of inflammation in the cecum. The latter was only biopsied. Surgical History Surgery Date(Month/Year) Pilonidal cyst excision
--- OUTSIDE RECORDS SUMMARY | 2024-12-08 09:36 | XMS_ITS | Encounter Summary ---
Author Organization [employer] Address [address] [place] [address] [place] [address] Care Team Providers Care Supervisor Rubber Covering Name Role Phone Keli Montalvo MD Primary Care Pro vider Reason for Visit * Reason Onset Date Comments Med Refill 11/08/2024 Encounter Details Date Type Department Care Team (Late st Contact Info) Description 11/08/2024 Refill [facility] [address] [place] [address] Keli Montalvo MD [address] [place] [address] Social History Tobacco Use Types Packs/Day Years [...] Description 12/10/2024 1:30 PM EDT Office Visit [facility] [address] [place] [address] Tyson Ortega MD [address] [place] [address] documented as of this encounter Visit Diagnoses Not on filedocumented in this encounter Additional Health Concerns Assessment Noted Time PHQ-9 Depression Total Score: 0 10/14/19 25 11:04 AM EDT documented as of this encounter Care Teams Supervisor Rubber Covering Relationship Specialty Start Date End Date Keli Montalvo MD [address] [place] [phone] PCP - General Internal Medicine 11/14/22 documented as of this encounter
--- OUTSIDE RECORDS SUMMARY | 2024-12-08 09:36 | XMS_ITS | Encounter Summary ---
Author Organization [employer] Address [address] [place] [address] Care Team Providers Care Senior Receptionist Name Role Phone Keli Montalvo MD Primary Care Pro vider Reason for Visit * Reason Onset Date Comments chart prep 12/06/2024 Encounter Details Date Type Department Care Team ([facility] st Contact Info) Description 12/06/2024 Telephone [facility] [address] [place] [address] Keli Montalvo MD [address] [place] [address] chart prep Social History Tobacco Use Types [...] encounter Miscellaneous Notes * Telephone Encounter - Cece Milton [place] - 12/06/2024 9:50 AM EDT Chart Prep Labs: not done Images: not done Referrals: complete Vaccines due: Flu Screenings: not applicable Overdue care gaps: SB[facility] Called patient advised that appointment for tomorrow is to follow up on labs and imagine that were ordered in September, and patient did not did labs or imagine so patient wishes to reschedule appointment, advised that he can get it done today 12/06 but stated that he already ate. Patient want to reschedule appointment will but him on recall list. Anuj dose not have any openings. documented in this encounter Plan of Treatment Upcoming Encounters Date Type Department Care Team (Late st Contact Info) Description 12/10/2024 1:30 PM EDT Office Visit [facility] [address] [place] [phone] Tyson Ortega MD [address] [place] [phone] documented as of this encounter Visit Diagnoses Not on filedocumented in this encounter Additional Health Concerns Assessment Noted Time PHQ-9 Depression Total Score: 0 10/14/19 25 11:04 AM EDT documented as of this encounter Care Teams Senior Receptionist Relationship Specialty Start Date End Date Keli Montalvo MD [address] [place] [phone] PCP - General Internal Medicine 11/14/22 documented as of this encounter
--- OUTSIDE RECORDS SUMMARY | 2024-12-08 09:37 | XMS_ITS | Encounter Summary ---
Author Organization [employer] Address [address] [place] [address] [place] [address] Care Team Providers Care Bellstand Attendant Name Role Phone Keli Montalvo MD Primary Care Pro vider Reason for Visit * Reason Onset Date Comments Med Refill 07/22/2024 Encounter Details Date Type Department Care Team (Late st Contact Info) Description 07/22/2024 Refill [facility] [address] [place] [address] Keli Montalvo MD [address] [place] [address] Social History Tobacco Use Types Packs/Day Years [...] Description 12/10/2024 1:30 PM EDT Office Visit [facility] [address] [place] [address] Tyson Ortega MD [address] [place] [address] documented as of this encounter Visit Diagnoses Not on filedocumented in this encounter Additional Health Concerns Assessment Noted Time PHQ-9 Depression Total Score: 2 09/16/19 24 10:50 AM EDT documented as of this encounter Care Teams Bellstand Attendant Relationship Specialty Start Date End Date Keli Montalvo MD [address] [place] [phone] PCP - General Internal Medicine 11/14/22 documented as of this encounter
--- OUTSIDE RECORDS SUMMARY | 2024-12-08 09:37 | XMS_ITS | Encounter Summary ---
Author Organization [employer] Address [address] [place] [address] [place] [address] Care Team Providers Care Licensed Customs Broker Name Role Phone Keli Montalvo MD Primary Care Pro vider Reason for Visit * Reason Onset Date Comments Med Refill 07/28/2024 Encounter Details Date Type Department Care Team (Late st Contact Info) Description 07/28/2024 Refill [facility] [address] [place] [address] Keli Montalvo MD [address] [place] [address] Social History Tobacco Use Types Packs/Day Years [...] Description 12/10/2024 1:30 PM EDT Office Visit [facility] [address] [place] [address] Tyson Ortega MD [address] [place] [address] documented as of this encounter Visit Diagnoses Not on filedocumented in this encounter Additional Health Concerns Assessment Noted Time PHQ-9 Depression Total Score: 2 09/16/19 24 10:50 AM EDT documented as of this encounter Care Teams Licensed Customs Broker Relationship Specialty Start Date End Date Keli Montalvo MD [address] [place] [phone] PCP - General Internal Medicine 11/14/22 documented as of this encounter
--- OUTSIDE RECORDS SUMMARY | 2024-12-08 09:37 | XMS_ITS | Encounter Summary ---
Author Organization [employer] Address [address] [place] [address] [place] [address] Care Team Providers Care Author Agent Name Role Phone Keli Montalvo MD Primary Care Pro vider Reason for Visit * Reason Onset Date Comments Med Refill 07/28/2024 Encounter Details Date Type Department Care Team (Late st Contact Info) Description 07/28/2024 Refill [facility] [address] [place] [address] Keli Montalvo MD [address] [place] [address] Social History Tobacco Use Types Packs/Day Years [...] Description 12/10/2024 1:30 PM EDT Office Visit [facility] [address] [place] [address] Tyson Orteag MD [address] [place] [address] documented as of this encounter Visit Diagnoses Not on filedocumented in this encounter Additional Health Concerns Assessment Noted Time PHQ-9 Depression Total Score: 2 09/16/19 24 10:50 AM EDT documented as of this encounter Care Teams Author Agent Relationship Specialty Start Date End Date Keli Montalvo MD [address] [place] [phone] PCP - General Internal Medicine 11/14/22 documented as of this encounter
--- OUTSIDE RECORDS SUMMARY | 2024-12-08 09:37 | XMS_ITS | Encounter Summary ---
Author Organization [employer] Address [address] [facility] [address] [place] [address] Care Team Providers Care Loan Consultant Name Role Phone Keli Montalvo MD Primary Care Pro vider Encounter Details Date Type Department Care Team (Latest Contact Info) Description 12/03/2024 Travel Social History Tobacco Use Types Packs/Day [...] 12/10/2024 1:30 PM EDT Office Visit [facility] [address] [place] [phone] Tyson Ortega MD [address] [place] [address] documented as of this encounter Visit Diagnoses Not on filedocumented in this encounter Additional Health Concerns Assessment Noted Time PHQ-9 Depression Total Score: 0 10/14/19 25 11:04 AM EDT documented as of this encounter Care Teams Loan Consultant Relationship Specialty Start Date End Date Keli Montalvo MD [address] [place] [phone] PCP - General Internal Medicine 11/14/22 documented as of this encounter
--- OUTSIDE RECORDS SUMMARY | 2024-12-08 09:37 | XMS_ITS | Encounter Summary ---
Author Organization [employer] Address [address] [place] [address] [place] [address] Care Team Providers Care Courier Name Role Phone Keli Montalvo MD Primary Care Pro vider Reason for Visit * Reason Onset Date Comments Med Refill 11/08/2024 Encounter Details Date Type Department Care Team (Late st Contact Info) Description 11/08/2024 Refill [facility] [address] [place] [address] Keli Montalvo MD [address] [place] [address] Social History Tobacco Use Types Packs/Day Years [...] Description 12/10/2024 1:30 PM EDT Office Visit [facility] [address] [place] [address] Tyson Ortega MD [address] [place] [address] documented as of this encounter Visit Diagnoses Not on filedocumented in this encounter Additional Health Concerns Assessment Noted Time PHQ-9 Depression Total Score: 0 10/14/19 25 11:04 AM EDT documented as of this encounter Care Teams Courier Relationship Specialty Start Date End Date Keli Montalvo MD [address] [place] [phone] PCP - General Internal Medicine 11/14/22 documented as of this encounter
--- OUTSIDE RECORDS SUMMARY | 2024-12-08 09:37 | XMS_ITS | Encounter Summary ---
Author Organization [employer] Address [address] [facility] 7t [place] [address] Care Team Providers Care Digital Marketing Associate Name Role Phone Keli Montalvo MD Primary Care Pro vider Reason for Visit * Reason Onset Date Comments Med Refill 08/20/2024 Encounter Details Date Type Department Care Team (Late st Contact Info) Description 08/20/[address] [facility] [address] [place], [place] [phone] Jesus Quach MD [address] [place] [address] Social History Tobacco Use Types Packs/Day Years [...] [facility] [address] [place] [address] Tyson Ortega MD [address] [place] [address] documented as of this encounter Visit Diagnoses Not on filedocumented in this encounter Additional Health Concerns Assessment Noted Time PHQ-9 Depression Total Score: 2 09/16/19 24 10:50 AM EDT documented as of this encounter Care Teams Digital Marketing Associate Relationship Specialty Start Date End Date Keli Montalvo MD [address] [place] [phone] PCP - General Internal Medicine 11/14/22 documented as of this encounter
--- OUTSIDE RECORDS SUMMARY | 2024-12-08 09:37 | XMS_ITS | Encounter Summary ---
Author Organization [employer] Address [address] [facility] [address] [place] [address] Care Team Providers Care Mechanic Foreman Name Role Phone Keli Montalvo MD Primary Care Pro vider Encounter Details Date Type Department Care Team (Late st Contact Info) Description 03/04/2024 Orders Only [facility] [address] [place] [address] Provider, MD Katia Social History Tobacco Use [...] Description 12/10/2024 1:30 PM EDT Office Visit [facility] [address] [place] [phone] Tyson Ortega MD [address] [place] [address] documented as of this encounter Procedures Procedure [...] documented as of this encounter Care Teams Mechanic Foreman Relationship Specialty Start Date End Date Keli Montalvo MD [address] [place] [phone] PCP - General Internal Medicine 11/14/22 documented as of this encounter
--- OUTSIDE RECORDS SUMMARY | 2024-12-08 09:37 | XMS_ITS | Encounter Summary ---
Author Organization [employer] Address [address] [facility] 7t [place] [address] Care Team Providers Care Needle Polisher Name Role Phone Keli Montalvo MD Primary Care Pro vider Reason for Visit * Reason Onset Date Comments Med Refill 09/23/2024 Encounter Details Date Type Department Care Team (Late st Contact Info) Description 09/23/2024 Refill [facility] MEDICINE [address] [place] [address] Jesus Quach MD [address] [place] [address] Social History Tobacco Use Types Packs/Day Years [...] Description 12/10/2024 1:30 PM EDT Office Visit [facility] MEDICINE [address] [place] [address] Tyson Ortega MD [address] [place] [address] documented as of this encounter Visit Diagnoses Not on filedocumented in this encounter Additional Health Concerns Assessment Noted Time PHQ-9 Depression Total Score: 2 09/16/19 24 10:50 AM EDT documented as of this encounter Care Teams Needle Polisher Relationship Specialty Start Date End Date Keli Montalvo MD [address] [place] [phone] PCP - General Internal Medicine 11/14/22 documented as of this encounter
--- OUTSIDE RECORDS SUMMARY | 2024-12-08 09:37 | XMS_ITS | Encounter Summary ---
Author Organization [employer] Address 75 [facility] 7 [place] [address] Care Team Providers Care Russet Repairer Name Role Phone Keli Montalvo MD Primary Care Pro vider Reason for Visit * Reason Onset Date Comments New Patient Appt 09/19/2022 Encounter Details Date Type Department Care Team ([facility] st Contact Info) Description 09/19/2022 Telephone [facility] MEDICINE [address] [place], [place] [phone] Jesus Quach MD 230 [place] [address] New Patient Appt Social History Tobacco Use [...] Notes * Telephone Encounter - Jostin Milton Hans - 09/19/2022 11:47 AM EDT Tc to , to offer FAUCET POLISHER Appt, pt states is not interested at the time for Senior Software Quality Engineer with Facility. Advised if change of mind to please give facility a call at [phone] documented in this encounter Plan of Treatment Upcoming Encounters Date Type Department Care Team (Late st Contact Info) Description 12/10/2024 1:30 PM EDT Office Visit [facility] [address] [place] [address] [phone] Tyson Ortega MD [address] [place] [address] [phone] documented as of this encounter Visit Diagnoses Not on filedocumented in this encounter Additional Health Concerns Assessment Noted Time PHQ-9 Depression Total Score: 15 023 2:15 PM EDT documented as of this encounter Care Teams Russet Repairer Relationship Specialty Start Date End Date Keli Montalvo MD [address] [place] [address] [phone] PCP - General Internal Medicine 11/14/22 documented as of this encounter
--- OUTSIDE RECORDS SUMMARY | 2024-12-08 09:37 | XMS_ITS | Encounter Summary ---
Author Organization [employer] Address [address] [place] [address] [place] [address] Care Team Providers Care Exterior Work Helper Name Role Phone Keli Montalvo MD Primary Care Pro vider Reason for Visit * Reason Onset Date Comments Med Refill 08/19/2024 Encounter Details Date Type Department Care Team (Late st Contact Info) Description 08/19/2024 Refill [facility] MEDICINE [address] [place] [address] Keli Montalvo MD 230 [place] [address] Social History Tobacco Use Types Packs/Day Years [...] Description 12/10/2024 1:30 PM EDT Office Visit [facility] MEDICINE [address] [place] [address] Tyson Ortega MD 230 [place] [address] documented as of this encounter Visit Diagnoses Not on filedocumented in this encounter Additional Health Concerns Assessment Noted Time PHQ-9 Depression Total Score: 2 09/16/19 24 10:50 AM EDT documented as of this encounter Care Teams Exterior Work Helper Relationship Specialty Start Date End Date Keil Montalvo MD [address] [place] [phone] PCP - General Internal Medicine 11/14/22 documented as of this encounter
--- OUTSIDE RECORDS SUMMARY | 2024-12-08 09:37 | XMS_ITS | Encounter Summary ---
Author Organization [employer] Address [address] [place] [address] [place] [address] Care Team Providers Care Jawbone Breaker Name Role Phone Keli Montalvo MD Primary Care Pro vider Reason for Visit * Reason Onset Date Comments Med Refill 05/14/2023 Encounter Details Date Type Department Care Team (Late st Contact Info) Description 05/14/[address] [facility] MEDICINE [address] [place] [address] Keli Montalvo MD [address] [place] [address] Social History Tobacco Use Types Packs/Day Years [...] 12/10/2024 1:30 PM EDT Office Visit [facility] MEDICINE [address] [place] [phone] Tyson Ortega MD 230 [place] [address] documented as of this encounter Visit Diagnoses Not on filedocumented in this encounter Additional Health Concerns Assessment Noted Time PHQ-9 Depression Total Score: 2 01/14/20 23 9:57 AM EDT documented as of this encounter Care Teams Jawbone Breaker Relationship Specialty Start Date End Date Keli Montalvo MD [address] [place] [phone] PCP - General Internal Medicine 11/14/22 documented as of this encounter
== END 2024-12-08 08:35 | disposition home or self-care (01) ==
LOC: HO.US 08:34
PROVIDERS: PCP Student in an Organized Health Care Education/Training Program; Visit Provider Student in an Organized Health Care Education/Training Program
DX: R19.8 Other specified symptoms and signs involving the digestive system and abdomen (principal)
CPT/HCPCS: 76700; 76981

== ENCOUNTER → 2024-12-08 08:36 | Outpatient (BNV) | payer MEDICAID, SELFPAY | PROVIDERS: PCP Student in an Organized Health Care Education/Training Program; Visit Provider Radiology Diagnostic Radiology | DX: R93.2 Abnormal findings on diagnostic imaging of liver and biliary tract (principal) | CPT/HCPCS: 76700 ==

== ENCOUNTER 2024-12-29 09:57 | Outpatient (REF) | payer MEDICAID, SELFPAY ==
--- OUTSIDE RECORDS SUMMARY | 2024-08-28 17:30 | XMS_ITS ---
Author Organization [employer] Address [address] [place], [place] [phone] Care Team Providers Care Phone Banker Name Role Phone Fausto Joe MD Primary [...] Date Provider Diagnosis [facility] [address] [place] [phone] 08/28/2024 Provider Migration Plan Of Treatment Medication [...] * Rip HUSSEINoDOB: [birth year] (54 yo M)Acc No.[id number]:08/28/2024 Patient: Cortez JOSÉ Provider: :1970 A ge:53 Y S ex:Male Date:08/28/2024 Address:[address] [place], [place] [phone] Pcp:Fausto Joe MD Subjective: * Chief Complaints: [...] Electronic signature of Prov ider Migration on 12/29/2024 at 11:43 AM EDT Sign off status: Pending * Provider: Date: 0 08/28/2024 Generated for Eulalio vergara/Dia/Annaitting on: 11:43 AM EDT
--- OUTSIDE RECORDS SUMMARY | 2024-11-05 08:30 | XMS_ITS ---
Author Organization [facility] Address [address] [place] [address] Care Team Providers Care Leave Specialist Name Role Phone Keli Montalvo Primary Care Provider Darshan Ball [phone] REASON FOR VISIT screening,hx polyps,serrated polyp of colon, fam hx colon cancer Encounters Encounter Location Date Provider Diagnosis [facility] [place] [address] [place] [phone] 11/05/2024 Darshan Khan Plan Of Treatment No Information Progress Notes * JAROD HUSSEIN ADOB:[birth year] (54 yo M)Acc No.[id number]:11/05/2024 COLON WITH MAC Patient: JAROD JOSÉ Provider: Hadley Khan MD :1970 A ge:54 Y S ex:Male Date:11/05/2024 Address:[address] [place], [place] [phone] Pcp:Keli Colon Subjective: * Chief Complaints: * [...] 0 11/05/2024 Generated for Eulalio vergara/Dia/eTransmitting on: 1 11:43 AM EDT
--- NOTE | ~2024-12-29 | CT_ITS ---
EXAMINATION: CT LUNG SCREENING HISTORY: F17.210 - Nicotine dependence, cigarettes, uncomplicated TECHNIQUE: Low dose axial images were obtained from the sternal notch to upper abdomen without IV contrast per standard departmental protocol. Sagittal and coronal reformatted images were also obtained and reviewed. One or more of the following techniques was used for dose reduction: Automated exposure control, adjustment of the mA and/or kV according to patient size, use of iterative reconstruction technique. DLP: 55 mGy-cm COMPARISON: Previous CT exams most recent December 2023 and renal and bladder ultrasound July 2023 FINDINGS: Lung nodules: 5 mm peripheral or subpleural right lower lobe nodule axial image 106 series 4. This is similar to previous exams and probably represents a peripheral or subpleural lymph node. No new or suspicious pulmonary nodule. Emphysema: mild. Central airways are clear. Coronary Calcification: none Aortic Arch Calcification: mild. Replaced right subclavian artery. Potentially Significant Incidentals : none Additional Chest Findings: There is no pleural or pericardial effusion. No mediastinal or axillary lymphadenopathy is identified. Visualized upper abdomen: The visualized portions of the liver, and spleen have an unremarkable unenhanced appearance. There is a thickening of the left adrenal gland unchanged. There is a slight contour abnormality of the anterior lateral mid left kidney axial image 68 series 3. This may correspond to a hyperdense cyst when compared with previous ultrasound. Mild degenerative changes of the spine. Small stable sclerotic density in the left lateral sixth rib probably representing a bone island. CT/CT lung screening IMPRESSION: No suspicious pulmonary nodules are identified. Mild emphysema. LUNG-RADS ASSESSMENT: Lung-RADS 2: Benign MANAGEMENT: Continue annual screening with LDCT in 12 months Category S: N/A Electronically signed by: Tabitha Maldonado MD 12/29/2024 10:32 AM EDT
--- OUTSIDE RECORDS SUMMARY | 2024-12-29 11:43 | XMS_ITS | Encounter Summary ---
Author Organization [employer] Address [address] [facility] 7t [place] [address] Care Team Providers Care Operating Room Surgical Technician Name Role Phone Keli Montalvo MD Primary Care Pro vider Encounter Details Date Type Department Care Team ([facility] Contact Info) Description 06/24/2022 Abstract [facility] ADULT DENTAL [address] [place] [address] Pippa, Keyanna [address] [place] [address] Social History Tobacco Use Types Packs/Day Years [...] Upcoming Encounters Date Type Department Care Team ([facility] Contact Info) Description 01/07/2025 2:00 PM EDT Office Visit [facility] MEDICINE [address] [place], [place] [phone] Tyson Ortega MD [address] [place] [address] documented as of this encounter Visit Diagnoses Not on filedocumented in this encounter Care Teams Operating Room Surgical Technician Relationship Specialty Start Date End Date Keli Montalvo MD [address] [place], [place] [phone] PCP - General Internal Medicine 11/14/22 documented as of this encounter
--- OUTSIDE RECORDS SUMMARY | 2024-12-29 11:43 | XMS_ITS | Patient Health Record ---
Author Organization [employer] Address [address] [place], [place] [phone] Care Team Providers Care Engineering Technical Analyst Name Role Phone Fausto Joe MD Primary Care Provider Migration, Provider Unavailable Unavailable Reason For Referral No Information Medications Medication SIG (Take, Route, Frequency, Duration) Notes Start Date End Date Status Wellbutrin XL 150 MG/24 HOURS 1 TAB(S) ORALLY EVERY 24 HOURS; Duration: 90 *Please review and pick correct strength-formulation from [employer] options. If intended option is not shown, [...] Status W/U Status Risk Notes Problem Hypercholesterolemia (95968476) Hypercholesterolemia NOS (272.4) Active confirmed Problem Essential hypertension (56054426) HTN [Hypertension] (401.9) Active confirmed Encounters Encounter Location Date Provider Diagnosis [facility] [address] [place], [place] [phone] 08/28/2024 Provider Migration Plan Of Treatment Pending Test Test Name Order Date PSA 12/29/2012 PSA 01/07/2014 PSA 12/26/2011 PSA 05/23/2009 BMP 05/23/2009 BMP 12/26/2011 BMP 01/07/2014 BMP 12/29/2012 BMP 03/03/2008 LIPID PROFILE 03/03/2008 LIPID PROFILE 12/29/2012 LIPID PROFILE 01/07/2014 LIPID PROFILE 12/26/2011 LIPID PROFILE 05/23/2009 URINALYSIS, AUTOMATED ONLY 05/23/2009 URINALYSIS, AUTOMATED ONLY 12/26/2011 URINALYSIS, AUTOMATED ONLY 01/07/2014 URINALYSIS, AUTOMATED ONLY 12/29/2012 URINALYSIS, AUTOMATED ONLY 03/03/2008 CBC With Differential/Platelet 8 CBC With Differential/Platelet 3 CBC With Differential/Platelet 4 CBC With Differential/Platelet 2 CBC With Differential/Platelet 0 ALT/SGPT 01/07/2014 AST/SGOT 01/07/2014 Insurance Providers Payer Name Payer Address Payer Phone Subscriber Number Group Number Insured Name Patient Relationship to Insured Coverage Start Date Coverage End Date [facility] [address] [place] [phone] [id number] Cortez Westfall Self - patient is the insured Medical (General) History Medical History History ICD Code allergic rhinitis hypertension headache anxiety depression nephrolithiasis hyperlipidemia onychomycosis Surgical History Surgery Date(Month/Year) Pilonidal cyst
--- OUTSIDE RECORDS SUMMARY | 2024-12-29 11:43 | XMS_ITS | Encounter Summary ---
Author Organization [employer] Address [address] [facility] 7 [place] [address] Care Team Providers Care Claims Correspondence Clerk Name Role Phone Keli Montalvo MD Primary Care Pro vider Reason for Visit * Reason Onset Date Comments New Patient Appt 07/31/2022 Encounter Details Date Type Department Care Team ([facility] st Contact Info) Description 07/31/2022 Telephone [facility] MEDICINE [address] [place], [place] [phone] Jesus Quach MD [address] [place] [address] New Patient Appt Social History Tobacco Use [...] left voicemail to give a call at [phone]. documented in this encounter Plan of Treatment Upcoming Encounters Date Type Department Care Team (Late st Contact Info) Description 01/07/2025 2:00 PM EDT Office Visit [facility] MEDICINE [address] [place] [address] [phone] Tyson Ortega MD [address] [place] [address] [phone] documented as of this encounter Visit Diagnoses Not on filedocumented in this encounter Care Teams Claims Correspondence Clerk Relationship Specialty Start Date End Date Keli Montalvo MD [address] [place] [address] [phone] PCP - General Internal Medicine 11/14/22 documented as of this encounter
--- OUTSIDE RECORDS SUMMARY | 2024-12-29 11:43 | XMS_ITS | Patient Health Record ---
Author Organization [employer] [facility] [facility] Address [address] [facility] [address] [place] [phone] Care Team Providers Care Check Processing Clerk Name Role Phone Keli Montalvo Primary Care Provider Darshan Ball Unavailable [phone] Allergies Allergen (clinical drug ingredient) Drug/Non Drug Allergy documented on EMR Reaction Allergy Type Onset Date Status seasonal (uncoded) Unknown Allergy A ctive Results Component Value Reference Range Notes Pathology (Not yet reviewed by provider) Interpretation: Performing Lab:[facility], [address] [place] [phone] Notes/Report: Reason For Referral Referring Provider First Name Keli Referring Provider Last Name Anuj beltran Referred Organization [facility] Referred Provider Darshan Khan Referred Address [address] [place] [address], ite [address] [place] [phone], Referred Provider Specialty Gastroentero logy General Notes Tara Zuniga 2024 07:39:37 AM >requested a m[facility] referral from [facility] for visit with Dr. Khan on 10-19-24, Tara Zuniga 09/20/2024 05:40:08 PM >, Tara Zuniga 09/20/2024 05:40:15 PM > requested referral again Referral Priority Routine Medications Medication SIG (Take, Route, Frequency, Duration) Notes Start Date End Date Status Vitamin C 250 MG TAKE 1 TABLET BY 3 TIMES A WEEK Oral; Duration: 90 Days Active Omeprazole 20 MG 1 capsule Orally Onc e a day; Duration: 30 day(s) 12/27/2016 Active Propranolol HCl ER 60 MG TAKE 1 CAPSULE BY MOUTH EVERY DAY Oral; Duration: 90 Days Active ibuprofen PRN Active Cetirizine HCl 10 MG TAKE 1 TABLET BY MO [facility] DAILY Oral; Duration: 90 Days Active Testosterone Cypionate 200 MG/ML INJECT 0.5 ML (100 MG) INTRAMUSCULARLY EVERY 7 DAYS. DISCARD EACH VIAL AFTER USE. Intramuscular; Duration: 28 Days Active Tylenol Allergy Sinus Not-Taking Escitalopram Oxalate 10 MG TAKE 1 TABLET BY MOUTH DAILY IN THE MORNING Oral; Duration: 30 Active Atorvastatin Calcium 20 MG TAKE 1 TABLET BY MOUTH EVERY DAY Oral; Duration: 90 Days Active amLODIPine Besylate 5 MG TAKE 1 TABLET BY MOUTH DAILY Oral; Duration: 90 Days Active dexAMETHasone 1 MG TAKE 1 TABLET BY AJ TH ONCE AT 11 pm THE NIGHT BEFORE YOUR 8 am BLOOD work Oral; Duration: 1 Days Not-Taking Multivitamin - TAKE 1 TABLET BY AJ TH EVERY DAY IN THE MORNING Oral; Duration: 90 Days Active Acetaminophen Extra Strength 500 MG TAKE 1 TABLET BY MOUTH EVERY 8 HOURS NEEDED FOR PAIN FOR UP TO 7 DAYS Oral; Duration: 7 Days Active amLODIPine Besylate 10 MG 1 tablet Orally Once a day Not-Taking Escitalopram Oxalate 20 MG TAKE 1 TABLET BY MOUTH EVERY DAY IN THE MORNING Oral; Duration: 90 Days Not-Taki ng Ferrous Gluconate 324 (38 Fe) MG TAKE 1 TABLET BY MOUTH 3 TIMES A WEEK Oral; Duration: 90 Days QOD Active Multi Vitamin/Minerals Active [...] Status Risk Notes Problem Colon cancer screening (985336432) Colon cancer screening (Z12.11) Active confirmed Problem Screening for malignant neoplasm of colon (303355826) Encounter for screening for malignant neoplasm of colon (Z12.11) Active confirmed Problem Diverticular disease of colon (776764189) Diverticulosis of large intestine without perforation or abscess without bleeding (K57.30) Active confirmed Problem Epigastric pain (67916497) Abdominal pain, epigastric (R10.13) Active confirmed Problem Gastroesophageal reflux disease (356157850) Gastroesophageal reflux disease, esophagitis presence not specified (K21.9) Active confirmed Problem Family History of Cancer of Colon (Situation) (524593524) Family history of colon cancer (Z80.0) Active confirmed Problem Irritable bowel syndrome (80641763) Irritable bowel syndrome, unspecified type (K58.9) Active confirmed Problem Serrated polyp of colon (988899243) Serrated polyp of colon (K63.5) Active confirmed Problem Gastroesophageal reflux disease with esophagitis (disorder) (633703619) Gastroesophageal reflux disease with esophagitis without hemorrhage (K21.00) Active confirmed Problem History of adenomatous polyp of colon (141649135) History of adenomatous polyp of colon (Z86.0101) Active confirmed Vital Signs Temperature 98.6 degrees Fahrenheit 10/19/2024 Blood pressure diastolic 01 mm Hg 10/19/2024 Height 69 in 10/19/2024 Blood pressure systolic 001 mm Hg 10/19/2024 Weight 175.2 lbs 10/19/2024 BMI 25.87 kg/m2 10/19/2024 Procedures Procedure Date Ordered Date Performed Result Body Sit e COLONOSCOPY 10/19/2024 N/A Encounters Encounter Location Date Provider Diagnosis [facility] Outpatient [address] [place], [place] [phone] 11/05/2024 Darshan Khan [facility] [address] [place] [address] 10/19/2024 Darshan Khan Gastroesophageal ref lux disease, [...] Start Date Coverage End Date MEDICAID OF [facility] [address] [place] [phone] [id number] JAROD HUSSEIN Self - patient is the insured Medical (General) History Medical History History ICD Code Hypertension Nephrolithiasis Denies [place],DM,CVA,Lung disease,renal dise ase Depression GERD- upper endoscopy [...]
--- OUTSIDE RECORDS SUMMARY | 2024-12-29 11:43 | XMS_ITS | Encounter Summary ---
Author Organization [employer] Address [address] [facility] 7t [place] [address] Care Team Providers Care Youth Services Librarian Name Role Phone Keli Montalvo MD Primary Care Pro vider Encounter Details Date Type Department Care Team (Late Contact Info) Description 05/17/2022 Abstract [facility] ADULT DENTAL [address] [place] [address] El Lockhart DMD Social History Tobacco Use [...] Department Care Team (Late Contact Info) Description 01/07/2025 2:00 PM EDT Office Visit [facility] MEDICINE [address] [place] [address] Tyson Ortega MD [address] [place], [place] [phone] documented as of this encounter Visit Diagnoses Not on filedocumented in this encounter Care Teams Youth Services Librarian Relationship Specialty Start Date End Date Keli Montalvo MD [address] [place] [address] [phone] PCP - General Internal Medicine 11/14/22 documented as of this encounter
--- OUTSIDE RECORDS SUMMARY | 2024-12-29 11:43 | XMS_ITS | Encounter Summary ---
Author Organization [employer] Address [address] [facility] 7t [place] [address] Care Team Providers Care Chestnut Tanner Name Role Phone Keli Montalvo MD Primary Care Pro vider Encounter Details Date Type Department Care Team ([facility] Contact Info) Description 06/12/2022 Abstract [facility] ADULT DENTAL [address] [place] [address] Pippa, Keyanna [address] [place] [address] Social History Tobacco Use Types Packs/Day Years [...] Upcoming Encounters Date Type Department Care Team ([facility] Contact Info) Description 01/07/2025 2:00 PM EDT Office Visit [facility] MEDICINE [address] [place], [place] [phone] Tyson Ortega MD [address] [place] [address] documented as of this encounter Visit Diagnoses Not on filedocumented in this encounter Care Teams Chestnut Tanner Relationship Specialty Start Date End Date Keli Montalvo MD [address] [place], [place] [phone] PCP - General Internal Medicine 11/14/22 documented as of this encounter
--- OUTSIDE RECORDS SUMMARY | 2024-12-29 11:43 | XMS_ITS | Clinical Summary ---
Author Organization [employer] Address [address] [place] [address] Care Team Providers Care Biological Scientist Name Role Phone Keli Montalvo MD Primary [...] 20 doses. 20 tablet 02/04/20 24 Active tretinoin (Retin-A) 0.025 % creamIndicatio ns:Epidermoid cyst Apply topically at bedtime. 45 g 2 02/17/20 24 025 Active cyanocobalamin (Vitamin B-12) 500 MCG tablet Take 1 tablet (500 mcg) by mouth Once per day. 90 tablet 1 04/27/19 25 026 Active sodium chloride (Kelly Nasal [place]) 0.65 % nasal spray Administer 1 spray into each nostril if needed for congestion. 30 mL 2 07/10/19 25 026 Active atorvastatin (Lipitor) 20 MG tablet TAKE 1 TABLET BY MOUTH EVERY DAY 90 tablet 1 07/28/19 25 Active escitalopram (Lexapro) 20 MG tablet TAKE 1 TABLET BY MOUTH DAILY IN THE MORNING 90 tablet 1 08/13/19 25 Active amLODIPine (Norvasc) 5 MG tablet TAKE 1 TABLET BY MOUTH EVERY DAY 90 tablet 1 09/24/19 25 Active cetirizine (ZyrTEC) 10 MG tablet TAKE 1 TABLET BY MOUTH EVERY DAY 90 tablet 1 11/30/19 25 Active propranolol LA (Inderal LA) 60 MG 24 hr capsule TAKE 1 CAPSULE BY MOUTH EVERY MORNING. DO NOT CRUSH, CHEW OR SPLIT. 90 capsule 1 12/11/19 25 Active Ascorbic Acid (vitamin C) 250 MG tablet TAKE 1 TABLET BY MOUTH THREE TIMES A WEEK 40 tablet 12/11/19 25 Active ferrous gluconate (Fergon) 324 (38 Fe) MG tablet TAKE 1 TABLET BY MOUTH THREE TIMES A WEEK 40 tablet 12/11/19 25 Active omeprazole (PriLOSEC) [address] capsule TAKE 1 CAPSULE BY MOUTH DAILY BEFORE BREAKFAST. DO NOT BREAK, CRUSH, DISSOLVE OR CHEW 90 capsule 12/22/19 25 Active Multiple Vitamin (Multivitamin) tablet Take 1 tablet by mouth in the morning. 90 tablet 1 12/22/19 25 Active omega-3 (Ultra [place]idge 3) 1000 MG capsule TAKE 1 CAPSULE BY MOUTH EVERY DAY 90 capsule 1 12/22/19 25 Active naltrexone (Depade) 50 MG tabletIndicati ons:Alcohol use disorder, severe, dependence (CMS/HCC) (HCC) Take 1 tablet (50 mg) by mouth Once per day. 30 tablet 12/22/19 25 025 Active propranolol LA (Inderal LA) 60 MG 24 hr capsule TAKE 1 CAPSULE BY MOUTH EVERY MORNING. DO NOT CRUSH, CHEW OR SPLIT. 90 capsule 1 02/10/20 24 025 Discontinued(Re order (will not trigger notification to Pharmacy)) omega-3 (Ultra [place] 3) 1000 MG capsule TAKE 1 CAPSULE BY MOUTH EVERY DAY 90 capsule 1 05/20/19 25 025 Discontinued(Re order (will not trigger notification to Pharmacy)) Ascorbic Acid (vitamin C) 250 MG tablet Take 1 tablet (250 mg) by mouth 3 (three) times a week. 40 tablet 07/10/19 25 025 Discontinued(Re order (will not trigger notification to Pharmacy)) ferrous gluconate (Fergon) 324 (38 Fe) MG tablet Take 1 tablet (324 mg) by mouth 3 (three) times a week. 40 tablet 07/10/19 25 025 Discontinued(Re order (will not trigger notification to Pharmacy)) omeprazole (PriLOSEC) [address] capsule TAKE 1 CAPSULE BY MOUTH DAILY BEFORE BREAKFAST. DO NOT BREAK, CRUSH, DISSOLVE OR CHEW 90 capsule 1 08/13/19 25 025 Discontinued(Re order (will not trigger notification to Pharmacy)) Multiple Vitamin (Multivitamin) tablet TAKE 1 TABLET BY MOUTH EVERY MORNING 90 tablet 1 08/13/19 25 025 Discontinued(Re order (will not trigger notification to Pharmacy)) naltrexone (Depade) 50 MG tabletIndicati ons:Alcohol use disorder, severe, dependence (CMS/HCC) (HCC) Take 1 tablet (50 mg) by mouth Once per day. Start with 1/2 tab (=25mg) daily for 4 days, then increase to 1 tab daily. 30 tablet 1 11/13/19 025 Discontinued(Re order (will not trigger notification [...] to go to alcohol abuse program at [facility] and pt agreed -cced today this [...] Bx3-immune,,covid 19x4 and Bivalent x1, p23 in 2016-S/p p20 x smoking hx ,tdap 2016,zoster vaccine x2 ----- 08/2022 : WBC wnl,lymph [...] neg -Continue amlodipine 5 mg daily -saw bereavement counselor in 05/2022 Normal complete exam per pt [...] BP readings 3 times a week -saw bereavement counselor in 05/2022 Normal complete exam per pt [...] -will monitor BP at next visit -saw bereavement counselor in 05/2022 Normal complete exam per pt -microalb -referred today to cards with non specific sporadic chest discomfort and with comorbidities Kidney stone 09/23/2016 Mild major depression, single episode 09/23/2016 Assessment & Plan (11/15/2022 11:52 PM EDT): PHQ9 : 8<---15 ,ADRINEL 7, feeling depressed x more than 10 [...] needs No PLAN: 1. Follow up with [facility]: Recommended for follow-up: Patient will consider 2. [...] Encounters Date Type Department Care Team Description 12/29/2024 Orders Only [facility] External Provider, [facility] 12/21/2024 Refill [facility] [address] [place] [id number] Keli Montalvo MD Alcohol use disorder, severe, dependence (CMS/HCC) ([facility]LY [facility]) 12/21/2024 Refill [facility] [address] [place] [id number] Alma Rosa Ochoa ANP 12/21/2024 Refill [facility] [address] [place] [address] Tyson Ortega MD Alcohol use disorder, severe, dependence (CMS/HCC) (HCC) 12/10/2024 1:30 PM EDT Office Visit [address] [address] Tyson Ortega MD Alcohol use disorder, severe, dependence (CMS/HCC) (Primary Dx) 12/10/2024 Travel 12/09/2024 Travel 12/09/[address] [address] Keli Montalvo MD 12/08/2024 Results Follow-Up [address] [address] Keli Montalvo MD US Abdomen Comp w elastography 12/06/[address] [address] Keli Montalvo MD chart prep 12/03/2024 1:00 PM EDT Telemedicine [address] [address] Tyson Ortega MD Alcohol use disorder, severe, dependence (CMS/HCC) (Primary Dx) 12/03/2024 Travel 11/28/2024 Refill [facility] [place] [address] Keli Montalvo MD 11/28/2024 Refill [facility] [place] [address] Jesus Quach MD 11/12/2024 1:15 PM EDT Office Visit [facility] [place] [address] Tyson Ortega MD Alcohol use disorder, severe, dependence (CMS/HCC) (Primary Dx) 11/12/2024 Travel 11/08/2024 Refill [facility] [place] [place] [address] Keli Montalvo MD 11/08/2024 Refill [facility] [place] [address] Keli Montalvo MD 11/05/2024 Orders Only GENERIC EXTERNAL DATA DEPARTMENT Provider, Generic External Data 10/13/2024 10:45 AM EDT Office Visit [facility] [place] [place] [address] Keli Montalvo MD Chronic pain of both knees (Primary Dx); Health care maintenance; Increased abdominal girth; Essential hypertension; Mixed hyperlipidemia; Adrenal incidentaloma (CMS/HCC); Macrocytosis; Alcohol abuse; Mild major depression, single episode (CMS/HCC); Arthralgia, unspecified joint; Tobacco use 10/13/2024 Telephone [facility] [address] Mervat Diaz Provide support for current mental health needs 10/13/2024 Travel 10/12/2024 Telephone [facility] [place] [address] Keli Montalvo MD CHART PREP 10/06/2024 Patient Outreach [facility] [place] [address] Keli Montalvo MD Pre-visit Planning (SDOH Screening negative and Tobacco screening positive) from Last 3 Months Immunizations Immunization Administration [...] Description 01/07/2025 2:00 PM EDT Office Visit [facility] [address] [place] [address] Tyson Ortega MD [address] [place] [address] Health Maintenance Due Date Last Done Comments CT Colonography 1968 FIT DNA/Cologuard 1968 FIT 1970 FOBT 1970 Sigmoidoscopy 1970 Dental Oral Exam 12/08/2023 06/06/2023, 05/01/2022 Dental Prophylaxis 12/08/2023 06/06/2023, 05/29/2022 Dental X-Ray: Bitewings 06/06/2024 06/06/2023, 05/01 Influenza Vaccine (#1) 2024 , 02/02/2021, 02/16/2018 Alcohol/Substance Use Screening 01/13/2025 01/14/2024 Dental X-Ray: Full Mouth 05/02/2025 05/01/2022 SDOH Screening 10/06/2025 10/06/2024 Depression Screening 10/13/2025 10/13/2024, 10/14/19 Tobacco Screening 10/13/2025 10/13/2024 Disability Screening 12/09/2025 12/09/2024 DTaP/Tdap/Td Vaccines (2 - Td or Tdap) [...] Procedure Name Priority Date/Time Associated Diagnosis Comments LDCT LUNG SCREENING Routine 12/29/2024 1 0:02 AM EDT US ABDOMEN COMPLETE WITH ELASTOGRAPHY Routine 12/08/2024 9:00 AM EDT Increased abdominal girth HEMATOXYLIN AND EOSIN STAIN Routine 11/05/2024 2:14 PM EDT LIPID PANEL, STANDARD Routine 04/27/2024 8:11 [...] Recently Relevant to Health Maintenance Results * CT Lung Screening Low dose (12/29/2024 10:02 AM EDT) Anatomical Region Laterality Modality Lung Computed Tomogra phy 12/29/2024 10:0 2 AM EDT Narrative 12/29/2024 10:35 AM EDT [place] [address] CT Scan Report Signed Patient: Cortez Westfall MR#: [id number] 2076 : 1970 Acct:[id number] Age/Sex: 54 / M ADM Date: 12/29/24 Loc: HO.CT Attending Dr: Sofia Vázquez PA-C Ordering Physician: Sofia Vázquez PA-C Date of Service: 12/29/24 Procedure(s): CT lung screening Accession Number(s): [id number] cc: Sofia Vázquez PA-C; Keli Montalvo MD Report Number: [id number]: Total DLP = 55.00 mGy-cm Reason for Exam: F17.210 - Nicotine dependence, cigarettes, uncomplicated EXAMINATION: CT LUNG SCREENING HISTORY: F17.210 - Nicotine dependence, cigarettes, uncomplicated TECHNIQUE: Low dose axial images were obtained from the sternal notch to upper abdomen without IV contrast per standard departmental protocol. Sagittal and coronal reformatted images were also obtained and reviewed. One or more of the following techniques was used for dose reduction: Automated exposure control, adjustment of the mA and/or kV according to patient size, use of iterative reconstruction technique. DLP: 55 mGy-cm COMPARISON: Previous CT exams most recent December 2023 and renal and bladder ultrasound July 2023 FINDINGS: Lung nodules: 5 mm peripheral or subpleural right lower lobe nodule axial image 106 series 4. This is similar to previous exams and probably represents a peripheral or subpleural lymph node. No new or suspicious pulmonary nodule. Emphysema: mild. Central airways are clear. Coronary Calcification: none Aortic Arch Calcification: mild. Replaced right subclavian artery. Potentially Significant Incidentals : none Additional Chest Findings: There is no pleural or pericardial effusion. No mediastinal or axillary lymphadenopathy is identified. Visualized upper abdomen: The visualized portions of the liver, and spleen have an unremarkable unenhanced appearance. There is a thickening of the left adrenal gland unchanged. There is a slight contour abnormality of the anterior lateral mid left kidney axial image 68 series 3. This may correspond to a hyperdense cyst when compared with previous ultrasound. Mild degenerative changes of the spine. Small stable sclerotic density in the left lateral sixth rib probably representing a bone island. CT/CT lung screening IMPRESSION: No suspicious pulmonary nodules are identified. Mild emphysema. LUNG-RADS ASSESSMENT: Lung-RADS 2: Benign MANAGEMENT: Continue annual screening with LDCT in 12 months Category S: N/A Electronically signed by: Tabitha Maldonado MD 12/29/2024 10:32 AM EDT RP Dictated By: Tabitha Maldonado MD Signed By: <Electronically signed by Tabitha Maldonado MD in OV> 12/29/24 1032 DD/ 1002 TD/TT: 12/29/24 1014 Body Designer: DAHLIA Procedure Note Donotuseinterpreter, Image - 12/29/[address] [place] [address] [address] Scan Report Signed Patient: Jose Westfall#: [id number] 2076 : 1970Acct:[id number] Age/Sex: 54 / MADM Date: 12/29/24 Loc: HO.CT Attending Dr: Sofia Vázquez PA-C Ordering Physician: Sofia Vázquez PA-C Date of Service: 12/29/24 Procedure(s): CT lung screening Accession Number(s): [id number] cc: Sofia Vázquez PA-C; Keli Montalvo MD Report Number: [id number]: Total DLP = 55.00 mGy-cm Reason for Exam: F17.210 - Nicotine dependence, cigarettes, uncomplicated EXAMINATION: CT LUNG SCREENING HISTORY: F17.210 - Nicotine dependence, cigarettes, uncomplicated TECHNIQUE: Low dose axial images were obtained from the sternal notch to upper abdomen without IV contrast per standard departmental protocol. Sagittal and coronal reformatted images were also obtained and reviewed. One or more of the following techniques was used for dose reduction: Automated exposure control, adjustment of the mA and/or kV according to patient size, use of iterative reconstruction technique. DLP: 55 mGy-cm COMPARISON: Previous CT exams most recent December 2023 and renal and bladder ultrasound July 2023 FINDINGS: Lung nodules: 5 mm peripheral or subpleural right lower lobe nodule axial image 106 series 4. This is similar to previous exams and probably represents a peripheral or subpleural lymph node. No new or suspicious pulmonary nodule. Emphysema: mild. Central airways are clear. Coronary Calcification: none Aortic Arch Calcification: mild. Replaced right subclavian artery. Potentially Significant Incidentals : none Additional Chest Findings: There is no pleural or pericardial effusion. No mediastinal or axillary lymphadenopathy is identified. Visualized upper abdomen: The visualized portions of the liver, and spleen have an unremarkable unenhanced appearance. There is a thickening of the left adrenal gland unchanged. There is a slight contour abnormality of the anterior lateral mid left kidney axial image 68 series 3. This may correspond to a hyperdense cyst when compared with previous ultrasound. Mild degenerative changes of the spine. Small stable sclerotic density in the left lateral sixth rib probably representing a bone island. CT/CT lung screening IMPRESSION: No suspicious pulmonary nodules are identified. Mild emphysema. LUNG-RADS ASSESSMENT: Lung-RADS 2: Benign MANAGEMENT: Continue annual screening with LDCT in 12 months Category S: N/A Electronically signed by: Tabitha Maldonado MD 12/29/2024 10:32 AM EDT Dictated By: Tabitha Maldonado MD Signed By: <Electronically signed by Tabitha Maldonado MD in OV> 12/29/24 1032 DD/ 1002 TD/TT: 12/29/24 1014 Body Designer: DAHLIA [facility] External Provider IMG CT PROCEDURES Final Result * US Abdomen Comp w elastography (12/08/2024 9:00 AM EDT) Anatomical Region Laterality Modality Abdomen Ultrasound 12/08/2024 9:00 AM EDT Narrative 12/08/2024 12:03 PM EDT [address] [address] Ultrasound Report Signed Patient: Cortez Westfall MR#: [id number] 2076 : 1970 Acct:[id number] Age/Sex: 54 / M ADM Date: 12/08/24 Loc: HO.US Attending Dr: Keli Colon MD Ordering Physician: Keli Montalvo MD Date of Service: 12/08/24 Procedure(s): US abdomen comp w elastography Accession Number(s): [id number] cc: Keli Montalvo MD Reason for Exam: pt w alcohol abuse , noted enlarged abominal girth EXAMINATION: US COMPLETE ABDOMEN WITH LIVER ELASTOGRAPHY CLINICAL INFORMATION: alcohol abuse/dependence, noted enlarged abdominal girth COMPARISON: Abdomen ultrasound 10/18/2016 TECHNIQUE: Real-time imaging of the abdominal viscera. Noninvasive ultrasound liver fibrosis assessment is performed using Anish ElastPQ point quantification shear wave elastography (pSWE) with a C5-2 MHz transducer. Multiple elastography samples are obtained. FINDINGS: PANCREAS: The visualized pancreatic head and body are normal in appearance. The remainder of the pancreas is obscured from visualization by the overlying bowel gas. ABDOMINAL AORTA: No aortic aneurysm is seen. INFERIOR VENA CAVA: Visualized portions are normal. LIVER: The liver demonstrates coarse echotexture. No focal lesion or intrahepatic biliary duct dilatation. The right lobe measures 13 cm in length. The left lobe measures 12 cm in length. The main portal vein is patent with a normal direction of flow and a continuous venous waveform. Shear wave liver elastography median stiffness is 1.6 m/s (reference: normal median stiffness is 1.3 m/s or less). IQR/median stiffness to assess sampling precision is 0.25 (reference: good quality data set is IQR/median stiffness of 0.15 or less). GALLBLADDER: The gallbladder is physiologically distended without evidence of stones, sludge, polyps, wall thickening or pericholecystic fluid. COMMON BILE DUCT: Normal in caliber measuring 0.4 cm in diameter. RIGHT KIDNEY: No hydronephrosis. . There is increased echogenicity of the renal cortex. The kidney measures 12 cm in maximum dimension. 3 mm calcification is present in the central portion of the kidney. There is also a 9 mm anechoic cyst in the same region. LEFT KIDNEY: No hydronephrosis. There is increased echogenicity of the renal cortex. The kidney measures 13.5 cm in maximum dimension. SPLEEN: Unremarkable. The spleen measures 7 cm in maximum dimension. FREE FLUID: None seen. US/US abdomen comp w elastography IMPRESSION: The liver demonstrates a coarse hyperechoic appearance suggesting hepatocellular disease or hepatic steatosis. Liver elastography: In the absence of other known clinical signs, measurements rule out compensated advanced chronic liver disease. If there are known clinical signs, further testing may be needed for confirmation. There is subjectively increased echogenicity of the renal cortex bilaterally raising question of underlying medical renal disease. There is a 3 mm nonobstructing stone in the mid right kidney, similar to the prior. REFERENCE: Society of Radiologists in Ultrasound Liver Stiffness Thresholds (2019): LIVER STIFFNESS THRESHOLDS: *Liver Stiffness equal or less than 1.3 m/s: High probability of being normal. *Liver Stiffness less than 1.7 m/s: In the absence of other known clinical signs, rules out compensated advanced chronic liver disease. *Liver Stiffness 1.7-2.1 m/s: Suggestive of compensated advanced chronic liver disease but need further test for confirmation. *Liver Stiffness over 2.1 m/s: Rules in compensated advanced chronic liver disease. *Liver Stiffness over 2.4 m/s: Suggestive of clinically significant portal hypertension. QUALITY OF DATA SET: *IQR/Median value equal or less than 0.15 implies a quality data set. *IQR/Median value over 0.15 implies a poor quality data set. SIGNIFICANT CHANGE FROM PRIOR EXAM: Significant change if liver stiffness measurement is 10% or greater from prior exam. OTHER CONSIDERATIONS: The stage of liver fibrosis may be overestimated in the setting of acute hepatitis, liver inflammation, elevated liver function tests, hepatic vascular congestion, obstructive cholestasis, non-fasting state, and infiltrative diseases such as amyloidosis and lymphoma. In some patients with NAFLD, the liver stiffness thresholds for compensated advanced chronic liver disease may be lower. In causes other than viral hepatitis and NAFLD, liver stiffness thresholds are not well established. Electronically signed by: Joey Dobbs MD 12/08/2024 12:01 PM EDT Dictated By: Joey Dobbs MD Signed By: <Electronically signed by Joey Dobbs MD in OV> 12/08/24 1201 DD/ 0900 TD/TT: 12/08/24 0941 Body Designer: Procedure Note Donotuseinterpreter, Image - 12/08/2024 [place] [address] Ultrasound Report Signed Patient: Jose Westfall#: [id number] 2076 : 1970Acct:[id number] Age/Sex: 54 / MADM Date: 12/08/24 Loc: HO.US Attending Dr: Keli Colon MD Ordering Physician: Keli Montalvo MD Date of Service: 12/08/24 Procedure(s): US abdomen comp w elastography Accession Number(s): [id number] cc: Keli Montalvo MD Reason for Exam: pt w alcohol abuse , noted enlarged abominal girth EXAMINATION: US COMPLETE ABDOMEN WITH LIVER ELASTOGRAPHY CLINICAL INFORMATION: alcohol abuse/dependence, noted enlarged abdominal girth COMPARISON: Abdomen ultrasound 10/18/2016 TECHNIQUE: Real-time imaging of the abdominal viscera. Noninvasive ultrasound liver fibrosis assessment is performed using Anish ElastPQ point quantification shear wave elastography (pSWE) with a C5-2 MHz transducer. Multiple elastography samples are obtained. FINDINGS: PANCREAS: The visualized pancreatic head and body are normal in appearance. The remainder of the pancreas is obscured from visualization by the overlying bowel gas. ABDOMINAL AORTA: No aortic aneurysm is seen. INFERIOR VENA CAVA: Visualized portions are normal. LIVER: The liver demonstrates coarse echotexture. No focal lesion or intrahepatic biliary duct dilatation. The right lobe measures 13 cm in length. The left lobe measures 12 cm in length. The main portal vein is patent with a normal direction of flow and a continuous venous waveform. Shear wave liver elastography median stiffness is 1.6 m/s (reference: normal median stiffness is 1.3 m/s or less). IQR/median stiffness to assess sampling precision is 0.25 (reference: good quality data set is IQR/median stiffness of 0.15 or less). GALLBLADDER: The gallbladder is physiologically distended without evidence of stones, sludge, polyps, wall thickening or pericholecystic fluid. COMMON BILE DUCT: Normal in caliber measuring 0.4 cm in diameter. RIGHT KIDNEY: No hydronephrosis. . There is increased echogenicity of the renal cortex. The kidney measures 12 cm in maximum dimension. 3 mm calcification is present in the central portion of the kidney. There is also a 9 mm anechoic cyst in the same region. LEFT KIDNEY: No hydronephrosis. There is increased echogenicity of the renal cortex. The kidney measures 13.5 cm in maximum dimension. SPLEEN: Unremarkable. The spleen measures 7 cm in maximum dimension. FREE FLUID: None seen. US/US abdomen comp w elastography IMPRESSION: The liver demonstrates a coarse hyperechoic appearance suggesting hepatocellular disease or hepatic steatosis. Liver elastography: In the absence of other known clinical signs, measurements rule out compensated advanced chronic liver disease. If there are known clinical signs, further testing may be needed for confirmation. There is subjectively increased echogenicity of the renal cortex bilaterally raising question of underlying medical renal disease. There is a 3 mm nonobstructing stone in the mid right kidney, similar to the prior. REFERENCE: Society of Radiologists in Ultrasound Liver Stiffness Thresholds (2020): LIVER STIFFNESS THRESHOLDS: *Liver Stiffness equal or less than 1.3 m/s: High probability of being normal. *Liver Stiffness less than 1.7 m/s: In the absence of other known clinical signs, rules out compensated advanced chronic liver disease. *Liver Stiffness 1.7-2.1 m/s: Suggestive of compensated advanced chronic liver disease but need further test for confirmation. *Liver Stiffness over 2.1 m/s: Rules in compensated advanced chronic liver disease. *Liver Stiffness over 2.4 m/s: Suggestive of clinically significant portal hypertension. QUALITY OF DATA SET: *IQR/Median value equal or less than 0.15 implies a quality data set. *IQR/Median value over 0.15 implies a poor quality data set. SIGNIFICANT CHANGE FROM PRIOR EXAM: Significant change if liver stiffness measurement is 10% or greater from prior exam. OTHER CONSIDERATIONS: The stage of liver fibrosis may be overestimated in the setting of acute hepatitis, liver inflammation, elevated liver function tests, hepatic vascular congestion, obstructive cholestasis, non-fasting state, and infiltrative diseases such as amyloidosis and lymphoma. In some patients with NAFLD, the liver stiffness thresholds for compensated advanced chronic liver disease may be lower. In causes other than viral hepatitis and NAFLD, liver stiffness thresholds are not well established. Electronically signed by: Joey Dobbs MD 12/08/2024 12:01 PM EDT Dictated By: Joey Dobbs MD Signed By: <Electronically signed by Joey Dobbs MD in OV> 12/08/24 1201 DD/ 0900 TD/TT: 12/08/24 0941 Body Designer: us Keli Colon MD IM US PROCEDURES Final Result * Hematoxylin and Eosin Stain (11/05/2024 2:14 PM EDT) 11/05/2024 2:14 PM EDT 11/08/2024 8:22 AM EDT [facility] LABS - 11/09/2024 11:38 AM EDT ----- ------- Name: Cortez Westflal Age/Sex: 54/M : 1970 Unit#: [id number] Attend Dr: Darshan Khan MD Re11/05/24 Status: [facility] Location[facility] Disch: ----- ------- SPEC : [id number] RECD: 11/08/24 STATUS: VINCENT FULLER NUM: [id number] PEMA: 11/05/24-1414 [facility] DR: Darshan Khan MD ENTERED: 11/08/24 [...] Name: Cortez Westfall Age/Sex: 54/M : 1970 [id number]#: [id number] Attend Dr: Darshan Khan MD Re11/05/24 Status: [facility] Location: [place] Disch: ----- ------- SPEC : [id number] RECD: 11/08/24 STATUS: VINCENT FULLER NUM: [id number] PEMA: 11/05/24 [facility] DR: Darshan Khan MD ENTERED: 11/08/24 [...] developed and their performance characteristics determined by [facility]. They have not been cleared or approved by the U.S. Food and Drug Administration (FDA). However, the FDA has determined that such clearance or approval is not necessary. This laboratory is certified under the Clinical Laboratory Improvement Amendments of 1988 (CLIA) as qualified to perform high complexity clinical laboratory testing. Copies To: Keli Montalvo MD [address] [place] [address] Darshan Khan MD [facility] [address] [place] [address] ----- ------- Signed (signature on file) Aroldo Camacho MD 11/09/24 1138 ----- ------- END OF REPORT us Generic External Data Provider LAB BLOOD ORDERAB LES Final Result [facility] [address] [place] [phone] * (ABNORMAL) Lipid Panel, Standard (04/27/2024 8:11 AM EST) Triglycerides 178(H) <150 mg/dL [facility] Comment:Desirable Triglyceri de: less than 150 mg/dLBorderline High Triglyceride 150-199 mg/dLHigh Triglyceride: 200-499 mg/dLVery High Triglyceride: greater than or equal to 5OO mg/dL Cholesterol 173 <200 mg/dL [facility] Comment:Desirable Cholestero l: less than 200 mg/dLBorderline High Cholesterol: 200-239 mg/dLHigh Cholesterol: greater than 239 mg/dL LDL Cholesterol Calculated 96 <100 mg/dL [facility] Comment:Desirable LDL: less than 100 mg/dLNear Optimal/Above Optimal LDL: 110- 129 mg/dLBorderline High LDL: 130-159 mg/dLHigh LDL: 160-189 mg/dLVery High LDL: greater than or equal to 190 mg/dL HDL Cholesterol 42 >40 mg/dL [facility] Comment:Desirable HDL: great er than 40 mg/dL Note: This HDL assay may give artificially low results in patients with liver disease. Blood Venous blood specimen / Unknown 04/27/2024 8:11 AM EST 04/27/2024 10:51 AM EST us Keli Colon MD LAB BLOOD ORDERAB LES Final Result Performing Organization Address [facility]/ZIP Co de Phone Number [facility] [address] [place] [phone] * Hepatitis C Antibody with Reflex to HCV, RNA, Quantitative, Real-Time PCR (10/09/2023 8:05 AM EDT) Hepatitis C Antibody Nonreactive Nonreactive [facility] Comment:Antibodies to HCV no t detected; does not exclude early acuteHCV infection. Blood Venous blood specimen / Unknown 10/09/2023 8:05 AM EDT 10/09/2023 11:21 AM EDT Keli Colon MD LAB BLOOD ORDERAB LES Final Result Performing Organization Address [facility] Co de Phone Number [facility] [address] [place] [phone] * HIV-1/2 Antigen and Antibodies, Fourth Generation, with Reflexes (10/09/2023 8:05 AM EDT) HIV AB/AG Nonreactive Nonreactive [facility] Comment:HIV-1 p24 Ag and/or HIV-1/HIV-2 Ab not detected.A test result that is nonreactive does not exclude thepossibility of exposure to or infection with HIV-1 and/orHIV-2. Nonreactive results in this assay for individualswith prior exposure to HIV-1 and/or HIV-2 may be due toantigen and antibody levels that are below the limit ofdetection of this assay.The [employer] HIV Ag/Ab Combo assay result andsupplemental assay results should be interpreted inconjunction with the patient's clinical presentation,history and other laboratory results. If the results areinconsistent with clinical evidence, additional testing issuggested to confirm the result. Blood Venous blood specimen / Unknown 10/09/2023 8:05 AM EDT 10/09/2023 11:21 AM EDT us Keli Colon MD LAB BLOOD ORDERAB LES Final Result [facility] [address] [place] [phone] * Hm Colonoscopy (01/24/2023 11:12 AM EST) Historical Provider HEALTH MAINTENANCE Final Result from Last 3 Months or Most Recently Relevant to Health Maintenance Insurance [facility] C3 DENTAL-[facility] MEDICAID STAND ADULT Care Teams Biological Scientist Relationship Specialty Start Date End Date Keli Montalvo MD [address] [place] [phone] PCP - General Internal Medicine 11/14/22
--- OUTSIDE RECORDS SUMMARY | 2024-12-29 11:44 | XMS_ITS | Encounter Summary ---
Author Organization [employer] Address [address] [facility] 7t [place] [address] Care Team Providers Care Sheet Metal Apprentice Name Role Phone Keli Montalvo MD Primary Care Pro vider Reason for Visit * Reason Onset Date Comments Med Refill 12/21/2024 Encounter Details Date Type Department Care Team (Late st Contact Info) Description 12/21/2024 Refill [facility] [address] [place] [address] Alma Rosa Ochoa, ANP [address] [place] [address] Social History Tobacco Use Types Packs/Day Years [...] Description 01/07/2025 2:00 PM EDT Office Visit [facility] [address] [place] [address] Tyson Ortega MD [address] [place] [address] documented as of this encounter Visit Diagnoses Not on filedocumented in this encounter Additional Health Concerns Assessment Noted Time PHQ-9 Depression Total Score: 0 10/14/19 25 11:04 AM EDT documented as of this encounter Care Teams Sheet Metal Apprentice Relationship Specialty Start Date End Date Keli Montalvo MD [address] [place] [phone] PCP - General Internal Medicine 11/14/22 documented as of this encounter
--- OUTSIDE RECORDS SUMMARY | 2024-12-29 11:44 | XMS_ITS | Encounter Summary ---
Author Organization [employer] Address [address] [facility] 7t [place] [address] Care Team Providers Care Chainstitch Binder Name Role Phone Keli Montalvo MD Primary Care Pro vider Reason for Visit * Reason Onset Date Comments Med Refill 08/20/2024 Encounter Details Date Type Department Care Team (Late st Contact Info) Description 08/20/2024 Refill [facility] [address] [place], [place] [phone] Jesus Quach MD [address] [place] [address] Social History Tobacco Use Types Packs/Day Years [...] Description 01/07/2025 2:00 PM EDT Office Visit [facility] [address] [place] [address] Tyson Ortega MD [address] [place] [address] documented as of this encounter Visit Diagnoses Not on filedocumented in this encounter Additional Health Concerns Assessment Noted Time PHQ-9 Depression Total Score: 2 09/16/19 24 10:50 AM EDT documented as of this encounter Care Teams Chainstitch Binder Relationship Specialty Start Date End Date Keli Montalvo MD [address] [place] [phone] PCP - General Internal Medicine 11/14/22 documented as of this encounter
--- OUTSIDE RECORDS SUMMARY | 2024-12-29 11:44 | XMS_ITS | Encounter Summary ---
Author Organization [employer] Address [address] [place] [address] [place] [address] Care Team Providers Care Tank Terminal Gauger Name Role Phone Keli Montalvo MD Primary Care Pro vider Reason for Visit * Reason Onset Date Comments Med Refill 11/28/2024 Encounter Details Date Type Department Care Team (Late st Contact Info) Description 11/28/2024 Refill [facility] [address] [place] [address] Keli Montalvo MD [address] [place] [address] Social History Tobacco Use Types Packs/Day Years [...] Description 01/07/2025 2:00 PM EDT Office Visit [facility] [address] [place] [address] Tyson Ortega MD [address] [place] [address] documented as of this encounter Visit Diagnoses Not on filedocumented in this encounter Additional Health Concerns Assessment Noted Time PHQ-9 Depression Total Score: 0 10/14/19 25 11:04 AM EDT documented as of this encounter Care Teams Tank Terminal Gauger Relationship Specialty Start Date End Date Keli Montalvo MD [address] [place] [phone] PCP - General Internal Medicine 11/14/22 documented as of this encounter
--- OUTSIDE RECORDS SUMMARY | 2024-12-29 11:44 | XMS_ITS | Encounter Summary ---
Author Organization [employer] Address [address] [place] [address] [place] [address] Care Team Providers Care Playground Equipment Erector Name Role Phone Keli Montalvo MD Primary Care Pro vider Reason for Visit * Reason Onset Date Comments Med Refill 05/14/2023 Encounter Details Date Type Department Care Team (Late st Contact Info) Description 05/14/2023 Refill [facility] [address] [place] [address] Keli Montalvo MD [address] [place] [address] Social History Tobacco Use Types Packs/Day Years [...] Description 01/07/2025 2:00 PM EDT Office Visit [facility] [address] [place] [phone] Tyson Ortega MD [address] [place] [address] documented as of this encounter Visit Diagnoses Not on filedocumented in this encounter Additional Health Concerns Assessment Noted Time PHQ-9 Depression Total Score: 2 01/14/20 23 9:57 AM EDT documented as of this encounter Care Teams Playground Equipment Erector Relationship Specialty Start Date End Date Keli Montalvo MD [address] [place] [phone] PCP - General Internal Medicine 11/14/22 documented as of this encounter
--- OUTSIDE RECORDS SUMMARY | 2024-12-29 11:44 | XMS_ITS | Encounter Summary ---
Author Organization [employer] Address [address] [facility] 7t [place] [address] Care Team Providers Care Language Translator Name Role Phone Keli Montalvo MD Primary Care Pro vider Encounter Details Date Type Department Care Team (Latest Contact Info) Description 12/08/2024 Results Follow-Up [facility] MED[facility]INE [address] [place] [address] Keli Montalvo MD [address] [place] [address] US Abdomen Comp w elastography Social History Tobacco Use Types Packs/Day Years [...] Description 01/07/2025 2:00 PM EDT Office Visit [facility] 230 [place] [address] Tyson Ortega MD [address] [place] [address] documented as of this encounter Visit Diagnoses Not on filedocumented in this encounter Additional Health Concerns Assessment Noted Time PHQ-9 Depression Total Score: 0 10/14/19 25 11:04 AM EDT documented as of this encounter Care Teams Language Translator Relationship Specialty Start Date End Date Keli Montalvo MD [address] [place] [phone] PCP - General Internal Medicine 11/14/22 documented as of this encounter
--- OUTSIDE RECORDS SUMMARY | 2024-12-29 11:44 | XMS_ITS | Encounter Summary ---
Author Organization [employer] Address [address] [place] [address] [place] [address] Care Team Providers Care Web Developer Name Role Phone Keli Montalvo MD Primary Care Pro vider Reason for Visit * Reason Onset Date Comments Med Refill 07/28/2024 Encounter Details Date Type Department Care Team (Late st Contact Info) Description 07/28/2024 Refill [facility] [address] [place] [address] Keli Montalvo MD [address] [place] [address] Social History Tobacco Use Types Packs/Day Years [...] Description 01/07/2025 2:00 PM EDT Office Visit [facility] [address] [place] [address] Tyson Ortega MD [address] [place] [address] documented as of this encounter Visit Diagnoses Not on filedocumented in this encounter Additional Health Concerns Assessment Noted Time PHQ-9 Depression Total Score: 2 09/16/19 24 10:50 AM EDT documented as of this encounter Care Teams Web Developer Relationship Specialty Start Date End Date Keli Montalvo MD [address] [place] [phone] PCP - General Internal Medicine 11/14/22 documented as of this encounter
--- OUTSIDE RECORDS SUMMARY | 2024-12-29 11:44 | XMS_ITS | Encounter Summary ---
Author Organization [employer] Address [address] [facility] [address] 7t [place] [address] Care Team Providers Care Vp Strategy Name Role Phone Keli Montalvo MD Primary Care Pro vider Encounter Details Date Type Department Care Team (Late st Contact Info) Description 03/04/[address] [facility] [address] [place] [address] Provider, MD Katia Social History Tobacco Use [...] Description 01/07/2025 2:00 PM EDT Office Visit [facility] [address] [place] [phone] Tyson Ortega MD [address] [place] [address] documented as of this encounter Procedures Procedure [...] documented as of this encounter Care Teams Vp Strategy Relationship Specialty Start Date End Date Keli Montalvo MD [address] [place] [phone] PCP - General Internal Medicine 11/14/22 documented as of this encounter
--- OUTSIDE RECORDS SUMMARY | 2024-12-29 11:44 | XMS_ITS | Encounter Summary ---
Author Organization [employer] Address [address] [place] [address] [place] [address] Care Team Providers Care Multiple Knife Edge Trimmer Operator Name Role Phone Keli Montalvo MD Primary Care Pro vider Reason for Visit * Reason Onset Date Comments Med Refill 07/28/2024 Encounter Details Date Type Department Care Team (Late st Contact Info) Description 07/28/2024 Refill [facility] MEDICINE [address] [place] [address] Keli Montalvo MD [address] [place] [address] Social History Tobacco Use Types Packs/Day Years [...] Description 01/07/2025 2:00 PM EDT Office Visit [facility] MEDICINE [address] [place] [address] Tyson Ortega MD [address] [place] [address] documented as of this encounter Visit Diagnoses Not on filedocumented in this encounter Additional Health Concerns Assessment Noted Time PHQ-9 Depression Total Score: 2 09/16/19 24 10:50 AM EDT documented as of this encounter Care Teams Multiple Knife Edge Trimmer Operator Relationship Specialty Start Date End Date Keli Montalvo MD [address] [place] [phone] PCP - General Internal Medicine 11/14/22 documented as of this encounter
--- OUTSIDE RECORDS SUMMARY | 2024-12-29 11:44 | XMS_ITS | Encounter Summary ---
Author Organization [employer] Address [address] [facility] 7t [place] [address] Care Team Providers Care Qc Chemist Name Role Phone Keli Montalvo MD Primary Care Pro vider Reason for Visit * Reason Onset Date Comments Med Refill 09/23/2024 Encounter Details Date Type Department Care Team (Late st Contact Info) Description 09/23/[address] [facility] MEDICINE [address] [place] [address] Jesus Quach MD [address] [place] [address] Social History Tobacco Use Types Packs/Day Years [...] 01/07/2025 2:00 PM EDT Office Visit [facility] MED[facility]INE [address] [place] [address] Tyson Ortega MD [address] [place] [address] documented as of this encounter Visit Diagnoses Not on filedocumented in this encounter Additional Health Concerns Assessment Noted Time PHQ-9 Depression Total Score: 2 09/16/19 24 10:50 AM EDT documented as of this encounter Care Teams Qc Chemist Relationship Specialty Start Date End Date Keli Montalvo MD [address] [place] [phone] PCP - General Internal Medicine 11/14/22 documented as of this encounter
--- OUTSIDE RECORDS SUMMARY | 2024-12-29 11:44 | XMS_ITS | Encounter Summary ---
Author Organization [employer] Address [address] [place] [address] [place] [address] Care Team Providers Care Enterprise Application Analyst Name Role Phone Keli Montalvo MD Primary Care Pro vider Reason for Visit * Reason Onset Date Comments Med Refill 08/19/2024 Encounter Details Date Type Department Care Team (Late st Contact Info) Description 08/19/2024 Refill [facility] MEDICINE [address] [place] [address] Keli Montalvo MD [address] [place] [address] Social History Tobacco Use Types Packs/Day Years [...] Description 01/07/2025 2:00 PM EDT Office Visit [facility] MEDICINE [address] [place] [address] Tyson Ortega MD [address] [place] [address] documented as of this encounter Visit Diagnoses Not on filedocumented in this encounter Additional Health Concerns Assessment Noted Time PHQ-9 Depression Total Score: 2 09/16/19 24 10:50 AM EDT documented as of this encounter Care Teams Enterprise Application Analyst Relationship Specialty Start Date End Date Keli Montalvo MD [address] [place] [phone] PCP - General Internal Medicine 11/14/22 documented as of this encounter
--- OUTSIDE RECORDS SUMMARY | 2024-12-29 11:44 | XMS_ITS | Encounter Summary ---
Author Organization [employer] Address [address] [facility] 7 [place] [address] Care Team Providers Care Box Toe Cementer Name Role Phone Keli Montalvo MD Primary Care Pro vider Reason for Visit * Reason Onset Date Comments New Patient Appt 09/19/2022 Encounter Details Date Type Department Care Team ([facility] st Contact Info) Description 09/19/2022 Telephone [facility] [address] [place], [place] [phone] Jesus Quach MD [address] [place] [address] New Patient Appt Social History Tobacco Use [...] AM EDT Tc to , to offer DATA SPECIALIST Appt, pt states is not interested at the time for Vocational Trainer with Facility. Advised if change of mind to please give facility a call at [phone] documented in this encounter Plan of Treatment Upcoming Encounters Date Type Department Care Team (Late st Contact Info) Description 01/07/2025 2:00 PM EDT Office Visit [facility] [address] [place] [address] [phone] Tyson Ortega MD [address] [place] [address] [phone] documented as of this encounter Visit Diagnoses Not on filedocumented in this encounter Additional Health Concerns Assessment Noted Time PHQ-9 Depression Total Score: 15 023 2:15 PM EDT documented as of this encounter Care Teams Box Toe Cementer Relationship Specialty Start Date End Date Keli Montalvo MD [address] [place] [address] [phone] PCP - General Internal Medicine 11/14/22 documented as of this encounter
--- OUTSIDE RECORDS SUMMARY | 2024-12-29 11:44 | XMS_ITS | Encounter Summary ---
Author Organization [employer] Address [address] [facility] 7t [place] [address] Care Team Providers Care Personal Consultant Name Role Phone Keli Montalvo MD Primary Care Pro vider Reason for Visit * Reason Onset Date Comments Med Refill 12/21/2024 Encounter Details Date Type Department Care Team (Late st Contact Info) Description 12/21/2024 Refill [facility] MEDICINE [address] [place] [address] Tyson Ortega MD [address] [place] [address] Alcohol use disorder, severe, dependence (CMS/HCC) (HCC) Social History Tobacco Use Types Packs/Day Years [...] Description 01/07/2025 2:00 PM EDT Office Visit [facility] MEDICINE [address] [place] [address] Tyson Ortega MD [address] [place] [address] documented as of this encounter Visit Diagnoses Diagnosis Alcohol use disorder, severe, dependence (CMS/HCC) (HCC) documented in this encounter Additional Health Concerns Assessment Noted Time PHQ-9 Depression Total Score: 0 10/14/19 25 11:04 AM EDT documented as of this encounter Care Teams Personal Consultant Relationship Specialty Start Date End Date Keli Montalvo MD [address] [place] [phone] PCP - General Internal Medicine 11/14/22 documented as of this encounter
--- OUTSIDE RECORDS SUMMARY | 2024-12-29 11:44 | XMS_ITS | Encounter Summary ---
Author Organization [employer] Address [address] [place] [address] [place] [address] Care Team Providers Care Brush Hand Name Role Phone Keli Montalvo MD Primary Care Pro vider Reason for Visit * Reason Onset Date Comments Med Refill 11/08/2024 Encounter Details Date Type Department Care Team (Late st Contact Info) Description 11/08/2024 Refill [facility] MEDICINE [address] [place] [address] Keli Montalvo MD [address] [place] [address] Social History Tobacco Use Types Packs/Day Years [...] 01/07/2025 2:00 PM EDT Office Visit [facility] MEDICINE [address] [place] [address] Tyson Ortega MD [address] [place] [address] documented as of this encounter Visit Diagnoses Not on filedocumented in this encounter Additional Health Concerns Assessment Noted Time PHQ-9 Depression Total Score: 0 10/14/19 25 11:04 AM EDT documented as of this encounter Care Teams Brush Hand Relationship Specialty Start Date End Date Keli Montalvo MD [address] [place] [phone] PCP - General Internal Medicine 11/14/22 documented as of this encounter
--- OUTSIDE RECORDS SUMMARY | 2024-12-29 11:44 | XMS_ITS | Encounter Summary ---
Author Organization [employer] Address [address] [place] [address] [place] [address] Care Team Providers Care Claims Agent Right Of Way Name Role Phone Keli Montalvo MD Primary Care Pro vider Reason for Visit * Reason Onset Date Comments Med Refill 11/08/2024 Encounter Details Date Type Department Care Team (Late st Contact Info) Description 11/08/2024 Refill [facility] MEDICINE [address] [place] [address] Keli Montalvo MD [address] [place] [address] Social History Tobacco Use Types Packs/Day Years [...] Description 01/07/2025 2:00 PM EDT Office Visit [facility] MED[facility]INE [address] [place] [address] Tyson Ortega MD [address] [place] [address] documented as of this encounter Visit Diagnoses Not on filedocumented in this encounter Additional Health Concerns Assessment Noted Time PHQ-9 Depression Total Score: 0 10/14/19 25 11:04 AM EDT documented as of this encounter Care Teams Claims Agent Right Of Way Relationship Specialty Start Date End Date Keli Montalvo MD [address] [place] [address] PCP - General Internal Medicine 11/14/22 documented as of this encounter
--- OUTSIDE RECORDS SUMMARY | 2024-12-29 11:44 | XMS_ITS | Encounter Summary ---
Author Organization [employer] Address [address] [facility] [address] [place] [address] Care Team Providers Care Artificial Teeth Inspector Name Role Phone Keli Montalvo MD Primary Care Pro vider Encounter Details Date Type Department Care Team ([facility] Contact Info) Description 12/29/2024 Orders Only [facility] External Provider, [facility] Social History Tobacco Use Types Packs/Day Years [...] Description 01/07/2025 2:00 PM EDT Office Visit [facility] [address] [place] [address] Tyson Ortega MD [address] [place] [address] documented as of this encounter Procedures Procedure Name Priority Date/Time Associated Diagnosis Comments LDCT LUNG SCREENING Routine 12/29/2024 1 0:02 AM EDT documented in this encounter Results * CT Lung Screening Low dose (12/29/2024 10:02 AM EDT) Anatomical Region Laterality Modality Lung Computed Tomogra phy 12/29/2024 10:0 2 AM EDT Narrative 12/29/2024 10:35 AM EDT [address] [address] [address] Scan Report Signed Patient: Cortez Westfall MR#: [id number] 2076 : 1970 Acct:[id number] Age/Sex: 54 / M ADM Date: 12/29/24 Loc: HO.CT Attending Dr: Sofia Vázquez PA-C Ordering Physician: Sofia Vázquez PA-C Date of Service: 12/29/24 Procedure(s): CT lung screening Accession Number(s): [id number] cc: Sofia Vázquez PA-C; Keli Montalvo MD Report Number: [id number]: Total DLP = 55.00 mGy-cm Reason for [...] 12/29/24 1032 DD/ 1002 TD/TT: 12/29/24 1014 City Solicitor: DAHLIA Procedure Note Donotuseinterpreter, Image - 12/29/[address] [place] [address] [address] Scan Report Signed Patient: Jose Westfall#: [id number] : 1970Acct:[id number] Age/Sex: 54 / MADM Date: 12/29/24 Loc: HO.CT Attending Dr: Sofia Vázquez PA-C Ordering Physician: Sofia Vázquez PA-C Date of Service: 12/29/24 Procedure(s): CT lung screening Accession Number(s): [id number] cc: Sofia Vázquez PA-C; Keli Montalvo MD Report Number: [id number]: Total DLP = 55.00 mGy-cm Reason for [...] 12/29/24 1032 DD/ 1002 TD/TT: 12/29/24 1014 City Solicitor: DAHLIA [facility] External Provider IMG CT PROCEDURES Final Result documented in this encounter Visit Diagnoses Not on filedocumented in this encounter Additional Health Concerns Assessment Noted Time PHQ-9 Depression Total Score: 0 10/14/19 25 11:04 AM EDT documented as of this encounter Care Teams Artificial Teeth Inspector Relationship Specialty Start Date End Date Keli Montalvo MD [address] [place] [address] PCP - General Internal Medicine 11/14/22 documented as of this encounter
--- OUTSIDE RECORDS SUMMARY | 2024-12-29 11:44 | XMS_ITS | Encounter Summary ---
Author Organization [employer] Address [address] [place] [address] [place] [address] Care Team Providers Care Cab Starter Name Role Phone Keli Montalvo MD Primary Care Pro vider Reason for Visit * Reason Onset Date Comments Med Refill 07/22/2024 Encounter Details Date Type Department Care Team (Late st Contact Info) Description 07/22/2024 Refill [facility] [address] [place] [address] Keli Montalvo MD [address] [place] [address] Social History Tobacco Use Types Packs/Day Years [...] Description 01/07/2025 2:00 PM EDT Office Visit [facility] [address] [place] [address] Tyson Ortega MD [address] [place] [address] documented as of this encounter Visit Diagnoses Not on filedocumented in this encounter Additional Health Concerns Assessment Noted Time PHQ-9 Depression Total Score: 2 09/16/19 24 10:50 AM EDT documented as of this encounter Care Teams Cab Starter Relationship Specialty Start Date End Date Keli Montalvo MD [address] [place] [address] PCP - General Internal Medicine 11/14/22 documented as of this encounter
== END 2024-12-29 09:58 | disposition home or self-care (01) ==
LOC: HO.CT 09:57
PROVIDERS: PCP Student in an Organized Health Care Education/Training Program; Visit Provider Physician Assistant Medical
DX: Z12.2 Encounter for screening for malignant neoplasm of respiratory organs (principal); F17.210 Nicotine dependence, cigarettes, uncomplicated
CPT/HCPCS: 71271

== ENCOUNTER → 2024-12-29 09:59 | Outpatient (BNV) | payer MEDICAID, SELFPAY | PROVIDERS: PCP Student in an Organized Health Care Education/Training Program; Visit Provider Radiology Diagnostic Radiology | DX: F17.210 Nicotine dependence, cigarettes, uncomplicated (principal) | CPT/HCPCS: 71271 ==

== ENCOUNTER 2025-01-14 13:42 | Outpatient (REF) | payer MEDICAID, SELFPAY ==
--- OUTSIDE RECORDS SUMMARY | 2024-08-28 17:30 | XMS_ITS ---
Author Organization [employer] Address [address] [place], [place] [phone] Care Team Providers Care Director Of Corporate Strategy Name Role Phone Fausto Joe MD Primary [...] Date Provider Diagnosis [facility] [address] [place] [phone] 08/28/2024 Provider Migration Plan Of Treatment Medication [...] * Rip HUSSEINoDOB: [birth year] (54 yo M)Acc No.[id number]:08/28/2024 Patient: Cortez JOSÉ Provider: :1970 A ge:53 Y S ex:Male Date:08/28/2024 Address:[address] [place], [place] [phone] Pcp:Fausto Joe MD Subjective: * Chief Complaints: [...] Electronic signature of Prov ider Migration on 01/14/2025 at 02:40 PM EDT Sign off status: Pending * Provider: Date: 0 08/28/2024 Generated for Eulalio vergara/Dia/Annaitting on: 02:40 PM EDT
--- OUTSIDE RECORDS SUMMARY | 2024-11-05 08:30 | XMS_ITS ---
Author Organization [facility] Address [address] [place] [address] Care Team Providers Care Speech Correction Assistant Name Role Phone Keli Montalvo Primary Care Provider Darshan Ball [phone] REASON FOR VISIT screening,hx polyps,serrated polyp of colon, fam hx colon cancer Encounters Encounter Location Date Provider [place] [facility] [place] [address] [place] [phone] 11/05/2024 Darshan Khan Plan Of Treatment No Information Progress Notes * JAROD HUSSEIN ADOB:[birth year] (54 yo M)Acc No.[id number]:11/05/2024 COLON WITH MAC Patient: JAROD JOSÉ Provider: Hadley Khan MD :1970 A ge:54 Y S ex:Male Date:11/05/2024 Address:[address] [place], [place] [phone] Pcp:Keli Colon Subjective: * Chief Complaints: * [...] provider. Sign off status: Pending * Provider: Hadlye Khan MD Date: 0 11/05/2024 Generated for Eulalio vergara/Dia/eTransmitting on: 1 02:40 PM EDT
--- OUTSIDE RECORDS SUMMARY | 2025-01-13 23:59 | XMS_ITS | Continuity of Care Document ---
Author Organization [facility] Address [address] [place] [address]- Care Team Providers Care Vamper Name Role Phone Anuj Colon MD, Keli Chan Primary Care Jorge Alberto wise Encounter [facility] Date(s): 12/14/24 - 01/13/25 [facility] [address] [place] [address] Encounter Type: Triage Allergies, Adverse Reactions, Alerts No Known Medication Allergies Immunizations Given and Recorded Vaccine Date Status Refusal Reason SARS-CoV-2 (COVID-19) mRNA BNT-162b2 vac 07/25/20 Given SARS-CoV-2 (COVID-19) mRNA BNT-162b2 vac 06/29/20 Given Medications 18 g 1 1/2 in 3 ml syringe 18 g 1 1/2 in 3 ml syringe, See Instructions, # 50 each, Refills 1, Tot. Refills 1, Maintenance, use weekly to draw up testosterone, 12/23/24 4:19:00 AM EDT, Supply, 178.2, cm, 10/11/24 8:30:00 EDT, Height Start Date: 12/23/24 Status: Ordered Medication Dispense Status: Completed Quantity: 50.0 Unit: each Total Allowed Fills: 2 Fills Dispensed: 0 22g 1 1/2 in 3 ml syringe 22g 1 1/2 in 3 ml syringe, See Instructions, # 50 each, Refills 1, Tot. Refills 1, Maintenance, useweekly to inject testosterone, 08/12/24 4:21:00 PM EDT, Supply, 178.2, cm, 05/25/24 9:51:00 EDT, Height Start Date: 08/12/24 Status: Ordered Medication Dispense Status: Completed Quantity: 50.0 Unit: each Total Allowed Fills: 2 Fills Dispensed: 0 amLODIPine 5 mg oral tablet TAKE 1 TABLET BY MOUTH DAILY IN THE MORNING Start Date: 04/17/23 Status: Ordered Medication Dispense Status: Completed Total Allowed Fills: 1 Fills Dispensed: 0 dexamethasone 1 mg oral tablet 1 tablet = 1 mg, By Mouth, Once, to be taken at 11pm, # 1 tablet, 0 Refills, Soft Stop, 04/13/24 10:12:00 AM EST, [facility], Partial fill upon patient request if the prescription is for a schedule II opioid drug., 178.2, cm, 04/13/24 9:33:00 EST, Height Start Date: 04/13/24 Status: Ordered Medication Dispense Status: Completed Quantity: 1.0 Unit: tablet Total Allowed Fills: 1 Fills Dispensed: 0 dexamethasone 1 mg oral tablet 1 tablet = 1 mg, By Mouth, Once, to be taken at 11pm the night prior to 8am blood work, # 1 tablet,0 Refills, Soft Stop, 03/17/25 7:34:00 AM [facility], [facility], Partial fill upon patient request if the prescription is for a schedule II opioid drug., 178.2, cm, 05/25/24 9:51:00 EDT, Height Start Date: 03/17/25 Status: Ordered Medication Dispense Status: Completed Quantity: 1.0 Unit: tablet Total Allowed Fills: 1 Fills Dispensed: 0 escitalopram 20 mg oral tablet TAKE 1 TABLET BY MOUTH EVERY MORNING Start Date: 04/17/23 Status: Ordered Medication Dispense Status: Completed Total Allowed Fills: 1 Fills Dispensed: 0 Fish Oil 1000 mg oral capsule TAKE 1 CAPSULE BY MOUTH EVERY MORNING Start Date: 04/17/23 Status: Ordered Medication Dispense Status: Completed Total Allowed Fills: 1 Fills Dispensed: 0 omeprazole 20 mg oral enteric coated capsule TAKE 1 CAPSULE BY MOUTH DAILY BEFORE BREAKFAST DO NOT BREAK, CRUSH, DISSOLVE OR CHEW Start Date: 04/17/23 Status: Ordered Medication Dispense Status: Completed Total Allowed Fills: 1 Fills Dispensed: 0 propranolol 120 mg oral capsule, extended release 0.5 capsule = 60 mg, TAKE 1 CAPSULE BY MOUTH ONCE DAILY Start Date: 04/17/23 Status: Ordered Medication Dispense Status: Completed Total Allowed Fills: 1 Fills Dispensed: 0 Testosterone Cypionate 200 mg/mL intramuscular solution = 100 mg, Intramuscular, Every 7 days, # 4 mL, 5 Refills, Maintenance, 12/23/24 4:20:00 AM EDT, [facility], Partial fill upon patient request if the prescription is for a schedule II opioid drug., 178.2, cm, 10/11/24 8:30:00 EDT, Height Start Date: 12/23/24 Status: Ordered Medication Dispense Status: Completed Quantity: 4.0 Unit: mL Total Allowed Fills: 6 Fills Dispensed: 0 Social History Social History Type Response Tobacco Use: 4 or less cigar ettes(less than 1/4 pack)/day in last 30 days. Other: 1 cigarette daily, alternatingg w/ nicorette. Sex Sex Representation Male (finding) Patient Care team information Care Team Personnel Name: Anuj Colon MD, Keli Chan Position: [facility] Outreach Member Role: PCP Address: [address] [place] [address] Telecom: Care Team Related Persons Name: KISHA BOYCE Insurance Providers Guarantor name: JAROD JOVITA OY [employer] Plan Information #: 1 Payer: [employer] CUST[employer]ER SERVICE Payer Identifier: BEAN Member Number: [id number] Group Number: BEAN Subscriber Identifier: BEAN Relationship to Subscriber: self Coverage Type: MEDICAID Coverage Verification Date: BEAN Telecom: BEAN Address:
--- OUTSIDE RECORDS SUMMARY | 2025-01-13 23:59 | XMS_ITS | Continuity of Care Document ---
Author Organization [facility] Address [address] [place] [address]- Care Team Providers Care Seed Technician Name Role Phone Anuj Colon MD, Keli Chan Primary Care Jorge Alberto wise Encounter [facility] Date(s): 12/14/24 - 01/13/25 [facility] [address] [place] [id number] Encounter Type: Triage Allergies, Adverse Reactions, Alerts [...] Refills, Soft Stop, 04/13/24 10:12:00 AM EST, [facility], Partial fill upon patient request [...] tablet,0 Refills, Soft Stop, 03/17/25 7:34:00 AM [facility], [facility], Partial fill upon patient request [...] 5 Refills, Maintenance, 12/23/24 4:20:00 AM EDT, [facility], Partial fill upon patient request [...] Name: Anuj Colon MD, Keli Chan Position: [facility] Outreach Member Role: PCP Address: [address] [place] [address] Telecom: Care Team Related Persons Name: KISHA BOYCE Insurance Providers Guarantor name: JAROD JOVITA [employer] Plan Information #: 1 Payer: [employer]ER SERVICE Payer Identifier: BEAN Member Number: [id number] Group Number: BEAN Subscriber Identifier: BEAN Relationship to Subscriber: self Coverage Type: MEDICAID Coverage Verification Date: BEAN Telecom: BEAN Address:
--- OUTSIDE RECORDS SUMMARY | 2025-01-13 23:59 | XMS_ITS | Continuity of Care Document ---
Author Organization [facility] Address [address] [place] [address]- Care Team Providers Care Chief Maintenance Supervisor Name Role Phone Anuj Colon MD, Keli Chan Primary Care Jorge Alberto wise Encounter [facility] Date(s): 12/14/24 - 01/13/25 [facility] [address] [place], [place] [address] Encounter Type: Triage Allergies, Adverse Reactions, [...] Refills, Soft Stop, 04/13/24 10:12:00 AM EST, [facility], Partial fill upon patient request if [...] tablet,0 Refills, Soft Stop, 03/17/25 7:34:00 AM [facility], [facility], Partial fill upon patient request if [...] 5 Refills, Maintenance, 12/23/24 4:20:00 AM EDT, [facility], Partial fill upon patient request if [...] Name: Anuj Colon MD, Keli Chan Position: [facility] Outreach Member Role: PCP Address: [address] [place] [address] Telecom: Care Team Related Persons Name: KISHA BOYCE Insurance Providers Guarantor name: JAROD JOVITA [id number] Plan Information #: 1 Payer: [employer]ER [employer] Payer Identifier: BEAN Member Number: [id number] Group Number: BEAN Subscriber Identifier: BEAN Relationship to Subscriber: self Coverage Type: MEDICAID Coverage Verification Date: BEAN Telecom: BEAN Address:
--- NOTE | ~2025-01-14 | US_ITS ---
EXAMINATION: US RETROPERITONEAL LIMITED (RENAL ONLY) CLINICAL INFORMATION: Kidney stone. COMPARISON: Previous renal ultrasound most recent July 2023, abdominal ultrasound November [address] of the abdomen and pelvis March 2011 TECHNIQUE: Real-time imaging of the kidneys. FINDINGS: RIGHT KIDNEY: 12.2 x 5.2 x 4.5 cm (SAG x AP x TRV). The kidney is normal in size, contour, and echogenicity. Renal cortical thickness is normal. 3 mm stone in the midpole. 0.9 x 0.5 x 0.5 cm cyst in the midpole. Probable junctional parenchymal defect in the upper pole. No hydronephrosis. LEFT KIDNEY: 12.8 x 6.4 x 5.1 cm (SAG x AP x TRV). The kidney is normal in size, contour, and echogenicity. Renal cortical thickness is normal. No calculi or focal parenchymal lesions. No hydronephrosis. US/US renal BI IMPRESSION: Small right renal stone. Small right renal cyst. Normal left kidney. Electronically signed by: Tabitha Maldonado MD 01/14/2025 02:47 PM EDT
--- OUTSIDE RECORDS SUMMARY | 2025-01-14 14:40 | XMS_ITS | Encounter Summary ---
Author Organization [employer] Address [address] [facility] 7 [place] [address] Care Team Providers Care Pneumatic System Conveyor Operator Name Role Phone Keli Montalvo MD Primary Care Pro vider Reason for Visit * Reason Onset Date Comments New Patient Appt 07/31/2022 Encounter Details Date Type Department Care Team ([facility] st Contact Info) Description 07/31/2022 Telephone [facility] MED[facility]INE [address] [place], [place] [phone] Jesus Quach MD [address] [place] [address] New Patient Appt Social History Tobacco Use [...] left voicemail to give a call at [phone]. documented in this encounter Plan of Treatment Upcoming Encounters Date Type Department Care Team (Late st Contact Info) Description 04/08/2025 2:00 PM EST Office Visit [facility] [address] [place] [address] Tyson Ortega MD [address] [place] [phone] documented as of this encounter Visit Diagnoses Not on filedocumented in this encounter Care Teams Pneumatic System Conveyor Operator Relationship Specialty Start Date End Date Keli Montalvo MD [address] [place] [address] PCP - General Internal Medicine 11/14/22 documented as of this encounter
--- OUTSIDE RECORDS SUMMARY | 2025-01-14 14:40 | XMS_ITS | Encounter Summary ---
Author Organization [employer] Address [address] [facility] 7t [place] [address] Care Team Providers Care Public Safety Officer Name Role Phone Keli Montalvo MD Primary Care Pro vider Encounter Details Date Type Department Care Team (Late Contact Info) Description 05/17/2022 Abstract [facility] [address] [place] [address] El Lockhart DMD Social History Tobacco Use [...] Department Care Team (Late Contact Info) Description 04/08/2025 2:00 PM EST Office Visit [facility] [address] [place] [address] Tyson Ortega MD [address] [place], [place] [phone] documented as of this encounter Visit Diagnoses Not on filedocumented in this encounter Care Teams Public Safety Officer Relationship Specialty Start Date End Date Keli Montalvo MD [address] [place] [phone] PCP - General Internal Medicine 11/14/22 documented as of this encounter
--- OUTSIDE RECORDS SUMMARY | 2025-01-14 14:40 | XMS_ITS | Encounter Summary ---
Author Organization [employer] Address [address] [facility] 7t [place] [address] Care Team Providers Care Apron Man Name Role Phone Keli Montalvo MD Primary Care Pro vider Encounter Details Date Type Department Care Team ([facility] Contact Info) Description 06/12/2022 Abstract [facility] AD[facility]AL [address] [place] [address] [place], [place] [address] [place] [address] Social History Tobacco Use Types Packs/Day Years [...] Description 04/08/2025 2:00 PM EST Office Visit [facility] MED[facility] [address] [place], [place] [phone] Tyson Oretga MD [address] [place] [address] documented as of this encounter Visit Diagnoses Not on filedocumented in this encounter Care Teams Apron Man Relationship Specialty Start Date End Date Keli Montalvo MD [address] [place] [address] PCP - General Internal Medicine 11/14/22 documented as of this encounter
--- OUTSIDE RECORDS SUMMARY | 2025-01-14 14:40 | XMS_ITS | Patient Health Record ---
Author Organization [facility] Address [address] [place], [place] [id number] Care Team Providers Care Bed Teacher Name Role Phone [facility] Joe MD Primary Care Provider [phone] Migration, Provider Unavailable Unavailable Reason For Referral No Information Medications Medication SIG (Take, Route, Frequency, Duration) Notes Start Date End Date Status Wellbutrin XL 150 MG/24 HOURS 1 TAB(S) ORALLY EVERY 24 HOURS; Duration: 90 *Please review and pick correct strength-formulation from [employer] options. If intended option is not shown, [...] Status W/U Status Risk Notes Problem Hypercholesterolemia (67471130) Hypercholesterolemia NOS (272.4) Active confirmed Problem Essential hypertension (77079981) HTN [Hypertension] (401.9) Active confirmed Encounters Encounter Location Date Provider Diagnosis [facility] [address], [place] [phone] 08/28/2024 Provider Migration Plan Of Treatment Pending [...] Insured Coverage Start Date Coverage End Date [facility] [address] [place] [phone] [id number] Cortez Westfall Self - patient is the insured Medical (General) History Medical History History ICD Code allergic rhinitis hypertension headache anxiety depression nephrolithiasis hyperlipidemia onychomycosis Surgical History Surgery Date(Month/Year) Pilonidal cyst
--- OUTSIDE RECORDS SUMMARY | 2025-01-14 14:40 | XMS_ITS | Clinical Summary ---
Author Organization [employer] Address [address] [facility] [address] [address] [address] [place] [address] Care Team Providers Care Automotive Machinist Apprentice Name Role Phone Keli Montalvo MD [...] 1 04/27/19 25 026 Active sodium chloride (Capron Nasal Nitro) 0.65 % nasal spray Administer 1 spray into each nostril if needed for congestion. 30 mL 2 07/10/19 25 026 Active atorvastatin (Lipitor) 20 MG tablet TAKE 1 TABLET BY MOUTH EVERY DAY 90 tablet 1 07/28/19 25 Active amLODIPine (Norvasc) 5 MG tablet [...] tablet 1 12/22/19 25 Active omega-3 (Ultra [place] 3) 1000 MG capsule TAKE 1 CAPSULE BY MOUTH EVERY DAY 90 capsule 1 12/22/19 25 Active naltrexone (Depade) 50 MG tabletIndicati ons:Alcohol use disorder, severe, dependence (CMS/HCC) (HCC) Take 1 tablet (50 mg) by mouth Once per day. 30 tablet 12/22/19 25 025 Active escitalopram (Lexapro) 20 MG tablet TAKE 1 TABLET BY MOUTH DAILY IN THE MORNING 90 tablet 1 01/04/20 25 Active omega-3 (Ultra [place] 3) 1000 MG capsule TAKE 1 CAPSULE BY MOUTH EVERY DAY 90 capsule 1 05/20/19 25 025 Discontinued(Re order (will not trigger notification to Pharmacy)) escitalopram (Lexapro) 20 MG tablet TAKE 1 TABLET BY MOUTH DAILY IN THE MORNING 90 tablet 1 08/13/19 25 025 [...] daily. 30 tablet 1 11/13/19 25 025 Discontinued(Re order (will not trigger [...] to go to alcohol abuse program at [facility] and pt agreed -cced today [...] in 2017-S/p p20 x smoking hx ,tdap 2016,zoster vaccine [...] neg -Continue amlodipine 5 mg daily -saw room attendants in 05/2022 Normal complete exam per pt [...] BP readings 3 times a week -saw room attendants in 05/2022 Normal complete exam per pt [...] -will monitor BP at next visit -saw room attendants in 05/2022 Normal complete exam per pt [...] Encounters Date Type Department Care Team Description 01/10/2025 Telephone [facility] [address] [place] [address] Keli Montalvo MD artie recall 01/07/2025 2:00 PM EDT Office Visit [facility] [place] [place] [address] Tyson Ortega MD Alcohol use disorder, severe, dependence (CMS/HCC) (HCC) (Primary Dx) 01/07/2025 Travel 12/31/2024 Refill [facility] [address] [place] [address] Keli Montalvo MD 12/31/2024 Refill [facility] [place] [place] [address] Keli Montalvo MD 12/29/2024 Orders Only [facility] External Provider, [facility] 12/21/2024 Refill [facility] [place] [address] Keli Montalvo MD Alcohol use disorder, severe, dependence (CMS/HCC) (HCC) 12/21/2024 Refill [facility] [place] [address] Alma Rosa Ochoa ANP 12/21/2024 Refill [facility] [address] [place] [address] Tyson Ortega MD Alcohol use disorder, severe, dependence (CMS/HCC) (HCC) 12/10/2024 1:30 PM EDT Office Visit [facility] [place] [address] Tyson Ortega MD Alcohol use disorder, severe, dependence (CMS/HCC) (Primary Dx) 12/10/2024 Travel 12/09/2024 Travel 12/09/2024 Refill [facility] [place] [address] Keli Montalvo MD 12/08/2024 Results Follow-Up [facility] [address] [place] [address] Keli Montalvo MD US Abdomen Comp w elastography 12/06/2024 Telephone [facility] [address] [facility] [place] [address] Keli Montalvo MD chart prep 12/03/2024 1:00 PM EDT Telemedicine [facility] [address] [facility] [place] [address] Tyson Ortega MD Alcohol use disorder, severe, dependence (CMS/HCC) (Primary Dx) 12/03/2024 Travel 11/28/2024 Refill [facility] [address] [place] [address] Keli Montalvo MD 11/28/2024 Refill [facility] [address] [place] [address] Jesus Quach MD 11/12/2024 1:15 PM EDT Office Visit [facility] [address] [facility] [place] [address] Tyson Ortega MD Alcohol use disorder, severe, dependence (CMS/HCC) (Primary Dx) 11/12/2024 Travel 11/08/2024 Refill [facility] [address] [facility] [place] [address] Keli Montalvo MD 11/08/2024 Refill [facility] [place] [address] Keli Montalvo MD 11/05/2024 Orders Only GENERIC EXTERNAL DATA DEPARTMENT Provider, Generic External Data from Last 3 Months Immunizations Immunization Administration [...] Sign Reading Time Taken Comments Blood Pressure 127/79 01/07/2025 1:49 PM EDT Pulse 73 01/07/2025 1:49 PM EDT Temperature 36.5 C (97.7 F) 01/07/2025 1:49 PM EDT Respiratory Rate 16 01/07/2025 1:49 PM EDT Oxygen Saturation 98% 10/13/2024 11:02 [...] Description 04/08/2025 2:00 PM EST Office Visit [facility] [address] [place] [phone] Tyson Ortega MD [address] [place] [address] Health Maintenance Due Date Last Done Comments CT Colonography 1970 FIT DNA/Cologuard 1970 FIT 1968 FOBT 1968 Sigmoidoscopy 1968 Alcohol/Substance Use Screening 1980 Dental Oral Exam 12/08/2023 06/06/2023, 05/01/2022 Dental Prophylaxis 12/08/2023 06/06/2023, 05/29/2022 Dental X-Ray: Bitewings 06/06/2024 06/06/2023, 05/01 Influenza Vaccine (#1) 2024 , 02/02/2021, 02/16/2018 Dental X-Ray: Full Mouth 05/02/2025 05/01/2022 SDOH [...] AM EDT Narrative 12/29/2024 10:35 AM EDT [address] [address] [address] Scan Report Signed Patient: Cortez Westfall MR#: [id number] 2076 : 1970 Acct:[id number] Age/Sex: 54 / M ADM Date: 12/29/24 Loc: HO.CT Attending Dr: Sofia Vázquez PA-C Ordering Physician: Sofia Vázquez PA-C Date of Service: 12/29/24 Procedure(s): CT lung screening Accession Number(s): [id number] cc: Sofia Vázquez PA-C; Keli Montalvo MD Report Number: [id number]: Total DLP = 55.00 mGy-cm Reason for [...] 12/29/24 1032 DD/ 1002 TD/TT: 12/29/24 1014 Belt Weaver: DAHLIA Procedure Note Donotuseinterpreter, Image - 12/29/[address] [address] [address] Scan Report Signed Patient: Jose Westfall#: [id number] 2076 : 1970Acct:[id number] Age/Sex: 54 / MADM Date: 12/29/24 Loc: HO.CT Attending Dr: Sofia Vázquez PA-C Ordering Physician: Sofia Vázquez PA-C Date of Service: 12/29/24 Procedure(s): CT lung screening Accession Number(s): [id number] cc: Sofia Vázquez PA-C; Keli Montalvo MD Report Number: [id number]: Total DLP = 55.00 mGy-cm Reason for [...] 12/29/24 1032 DD/ 1002 TD/TT: 12/29/24 1014 Belt Weaver: DAHLIA us [facility] External Provider IMG CT PROCEDURES Final Result * US Abdomen Comp w elastography (12/08/2024 9:00 AM EDT) Anatomical Region Laterality Modality Abdomen Ultrasound 12/08/2024 9:00 AM EDT Narrative 12/08/2024 12:03 PM EDT [place] [address] Ultrasound Report Signed Patient: Cortez Westfall MR#: [id number] 2076 : 1970 Acct:[id number] Age/Sex: 54 / M ADM Date: 12/08/24 Loc: HO.US Attending Dr: Keli Colon MD Ordering Physician: Keli Montalvo MD Date of Service: 12/08/24 Procedure(s): US abdomen comp w elastography Accession Number(s): [id number] cc: Keli Montalvo MD Reason for Exam: [...] 12/08/24 1201 DD/ 0900 TD/TT: 12/08/24 0941 Belt Weaver: Procedure Note Donotuseinterpreter, Image - 12/08/[address] [address] Ultrasound Report Signed Patient: Jose Westfall#: [id number] 2076 : 1970Acct:[id number] Age/Sex: 54 / MADM Date: 12/08/24 Loc: HO.US Attending Dr: Keli Colon MD Ordering Physician: Keli Montalvo MD Date of Service: 12/08/24 Procedure(s): US abdomen comp w elastography Accession Number(s): [id number] cc: Keli Montalvo MD Reason for Exam: [...] 12/08/24 1201 DD/ 0900 TD/TT: 12/08/24 0941 Belt Weaver: us Keli Colon MD IMG US PROCEDURES Final Result * Hematoxylin and Eosin Stain (11/05/2024 2:14 PM EDT) 11/05/2024 2:14 PM EDT 11/08/2024 8:22 AM EDT [facility] [place] [facility] - 11/09/2024 11:38 AM EDT ----- ------- Name: Cortez Westfall Age/Sex: 54/M : 1970 Unit#: [id number] Attend Dr: Darshan Khan MD Re11/05/24 Status: [facility] Location: [facility] Disch: ----- ------- SPEC : [id number] RECD: 11/08/24 STATUS: LIONCristina ALINA NUM: [id number] PEMA: 11/05/24-1414 [facility] DR: Darshan Khan MD ENTERED: 11/08/24-834 SP TYPE: Surgical OTHR DR: Keli Montalvo [...] Cortez Westfall Age/Sex: 54/M : 1970 Unit#: [id number] Attend Dr: Darshan Khan MD Re11/05/24 Status: [facility] Location: [facility] Disch: ----- ------- SPEC : [id number] RECD: 11/08/24 STATUS: VINCENT FULLER NUM: [id number] PEMA: 11/05/24-1414 [facility] [address]: Darshan Khan MD ENTERED: 11/08/24 SP [...] developed and their performance characteristics determined by [facility]. They have not been cleared or approved by the U.S. Food and Drug Administration (FDA). However, the FDA has determined that such clearance or approval is not necessary. This laboratory is certified under the Clinical Laboratory Improvement Amendments of 1988 (CLIA) as qualified to perform high complexity clinical laboratory testing. Copies To: Keli Montalvo MD [address] [place] [address] Darshan Khan MD [address] [place] [address] ----- ------- Signed (signature on file) Aroldo Camacho MD 11/09/24 1138 ----- ------- END OF REPORT us Generic External Data Provider LAB BLOOD ORDERAB LES Final Result [facility] [address] [place] [address] [phone] * (ABNORMAL) Lipid Panel, Standard (04/27/2024 8:11 AM EST) Triglycerides 178(H) <150 mg/dL [facility] Comment:Desirable Triglyceri de: less than 150 mg/dLBorderline High Triglyceride 150-199 mg/dLHigh Triglyceride: 200-499 mg/dLVery High Triglyceride: greater than or equal to 5OO mg/dL Cholesterol 173 <200 mg/dL [facility] Comment:Desirable Cholestero l: less than 200 mg/dLBorderline High Cholesterol: 200-239 mg/dLHigh Cholesterol: greater than 239 mg/dL LDL Cholesterol Calculated 96 <100 mg/dL [facility] Comment:Desirable LDL: less than 100 mg/dLNear Optimal/Above Optimal LDL: 110- 129 mg/dLBorderline High LDL: 130-159 mg/dLHigh LDL: 160-189 mg/dLVery High LDL: greater than or equal to 190 mg/dL HDL Cholesterol 42 >40 mg/dL [facility] Comment:Desirable HDL: great er than 40 mg/dL Note: This HDL assay may give artificially low results in patients with liver disease. Blood Venous blood specimen / Unknown 04/27/2024 8:11 AM EST 04/27/2024 10:51 AM EST us Keli Colon MD LAB BLOOD ORDERAB LES Final Result [facility] [address] [place] [phone] * Hepatitis C Antibody with Reflex to HCV, RNA, Quantitative, Real-Time PCR (10/09/2023 8:05 AM EDT) Hepatitis C Antibody Nonreactive Nonreactive [facility] Comment:Antibodies to HCV no t detected; does not exclude early acuteHCV infection. Blood Venous blood specimen / Unknown 10/09/2023 8:05 AM EDT 10/09/2023 11:21 AM EDT Keli Colon MD LAB BLOOD ORDERAB LES Final Result Performing Organization Address [facility]/ZIP Co de Phone Number [facility] [address] [place] [phone] [phone] * HIV-1/2 Antigen and Antibodies, Fourth Generation, with Reflexes (10/09/2023 8:05 AM EDT) [facility] HIV AB/AG Nonreactive Nonreactive [facility] Comment:HIV-1 p24 Ag and/or HIV-1/HIV-2 Ab not detected.A test result that is nonreactive does not exclude thepossibility of exposure to or infection with HIV-1 and/orHIV-2. Nonreactive results in this assay for individualswith prior exposure to HIV-1 and/or HIV-2 may be due toantigen and antibody levels that are below the limit ofdetection of this assay.The [employer] HIV Ag/Ab Combo assay result andsupplemental assay results should be interpreted inconjunction with the patient's clinical presentation,history and other laboratory results. If the results areinconsistent with clinical evidence, additional testing issuggested to confirm the result. Blood Venous blood specimen / Unknown 10/09/2023 8:05 AM EDT 10/09/2023 11:21 AM EDT us Keli Colon MD LAB BLOOD ORDERAB LES Final Result Performing Organization Address [facility]/ZIP Co de Phone Number [facility] [address] [place] [address] [phone] * Hm Colonoscopy (01/24/2023 11:12 AM EST) us Historical Provider HEALTH MAINTENANCE Final Result from Last 3 Months or Most Recently Relevant to Health Maintenance Insurance [facility] AD[place] Care Teams Automotive Machinist Apprentice Relationship Specialty Start Date End Date Keli Montalvo MD [address] [place] [address] PCP - General Internal Medicine 11/14/22
--- OUTSIDE RECORDS SUMMARY | 2025-01-14 14:40 | XMS_ITS | Patient Health Record ---
Author Organization [employer] Address [address] [facility] [address] [place] [phone] Care Team Providers Care Business Performance Specialist Name Role Phone Keli Montalvo Primary Care Provider Darshan Ball Unavailable [phone] Allergies Allergen (clinical drug ingredient) Drug/Non Drug Allergy documented on EMR Reaction Allergy Type Onset Date Status seasonal (uncoded) Unknown Allergy A ctive Results Component Value Reference Range Notes Pathology (Not yet reviewed by provider) Interpretation: Performing Lab:[facility], [address] [place] [phone] Notes/Report: Reason For Referral Referring Provider First Name Keli Referring Provider Last Name Anuj beltran Referred Organization [facility] Referred Provider Darshan Khan Referred Address [address] [place] [address], ite [address] [place] [phone], Referred Provider Specialty Gastroentero logy General Notes Tara Zuniga 2024 07:39:37 AM >requested a m;[facility] referral from [facility] for visit with Dr. Khan on [...] 10 MG TAKE 1 TABLET BY MO [facility] DAILY Oral; Duration: 90 Days [...] Status Risk Notes Problem Colon cancer screening (982193590) Colon cancer screening (Z12.11) Active confirmed Problem Screening for malignant neoplasm of colon (685095237) Encounter for screening for malignant neoplasm of colon (Z12.11) Active confirmed Problem Diverticular disease of colon (084929855) Diverticulosis of large intestine without perforation or abscess without bleeding (K57.30) Active confirmed Problem Epigastric pain (89248392) Abdominal pain, epigastric (R10.13) Active confirmed Problem Gastroesophageal reflux disease (698758577) Gastroesophageal reflux disease, esophagitis presence not specified (K21.9) Active confirmed Problem Family History of Cancer of Colon (Situation) (879601649) Family history of colon cancer (Z80.0) Active confirmed Problem Irritable bowel syndrome (50868443) Irritable bowel syndrome, unspecified type (K58.9) Active confirmed Problem Serrated polyp of colon (583857143) Serrated polyp of colon (K63.5) Active confirmed Problem Gastroesophageal reflux disease with esophagitis (disorder) (518472263) Gastroesophageal reflux disease with esophagitis without hemorrhage (K21.00) Active confirmed Problem History of adenomatous polyp of colon (340417976) History of adenomatous polyp of colon (Z86.0101) Active confirmed Vital Signs Temperature 98.6 degrees Fahrenheit 10/19/2024 Blood pressure diastolic 01 mm Hg 10/19/2024 Height 69 in 10/19/2024 Blood pressure systolic 001 mm Hg 10/19/2024 Weight 175.2 lbs 10/19/2024 BMI 25.87 kg/m2 10/19/2024 Procedures Procedure Date Ordered Date Performed Result Body Sit e COLONOSCOPY 10/19/2024 N/A Encounters Encounter Location Date Provider Diagnosis [facility] Outpatient [address] [place], [place] [phone] 11/05/2024 Darshan Khan [facility] [address] [place] [address] 10/19/2024 Darshan Khan Gastroesophageal ref lux disease, [...] Start Date Coverage End Date MEDICAID OF [facility] [address] [place] [phone] [id number] JAROD HUSSEIN Self - patient is the insured Medical (General) History Medical History History ICD Code Hypertension Nephrolithiasis Denies RI,DM,CVA,Lung disease,renal dise ase Depression GERD- upper endoscopy [...]
--- OUTSIDE RECORDS SUMMARY | 2025-01-14 14:41 | XMS_ITS | Encounter Summary ---
Author Organization [employer] Address [address] [place] [address] [place] [address] Care Team Providers Care Shuttle Preparation Supervisor Name Role Phone Keli Montalvo MD Primary Care Pro vider Reason for Visit * Reason Onset Date Comments Med Refill 07/28/2024 Encounter Details Date Type Department Care Team (Late st Contact Info) Description 07/28/2024 Refill [facility] [address] [place] [address] Keli Montalvo MD [address] [place] [address] Social History Tobacco Use Types Packs/Day Years [...] is your housing situation today? I have dra griffith 01/14/[address] you [...] Description 04/08/2025 2:00 PM EST Office Visit [facility] [address] [place] [address] Tyson Ortega MD [address] [place] [address] documented as of this encounter Visit Diagnoses Not on filedocumented in this encounter Additional Health Concerns Assessment Noted Time PHQ-9 Depression Total Score: 2 09/16/19 24 10:50 AM EDT documented as of this encounter Care Teams Shuttle Preparation Supervisor Relationship Specialty Start Date End Date Keli Montalvo MD [address] [place] [address] PCP - General Internal Medicine 11/14/22 documented as of this encounter
--- OUTSIDE RECORDS SUMMARY | 2025-01-14 14:41 | XMS_ITS | Encounter Summary ---
Author Organization [employer] Address [address] [place] [address] [place] [address] Care Team Providers Care Machine Folder Name Role Phone Keli Montalvo MD Primary Care Pro vider Reason for Visit * Reason Onset Date Comments Med Refill 07/22/2024 Encounter Details Date Type Department Care Team (Late st Contact Info) Description 07/22/2024 Refill [facility] [address] [place] [address] Keli Montalvo MD [address] [place] [address] Social History Tobacco Use Types Packs/Day Years [...] Description 04/08/2025 2:00 PM EST Office Visit [facility] [address] [place] [address] Tyson Ortega MD [address] [place] [address] documented as of this encounter Visit Diagnoses Not on filedocumented in this encounter Additional Health Concerns Assessment Noted Time PHQ-9 Depression Total Score: 2 09/16/19 24 10:50 AM EDT documented as of this encounter Care Teams Machine Folder Relationship Specialty Start Date End Date Keli Montalvo MD [address] [place] [address] PCP - General Internal Medicine 11/14/22 documented as of this encounter
--- OUTSIDE RECORDS SUMMARY | 2025-01-14 14:41 | XMS_ITS | Encounter Summary ---
Author Organization [employer] Address [address] [place] [address] [place] [address] Care Team Providers Care Doweler Name Role Phone Keli Montalvo MD Primary Care Pro vider Reason for Visit * Reason Onset Date Comments Med Refill 11/08/2024 Encounter Details Date Type Department Care Team (Late st Contact Info) Description 11/08/2024 Refill [facility] [address] [place] [address] Keli Montalvo MD [address] [place] [address] Social History Tobacco Use Types Packs/Day Years [...] Description 04/08/2025 2:00 PM EST Office Visit [facility] [address] [place] [address] Tyson Ortega MD [address] [place] [address] documented as of this encounter Visit Diagnoses Not on filedocumented in this encounter Additional Health Concerns Assessment Noted Time PHQ-9 Depression Total Score: 0 10/14/19 25 11:04 AM EDT documented as of this encounter Care Teams Doweler Relationship Specialty Start Date End Date Keli Montalvo MD [address] [place] [phone] PCP - General Internal Medicine 11/14/22 documented as of this encounter
--- OUTSIDE RECORDS SUMMARY | 2025-01-14 14:41 | XMS_ITS | Encounter Summary ---
Author Organization [employer] Address [address] [facility] 7t [place] [address] Care Team Providers Care Bicycle Racer Name Role Phone Keli Montalvo MD Primary Care Pro vider Encounter Details Date Type Department Care Team ([facility] Contact Info) Description 06/24/2022 Abstract [facility] [address] [place] [address] [place], [place] [address] [place] [address] Social History Tobacco Use Types Packs/Day Years [...] Description 04/08/2025 2:00 PM EST Office Visit [facility] [address] [place], [place] [phone] Tyson Ortega MD [address] [place] [address] documented as of this encounter Visit Diagnoses Not on filedocumented in this encounter Care Teams Bicycle Racer Relationship Specialty Start Date End Date Keli Montalvo MD [address] [place] [address] PCP - General Internal Medicine 11/14/22 documented as of this encounter
--- OUTSIDE RECORDS SUMMARY | 2025-01-14 14:41 | XMS_ITS | Encounter Summary ---
Author Organization [employer] Address [address] [place] [address] [place] [address] Care Team Providers Care Emergency Preparedness Manager Name Role Phone Keli Montalvo MD Primary Care Pro vider Reason for Visit * Reason Onset Date Comments Med Refill 08/19/2024 Encounter Details Date Type Department Care Team (Late st Contact Info) Description 08/19/2024 Refill [facility] [address] [place] [address] Keli Montalvo MD [address] [place] [address] Social History Tobacco Use Types Packs/Day Years [...] Description 04/08/2025 2:00 PM EST Office Visit [facility] [address] [place] [address] Tyson Ortega MD [address] [place] [address] documented as of this encounter Visit Diagnoses Not on filedocumented in this encounter Additional Health Concerns Assessment Noted Time PHQ-9 Depression Total Score: 2 09/16/19 24 10:50 AM EDT documented as of this encounter Care Teams Emergency Preparedness Manager Relationship Specialty Start Date End Date Keli Montalvo MD [address] [place] [phone] PCP - General Internal Medicine 11/14/22 documented as of this encounter
--- OUTSIDE RECORDS SUMMARY | 2025-01-14 14:41 | XMS_ITS | Encounter Summary ---
Author Organization [employer] Address [address] [place] [address] Care Team Providers Care Liquor Stores And Agencies Supervisor Name Role Phone Keli Montalvo MD Primary Care Pro vider Reason for Visit * Reason Onset Date Comments mar recall 01/10/2025 Encounter Details Date Type Department Care Team ([facility] st Contact Info) Description 01/10/2025 Telephone [facility] [address] [place] [address] Keli Montalvo MD [address] [place] [address] mar recall Social History Tobacco Use Types Packs/Day Years [...] Telephone Encounter - Shaila Ivey MA - 01/10/2025 10:37 AM EDT Telephone call to patient to schedule a recall appointment. No answer, Left voicemail to return call to clinic.. Recall letter sent. Visit type: Office Visit Appointment notes: Chronic conditions Month due: March With: Anuj Please schedule appointment above if patient returns call documented in this encounter Plan of Treatment Upcoming Encounters Date Type Department Care Team (Late st Contact Info) Description 04/08/2025 2:00 PM EST Office Visit [facility] [address] [place] [address] Tyson Ortega MD [address] [place], [place] [phone] documented as of this encounter Visit Diagnoses Not on filedocumented in this encounter Additional Health Concerns Assessment Noted Time PHQ-9 Depression Total Score: 0 10/14/19 25 11:04 AM EDT documented as of this encounter Care Teams Liqu[employer] Stores [employer] Agencies Supervisor Relationship Specialty Start Date End Date Keli Montalvo MD [address] [place] [address] PCP - General Internal Medicine 11/14/22 documented as of this encounter
--- OUTSIDE RECORDS SUMMARY | 2025-01-14 14:41 | XMS_ITS | Encounter Summary ---
Author Organization [employer] Address [address] [facility] 7t [place] [address] Care Team Providers Care Pharmacogeneticist Name Role Phone Keli Montalvo MD Primary Care Pro vider Reason for Visit * Reason Onset Date Comments Med Refill 09/23/2024 Encounter Details Date Type Department Care Team (Late st Contact Info) Description 09/23/2024 Refill [facility] MEDICINE [address] [place] [address] Jesus Quach MD [address] [place] [address] Social History Tobacco Use Types Packs/Day Years [...] Description 04/08/2025 2:00 PM EST Office Visit [facility]INE [address] [place] [address] Tyson Ortega MD [address] [place] [address] documented as of this encounter Visit Diagnoses Not on filedocumented in this encounter Additional Health Concerns Assessment Noted Time PHQ-9 Depression Total Score: 2 09/16/19 24 10:50 AM EDT documented as of this encounter Care Teams Pharmacogeneticist Relationship Specialty Start Date End Date Keli Montalvo MD [address] [place] [phone] PCP - General Internal Medicine 11/14/22 documented as of this encounter
--- OUTSIDE RECORDS SUMMARY | 2025-01-14 14:41 | XMS_ITS | Encounter Summary ---
Author Organization [email or web address] Address [address] [facility] 7t [place] [address] Care Team Providers Care Production Trainer Name Role Phone Keli Montalvo MD Primary Care Pro vider Reason for Visit * Reason Onset Date Comments Med Refill 12/21/2024 Encounter Details Date Type Department Care Team (Late st Contact Info) Description 12/21/2024 Refill [facility] MEDICINE [address] [place] [address] Tyson Ortega MD 230 [place] [address] Alcohol use disorder, severe, dependence (CMS/HCC) (HCC) [...] Description 04/08/2025 2:00 PM EST Office Visit [facility] MEDICINE [address] [place] [address] Tyson Ortega MD [address] [place] [address] documented as of this encounter Visit Diagnoses Diagnosis Alcohol use disorder, severe, dependence (CMS/HCC) (HCC) documented in this encounter Additional Health Concerns Assessment Noted Time PHQ-9 Depression Total Score: 0 10/14/19 25 11:04 AM EDT documented as of this encounter Care Teams Production Trainer Relationship Specialty Start Date End Date Keli Montalvo MD [address] [place] [phone] PCP - General Internal Medicine 11/14/22 documented as of this encounter
--- OUTSIDE RECORDS SUMMARY | 2025-01-14 14:41 | XMS_ITS | Encounter Summary ---
Author Organization [employer] Address [address] [facility] [address] 7t [place] [address] Care Team Providers Care Administrator Name Role Phone Keli Montalvo MD Primary Care Pro vider Encounter Details Date Type Department Care Team (Late st Contact Info) Description 03/04/2024 Orders Only [facility] MEDICINE [address] [place] [address] Provider, MD Katia Social History Tobacco Use [...] Description 04/08/2025 2:00 PM EST Office Visit [facility] [address] [place] [address] Tyson Ortega MD [address] [place] [address] documented as of this encounter Procedures Procedure [...] documented as of this encounter Care Teams Administrator Relationship Specialty Start Date End Date Keli Montalvo MD [address] [place] [phone] PCP - General Internal Medicine 11/14/22 documented as of this encounter
--- OUTSIDE RECORDS SUMMARY | 2025-01-14 14:41 | XMS_ITS | Encounter Summary ---
Author Organization [employer] Address [address] [place] [address] [place] [address] Care Team Providers Care Hadoop Consultant Name Role Phone Keli Montalvo MD Primary Care Pro vider Reason for Visit * Reason Onset Date Comments Med Refill 11/28/2024 Encounter Details Date Type Department Care Team (Late st Contact Info) Description 11/28/2024 Refill [facility] MEDICINE [address] [place] [address] Keli Montalvo MD 230 [place] [address] Social History Tobacco Use Types Packs/Day Years [...] Description 04/08/2025 2:00 PM EST Office Visit [facility] MEDICINE [address] [place] [address] Tyson Ortega MD [address] [place] [address] documented as of this encounter Visit Diagnoses Not on filedocumented in this encounter Additional Health Concerns Assessment Noted Time PHQ-9 Depression Total Score: 0 10/14/19 25 11:04 AM EDT documented as of this encounter Care Teams Hadoop Consultant Relationship Specialty Start Date End Date Keli Montalvo MD [address] [place] [address] PCP - General Internal Medicine 11/14/22 documented as of this encounter
--- OUTSIDE RECORDS SUMMARY | 2025-01-14 14:41 | XMS_ITS | Encounter Summary ---
Author Organization [employer] Address [address] [place] [address] [place] [address] Care Team Providers Care Hospital Laboratory Technician Name Role Phone Keli Montalvo MD Primary Care Pro vider Reason for Visit * Reason Onset Date Comments Med Refill 12/31/2024 Encounter Details Date Type Department Care Team (Late st Contact Info) Description 12/31/2024 Refill [facility] MEDICINE [address] [place] [address] Keli Montalvo MD [address] [place] [address] Social History Tobacco Use Types Packs/Day Years [...] Description 04/08/2025 2:00 PM EST Office Visit [facility] MEDICINE [address] [place] [address] Tyson Ortega MD [address] [place] [address] documented as of this encounter Visit Diagnoses Not on filedocumented in this encounter Additional Health Concerns Assessment Noted Time PHQ-9 Depression Total Score: 0 10/14/19 25 11:04 AM EDT documented as of this encounter Care Teams Hospital Laboratory Technician Relationship Specialty Start Date End Date Keli Montalvo MD [address] [place] [phone] PCP - General Internal Medicine 11/14/22 documented as of this encounter
--- OUTSIDE RECORDS SUMMARY | 2025-01-14 14:41 | XMS_ITS | Encounter Summary ---
Author Organization [employer] Address 75 [facility] 7t [place] [address] Care Team Providers Care Dovetail Machine Operator Name Role Phone Keli Montalvo MD Primary Care Pro vider Encounter Details Date Type Department Care Team (Latest Contact Info) Description 12/08/2024 Results Follow-Up [facility] MEDICINE [address] [place] [address] Keli Montalvo MD 230 [place] [address] US Abdomen Comp w elastography Social History [...] Office Visit [facility] MED[facility] [address] [place] [address] Tyson Ortega MD [address] [place] [address] documented as of this encounter Visit Diagnoses Not on filedocumented in this encounter Additional Health Concerns Assessment Noted Time PHQ-9 Depression Total Score: 0 10/14/19 25 11:04 AM EDT documented as of this encounter Care Teams Dovetail Machine Operator Relationship Specialty Start Date End Date Keli Montalvo MD [address] [place] [address] [place] [address] PCP - General Internal Medicine 11/14/22 documented as of this encounter
--- OUTSIDE RECORDS SUMMARY | 2025-01-14 14:41 | XMS_ITS | Encounter Summary ---
Author Organization [employer] Address 75 [facility] 7t [place] [address] Care Team Providers Care Foreign Language Professor Name Role Phone Keli Montalvo MD Primary Care Pro vider Reason for Visit * Reason Onset Date Comments Med Refill 12/21/2024 Encounter Details Date Type Department Care Team (Late st Contact Info) Description 12/21/2024 Refill [facility] MEDICINE 230 [place] [address] Alma Rosa Ochoa, ANP [address] [place] [address] Social History Tobacco Use Types Packs/Day Years [...] Description 04/08/2025 2:00 PM EST Office Visit [facility] MEDICINE [address] [place] [address] Tyson Ortega MD [address] [place] [address] documented as of this encounter Visit Diagnoses Not on filedocumented in this encounter Additional Health Concerns Assessment Noted Time PHQ-9 Depression Total Score: 0 10/14/19 25 11:04 AM EDT documented as of this encounter Care Teams Foreign Language Professor Relationship Specialty Start Date End Date Keli Montalvo MD [address] [place] [phone] PCP - General Internal Medicine 11/14/22 documented as of this encounter
--- OUTSIDE RECORDS SUMMARY | 2025-01-14 14:41 | XMS_ITS | Encounter Summary ---
Author Organization [employer] Address 75 [facility] 7 [place] [address] Care Team Providers Care Tube Machine Operator Name Role Phone Keli Montalvo MD Primary Care Pro vider Reason for Visit * Reason Onset Date Comments New Patient Appt 09/19/2022 Encounter Details Date Type Department Care Team ([facility] st Contact Info) Description 09/19/2022 Telephone [facility] MEDICINE 230 [place], [place] [phone] Jesus Quach MD 230 [place] [address] New Patient Appt Social History Tobacco Use [...] AM EDT Tc to , to offer FOOD COUNSELOR Appt, pt states is not interested at the time for Fluoroscope Operator with Facility. Advised if change of mind to please give facility a call at [phone] documented in this encounter Plan of Treatment Upcoming Encounters Date Type Department Care Team (Late st Contact Info) Description 04/08/2025 2:00 PM EST Office Visit [facility] MEDICINE [address] [place] [address] [phone] Tyson Ortega MD [address] [place] [address] [phone] documented as of this encounter Visit Diagnoses Not on filedocumented in this encounter Additional Health Concerns Assessment Noted Time PHQ-9 Depression Total Score: 15 023 2:15 PM EDT documented as of this encounter Care Teams Tube Machine Operator Relationship Specialty Start Date End Date Keli Montalvo MD [address] [place] [address] [phone] PCP - General Internal Medicine 11/14/22 documented as of this encounter
--- OUTSIDE RECORDS SUMMARY | 2025-01-14 14:41 | XMS_ITS | Encounter Summary ---
Author Organization [employer] Address [address] [place] [address] [place] [address] Care Team Providers Care Degreasing Solution Mixer Name Role Phone Keli Montalvo MD Primary Care Pro vider Reason for Visit * Reason Onset Date Comments Med Refill 05/14/2023 Encounter Details Date Type Department Care Team (Late st Contact Info) Description 05/14/2023 Refill [facility] MEDICINE [address] [place] [address] Keli Montalvo MD 230 [place] [address] Social History Tobacco Use Types Packs/Day Years [...] Description 04/08/2025 2:00 PM EST Office Visit [facility] MEDICINE [address] [place] [address] Tyson Ortega MD 230 [place] [address] documented as of this encounter Visit Diagnoses Not on filedocumented in this encounter Additional Health Concerns Assessment Noted Time PHQ-9 Depression Total Score: 2 01/14/20 9:57 AM EDT documented as of this encounter Care Teams Degreasing Solution Mixer Relationship Specialty Start Date End Date Keli Montalvo MD [address] [place] [address] PCP - General Internal Medicine 11/14/22 documented as of this encounter
--- OUTSIDE RECORDS SUMMARY | 2025-01-14 14:41 | XMS_ITS | Encounter Summary ---
Author Organization [employer] Address [address] [place] [address] [place] [address] Care Team Providers Care Leather Scraper Name Role Phone Keli Montalvo MD Primary Care Pro vider Reason for Visit * Reason Onset Date Comments Med Refill 11/08/2024 Encounter Details Date Type Department Care Team (Late st Contact Info) Description 11/08/[address] [facility] MEDICINE 230 [place] [address] Keli Montalvo MD 230 [place] [address] Social History Tobacco Use Types Packs/Day Years [...] Description 04/08/2025 2:00 PM EST Office Visit [facility] MEDICINE [address] [place] [address] Tyson Ortega MD 230 [place] [address] documented as of this encounter Visit Diagnoses Not on filedocumented in this encounter Additional Health Concerns Assessment Noted Time PHQ-9 Depression Total Score: 0 10/14/19 25 11:04 AM EDT documented as of this encounter Care Teams Leather Scraper Relationship Specialty Start Date End Date Keli Montalvo MD [address] [place] [phone] PCP - General Internal Medicine 11/14/22 documented as of this encounter
--- OUTSIDE RECORDS SUMMARY | 2025-01-14 14:41 | XMS_ITS | Encounter Summary ---
Author Organization [employer] Address [address] [place] [address] [place] [address] Care Team Providers Care Survey Researcher Name Role Phone Keli Montalvo MD Primary Care Pro vider Reason for Visit * Reason Onset Date Comments Med Refill 07/28/2024 Encounter Details Date Type Department Care Team (Late st Contact Info) Description 07/28/2024 Refill [facility] MEDICINE 230 [place] [address] Keli Montalvo MD [address] [place] [address] Social History Tobacco Use Types Packs/Day Years [...] Description 04/08/2025 2:00 PM EST Office Visit [facility] MEDICINE [address] [place] [address] Tyson Ortega MD 230 [place] [address] documented as of this encounter Visit Diagnoses Not on filedocumented in this encounter Additional Health Concerns Assessment Noted Time PHQ-9 Depression Total Score: 2 09/16/19 24 10:50 AM EDT documented as of this encounter Care Teams Survey Researcher Relationship Specialty Start Date End Date Keli Montalvo MD [address] [place] [phone] PCP - General Internal Medicine 11/14/22 documented as of this encounter
--- OUTSIDE RECORDS SUMMARY | 2025-01-14 14:41 | XMS_ITS | Encounter Summary ---
Author Organization [email or web address] Address 75 [facility] 7t [place] [address] Care Team Providers Care Decision Science Analyst Name Role Phone Keli Montalvo MD Primary Care Pro vider Reason for Visit * Reason Onset Date Comments Med Refill 08/20/2024 Encounter Details Date Type Department Care Team (Late st Contact Info) Description 08/20/2024 Refill [facility] MEDICINE [address] [place], [place] [phone] Jesus Quach MD [address] [place] [address] Social History Tobacco Use Types Packs/Day Years [...] Description 04/08/2025 2:00 PM EST Office Visit [facility] MEDICINE [address] [place] [address] Tyson Ortega MD [address] [place] [address] documented as of this encounter Visit Diagnoses Not on filedocumented in this encounter Additional Health Concerns Assessment Noted Time PHQ-9 Depression Total Score: 2 09/16/19 24 10:50 AM EDT documented as of this encounter Care Teams Decision Science Analyst Relationship Specialty Start Date End Date Keli Montalvo MD [address] [place] [phone] PCP - General Internal Medicine 11/14/22 documented as of this encounter
== END 2025-01-14 13:43 | disposition home or self-care (01) ==
LOC: HO.US 13:42
PROVIDERS: PCP Student in an Organized Health Care Education/Training Program; Visit Provider Urology
DX: N20.0 Calculus of kidney (principal); N28.1 Cyst of kidney, acquired
CPT/HCPCS: 76775

== ENCOUNTER → 2025-01-14 13:44 | Outpatient (BNV) | payer MEDICAID, SELFPAY | PROVIDERS: PCP Student in an Organized Health Care Education/Training Program; Visit Provider Radiology Diagnostic Radiology | DX: N20.0 Calculus of kidney (principal); N28.1 Cyst of kidney, acquired | CPT/HCPCS: 76775 ==

== ENCOUNTER 2025-01-17 10:32 | Outpatient (AMB) | payer MEDICAID, SELFPAY ==
--- OUTSIDE RECORDS SUMMARY | 2024-08-28 16:30 | XMS_ITS ---
Author Organization [employer] Address [address] [place], [place] [phone] Care Team Providers Care Central Supply Technician Name Role Phone Fausto Joe MD Primary Care Provider Migration, Provider Unavailable Unavailable REASON FOR VISIT [...] Date Provider Diagnosis [facility] [address] [place] [phone] 08/28/2024 Provider Migration Plan Of Treatment Medication [...] * Rip HUSSEINoDOB: [birth year] (54 yo M)Acc No.[id number]:08/28/2024 Patient: Cortez JOSÉ Provider: :1970 A ge:53 Y S ex:Male Date:08/28/2024 Address:[address] [place], [place] [phone] Pcp:Fausto Joe MD Subjective: * Chief Complaints: [...] Electronic signature of Prov ider Migration on 01/17/2025 at 12:45 PM EST Sign off status: Pending * Provider: Date: 08/28/2024 Generated for Eulalio vergara/Dia/Annaitting on: 03/19/2024 12:45 PM EST
--- OUTSIDE RECORDS SUMMARY | 2024-11-05 07:30 | XMS_ITS ---
Author Organization [facility] Address [address] [place] [address] Care Team Providers Care Morning Show Newscast Producer Name Role Phone Keli Montalvo Primary Care Provider Darshan Ball [phone] REASON FOR VISIT screening,hx polyps,serrated polyp of colon, fam hx colon cancer Encounters Encounter Location Date Provider Diagnosis [facility] [place] Out[facility] [address] [place] [phone] 11/05/2024 Darshan Khan Plan Of Treatment No Information Progress Notes * JAROD HUSSEIN ADOB:[birth year] (54 yo M)Acc No.[id number]:11/05/2024 COLON WITH MAC Patient: JAROD JOSÉ Provider: Hadley Khan MD :1970 A ge:54 Y S ex:Male Date:11/05/2024 Address:[address] [place], [place] [id number] Pcp:Keli Colon Subjective: * Chief Complaints: * [...] 0 11/05/2024 Generated for Eulalio vergara/Dia/eTransmitting on: 03/19/2024 12:45 PM EST
--- NOTE | 2025-01-17 10:33 | A.OFFVIS_ITS ---
Intake Visit Reasons: 6m/BFT Allergies No Known Allergies Allergy (Verified 01/17/25 10:34) Medication List - Last Reconciled 01/17/25 by Mervat Levy CNP amlodipine 10 mg PO DAILY amlodipine 5 mg PO DAILY ascorbic acid (vitamin C) 250 mg PO QAM cetirizine 10 mg PO DAILY escitalopram oxalate 20 mg PO QAM ferrous gluconate 324 mg PO QAM multivitamin 1 tab PO DAILY nicotine (polacrilex) 2 mg PO BID omega 5-jug-csp-fish oil 300 mg (120 mg- 180mg)-1,000 mg 1 cap PO DAILY omeprazole 20 mg PO QAM propranolol ER 60 mg PO QAM testosterone cypionate 100 mg IM QWEEK HPI Comments Details: He was doing okay. Tremors were well controlled with propranolol once a day. No significant medication side effects. No functional impairment. No difficulty eating, drinking, or swallowing.?Sleep was okay. He was dizzy with propranolol 120mg. He has had tremors in his hands since around 2020, right hand worse than left. It affects his handwriting and eating at times. His younger brother (7 years younger) and niece also had tremor. His father in his early 40s. No other family history is available. He is treated for anxiety, GERD, and hypertension. [facility] Medical History Renal lesion Skin lesion Anemia, unspecified Tremor of both hands Hyperlipidemia Nicotine dependence, cigarettes, uncomplicated History of colon polyps (~2017) Microscopic hematuria Nephrolithiasis Depression HTN (hypertension) GERD (gastroesophageal reflux disease) Surgical History History of excision of pilonidal cyst History of esophagogastroduodenoscopy (EGD) History of colonoscopy Family History (Updated 01/17/25 @ 10:34 by Mervat Levy CNP) Father Oral cancer Maternal Grandmother Bicuspid aortic valve Mother Heart problem Brother Tremor Social History Alcohol intake: former Patient Tobacco Use Status: Current everyday Tobacco user Tobacco use type: Cigarette Cigarette Packs Per Day: 0.5 Cigarettes Per Day: 10.0 Years Smoked: (onset 15yo, 1/2-1ppd x 37yrs, 25+PYH) Second Hand Smoke Exposure: No Review of Systems Const Denies chills, Denies daytime sleepiness, Reports difficulty sleeping, Reports fatigue, Denies fever(s), Denies frequent falls, Reports headache(s), Denies increased appetite, Denies poor appetite, Denies snoring, Denies weakness, Denies weight gain and Denies weight loss Eyes Denies loss of vision ENT Denies vertigo, Denies dizziness, Reports headache(s) and Reports neck pain Card Denies chest pain at rest, Denies chest pain with activity, Denies syncope, Denies leg edema, Denies palpitations, Denies dyspnea and Denies dyspnea on exertion Resp Denies cough, Denies dyspnea, Denies dyspnea on exertion and Denies snoring GI Denies abdominal pain, Denies constipation, Denies heartburn, Denies diarrhea and Denies nausea Reports urinary frequency, Denies urinary incontinence and Denies urinary urgency Musc Denies abnormal gait, Reports back pain, Reports myalgias, Denies arthralgias, Reports neck pain, Denies numbness and Denies tingling Neuro Denies abnormal gait, Denies vertigo, Denies dizziness, Denies syncope, Denies frequent falls, Reports headache(s), Denies lack of coordination, Denies loss of vision, Reports memory loss, Denies numbness, Denies Other visual disturbances, Denies restless legs, Denies seizure-like activity, Denies tingling, Denies paresthesias, Reports tremor(s) and Denies weakness Psych Reports anxiety, Reports depression, Denies auditory hallucinations, Reports memory loss and Denies visual hallucinations Endo Reports fatigue and Denies palpitations Physical Exam Const Other: General Appearance:? normal, in no acute distress. Heart:? S1, S2 normal, no murmurs. Lungs:? clear anteriorly and posteriorly. Musculoskeletal:? normal. Extremities:? no edema. Psych:? alert, oriented, cognitive function intact, cooperative with exam. Neuro Other: Abnormal Neurological Findings:?Very slight tremors of UE, R > L, increased with FTN. Mental Status: alert and oriented X 3. Normal attention, orientation, memory, and affect. Cranial Nerves: Pupils are equal, round, and reactive to light. External ocular muscles are intact. Visual elizondo are full, no ptosis. Face is symmetrical, no facial weakness or droop. Facial sensations are normal. Tongue protrudes in midline. Palate elevates symmetrically. Shoulder shrugging is normal Motor Examination: Normal muscle tone, bulk and strength. No atrophy or fasciculations. No drift of the extended upper extremities. DTR 2+. Plantars are flexor. Sensory Exam: Normal light touch, temperature, pinprick, vibration, and joint- position sensations. Rhomberg sign is absent. Coordination: No ataxia. No titubation. Gait Exam: Within normal limits. Cerebellar Signs: [id number] as above. Extrapyramidal System: Tremor as above. No rigidity with normal facial expressio ns. No bradykinesia. No bradyphrenia. Normal arm swing and posture. No propulsion or retropulsion. Speech: Normal. 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 Plan Meds tried: propranolol, primidone (drowsiness) Medications: Changed From propranolol ER 60 mg PO QAM To propranolol ER 60 mg PO QAM 90 caps 1RF 90 days Coding Level of Care Code Est Pt Level 3 (62402) Diagnoses Benign familial tremor G25.0
--- OUTSIDE RECORDS SUMMARY | 2025-01-17 12:45 | XMS_ITS | Patient Health Record ---
Author Organization [facility] Address [address] [place], [place] [id number] Care Team Providers Care Gas Manager Name Role Phone [facility] MD Primary Care Provider Migration, Provider Unavailable Unavailable Reason For Referral No Information Medications Medication SIG (Take, Route, Frequency, Duration) Notes Start Date End Date Status Wellbutrin XL 150 MG/24 HOURS 1 TAB(S) ORALLY EVERY 24 HOURS; Duration: 90 *Please review and pick correct strength-formulation from [employer] options. If intended option is not shown, [...] Status W/U Status Risk Notes Problem Hypercholesterolemia (60395224) Hypercholesterolemia NOS (272.4) Active confirmed Problem Essential hypertension (82103896) HTN [Hypertension] (401.9) Active confirmed Encounters Encounter Location Date Provider Diagnosis [facility] [address] [place], [place] [id number] 08/28/2024 Provider Migration Plan Of Treatment Pending Test Test Name Order Date PSA 05/23/2009 PSA 12/29/2012 PSA 01/07/2014 PSA 12/26/2011 BMP 12/26/2011 BMP 01/07/2014 BMP 12/29/2012 BMP 05/23/2009 BMP 03/03/2008 LIPID PROFILE 03/03/2008 LIPID PROFILE 05/23/2009 LIPID PROFILE 12/29/2012 LIPID PROFILE 01/07/2014 LIPID PROFILE 12/26/2011 URINALYSIS, AUTOMATED ONLY 12/26/2011 URINALYSIS, AUTOMATED ONLY 01/07/2014 URINALYSIS, AUTOMATED ONLY 12/29/2012 URINALYSIS, AUTOMATED ONLY 05/23/2009 URINALYSIS, AUTOMATED ONLY 03/03/2008 CBC With Differential/Platelet 8 CBC With Differential/Platelet 0 CBC With Differential/Platelet 3 CBC With Differential/Platelet 4 CBC With Differential/Platelet 2 ALT/SGPT 01/07/2014 AST/SGOT 01/07/2014 Insurance Providers Payer Name Payer Address Payer Phone Subscriber Number Group Number Insured Name Patient Relationship to Insured Coverage Start Date Coverage End Date [facility] [address] [place] [phone] [id number] [employer] Self - patient is the insured Medical (General) History Medical History History ICD Code allergic rhinitis hypertension headache anxiety depression nephrolithiasis hyperlipidemia onychomycosis Surgical History Surgery Date(Month/Year) Pilonidal cyst
--- OUTSIDE RECORDS SUMMARY | 2025-01-17 12:45 | XMS_ITS | Encounter Summary ---
Author Organization [employer] Address [address] [facility] 7t [place] [address] Care Team Providers Care Acoustical Carpenter Name Role Phone Keli Montalvo MD Primary Care Pro vider Encounter Details Date Type Department Care Team ([facility] Contact Info) Description 06/24/2022 Abstract [facility] ADULT DENTAL [address] [place] [address] Pippa, Keyanna [address] [place] [address] Social History Tobacco Use Types Packs/Day Years [...] Description 04/08/2025 2:00 PM EST Office Visit [facility] MEDICINE [address] [place], [place] [phone] Tyson Ortega MD [address] [place] [address] documented as of this encounter Visit Diagnoses Not on filedocumented in this encounter Care Teams Acoustical Carpenter Relationship Specialty Start Date End Date Keli Montalvo MD [address] [place] [address] PCP - General Internal Medicine 11/14/22 documented as of this encounter
--- OUTSIDE RECORDS SUMMARY | 2025-01-17 12:45 | XMS_ITS | Encounter Summary ---
Author Organization [employer] Address [address] [place] [address] [place] [address] Care Team Providers Care Heel Padder Name Role Phone Keli Montalvo MD Primary Care Pro vider Reason for Visit * Reason Onset Date Comments Med Refill 12/31/2024 Encounter Details Date Type Department Care Team (Late st Contact Info) Description 12/31/2024 Refill [facility] MEDICINE [address] [place] [address] Keli Montalvo MD [address] [place] [address] Social History Tobacco Use Types Packs/Day Years [...] 2:00 PM EST Office Visit [facility] MEDICINE [address] [place] [address] Tyson Ortega MD [address] [place] [address] documented as of this encounter Visit Diagnoses Not on filedocumented in this encounter Additional Health Concerns Assessment Noted Time PHQ-9 Depression Total Score: 0 10/14/19 25 11:04 AM EDT documented as of this encounter Care Teams Heel Padder Relationship Specialty Start Date End Date Keli Montalvo MD [address] [place] [phone] PCP - General Internal Medicine 11/14/22 documented as of this encounter
--- OUTSIDE RECORDS SUMMARY | 2025-01-17 12:45 | XMS_ITS | Encounter Summary ---
Author Organization [employer] Address [address] [place] [address] [place] [address] Care Team Providers Care Microbiology Director Name Role Phone Keli Montalvo MD Primary Care Pro vider Reason for Visit * Reason Onset Date Comments Med Refill 11/08/2024 Encounter Details Date Type Department Care Team (Late st Contact Info) Description 11/08/2024 Refill [facility] MEDICINE [address] [place] [address] Keli Montalvo MD [address] [place] [address] Social History Tobacco Use Types Packs/Day Years [...] Visit [facility] MEDICINE [address] [place] [address] Tyson Ortega MD [address] [place] [address] documented as of this encounter Visit Diagnoses Not on filedocumented in this encounter Additional Health Concerns Assessment Noted Time PHQ-9 Depression Total Score: 0 10/14/19 25 11:04 AM EDT documented as of this encounter Care Teams Microbiology Director Relationship Specialty Start Date End Date Keli Montalvo MD [address] [place] [phone] PCP - General Internal Medicine 11/14/22 documented as of this encounter
--- OUTSIDE RECORDS SUMMARY | 2025-01-17 12:45 | XMS_ITS | Encounter Summary ---
Author Organization [employer] Address [address] [place] [address] [place] [address] Care Team Providers Care Field Examiner Name Role Phone Keli Montalvo MD Primary Care Pro vider Reason for Visit * Reason Onset Date Comments Med Refill 11/08/2024 Encounter Details Date Type Department Care Team (Late st Contact Info) Description 11/08/2024 Refill [facility] MEDICINE [address] [place] [address] Keli Montalvo MD [address] [place] [address] Social History Tobacco Use Types Packs/Day Years [...] Description 04/08/2025 2:00 PM EST Office Visit [facility] MEDICINE [address] [place] [address] Tyson Ortega MD [address] [place] [address] documented as of this encounter Visit Diagnoses Not on filedocumented in this encounter Additional Health Concerns Assessment Noted Time PHQ-9 Depression Total Score: 0 10/14/19 25 11:04 AM EDT documented as of this encounter Care Teams Field Examiner Relationship Specialty Start Date End Date Keli Montalvo MD [address] [place] [phone] PCP - General Internal Medicine 11/14/22 documented as of this encounter
--- OUTSIDE RECORDS SUMMARY | 2025-01-17 12:45 | XMS_ITS | Clinical Summary ---
Author Organization [employer] Address [address] 7[address] [place] [address] Care Team Providers Care Stratigrapher Name Role Phone Keli Montalvo MD Primary [...] 1 04/27/19 25 026 Active sodium chloride ([place] Nasal Voss) 0.65 % nasal spray Administer 1 spray [...] tablet 1 12/22/19 25 Active omega-3 (Ultra [place] 3) 1000 MG capsule TAKE 1 CAPSULE [...] tablet 1 01/04/20 25 Active omega-3 (Ultra [place] 3) 1000 MG capsule TAKE 1 CAPSULE [...] to go to alcohol abuse program at [facility] and pt agreed -cced today this [...] neg -Continue amlodipine 5 mg daily -saw importer or exporter in 05/2022 Normal complete exam per pt [...] BP readings 3 times a week -saw importer or exporter in 05/2022 Normal complete exam per pt [...] -will monitor BP at next visit -saw importer or exporter in 05/2022 Normal complete exam per pt [...] needs No PLAN: 1. Follow up with [facility]: Recommended for follow-up: Patient will consider [...] Type Department Care Team Description 01/10/[address] [facility] [address] [place] [address] Keli Montalvo MD artie recall 01/07/2025 2:00 PM EDT Office [facility] [address] Tyson Ortega MD Alcohol use disorder, severe, dependence (CMS/HCC) (HCC) (Primary Dx) 01/07/2025 Travel 12/31/2024 Refill [facility] [address] [place] [address] Keli Montalvo MD 12/31/2024 Refill [facility] [address] Keli Montalvo MD 12/29/2024 Orders Only [facility] External Provider, [facility] 12/21/2024 Refill [facility] [address] Keli Montalvo MD Alcohol use disorder, severe, dependence (CMS/HCC) (HCC) 12/21/2024 Refill [facility] [address] Alma Rosa Ochoa ANP 12/21/2024 Refill [facility] [address] [place] [address] Tyson Ortega MD Alcohol use disorder, severe, dependence (CMS/HCC) (HCC) 12/10/2024 1:30 PM EDT Office [facility] [address] Tyson Ortega MD Alcohol use disorder, severe, dependence (CMS/HCC) (Primary Dx) 12/10/2024 Travel 12/09/2024 Travel 12/09/2024 Refill [facility] [address] Keli Montalvo MD 12/08/2024 Results Follow-Up [facility] [address] [place] [address] Keli Montalvo MD US Abdomen Comp w elastography 12/06/[address] [facility] [address] [facility] [place] [address] Keli Montalvo MD chart prep 12/03/2024 1:00 PM EDT Telemedicine [facility] [place] [address] Tyson Ortega MD Alcohol use disorder, severe, dependence (CMS/HCC) (Primary Dx) 12/03/2024 Travel 11/28/2024 Refill [facility] [address] [facility] [address] Keli Montalvo MD 11/28/2024 Refill [facility] [address] [place] [address] Jesus Quach MD 11/12/2024 1:15 PM EDT Office Visit [facility] [place] [address] Tyson Ortega MD Alcohol use disorder, severe, dependence (CMS/HCC) (Primary Dx) 11/12/2024 Travel 11/08/2024 Refill [facility] [facility] [address] Keli Montalvo MD 11/08/2024 Refill [facility] [place] [address] Keli Montalvo MD 11/05/2024 Orders Only GENERIC [...] Description 04/08/2025 2:00 PM EST Office Visit [facility] [address] [place] [address] Tyson Ortega MD [address] [place] [address] Health Maintenance Due Date Last Done Comments [...] Procedure Name Priority Date/Time Associated Diagnosis Comments US RENAL COMPLETE Routine 01/14/2025 1:5 6 PM EDT LDCT LUNG SCREENING Routine 12/29/2024 1 0:02 [...] Recently Relevant to Health Maintenance Results * US Renal Complete (01/14/2025 1:56 PM EDT) Anatomical Region Laterality Modality Kidney Ultrasound 01/14/2025 1:56 PM EDT Narrative 01/14/2025 2:50 PM EDT [address] [address] Ultrasound Report Signed Patient: Cortez Westfall MR#: [id number] 2076 : 1970 Acct:[id number] Age/Sex: 54 / M ADM Date: 01/14/25 Loc: HO.US Attending Dr: Jerome Cutler MD Ordering Physician: Jerome Cutler MD Date of Service: 01/14/25 Procedure(s): US renal BI Accession Number(s): [id number] cc: Jerome Cutler MD; Keli Montalvo MD Reason for Exam: N20.0 - Calculus of kidney EXAMINATION: US RETROPERITONEAL LIMITED (RENAL ONLY) CLINICAL INFORMATION: Kidney stone. COMPARISON: Previous renal ultrasound most recent July 2023, abdominal ultrasound November [address] of the abdomen and pelvis March 2011 TECHNIQUE: Real-time imaging of the kidneys. FINDINGS: RIGHT KIDNEY: 12.2 x 5.2 x 4.5 cm (SAG x AP x TRV). The kidney is normal in size, contour, and echogenicity. Renal cortical thickness is normal. 3 mm stone in the midpole. 0.9 x 0.5 x 0.5 cm cyst in the midpole. Probable junctional parenchymal defect in the upper pole. No hydronephrosis. LEFT KIDNEY: 12.8 x 6.4 x 5.1 cm (SAG x AP x TRV). The kidney is normal in size, contour, and echogenicity. Renal cortical thickness is normal. No calculi or focal parenchymal lesions. No hydronephrosis. US/US renal BI IMPRESSION: Small right renal stone. Small right renal cyst. Normal left kidney. Electronically signed by: Tabitha Maldonado MD 01/14/2025 02:47 PM EDT RP Dictated By: Tabitha Maldonado MD Signed By: <Electronically signed by Tabitha Maldonado MD in OV> 01/14/25 1447 DD/ 1356 TD/TT: 01/14/25 1423 Car Rental Manager: DAHLIA Procedure Note Donotuseinterpreter, Image - 01/14/[address] [address] Ultrasound Report Signed Patient: Jose Westfall#: [id number] 2076 : 1970Acct:[id number] Age/Sex: 54 / MADM Date: 01/14/25 Loc: HO.US Attending Dr: Jerome Cutler MD Ordering Physician: Jerome Cutler MD Date of Service: 01/14/25 Procedure(s): US renal BI Accession Number(s): [id number] cc: Jerome Cutler MD; Keli Montalvo MD Reason for Exam: N20.0 - Calculus of kidney EXAMINATION: US RETROPERITONEAL LIMITED (RENAL ONLY) CLINICAL INFORMATION: Kidney stone. COMPARISON: Previous renal ultrasound most recent July 2023, abdominal ultrasound November [address] of the abdomen and pelvis March 2011 TECHNIQUE: Real-time imaging of the kidneys. FINDINGS: RIGHT KIDNEY: 12.2 x 5.2 x 4.5 cm (SAG x AP x TRV). The kidney is normal in size, contour, and echogenicity. Renal cortical thickness is normal. 3 mm stone in the midpole. 0.9 x 0.5 x 0.5 cm cyst in the midpole. Probable junctional parenchymal defect in the upper pole. No hydronephrosis. LEFT KIDNEY: 12.8 x 6.4 x 5.1 cm (SAG x AP x TRV). The kidney is normal in size, contour, and echogenicity. Renal cortical thickness is normal. No calculi or focal parenchymal lesions. No hydronephrosis. US/US renal BI IMPRESSION: Small right renal stone. Small right renal cyst. Normal left kidney. Electronically signed by: Tabitha Maldonado MD 01/14/2025 02:47 PM EDT Dictated By: Tabitha Maldonado MD Signed By: <Electronically signed by Tabitha Maldonado MD in OV> 01/14/25 1447 DD/ 1356 TD/TT: 01/14/25 1423 Car Rental Manager: DAHLIA us [facility] External Provider IMG US PROCEDURES Final Result * CT Lung Screening Low dose (12/29/2024 10:02 AM EDT) Anatomical Region Laterality Modality Lung Computed Tomogra phy 12/29/2024 10:0 2 AM EDT Narrative 12/29/2024 10:35 AM EDT [address] [address] [address] Scan Report Signed Patient: Cortez Westfall MR#: [id number] 2076 : 1970 Acct:[id number] Age/Sex: 54 / M ADM Date: 12/29/24 Loc: HO.CT Attending Dr: Sofia Vázquez PA-C Ordering Physician: Sofia Vázquez PA-C Date of Service: 12/29/24 Procedure(s): CT lung screening Accession Number(s): [id number] cc: Sofia Vázquez PA-C; Keli Montalvo MD Report Number: [id number]: Total DLP = 55.00 mGy-cm Reason for [...] 12/29/24 1032 DD/ 1002 TD/TT: 12/29/24 1014 Car Rental Manager: DAHLIA Procedure Note Donotuseinterpreter, Image - 12/29/[address] [place] [address] [address] Scan Report Signed Patient: Jose Westfall#: [id number] 2076 : 1970Acct:[id number] Age/Sex: 54 / MADM Date: 12/29/24 Loc: HO.CT Attending Dr: Sofia Vázquez PA-C Ordering Physician: Sofia Vázquez PA-C Date of Service: 12/29/24 Procedure(s): CT lung screening Accession Number(s): [id number] cc: Sofia Vázquez PA-C; Keli Montalvo MD Report Number: [id number]: Total DLP = 55.00 mGy-cm Reason for [...] 12/29/24 1032 DD/ 1002 TD/TT: 12/29/24 1014 Car Rental Manager: DAHLIA [facility] External Provider IMG CT PROCEDURES Final Result * US Abdomen Comp w elastography (12/08/2024 9:00 AM EDT) Anatomical Region Laterality Modality Abdomen Ultrasound 12/08/2024 9:00 AM EDT Narrative 12/08/2024 12:03 PM EDT [address] [address] Ultrasound Report Signed Patient: Cortez Westfall MR#: [id number] 2076 : 1970 Acct:[id number] Age/Sex: 54 / M ADM Date: 12/08/24 Loc: HO.US Attending Dr: Keli Colon MD Ordering Physician: Keli Montalvo MD Date of Service: 12/08/24 Procedure(s): US abdomen comp w elastography Accession Number(s): [id number] cc: Keli Montalvo MD Reason for Exam: [...] 12/08/24 1201 DD/ 0900 TD/TT: 12/08/24 0941 Car Rental Manager: Procedure Note Donotuseinterpreter, Image - 12/08/[address] [address] Ultrasound Report Signed Patient: Jose Westfall#: [id number] 2076 : 1970Acct:[id number] Age/Sex: 54 / MADM Date: 12/08/24 Loc: HO.US Attending Dr: Keli Colon MD Ordering Physician: Keli Montalvo MD Date of Service: 12/08/24 Procedure(s): US abdomen comp w elastography Accession Number(s): [id number] cc: Keli Montalvo MD Reason for Exam: pt w alcohol abuse , noted enlarged abominal girth EXAMINATION: US COMPLETE ABDOMEN WITH LIVER ELASTOGRAPHY CLINICAL INFORMATION: alcohol abuse/dependence, noted enlarged abdominal girth COMPARISON: Abdomen ultrasound 10/18/2016 TECHNIQUE: Real-time imaging of the abdominal viscera. Noninvasive ultrasound liver fibrosis assessment is performed using [employer] ElastPQ point quantification shear wave elastography (pSWE) [...] Dobbs MD in OV> 12/08/24 1201 DD/ 09 TD/TT: 12/08/24 0941 Car Rental Manager: us Keli Colon MD [facility] [place] PROCEDURES Final Result * Hematoxylin and Eosin Stain (11/05/2024 2:14 PM EDT) 11/05/2024 2:14 PM EDT 11/08/2024 8:22 AM EDT [facility] - 11/09/2024 11:38 AM EDT ----- ------- Name: Cortez Westfall Age/Sex: 54/M : 1970 Unit#: [id number] Attend Dr: Darshan Khan MD Re11/05/24 Status: [facility] Location: .[facility] Disch: ----- ------- SPEC : [id number] RECD: 11/08/24 STATUS: VINCENT FULLER NUM: [id number] PEMA: 11/05/[address] [facility] [address]: Darshan Khan MD ENTERED: 11/08/24 [...] Cortez Westfall Age/Sex: 54/M : 1970 Unit#: [id number] Attend Dr: Darshan Khan MD Re11/05/24 Status: [facility] Location: [facility] Disch: ----- ------- SPEC : [id number] RECD: 11/08/24 STATUS: VINCENT FULLER NUM: [id number] PEMA: 11/05/24-14[address] [facility] [address]: Darshan Khan MD ENTERED: 11/08/24 [...] developed and their performance characteristics determined by [facility]. They have not been cleared or approved by the U.S. Food and Drug Administration (FDA). However, the FDA has determined that such clearance or approval is not necessary. This laboratory is certified under the Clinical Laboratory Improvement Amendments of 1988 (CLIA) as qualified to perform high complexity clinical laboratory testing. Copies To: Keli Montalvo MD [address] [place] [phone] Darshan Khan MD [facility] [address] [place] [address] ----- ------- Signed (signature on file) Aroldo Camacho MD 11/09/24 1138 ----- ------- END OF REPORT Generic External Data Provider LAB BLOOD ORDERAB LES Final Result Performing Organization Address [facility]/ZIP Co de Phone Number [facility] [address] [place] [phone] * (ABNORMAL) Lipid Panel, Standard (04/27/2024 8:11 AM EST) Pathologist [facility] [place] Triglycerides 178(H) <150 mg/dL [facility] Comment:Desirable Triglyceri de: less than 150 mg/dLBorderline High Triglyceride 150-199 mg/dLHigh Triglyceride: 200-499 mg/dLVery High Triglyceride: greater than or equal to 5OO mg/dL Cholesterol 173 <200 mg/dL [facility] Comment:Desirable Cholestero l: less than 200 mg/dLBorderline High Cholesterol: 200-239 mg/dLHigh Cholesterol: greater than 239 mg/dL LDL Cholesterol Calculated 96 <100 mg/dL [facility] Comment:Desirable LDL: less than 100 mg/dLNear Optimal/Above Optimal LDL: 110- 129 mg/dLBorderline High LDL: 130-159 mg/dLHigh LDL: 160-189 mg/dLVery High LDL: greater than or equal to 190 mg/dL HDL Cholesterol 42 >40 mg/dL [facility] Comment:Desirable HDL: great er than 40 mg/dL Note: This HDL assay may give artificially low results in patients with liver disease. Blood Venous blood specimen / Unknown 04/27/2024 8:11 AM EST 04/27/2024 10:51 AM EST us Keli Cloon MD LAB BLOOD ORDERAB LES Final Result Performing Organization Address [facility]/ZIP Co de Phone Number [facility] [address] [place] [phone] * Hepatitis C Antibody with Reflex to HCV, RNA, Quantitative, Real-Time PCR (10/09/2023 8:05 AM EDT) Pathologist [facility] [place] Hepatitis C Antibody Nonreactive Nonreactive [facility] Comment:Antibodies to HCV no t detected; does not exclude early acuteHCV infection. Blood Venous blood specimen / Unknown 10/09/2023 8:05 AM EDT 10/09/2023 11:21 AM EDT Keli Colon MD LAB BLOOD ORDERAB LES Final Result Performing Organization Address City/[facility]/ZIP Co de Phone Number [facility] [address] [place] [phone] [phone] * HIV-1/2 Antigen and Antibodies, Fourth Generation, with Reflexes (10/09/2023 8:05 AM EDT) [facility] HIV AB/AG Nonreactive Nonreactive [facility] Comment:HIV-1 p24 Ag and/or HIV-1/HIV-2 Ab not detected.A test result that is nonreactive does not exclude thepossibility of exposure to or infection with HIV-1 and/orHIV-2. Nonreactive results in this assay for individualswith prior exposure to HIV-1 and/or HIV-2 may be due toantigen and antibody levels that are below the limit ofdetection of this assay.The [employer] HIV Ag/Ab Combo assay result andsupplemental assay results should be interpreted inconjunction with the patient's clinical presentation,history and other laboratory results. If the results areinconsistent with clinical evidence, additional testing issuggested to confirm the result. Blood Venous blood specimen / Unknown 10/09/2023 8:05 AM EDT 10/09/2023 11:21 AM EDT Keli Colon MD LAB BLOOD ORDERAB LES Final Result Performing Organization Address City/[facility]/ZIP Co de Phone Number [facility] [address] [place] [phone] [phone] * Hm Colonoscopy (01/24/2023 11:12 AM EST) Historical Provider HEALTH MAINTENANCE Final Result from Last 3 Months or Most Recently Relevant to Health Maintenance Insurance [facility] C3 DENTAL-[facility] MEDICAID STAND ADULT Care Teams Stratigrapher Relationship Specialty Start Date End Date Keli Montalvo MD [address] [place] [phone] PCP - General Internal Medicine 11/14/22
--- OUTSIDE RECORDS SUMMARY | 2025-01-17 12:45 | XMS_ITS | Encounter Summary ---
Author Organization [employer] Address [address] [place] [address] Care Team Providers Care Sales Analyst Name Role Phone Keli Montalvo MD Primary Care Pro vider Encounter Details Date Type Department Care Team (Late st Contact Info) Description 03/04/2024 Orders Only [facility] MEDICINE [address] [place] [address] Provider, MD Katia Social History Tobacco Use [...] Description 04/08/2025 2:00 PM EST Office Visit [facility] MEDIC[facility] [address] [place] [phone] Tyson Ortega MD [address] [place] [phone] documented as of this encounter Procedures Procedure [...] documented as of this encounter Care Teams Sales Analyst Relationship Specialty Start Date End Date Keli Montalvo MD [address] [place] [phone] PCP - General Internal Medicine 11/14/22 documented as of this encounter
--- OUTSIDE RECORDS SUMMARY | 2025-01-17 12:45 | XMS_ITS | Patient Health Record ---
Author Organization [facility] Address [address] [facility] [address] [place] [phone] Care Team Providers Care Yardage Tufting Machine Operator Name Role Phone Keli Montalvo Primary Care Provider Darshan Ball Unavailable [phone] Allergies Allergen (clinical drug ingredient) Drug/Non Drug Allergy documented on EMR Reaction Allergy Type Onset Date Status seasonal (uncoded) Unknown Allergy A ctive Results Component Value Reference Range Notes Pathology (Not yet reviewed by provider) Interpretation: Performing Lab:[facility], [address] [place] [id number] Notes/Report: Reason For Referral Referring Provider First Name Keli Referring Provider Last Name Anuj beltran Referred Organization [facility] Referred Provider Darshan Khan Referred Address [address] [place] [address], ite [address] [place] [phone], Referred Provider Specialty Gastroentero logy General Notes Tara Zuniga 2024 07:39:37 AM >requested a m;[facility] referral from [facility] for visit with Dr. Khan on [...] 10 MG TAKE 1 TABLET BY [facility] DAILY Oral; Duration: 90 Days Active Testosterone [...] Status Risk Notes Problem Colon cancer screening (803927854) Colon cancer screening (Z12.11) Active confirmed Problem Screening for malignant neoplasm of colon (717350944) Encounter for screening for malignant neoplasm of colon (Z12.11) Active confirmed Problem Diverticular disease of colon (065903198) Diverticulosis of large intestine without perforation or abscess without bleeding (K57.30) Active confirmed Problem Epigastric pain (05289676) Abdominal pain, epigastric (R10.13) Active confirmed Problem Gastroesophageal reflux disease (015244207) Gastroesophageal reflux disease, esophagitis presence not specified (K21.9) Active confirmed Problem Family History of Cancer of Colon (Situation) (943084974) Family history of colon cancer (Z80.0) Active confirmed Problem Irritable bowel syndrome (58242914) Irritable bowel syndrome, unspecified type (K58.9) Active confirmed Problem Serrated polyp of colon (588145784) Serrated polyp of colon (K63.5) Active confirmed Problem Gastroesophageal reflux disease with esophagitis (disorder) (334290988) Gastroesophageal reflux disease with esophagitis without hemorrhage (K21.00) Active confirmed Problem History of adenomatous polyp of colon (929987037) History of adenomatous polyp of colon (Z86.0101) Active confirmed Vital Signs Temperature 98.6 degrees Fahrenheit 10/19/2024 Blood pressure diastolic 01 mm Hg 10/19/2024 Height 69 in 10/19/2024 Blood pressure systolic 001 mm Hg 10/19/2024 Weight 175.2 lbs 10/19/2024 BMI 25.87 kg/m2 10/19/2024 Procedures Procedure Date Ordered Date Performed Result Body Sit e COLONOSCOPY 10/19/2024 N/A Encounters Encounter Location Date Provider Diagnosis [facility] Outpatient [address] [place], [place] [phone] 11/05/2024 Darshan Khan [facility] [address] [place] [address] 10/19/2024 Darshan Khan Gastroesophageal ref lux disease, [...] Start Date Coverage End Date MEDICAID OF [facility] [address] [place] [phone] [id number] JAROD HUSSEIN Self - patient is the insured Medical (General) History Medical History History ICD Code Hypertension Nephrolithiasis Denies NC,DM,CVA,Lung disease,renal dise ase Depression GERD- upper endoscopy [...]
--- OUTSIDE RECORDS SUMMARY | 2025-01-17 12:45 | XMS_ITS | Encounter Summary ---
Author Organization [employer] Address 75 [facility] 7t [place] [address] Care Team Providers Care Civil Rights Representative Name Role Phone Keli Montalvo MD Primary Care Pro vider Encounter Details Date Type Department Care Team (Late Contact Info) Description 05/17/2022 Abstract [facility] ADULT DENTAL [address] [place] [address] El Lockhart DMD Social History Tobacco Use [...] [facility] [address] [place] [address] Tyson Ortega MD [address] [place], [place] [phone] documented as of this encounter Visit Diagnoses Not on filedocumented in this encounter Care Teams Civil Rights Representative Relationship Specialty Start Date End Date Keli Montalvo MD [address] [place] [phone] PCP - General Internal Medicine 11/14/22 documented as of this encounter
--- OUTSIDE RECORDS SUMMARY | 2025-01-17 12:45 | XMS_ITS | Encounter Summary ---
Author Organization [employer] Address 75 [facility] 7 [place] [address] Care Team Providers Care Truck Driver Flatbed Name Role Phone Keli Montalvo MD Primary Care Pro vider Reason for Visit * Reason Onset Date Comments New Patient Appt 07/31/2022 Encounter Details Date Type Department Care Team ([facility] st Contact Info) Description 07/31/2022 Telephone [facility] MEDICINE [address] [place], [place] [phone] Jesus Quach MD [address] [place] [address] New Patient Appt Social History Tobacco Use [...] left voicemail to give a call at [phone]. documented in this encounter Plan of Treatment Upcoming Encounters Date Type Department Care Team (Late st Contact Info) Description 04/08/2025 2:00 PM EST Office Visit [facility] MEDICINE [address] [place] [address] Tyson Ortega MD [address] [place] [address] [phone] documented as of this encounter Visit Diagnoses Not on filedocumented in this encounter Care Teams Truck Driver Flatbed Relationship Specialty Start Date End Date Keli Montalvo MD [address] [place] [phone] PCP - General Internal Medicine 11/14/22 documented as of this encounter
--- OUTSIDE RECORDS SUMMARY | 2025-01-17 12:45 | XMS_ITS | Encounter Summary ---
Author Organization [email or web address] Address 75 [facility] 7t [place] [address] Care Team Providers Care Administrative Support Clerk Name Role Phone Keli Montalvo MD Primary Care Pro vider Encounter Details Date Type Department Care Team ([facility] Contact Info) Description 06/12/2022 Abstract [facility] ADULT DENTAL [address] [place] [address] [place], [place] [address] [place] [address] Social History Tobacco Use Types Packs/Day Years [...] EST Office Visit [facility] MEDICINE [address] [place], [place] [phone] Tyson Ortega MD 230 [place] [address] documented as of this encounter Visit Diagnoses Not on filedocumented in this encounter Care Teams Administrative Support Clerk Relationship Specialty Start Date End Date Keli Montalvo MD 230 [place] [address] PCP - General Internal Medicine 11/14/22 documented as of this encounter
--- OUTSIDE RECORDS SUMMARY | 2025-01-17 12:45 | XMS_ITS | Encounter Summary ---
Author Organization [email or web address] Address [address] [place] [address] [place] [address] Care Team Providers Care Mobile Home Lot Utility Worker Name Role Phone Keli Montalvo MD Primary Care Pro vider Reason for Visit * Reason Onset Date Comments Med Refill 11/28/2024 Encounter Details Date Type Department Care Team (Late st Contact Info) Description 11/28/2024 Refill [facility] MEDICINE [address] [place] [address] Keli Montalvo MD 230 [place] [address] Social History Tobacco Use Types Packs/Day Years [...] Description 04/08/2025 2:00 PM EST Office Visit [facility] MEDICINE [address] [place] [address] Tyson Ortega MD 230 [place] [address] documented as of this encounter Visit Diagnoses Not on filedocumented in this encounter Additional Health Concerns Assessment Noted Time PHQ-9 Depression Total Score: 0 10/14/19 25 11:04 AM EDT documented as of this encounter Care Teams Mobile Home Lot Utility Worker Relationship Specialty Start Date End Date Keli Montalvo MD [address] [place] [address] PCP - General Internal Medicine 11/14/22 documented as of this encounter
--- OUTSIDE RECORDS SUMMARY | 2025-01-17 12:46 | XMS_ITS | Encounter Summary ---
Author Organization [employer] Address [address] [place] [address] [place] [address] Care Team Providers Care Slitter Cut Off Operator Name Role Phone Keli Montalvo MD Primary Care Pro vider Reason for Visit * Reason Onset Date Comments Med Refill 07/28/2024 Encounter Details Date Type Department Care Team (Late st Contact Info) Description 07/28/2024 Refill [facility] MEDICINE [address] [place] [address] Keli Montalvo MD [address] [place] [address] Social History Tobacco Use Types Packs/Day Years [...] Description 04/08/2025 2:00 PM EST Office Visit [facility] MEDICINE [address] [place] [address] Tyson Ortega MD [address] [place] [address] documented as of this encounter Visit Diagnoses Not on filedocumented in this encounter Additional Health Concerns Assessment Noted Time PHQ-9 Depression Total Score: 2 09/16/19 24 10:50 AM EDT documented as of this encounter Care Teams Slitter Cut Off Operator Relationship Specialty Start Date End Date Keli Montalvo MD [address] [place] [phone] PCP - General Internal Medicine 11/14/22 documented as of this encounter
--- OUTSIDE RECORDS SUMMARY | 2025-01-17 12:46 | XMS_ITS | Encounter Summary ---
Author Organization [employer] Address 75 [facility] 7t [place] [address] Care Team Providers Care Embossing Tool Setter Name Role Phone Keli Montalvo MD Primary Care Pro vider Reason for Visit * Reason Onset Date Comments Med Refill 12/21/2024 Encounter Details Date Type Department Care Team (Late st Contact Info) Description 12/21/2024 Refill [facility] MEDICINE [address] [place] [address] Alma Rosa Ochoa, ANP 230 [place] [address] Social History Tobacco Use Types Packs/Day Years [...] Description 04/08/2025 2:00 PM EST Office Visit [facility] MEDICINE [address] [place] [address] Tyson Ortega MD [address] [place] [address] documented as of this encounter Visit Diagnoses Not on filedocumented in this encounter Additional Health Concerns Assessment Noted Time PHQ-9 Depression Total Score: 0 10/14/19 25 11:04 AM EDT documented as of this encounter Care Teams Embossing Tool Setter Relationship Specialty Start Date End Date Keli Montalvo MD [address] [place] [phone] PCP - General Internal Medicine 11/14/22 documented as of this encounter
--- OUTSIDE RECORDS SUMMARY | 2025-01-17 12:46 | XMS_ITS | Encounter Summary ---
Author Organization [employer] Address [address] [place] [address] [place] [address] Care Team Providers Care Poultry Field Service Technician Name Role Phone Keli Montalvo MD Primary Care Pro vider Reason for Visit * Reason Onset Date Comments Med Refill 08/19/2024 Encounter Details Date Type Department Care Team (Late st Contact Info) Description 08/19/2024 Refill [facility] MEDICINE [address] [place] [address] Keli Montalvo MD [address] [place] [address] Social History Tobacco Use Types Packs/Day Years [...] 04/08/2025 2:00 PM EST Office Visit [facility] MEDICINE [address] [place] [address] Tyson Ortega MD 230 [place] [address] documented as of this encounter Visit Diagnoses Not on filedocumented in this encounter Additional Health Concerns Assessment Noted Time PHQ-9 Depression Total Score: 2 09/16/19 24 10:50 AM EDT documented as of this encounter Care Teams Poultry Field Service Technician Relationship Specialty Start Date End Date Keli Montalvo MD [address] [place] [phone] PCP - General Internal Medicine 11/14/22 documented as of this encounter
--- OUTSIDE RECORDS SUMMARY | 2025-01-17 12:46 | XMS_ITS | Encounter Summary ---
Author Organization [email or web address] Address 75 [facility] 7 [place] [address] Care Team Providers Care Electrician Front Name Role Phone Keli Montalvo MD Primary Care Pro vider Reason for Visit * Reason Onset Date Comments New Patient Appt 09/19/2022 Encounter Details Date Type Department Care Team ([facility] st Contact Info) Description 09/19/2022 Telephone [facility] MEDICINE [address] [place], [place] [phone] Jesus Quach MD [address] [place] [address] New Patient Appt Social History Tobacco Use [...] AM EDT Tc to , to offer [facility] TECH Appt, pt states is not interested at the time for Airborne And Air Delivery Specialist with Facility. Advised if change of mind to please give facility a call at [phone] documented in this encounter Plan of Treatment Upcoming Encounters Date Type Department Care Team (Late st Contact Info) Description 04/08/2025 2:00 PM EST Office Visit [facility] MEDICINE [address] [place] [address] [phone] Tyson Ortega MD [address] [place] [address] [phone] documented as of this encounter Visit Diagnoses Not on filedocumented in this encounter Additional Health Concerns Assessment Noted Time PHQ-9 Depression Total Score: 15 023 2:15 PM EDT documented as of this encounter Care Teams Electrician Front Relationship Specialty Start Date End Date Keli Montalvo MD [address] [place] [address] [phone] PCP - General Internal Medicine 11/14/22 documented as of this encounter
--- OUTSIDE RECORDS SUMMARY | 2025-01-17 12:46 | XMS_ITS | Encounter Summary ---
Author Organization [employer] Address 75 [facility] 7t [place] [address] Care Team Providers Care Health Analyst Name Role Phone Keli Montalvo MD Primary Care Pro vider Reason for Visit * Reason Onset Date Comments Med Refill 09/23/2024 Encounter Details Date Type Department Care Team (Late st Contact Info) Description 09/23/2024 Refill [facility] [place] MEDICINE 230 [place] [address] Jesus Quach MD [address] [place] [address] Social History Tobacco Use Types Packs/Day Years [...] 04/08/2025 2:00 PM EST Office Visit [facility] MEDICINE [address] [place] [address] Tyson Ortega MD [address] [place] [address] documented as of this encounter Visit Diagnoses Not on filedocumented in this encounter Additional Health Concerns Assessment Noted Time PHQ-9 Depression Total Score: 2 09/16/19 24 10:50 AM EDT documented as of this encounter Care Teams Health Analyst Relationship Specialty Start Date End Date Keli Montalvo MD [address] [place] [phone] PCP - General Internal Medicine 11/14/22 documented as of this encounter
--- OUTSIDE RECORDS SUMMARY | 2025-01-17 12:46 | XMS_ITS | Encounter Summary ---
Author Organization [employer] Address 75 [facility] 7t [place] [address] Care Team Providers Care Office Service Coordinator Name Role Phone Keli Montalvo MD Primary Care Pro vider Reason for Visit * Reason Onset Date Comments Med Refill 12/21/2024 Encounter Details Date Type Department Care Team (Late st Contact Info) Description 12/21/2024 Refill [facility] MEDICINE [address] [place] [address] Tyson Ortega MD [address] [place] [address] Alcohol use disorder, severe, dependence (CMS/HCC) (HCC) [...] Visit [facility] MEDICINE [address] [place] [address] Tyson Ortega MD [address] [place] [address] documented as of this encounter Visit Diagnoses Diagnosis Alcohol use disorder, severe, dependence (CMS/HCC) (HCC) documented in this encounter Additional Health Concerns Assessment Noted Time PHQ-9 Depression Total Score: 0 10/14/19 25 11:04 AM EDT documented as of this encounter Care Teams Office Service Coordinator Relationship Specialty Start Date End Date Keli Montalvo MD [address] [place] [phone] PCP - General Internal Medicine 11/14/22 documented as of this encounter
--- OUTSIDE RECORDS SUMMARY | 2025-01-17 12:46 | XMS_ITS | Encounter Summary ---
Author Organization [employer] Address 75 [facility] 7t [place] [address] Care Team Providers Care Sewing Pattern Layout Technician Name Role Phone Keli Montalvo MD Primary Care Pro vider Encounter Details Date Type Department Care Team (Latest Contact Info) Description 12/08/2024 Results Follow-Up [facility] MEDICINE [address] [place] [address] Keli Montalvo MD 230 [place] [address] US Abdomen Comp w elastography Social History [...] Description 04/08/2025 2:00 PM EST Office Visit [facility] MEDICINE [address] [place] [address] Tyson Ortega MD [address] [place] [address] documented as of this encounter Visit Diagnoses Not on filedocumented in this encounter Additional Health Concerns Assessment Noted Time PHQ-9 Depression Total Score: 0 10/14/19 25 11:04 AM EDT documented as of this encounter Care Teams Sewing Pattern Layout Technician Relationship Specialty Start Date End Date Keli Montalvo MD [address] [place] [address] [place] [address] PCP - General Internal Medicine 11/14/22 documented as of this encounter
--- OUTSIDE RECORDS SUMMARY | 2025-01-17 12:46 | XMS_ITS | Encounter Summary ---
Author Organization [employer] Address [address] [place] [address] [place] [address] Care Team Providers Care Traffic Warehouse Supervisor Name Role Phone Keli Montalvo MD Primary Care Pro vider Reason for Visit * Reason Onset Date Comments Med Refill 07/28/2024 Encounter Details Date Type Department Care Team (Late st Contact Info) Description 07/28/2024 Refill [facility] MEDICINE [address] [place] [address] Keli Montalvo MD [address] [place] [address] Social History Tobacco Use Types Packs/Day Years [...] Description 04/08/2025 2:00 PM EST Office Visit [facility] MEDICINE [address] [place] [address] Tyson Ortega MD [address] [place] [address] documented as of this encounter Visit Diagnoses Not on filedocumented in this encounter Additional Health Concerns Assessment Noted Time PHQ-9 Depression Total Score: 2 09/16/19 24 10:50 AM EDT documented as of this encounter Care Teams Traffic Warehouse Supervisor Relationship Specialty Start Date End Date Keli Montalvo MD [address] [place] [phone] PCP - General Internal Medicine 11/14/22 documented as of this encounter
--- OUTSIDE RECORDS SUMMARY | 2025-01-17 12:46 | XMS_ITS | Encounter Summary ---
Author Organization [employer] Address 75 [facility] 7t [place] [address] Care Team Providers Care Drying Frame Operator Name Role Phone Keli Montalvo MD Primary Care Pro vider Reason for Visit * Reason Onset Date Comments Med Refill 08/20/2024 Encounter Details Date Type Department Care Team (Late st Contact Info) Description 08/20/2024 Refill [facility] MEDICINE [address] [place], [place] [phone] Jesus Quach MD [address] [place] [address] Social History Tobacco Use Types Packs/Day Years [...] Visit [facility] MEDICINE [address] [place] [address] Tyson Ortega MD [address] [place] [address] documented as of this encounter Visit Diagnoses Not on filedocumented in this encounter Additional Health Concerns Assessment Noted Time PHQ-9 Depression Total Score: 2 09/16/19 24 10:50 AM EDT documented as of this encounter Care Teams Drying Frame Operator Relationship Specialty Start Date End Date Keli Montalvo MD [address] [place] [place] [phone] PCP - General Internal Medicine 11/14/22 documented as of this encounter
--- OUTSIDE RECORDS SUMMARY | 2025-01-17 12:46 | XMS_ITS | Encounter Summary ---
Author Organization [employer] Address [address] [place] [address] [place] [address] Care Team Providers Care Armed Security Guard Name Role Phone Keli Montalvo MD Primary Care Pro vider Reason for Visit * Reason Onset Date Comments Med Refill 05/14/2023 Encounter Details Date Type Department Care Team (Late st Contact Info) Description 05/14/2023 Refill [facility] MEDICINE [address] [place] [address] Keli Montalvo MD [address] [place] [address] Social History Tobacco Use Types Packs/Day Years [...] Description 04/08/2025 2:00 PM EST Office Visit [facility] MEDICINE [address] [place] [address] Tyson Ortega MD [address] [place] [address] documented as of this encounter Visit Diagnoses Not on filedocumented in this encounter Additional Health Concerns Assessment Noted Time PHQ-9 Depression Total Score: 2 01/14/20 9:57 AM EDT documented as of this encounter Care Teams Armed Security Guard Relationship Specialty Start Date End Date Keli Montalvo MD [address] [place] [address] PCP - General Internal Medicine 11/14/22 documented as of this encounter
--- OUTSIDE RECORDS SUMMARY | 2025-01-17 12:46 | XMS_ITS | Encounter Summary ---
Author Organization [employer] Address [address] [place] [address] [place] [address] Care Team Providers Care Medical Driver Name Role Phone Keli Montalvo MD Primary Care Pro vider Reason for Visit * Reason Onset Date Comments Med Refill 07/22/2024 Encounter Details Date Type Department Care Team (Late st Contact Info) Description 07/22/[address] [facility] MEDICINE [address] [place] [address] Keli Montalvo MD 230 [place] [address] Social History Tobacco Use Types Packs/Day Years [...] Visit [facility] MEDICINE [address] [place] [address] Tyson Ortega MD [address] [place] [address] documented as of this encounter Visit Diagnoses Not on filedocumented in this encounter Additional Health Concerns Assessment Noted Time PHQ-9 Depression Total Score: 2 09/16/19 24 10:50 AM EDT documented as of this encounter Care Teams Medical Driver Relationship Specialty Start Date End Date Keli Montalvo MD [address] [place] [address] PCP - General Internal Medicine 11/14/22 documented as of this encounter
== END 2025-01-17 10:44 | disposition home or self-care (01) ==
LOC: HO.HSM 10:32
PROVIDERS: PCP Student in an Organized Health Care Education/Training Program; Referring Provider Student in an Organized Health Care Education/Training Program; Visit Provider Registered Nurse
DX: G25.0 Essential tremor (principal)
CPT/HCPCS: 99213

== ENCOUNTER → 2025-01-17 10:32 | Outpatient (BNVA) | payer MEDICAID, SELFPAY | PROVIDERS: PCP Student in an Organized Health Care Education/Training Program; Referring Provider Student in an Organized Health Care Education/Training Program; Visit Provider Registered Nurse | DX: G25.0 Essential tremor (principal) | CPT/HCPCS: 99212 ==

== ENCOUNTER 2025-01-19 07:56 | Outpatient (REF) | payer MEDICAID, SELFPAY ==
--- OUTSIDE RECORDS SUMMARY | 2024-08-28 16:30 | XMS_ITS ---
Author Organization [employer] Address [address] [place], [place] [phone] Care Team Providers Care City Superintendent Name Role Phone Fausto Joe MD Primary Care Provider [phone] Migration, Provider Unavailable Unavailable REASON FOR VISIT Multum To Medispan Conversion Encounter Medications Medication SIG (Take, Route, Frequency, Duration) Notes Start Date End Date Status Wellbutrin XL 150 MG/24 HOURS 1 TAB(S) ORALLY EVERY 24 HOURS; Duration: 90 *Please review and pick correct strength-formulation from Medispan options. If intended option is not shown, discontinue and re-order from Quick Search* Active traZODone HCl 50 MG 1 TAB ORALLY QHS PRN SLEEP; Duration: 30 D *Please review and pick correct strength-formulation from Medispan options. If intended option is not shown, discontinue and re-order from Quick Search* Active traZODone HCl 50 MG 1 TAB ORALLY QHS PRN SLEEP *Please review and pick correct strength-formulation from Medispan options. If intended option is not shown, discontinue and re-order from Quick Search* Active Wellbutrin XL 150 MG 1 tab(s) orally every 24 hours; Duration: 90 days Active Norvasc 10 MG 1 tab(s) orally once a day; Duration: 90 days Active Encounters Encounter Location Date Provider Diagnosis [facility] [address] [place] [phone] 08/28/2024 Provider Migration Plan Of Treatment Medication Medication Name Sig Start Date Stop Date Notes Wellbutrin XL 150 MG/24 HOURS 1 TAB(S) ORALLY EVERY 24 HOURS; Duration: 90 *Please review and p ick correct strength-formulation from Medispan options. If intended option is not shown, discontinue and re-order from Quick Search* traZODone HCl 50 MG 1 TAB ORALLY QHS PRN SLEEP; Duration: 30 D *Please review and p ick correct strength-formulation from Medispan options. If intended option is not shown, discontinue and re-order from Quick Search* Wellbutrin XL 150 MG 1 tab(s) orally every 24 hours; Duration: 90 days Norvasc 10 MG 1 tab(s) orally once a day; Duration: 90 days Progress Notes * Rip HUSSEINoDOB: [birth year] (54 yo M)Acc No.[id number]:08/28/2024 Patient: Cortez JOSÉ Provider: :1970 A ge:53 Y S ex:Male Date:08/28/2024 Address:[address] [place], [place] [phone] Pcp:[facility]usto Joe MD Subjective: * Chief Complaints: * 1 . Multum To Medispan Conversion Encounter. * Medical History: * Medications: T aking traZODone HCl 50 MG TAB 1 TAB ORALLY QHS PRN SLEEP , Notes to Pharmacist: *Please review and pick correct strength-formulation from Medispan options. If intended option is not shown, discontinue and re-order from Quick Search* Objective: * Vitals: Assessment: Plan: * Treatment: * Billing Information: * Visit Code: * Procedure Codes: * Electronic signature of Prov ider Migration on 01/19/2025 at 08:00 AM EST Sign off status: Pending * Provider: Date: 08/28/2024 Generated for Eulalio vergara/Dia/Annaitting on: 03/21/2024 08:00 AM EST
--- OUTSIDE RECORDS SUMMARY | 2024-11-05 07:30 | XMS_ITS ---
Author Organization [facility] Address [address] [place] [address] Care Team Providers Care Cashier Clerk Name Role Phone Keli Montalvo Primary Care Provider Darshan Ball [phone] REASON FOR VISIT screening,hx polyps,serrated polyp of colon, fam hx colon cancer Encounters Encounter Location Date Provider Diagnosis [facility] [place] [facility] [address] [place] [phone] 11/05/2024 Darshan Khan Plan Of Treatment No Information Progress Notes * JAROD HUSSEIN ADOB:[birth year] (54 yo M)Acc No.[id number]:11/05/2024 COLON WITH MAC Patient: JAROD JOSÉ Provider: Hadley Khan MD :1970 A ge:54 Y S ex:Male Date:11/05/2024 Address:[address] [place], [place] [id number] Pcp:Keli Colon Subjective: * Chief Complaints: * 1 . Screening,hx polyps,serrated polyp of colon, fam hx colon cancer. * Medical History: Objective: * Vitals: Assessment: Plan: * Treatment: * * The named appointment provid er may or may not be the originator of this progress note, and it is not deemed complete until electronically signed by the appointment provider. Sign off status: Pending * Provider: Hadley Khan MD Date: 0 11/05/2024 Generated for Eulalio vergara/Dia/eTransmitting on: 03/21/2024 08:00 AM EST
--- OUTSIDE RECORDS SUMMARY | 2025-01-19 08:00 | XMS_ITS | Clinical Summary ---
Author Organization [employer] Address [address] 7[address] [place] [address] Care Team Providers Care Lawn And Garden Technician Name Role Phone Keli Montalvo MD [...] 1 04/27/19 25 026 Active sodium chloride (Tusayan Nasal [place]win) 0.65 % nasal spray Administer 1 spray [...] tablet 1 12/22/19 25 Active omega-3 (Ultra [place] 3) 1000 MG capsule TAKE 1 CAPSULE [...] tablet 1 01/04/20 25 Active omega-3 (Ultra [place] 3) 1000 MG capsule TAKE 1 CAPSULE [...] to go to alcohol abuse program at [facility] and pt agreed -cced today this [...] neg -Continue amlodipine 5 mg daily -saw mass spec in 05/2022 Normal complete exam per pt [...] BP readings 3 times a week -saw mass spec in 05/2022 Normal complete exam per pt [...] -will monitor BP at next visit -saw mass spec in 05/2022 Normal complete exam per pt [...] Type Department Care Team Description 01/10/2025 Telephone [facility] [address] [place] [address] Keli Montalvo MD artie recall 01/07/2025 2:00 PM EDT Office Visit [facility] [place] [address] Tyson Ortega MD Alcohol use disorder, severe, dependence (CMS/HCC) (HCC) (Primary Dx) 01/07/2025 Travel 12/31/2024 Refill [facility] [address] [place] [address] Keli Montalvo MD 12/31/2024 Refill [facility] [place] [address] Keli Montalvo MD 12/29/2024 Orders Only [facility] External Provider, [facility] 12/21/2024 Refill [facility] [place] [address] Keli Montalvo MD Alcohol use disorder, severe, dependence (CMS/HCC) (HCC) 12/21/2024 Refill [facility] [place] [address] Alma Rosa Ochoa ANP 12/21/2024 Refill [facility] [address] [place] [address] Tyson Ortega MD Alcohol use disorder, severe, dependence (CMS/HCC) (HCC) 12/10/2024 1:30 PM EDT Office Visit [facility] [place] [address] Tyson Ortega MD Alcohol use disorder, severe, dependence (CMS/HCC) (Primary Dx) 12/10/2024 Travel 12/09/2024 Travel 12/09/2024 Refill [facility] [place] [address] Keli Montalvo MD 12/08/2024 Results Follow-Up [facility] [address] [place] [address] Keli Montalvo MD US Abdomen Comp w elastography 12/06/2024 Telephone [facility] [address] [facility] [place] [address] Keli Montalvo MD chart prep 12/03/2024 1:00 PM EDT Telemedicine [facility] [place] [address] Tyson Ortega MD Alcohol use disorder, severe, dependence (CMS/HCC) (Primary Dx) 12/03/2024 Travel 11/28/2024 Refill [facility] [address] [facility] [place] [address] Keli Montalvo MD 11/28/2024 Refill [facility] [address] [place] [address] Jesus Quach MD 11/12/2024 1:15 PM EDT Office Visit [facility] [place] [address] Tyson Ortega MD Alcohol use disorder, severe, dependence (CMS/HCC) (Primary Dx) 11/12/2024 Travel 11/08/2024 Refill [facility] [place] [address] Keli Montalvo MD 11/08/2024 Refill [facility] [place] [address] Keli Montalvo MD 11/05/2024 Orders Only GENERIC [...] Description 04/08/2025 2:00 PM EST Office Visit [facility] [address] [place] [address] Tyson Ortega MD [address] [place] [address] Health Maintenance Due Date Last Done Comments [...] PM EDT Narrative 01/14/2025 2:50 PM EDT [address] [address] Ultrasound Report Signed Patient: Cortez Westfall MR#: [id number] 2076 : 1970 Acct:[id number] Age/Sex: 54 / M ADM Date: 01/14/25 Loc: HO.US Attending Dr: Jerome Cutler MD Ordering Physician: Jerome Cutler MD Date of Service: 01/14/25 Procedure(s): US renal BI Accession Number(s): [id number] cc: Jerome Cutler MD; Keli Montalvo MD [...] 01/14/25 1447 DD/ 1356 TD/TT: 01/14/25 1423 Technical Consultant: DAHLIA Procedure Note Donotuseinterpreter, Image - 01/14/[address] [address] Ultrasound Report Signed Patient: Jose Wesftall#: [id number] 2076 : 1970Acct:[id number] Age/Sex: 54 / MADM Date: 01/14/25 Loc: HO.US Attending Dr: Jerome Cutler MD Ordering Physician: Jerome Cutler MD Date of Service: 01/14/25 Procedure(s): US renal BI Accession Number(s): [id number] cc: Jerome Cutler MD; Keli Montalvo MD [...] 01/14/25 1447 DD/ 1356 TD/TT: 01/14/25 1423 Technical Consultant: DAHLIA us [facility] External Provider IMG US PROCEDURES Final Result * CT Lung Screening Low dose (12/29/2024 10:02 AM EDT) Anatomical Region Laterality Modality Lung Computed Tomogra phy 12/29/2024 10:0 2 AM EDT Narrative 12/29/2024 10:35 AM EDT [address] [address] [address] Scan Report Signed Patient: Cortez Westfall MR#: [id number] 2076 : 1970 Acct:[id number] Age/Sex: 54 / M ADM Date: 12/29/24 Loc: HO.CT Attending Dr: Sofia Vázquez PA-C Ordering Physician: Sofia Vázquez PA-C Date of Service: 12/29/24 Procedure(s): CT lung screening Accession Number(s): [id number] cc: Sofia Vázquez PA-C; Keli Montalvo MD Report Number: [id number]: Total DLP = 55.00 mGy-cm Reason for [...] 12/29/24 1032 DD/ 1002 TD/TT: 12/29/24 1014 Technical Consultant: DAHLIA Procedure Note Donotuseinterpreter, Image - 12/29/[address] [place] [address] [address] Scan Report Signed Patient: Jose Westfall#: [id number] 2076 : 1970Acct:[id number] Age/Sex: 54 / MADM Date: 12/29/24 Loc: HO.CT Attending Dr: Sofia Vázquez PA-C Ordering Physician: Sofia Vázquez PA-C Date of Service: 12/29/24 Procedure(s): CT lung screening Accession Number(s): [id number] cc: Sofia Vázquez PA-C; Keli Montalvo MD Report Number: [id number]: Total DLP = 55.00 mGy-cm Reason for [...] 12/29/24 1032 DD/ 1002 TD/TT: 12/29/24 1014 Technical Consultant: DAHLIA [facility] External Provider IMG CT PROCEDURES Final Result * US Abdomen Comp w elastography (12/08/2024 9:00 AM EDT) Anatomical Region Laterality Modality Abdomen Ultrasound 12/08/2024 9:00 AM EDT Narrative 12/08/2024 12:03 PM EDT [address] [address] Ultrasound Report Signed Patient: Cortez Westfall MR#: [id number] 2076 : 1970 Acct:[id number] Age/Sex: 54 / M ADM Date: 12/08/24 Loc: HO.US Attending Dr: Keli Colon MD Ordering Physician: Keli Montalvo MD Date of Service: 12/08/24 Procedure(s): US abdomen comp w elastography Accession Number(s): [id number] cc: Keli Montalvo MD Reason for Exam: [...] 12/08/24 1201 DD/ 0900 TD/TT: 12/08/24 0941 Technical Consultant: Procedure Note Donotuseinterpreter, Image - 12/08/[address] [address] Ultrasound Report Signed Patient: Jose Westfall#: [id number] 2076 : 1970Acct:[id number] Age/Sex: 54 / MADM Date: 12/08/24 Loc: HO.US Attending Dr: Keli Colon MD Ordering Physician: Keli Montalvo MD Date of Service: 12/08/24 Procedure(s): US abdomen comp w elastography Accession Number(s): [id number] cc: Keli Montalvo MD Reason for Exam: pt w alcohol abuse , noted enlarged abominal girth EXAMINATION: US COMPLETE ABDOMEN WITH LIVER ELASTOGRAPHY CLINICAL INFORMATION: alcohol abuse/dependence, noted enlarged abdominal girth COMPARISON: Abdomen ultrasound 10/18/2016 TECHNIQUE: Real-time imaging of the abdominal viscera. Noninvasive ultrasound liver fibrosis assessment is performed using Glympse ElastPQ point quantification shear wave elastography (pSWE) [...] 12/08/24 1201 DD/ 09 TD/TT: 12/08/24 0941 Technical Consultant: us Keli Colon MD [facility] US PROCEDURES Final Result * Hematoxylin and Eosin Stain (11/05/2024 2:14 PM EDT) 11/05/2024 2:14 PM EDT 11/08/2024 8:22 AM EDT [facility] - 11/09/2024 11:38 AM EDT ----- ------- Name: Cortez Westfall Age/Sex: 54/M : 1970 Unit#: [id number] Attend Dr: Darshan Khan MD Re11/05/24 Status: [facility] Location: [facility] Disch: ----- ------- SPEC : [id number] RECD: 11/08/24 STATUS: [facility]INC[facility]ER NUM: [id number] PEMA: 11/05/[address] [facility] [address]: Darshan Khan MD ENTERED: 11/08/24 [...] Cortez Westfall Age/Sex: 54/M : 1970 Unit#: [id number] Attend Dr: Darshan Khan MD Re11/05/24 Status: [facility] Location: [facility] Disch: ----- ------- SPEC : [id number] RECD: 11/08/24 STATUS: [facility] NUM: [id number] PEMA: 11/05/24-[address] [facility] [address]: Darshan Khan MD ENTERED: 11/08/24 [...] developed and their performance characteristics determined by [facility]. They have not been cleared or approved by the U.S. Food and Drug Administration (FDA). However, the FDA has determined that such clearance or approval is not necessary. This laboratory is certified under the Clinical Laboratory Improvement Amendments of 1988 (CLIA) as qualified to perform high complexity clinical laboratory testing. Copies To: Keli Montalvo MD [address] [place] [address] aDrshan Khan MD [facility] [address] [place] [address] ----- ------- Signed (signature on file) Aroldo Camacho MD 11/09/24 1138 ----- ------- END OF REPORT Generic External Data Provider LAB BLOOD ORDERAB LES Final Result Performing Organization Address [facility]/ZIP Co de Phone Number [facility] [address] [place] [phone] * (ABNORMAL) Lipid Panel, Standard (04/27/2024 8:11 AM EST) Pathologist [facility] Triglycerides 178(H) <150 mg/dL [facility] Comment:Desirable Triglyceri de: less than 150 mg/dLBorderline High Triglyceride 150-199 mg/dLHigh Triglyceride: 200-499 mg/dLVery High Triglyceride: greater than or equal to 5OO mg/dL Cholesterol 173 <200 mg/dL [facility] Comment:Desirable Cholestero l: less than 200 mg/dLBorderline High Cholesterol: 200-239 mg/dLHigh Cholesterol: greater than 239 mg/dL LDL Cholesterol Calculated 96 <100 mg/dL [facility] Comment:Desirable LDL: less than 100 mg/dLNear Optimal/Above Optimal LDL: 110- 129 mg/dLBorderline High LDL: 130-159 mg/dLHigh LDL: 160-189 mg/dLVery High LDL: greater than or equal to 190 mg/dL HDL Cholesterol 42 >40 mg/dL [facility] Comment:Desirable HDL: great er than 40 mg/dL Note: This HDL assay may give artificially low results in patients with liver disease. Blood Venous blood specimen / Unknown 04/27/2024 8:11 AM EST 04/27/2024 10:51 AM EST us Keli Colon MD LAB BLOOD ORDERAB LES Final Result Performing Organization Address [facility]/ZIP Co de Phone Number [facility] [address] [place] [phone] * Hepatitis C Antibody with Reflex to HCV, RNA, Quantitative, Real-Time PCR (10/09/2023 8:05 AM EDT) Pathologist [facility] Hepatitis C Antibody Nonreactive Nonreactive [facility] Comment:Antibodies to HCV no t detected; does not exclude early acuteHCV infection. Blood Venous blood specimen / Unknown 10/09/2023 8:05 AM EDT 10/09/2023 11:21 AM EDT Keli Colon MD LAB BLOOD ORDERAB LES Final Result Performing Organization Address City/[facility]/ZIP Co de Phone Number [facility] [address] [place] [address] [phone] * HIV-1/2 Antigen and Antibodies, Fourth Generation, with Reflexes (10/09/2023 8:05 AM EDT) [facility] HIV AB/AG Nonreactive Nonreactive [facility] Comment:HIV-1 p24 Ag and/or HIV-1/HIV-2 Ab not detected.A test result that is nonreactive does not exclude thepossibility of exposure to or infection with HIV-1 and/orHIV-2. Nonreactive results in this assay for individualswith prior exposure to HIV-1 and/or HIV-2 may be due toantigen and antibody levels that are below the limit ofdetection of this assay.[employer] HIV Ag/Ab Combo assay result andsupplemental assay results should be interpreted inconjunction with the patient's clinical presentation,history and other laboratory results. If the results areinconsistent with clinical evidence, additional testing issuggested to confirm the result. Blood Venous blood specimen / Unknown 10/09/2023 8:05 AM EDT 10/09/2023 11:21 AM EDT Keli Colon MD LAB BLOOD ORDERAB LES Final Result Performing Organization Address City/[facility]/ZIP Co de Phone Number [facility] [address] [place] [address] [phone] * Hm Colonoscopy (01/24/2023 11:12 AM EST) Historical Provider HEALTH MAINTENANCE Final Result from Last 3 Months or Most Recently Relevant to Health Maintenance Insurance [facility] [address] C[address] DENT[facility] [address] MEDICAID STAND ADULT Care Teams Lawn And Garden Technician Relationship Specialty Start Date End Date Keli Montalvo MD [address] [place] [phone] PCP - General Internal Medicine 11/14/22
--- OUTSIDE RECORDS SUMMARY | 2025-01-19 08:00 | XMS_ITS | Patient Health Record ---
Author Organization [employer] Address [address] [place], [place] [id number] Care Team Providers Care Civil Engineering Design Draftsperson Name Role Phone Fausto Joe MD Primary Care Provider [phone] Migration, Provider Unavailable Unavailable Reason For Referral No Information Medications Medication SIG (Take, Route, Frequency, Duration) Notes Start Date End Date Status Wellbutrin XL 150 MG/24 HOURS 1 TAB(S) ORALLY EVERY 24 HOURS; Duration: 90 *Please review and pick correct strength-formulation from [employer] options. If intended option is not shown, [...] Status W/U Status Risk Notes Problem Hypercholesterolemia (97751385) Hypercholesterolemia NOS (272.4) Active confirmed Problem Essential hypertension (87279250) HTN [Hypertension] (401.9) Active confirmed Encounters Encounter Location Date Provider Diagnosis [facility] [address] [place], [place] [phone] 08/28/2024 Provider Migration Plan Of Treatment Pending [...] Coverage Start Date Coverage End Date [facility] [address] [place] [phone] [id number] Cortez Westfall Self - patient is the insured Medical (General) History Medical History History ICD Code allergic rhinitis hypertension headache anxiety depression nephrolithiasis hyperlipidemia onychomycosis Surgical History Surgery Date(Month/Year) Pilonidal cyst
--- OUTSIDE RECORDS SUMMARY | 2025-01-19 08:01 | XMS_ITS | Encounter Summary ---
Author Organization [employer] Address [address] 7[address] [place] [address] Care Team Providers Care Dowel Pin Worker Name Role Phone Keli Montalvo MD Primary Care Pro vider Encounter Details Date Type Department Care Team (Late st Contact Info) Description 03/04/2024 Orders Only [facility] [address] [place] [address] Provider, MD Katia Social History Tobacco Use [...] Description 04/08/2025 2:00 PM EST Office Visit [facility] [address] [place] [phone] Tyson Ortega MD [address] [place] [address] documented as of this encounter Procedures Procedure [...] documented as of this encounter Care Teams Dowel Pin Worker Relationship Specialty Start Date End Date Keli Montalvo MD [address] [place] [phone] PCP - General Internal Medicine 11/14/22 documented as of this encounter
--- OUTSIDE RECORDS SUMMARY | 2025-01-19 08:01 | XMS_ITS | Encounter Summary ---
Author Organization [employer] Address [address] [place] [address] [place] [address] Care Team Providers Care Rehabilitation Supervisor Name Role Phone Keli Montalvo MD Primary Care Pro vider Reason for Visit * Reason Onset Date Comments Med Refill 07/28/2024 Encounter Details Date Type Department Care Team (Late st Contact Info) Description 07/28/2024 Refill [facility] [address] [place] [address] Keli Montalvo MD [address] [place] [address] Social History Tobacco Use Types Packs/Day Years [...] Description 04/08/2025 2:00 PM EST Office Visit [facility] [address] [place] [address] Tyson Ortega MD [address] [place] [address] documented as of this encounter Visit Diagnoses Not on filedocumented in this encounter Additional Health Concerns Assessment Noted Time PHQ-9 Depression Total Score: 2 09/16/19 24 10:50 AM EDT documented as of this encounter Care Teams Rehabilitation Supervisor Relationship Specialty Start Date End Date Keli Montalvo MD [address] [place] [phone] PCP - General Internal Medicine 11/14/22 documented as of this encounter
--- OUTSIDE RECORDS SUMMARY | 2025-01-19 08:01 | XMS_ITS | Encounter Summary ---
Author Organization [employer] Address [address] [place] [address] [place] [address] Care Team Providers Care Computer Systems Hardware Analyst Name Role Phone Keli Montalvo MD Primary Care Pro vider Reason for Visit * Reason Onset Date Comments Med Refill 11/28/2024 Encounter Details Date Type Department Care Team (Late st Contact Info) Description 11/28/2024 Refill [facility] [address] [place] [address] Keli Montalvo MD [address] [place] [address] Social History Tobacco Use Types Packs/Day Years [...] Description 04/08/2025 2:00 PM EST Office Visit [facility] [address] [place] [address] Tyson Ortega MD [address] [place] [address] documented as of this encounter Visit Diagnoses Not on filedocumented in this encounter Additional Health Concerns Assessment Noted Time PHQ-9 Depression Total Score: 0 10/14/19 25 11:04 AM EDT documented as of this encounter Care Teams Computer Systems Hardware Analyst Relationship Specialty Start Date End Date Keli Montalvo MD [address] [place] [phone] PCP - General Internal Medicine 11/14/22 documented as of this encounter
--- OUTSIDE RECORDS SUMMARY | 2025-01-19 08:01 | XMS_ITS | Encounter Summary ---
Author Organization [employer] Address [address] [facility] 7t [place] [address] Care Team Providers Care Railcar Carpenter Name Role Phone Keli Montalvo MD Primary Care Pro vider Reason for Visit * Reason Onset Date Comments Med Refill 09/23/2024 Encounter Details Date Type Department Care Team (Late st Contact Info) Description 09/23/2024 Refill [facility] [address] [place] [address] Jesus Quach MD [address] [place] [address] Social History Tobacco Use Types Packs/Day Years [...] 2:00 PM EST Office Visit [facility] [address] [place] [address] Tyson Ortega MD [address] [place] [address] documented as of this encounter Visit Diagnoses Not on filedocumented in this encounter Additional Health Concerns Assessment Noted Time PHQ-9 Depression Total Score: 2 09/16/19 24 10:50 AM EDT documented as of this encounter Care Teams Railcar Carpenter Relationship Specialty Start Date End Date Keli Montalvo MD [address] [place] [phone] PCP - General Internal Medicine 11/14/22 documented as of this encounter
--- OUTSIDE RECORDS SUMMARY | 2025-01-19 08:01 | XMS_ITS | Encounter Summary ---
Author Organization [employer] Address [address] [place] [address] [place] [address] Care Team Providers Care Decision Support Analyst Name Role Phone Keli Montalvo MD Primary Care Pro vider Reason for Visit * Reason Onset Date Comments Med Refill 07/28/2024 Encounter Details Date Type Department Care Team (Late st Contact Info) Description 07/28/2024 Refill [facility] [address] [place] [address] Keli Montalvo MD [address] [place] [address] Social History Tobacco Use Types Packs/Day Years [...] PM EST Office Visit [facility] [address] [place] [address] Tyson Ortega MD [address] [place] [address] documented as of this encounter Visit Diagnoses Not on filedocumented in this encounter Additional Health Concerns Assessment Noted Time PHQ-9 Depression Total Score: 2 09/16/19 24 10:50 AM EDT documented as of this encounter Care Teams Decision Support Analyst Relationship Specialty Start Date End Date Keli Montalvo MD [address] [place] [phone] PCP - General Internal Medicine 11/14/22 documented as of this encounter
--- OUTSIDE RECORDS SUMMARY | 2025-01-19 08:01 | XMS_ITS | Encounter Summary ---
Author Organization [employer] Address [address] [place] [address] [place] [address] Care Team Providers Care Apparel Stock Checker Name Role Phone Keli Montalvo MD Primary Care Pro vider Reason for Visit * Reason Onset Date Comments Med Refill 11/08/2024 Encounter Details Date Type Department Care Team (Late st Contact Info) Description 11/08/2024 Refill [facility] [address] [place] [address] Keli Montalvo MD [address] [place] [address] Social History Tobacco Use Types Packs/Day Years [...] 04/08/2025 2:00 PM EST Office Visit [facility] [address] [place] [address] Tyson Ortega MD [address] [place] [address] documented as of this encounter Visit Diagnoses Not on filedocumented in this encounter Additional Health Concerns Assessment Noted Time PHQ-9 Depression Total Score: 0 10/14/19 25 11:04 AM EDT documented as of this encounter Care Teams Apparel Stock Checker Relationship Specialty Start Date End Date Keli Montalvo MD [address] [place] [address] PCP - General Internal Medicine 11/14/22 documented as of this encounter
--- OUTSIDE RECORDS SUMMARY | 2025-01-19 08:01 | XMS_ITS | Encounter Summary ---
Author Organization [employer] Address [address] [facility] 7t [place] [address] Care Team Providers Care Customs Port Director Name Role Phone Keli Montalvo MD Primary Care Pro vider Reason for Visit * Reason Onset Date Comments Med Refill 08/20/2024 Encounter Details Date Type Department Care Team (Late st Contact Info) Description 08/20/2024 Refill [facility] [address] [place], [place] [phone] Jesus Quach MD [address] [place] [address] Social History Tobacco Use Types Packs/Day Years [...] Description 04/08/2025 2:00 PM EST Office Visit [facility] [address] [place] [address] Tyson Ortega MD [address] [place] [address] documented as of this encounter Visit Diagnoses Not on filedocumented in this encounter Additional Health Concerns Assessment Noted Time PHQ-9 Depression Total Score: 2 09/16/19 24 10:50 AM EDT documented as of this encounter Care Teams Customs Port Director Relationship Specialty Start Date End Date Keli Montalvo MD [address] [place] [address] PCP - General Internal Medicine 11/14/22 documented as of this encounter
--- OUTSIDE RECORDS SUMMARY | 2025-01-19 08:01 | XMS_ITS | Encounter Summary ---
Author Organization [employer] Address [address] [facility] 7t [place] [address] Care Team Providers Care Loan Workout Officer Name Role Phone Keli Montalvo MD Primary Care Pro vider Encounter Details Date Type Department Care Team ([facility] Contact Info) Description 06/12/2022 Abstract [facility] [address] [place] [address] [place], [place] [address] [place] [address] Social History Tobacco Use Types Packs/Day Years [...] 2:00 PM EST Office Visit [facility] [address] [place], [place] [phone] Tyson Ortega MD [address] [place] [address] documented as of this encounter Visit Diagnoses Not on filedocumented in this encounter Care Teams Loan Workout Officer Relationship Specialty Start Date End Date Keli Montalvo MD [address] [place] [address] PCP - General Internal Medicine 11/14/22 documented as of this encounter
--- OUTSIDE RECORDS SUMMARY | 2025-01-19 08:01 | XMS_ITS | Encounter Summary ---
Author Organization [employer] Address [address] [place] [address] [place] [address] Care Team Providers Care Spiritual Minister Name Role Phone Keli Montalvo MD Primary Care Pro vider Reason for Visit * Reason Onset Date Comments Med Refill 11/08/2024 Encounter Details Date Type Department Care Team (Late st Contact Info) Description 11/08/2024 Refill [facility]INE [address] [place] [address] Keli Montalvo MD [address] [place] [address] Social History Tobacco Use Types Packs/Day Years [...] [facility] [address] [place] [address] Tyson Ortega MD [address] [place] [address] documented as of this encounter Visit Diagnoses Not on filedocumented in this encounter Additional Health Concerns Assessment Noted Time PHQ-9 Depression Total Score: 0 10/14/19 25 11:04 AM EDT documented as of this encounter Care Teams Spiritual Minister Relationship Specialty Start Date End Date Keli Montalvo MD [address] [place] [phone] PCP - General Internal Medicine 11/14/22 documented as of this encounter
--- OUTSIDE RECORDS SUMMARY | 2025-01-19 08:01 | XMS_ITS | Encounter Summary ---
Author Organization [employer] Address [address] [place] [address] [place] [address] Care Team Providers Care Cotton Dispatcher Name Role Phone Keli Montalvo MD Primary Care Pro vider Reason for Visit * Reason Onset Date Comments Med Refill 07/22/2024 Encounter Details Date Type Department Care Team (Late st Contact Info) Description 07/22/2024 Refill [facility] MEDICINE [address] [place] [address] Keli Montalvo MD 230 [place] [address] Social History Tobacco Use Types Packs/Day Years [...] 2:00 PM EST Office Visit [facility] MEDICINE [address] [place] [address] Tyson Ortega MD 230 [place] [address] documented as of this encounter Visit Diagnoses Not on filedocumented in this encounter Additional Health Concerns Assessment Noted Time PHQ-9 Depression Total Score: 2 09/16/19 24 10:50 AM EDT documented as of this encounter Care Teams Cotton Dispatcher Relationship Specialty Start Date End Date Keli Montalvo MD [address] [place] [phone] PCP - General Internal Medicine 11/14/22 documented as of this encounter
--- OUTSIDE RECORDS SUMMARY | 2025-01-19 08:01 | XMS_ITS | Encounter Summary ---
Author Organization [employer] Address [address] [facility] 7t [place] [address] Care Team Providers Care Quality Assurance Clerk Name Role Phone Keli Montalvo MD Primary Care Pro vider Reason for Visit * Reason Onset Date Comments Med Refill 12/21/2024 Encounter Details Date Type Department Care Team (Late st Contact Info) Description 12/21/[address] [facility] MEDICINE [address] [place] [address] Alma Rosa Ochoa, ANP 230 [place] [address] Social History Tobacco Use Types Packs/Day Years [...] Description 04/08/2025 2:00 PM EST Office Visit [facility] MEDICINE [address] [place] [address] Tyson Ortega MD 230 [place] [address] documented as of this encounter Visit Diagnoses Not on filedocumented in this encounter Additional Health Concerns Assessment Noted Time PHQ-9 Depression Total Score: 0 10/14/19 25 11:04 AM EDT documented as of this encounter Care Teams Quality Assurance Clerk Relationship Specialty Start Date End Date Keli Montalvo MD [address] [place] [phone] PCP - General Internal Medicine 11/14/22 documented as of this encounter
--- OUTSIDE RECORDS SUMMARY | 2025-01-19 08:01 | XMS_ITS | Encounter Summary ---
Author Organization [employer] Address [address] [facility] 7t [place] [address] Care Team Providers Care Software Client Architect Name Role Phone Keli Montalvo MD Primary Care Pro vider Encounter Details Date Type Department Care Team ([facility] Contact Info) Description 06/24/2022 Abstract [facility] ADULT DENTAL [address] [place] [address] Pippa, Keyanna [address] [place] [address] Social History Tobacco Use Types Packs/Day Years [...] 04/08/2025 2:00 PM EST Office Visit [facility] MEDICINE [address] [place], [place] [phone] Tyson Ortega MD 230 [place] [address] documented as of this encounter Visit Diagnoses Not on filedocumented in this encounter Care Teams Software Client Architect Relationship Specialty Start Date End Date Keli Montalvo MD 230 [place] [address] PCP - General Internal Medicine 11/14/22 documented as of this encounter
--- OUTSIDE RECORDS SUMMARY | 2025-01-19 08:01 | XMS_ITS | Encounter Summary ---
Author Organization [employer] Address [address] [place] [address] [place] [address] Care Team Providers Care Clay Caster Name Role Phone Keli Montalvo MD Primary Care Pro vider Reason for Visit * Reason Onset Date Comments Med Refill 12/31/2024 Encounter Details Date Type Department Care Team (Late st Contact Info) Description 12/31/2024 Refill [facility] MEDICINE [address] [place] [address] Keli Montalvo MD [address] [place] [address] Social History Tobacco Use Types Packs/Day Years [...] Description 04/08/2025 2:00 PM EST Office Visit [facility] MEDICINE [address] [place] [address] Tyson Ortega MD [address] [place] [address] documented as of this encounter Visit Diagnoses Not on filedocumented in this encounter Additional Health Concerns Assessment Noted Time PHQ-9 Depression Total Score: 0 10/14/19 25 11:04 AM EDT documented as of this encounter Care Teams Clay Caster Relationship Specialty Start Date End Date Keli Montalvo MD [address] [place] [phone] PCP - General Internal Medicine 11/14/22 documented as of this encounter
--- OUTSIDE RECORDS SUMMARY | 2025-01-19 08:01 | XMS_ITS | Encounter Summary ---
Author Organization [employer] Address [address] [facility] 7t [place] [address] Care Team Providers Care On Air Host Name Role Phone Keli Montalvo MD Primary Care Pro vider Encounter Details Date Type Department Care Team (Latest Contact Info) Description 12/08/2024 Results Follow-Up [facility] MEDICINE [address] [place] [address] Keli Montalvo MD 230 [place] [address] US Abdomen Comp w elastography Social History [...] Description 04/08/2025 2:00 PM EST Office Visit [facility] MEDICINE [address] [place] [address] Tyson Ortega MD 230 [place] [address] documented as of this encounter Visit Diagnoses Not on filedocumented in this encounter Additional Health Concerns Assessment Noted Time PHQ-9 Depression Total Score: 0 10/14/19 25 11:04 AM EDT documented as of this encounter Care Teams On Air Host Relationship Specialty Start Date End Date Keli Montalvo MD [address] [place] [address] [place] [address] PCP - General Internal Medicine 11/14/22 documented as of this encounter
--- OUTSIDE RECORDS SUMMARY | 2025-01-19 08:01 | XMS_ITS | Encounter Summary ---
Author Organization [employer] Address [address] [facility] 7t [place] [address] Care Team Providers Care Horse Breeder Name Role Phone Keli Montalvo MD Primary Care Pro vider Reason for Visit * Reason Onset Date Comments Med Refill 12/21/2024 Encounter Details Date Type Department Care Team (Late st Contact Info) Description 12/21/2024 Refill [facility] MEDICINE 230 [place] [address] Tyson Ortega MD 230 [place] [address] Alcohol use disorder, severe, dependence (CMS/HCC) (HCC) [...] Description 04/08/2025 2:00 PM EST Office Visit [facility] MEDICINE 230 [place] [address] Tyson Ortega MD 230 [place] [address] documented as of this encounter Visit Diagnoses Diagnosis Alcohol use disorder, severe, dependence (CMS/HCC) (HCC) documented in this encounter Additional Health Concerns Assessment Noted Time PHQ-9 Depression Total Score: 0 10/14/19 25 11:04 AM EDT documented as of this encounter Care Teams Horse Breeder Relationship Specialty Start Date End Date Keli Montalvo MD [address] [place] [phone] PCP - General Internal Medicine 11/14/22 documented as of this encounter
--- OUTSIDE RECORDS SUMMARY | 2025-01-19 08:01 | XMS_ITS | Encounter Summary ---
Author Organization [employer] Address [address] [facility] 7 [place] [address] Care Team Providers Care Graphic Manager Name Role Phone Keli Montalvo MD Primary Care Pro vider Reason for Visit * Reason Onset Date Comments New Patient Appt 07/31/2022 Encounter Details Date Type Department Care Team ([facility] st Contact Info) Description 07/31/2022 Telephone [facility] MEDICINE 230 [place], [place] [phone] Jesus Quach MD 230 [place] [address] New Patient Appt Social History Tobacco Use [...] left voicemail to give a call at [phone]. documented in this encounter Plan of Treatment Upcoming Encounters Date Type Department Care Team (Late st Contact Info) Description 04/08/2025 2:00 PM EST Office Visit [facility] MEDICINE [address] [place] [address] Tyosn Ortega MD [address] [place] [address] [phone] documented as of this encounter Visit Diagnoses Not on filedocumented in this encounter Care Teams Graphic Manager Relationship Specialty Start Date End Date Keli Montalvo MD [address] [place] [phone] PCP - General Internal Medicine 11/14/22 documented as of this encounter
--- OUTSIDE RECORDS SUMMARY | 2025-01-19 08:01 | XMS_ITS | Patient Health Record ---
Author Organization [facility] Address [address] [facility] [address] [place] [phone] Care Team Providers Care Barge Loader Name Role Phone Keli Montalvo Primary Care Provider Darshan Ball Unavailable [phone] Allergies Allergen (clinical drug ingredient) Drug/Non Drug Allergy documented on EMR Reaction Allergy Type Onset Date Status seasonal (uncoded) Unknown Allergy A ctive Results Component Value Reference Range Notes Pathology (Not yet reviewed by provider) Interpretation: Performing Lab:[facility], [address] [place] [id number] Notes/Report: Reason For Referral Referring Provider First Name Keli Referring Provider Last Name Anuj beltran Referred Organization [facility] Referred Provider Darshan Khan Referred Address [address] [place] [address], ite [address] [place] [phone], Referred Provider Specialty Gastroentero logy General Notes Tara Zuniga 2024 07:39:37 AM >requested a m;[facility] referral from [facility] for visit with Dr. Khan on [...] 10 MG TAKE 1 TABLET BY [place] [facility] DAILY Oral; Duration: 90 [...] Status Risk Notes Problem Colon cancer screening (897642984) Colon cancer screening (Z12.11) Active confirmed Problem Screening for malignant neoplasm of colon (251123167) Encounter for screening for malignant neoplasm of colon (Z12.11) Active confirmed Problem Diverticular disease of colon (538676139) Diverticulosis of large intestine without perforation or abscess without bleeding (K57.30) Active confirmed Problem Epigastric pain (18757720) Abdominal pain, epigastric (R10.13) Active confirmed Problem Gastroesophageal reflux disease (949909245) Gastroesophageal reflux disease, esophagitis presence not specified (K21.9) Active confirmed Problem Family History of Cancer of Colon (Situation) (083733634) Family history of colon cancer (Z80.0) Active confirmed Problem Irritable bowel syndrome (21349512) Irritable bowel syndrome, unspecified type (K58.9) Active confirmed Problem Serrated polyp of colon (185184514) Serrated polyp of colon (K63.5) Active confirmed Problem Gastroesophageal reflux disease with esophagitis (disorder) (127408081) Gastroesophageal reflux disease with esophagitis without hemorrhage (K21.00) Active confirmed Problem History of adenomatous polyp of colon (883518779) History of adenomatous polyp of colon (Z86.0101) Active confirmed Vital Signs Temperature 98.6 degrees Fahrenheit 10/19/2024 Blood pressure diastolic 01 mm Hg 10/19/2024 Height 69 in 10/19/2024 Blood pressure systolic 001 mm Hg 10/19/2024 Weight 175.2 lbs 10/19/2024 BMI 25.87 kg/m2 10/19/2024 Procedures Procedure Date Ordered Date Performed Result Body Sit e COLONOSCOPY 10/19/2024 N/A Encounters Encounter Location Date Provider Diagnosis [facility] [address] [place], [place] [phone] 11/05/2024 Darshan Khan [facility] [address] [place] [address] 10/19/2024 Darshan Khan Gastroesophageal ref lux disease, [...] Start Date Coverage End Date MEDICAID OF [facility] [address] [place] [phone] [id number] JAROD HUSSEIN Self - patient is the insured Medical (General) History Medical History History ICD Code Hypertension Nephrolithiasis Denies SC,DM,CVA,Lung disease,renal dise ase Depression GERD- upper endoscopy [...]
--- OUTSIDE RECORDS SUMMARY | 2025-01-19 08:01 | XMS_ITS | Encounter Summary ---
Author Organization [employer] Address [address] [facility] 7t [place] [address] Care Team Providers Care Plastic Molding Operator Name Role Phone Keli Montalvo MD Primary Care Pro vider Encounter Details Date Type Department Care Team (Late Contact Info) Description 05/17/2022 Abstract [facility] ADULT DENTAL [address] [place] [address] El Lockhart DMD Social History Tobacco Use [...] 04/08/2025 2:00 PM EST Office Visit [facility] MEDICINE [address] [place] [address] Tyson Ortega MD [address] [place], [place] [phone] documented as of this encounter Visit Diagnoses Not on filedocumented in this encounter Care Teams Plastic Molding Operator Relationship Specialty Start Date End Date Keli Montalvo MD [address] [place] [phone] PCP - General Internal Medicine 11/14/22 documented as of this encounter
--- OUTSIDE RECORDS SUMMARY | 2025-01-19 08:01 | XMS_ITS | Encounter Summary ---
Author Organization [employer] Address [address] [place] [address] [place] [address] Care Team Providers Care Ambulatory Care Coordinator Name Role Phone Keli Montalvo MD Primary Care Pro vider Reason for Visit * Reason Onset Date Comments Med Refill 05/14/2023 Encounter Details Date Type Department Care Team (Late st Contact Info) Description 05/14/2023 Refill [facility] MEDICINE 230 [place] [address] Keli Montalvo MD 230 [place] [address] Social History Tobacco Use Types Packs/Day Years [...] Description 04/08/2025 2:00 PM EST Office Visit [facility] MEDICINE [address] [place] [address] Tyson Ortega MD 230 [place] [address] documented as of this encounter Visit Diagnoses Not on filedocumented in this encounter Additional Health Concerns Assessment Noted Time PHQ-9 Depression Total Score: 2 01/14/20 9:57 AM EDT documented as of this encounter Care Teams Ambulatory Care Coordinator Relationship Specialty Start Date End Date Keli Montalvo MD [address] [place] [phone] PCP - General Internal Medicine 11/14/22 documented as of this encounter
--- OUTSIDE RECORDS SUMMARY | 2025-01-19 08:01 | XMS_ITS | Encounter Summary ---
Author Organization [employer] Address [address] [place] [address] [place] [address] Care Team Providers Care Chip Separator Name Role Phone Keli Montalvo MD Primary Care Pro vider Reason for Visit * Reason Onset Date Comments Med Refill 08/19/2024 Encounter Details Date Type Department Care Team (Late st Contact Info) Description 08/19/2024 Refill [facility] MEDICINE [address] [place] [address] Keli Montalvo MD [address] [place] [address] Social History Tobacco Use Types Packs/Day Years [...] Description 04/08/2025 2:00 PM EST Office Visit [facility] MEDICINE [address] [place] [address] Tyson Ortega MD 230 [place] [address] documented as of this encounter Visit Diagnoses Not on filedocumented in this encounter Additional Health Concerns Assessment Noted Time PHQ-9 Depression Total Score: 2 09/16/19 24 10:50 AM EDT documented as of this encounter Care Teams Chip Separator Relationship Specialty Start Date End Date Keli Montalvo MD [address] [place] [phone] PCP - General Internal Medicine 11/14/22 documented as of this encounter
--- OUTSIDE RECORDS SUMMARY | 2025-01-19 08:01 | XMS_ITS | Encounter Summary ---
Author Organization [employer] Address [address] [facility] 7 [place] [address] Care Team Providers Care Human Resources Administrator Name Role Phone Keli Montalvo MD Primary Care Pro vider Reason for Visit * Reason Onset Date Comments New Patient Appt 09/19/2022 Encounter Details Date Type Department Care Team ([facility] st Contact Info) Description 09/19/2022 Telephone [facility] MEDICINE 230 [place], [place] [phone] Jesus Quach MD [address] [place] [address] New Patient Appt Social History Tobacco Use [...] AM EDT Tc to , to offer NUMERICAL CONTROL MACHINE MACHINIST Appt, pt states is not interested at the time for Poly Packer And Heat Sealer with Facility. Advised if change of mind to please give facility a call at [phone] documented in this encounter Plan of Treatment Upcoming Encounters Date Type Department Care Team (Late st Contact Info) Description 04/08/2025 2:00 PM EST Office Visit [facility] MEDICINE [address] [place] [address] [phone] Tyson Ortega MD [address] [place] [address] [phone] documented as of this encounter Visit Diagnoses Not on filedocumented in this encounter Additional Health Concerns Assessment Noted Time PHQ-9 Depression Total Score: 15 023 2:15 PM EDT documented as of this encounter Care Teams Human Resources Administrator Relationship Specialty Start Date End Date Keli Montalvo MD [address] [place] [address] [phone] PCP - General Internal Medicine 11/14/22 documented as of this encounter
[2025-01-19 11:25] LABS: PSA,Total (Free>4and<10) 0.12 ng/mL (0.00-4.00)
== END 2025-01-19 07:57 | disposition home or self-care (01) ==
LOC: HO.10HDL 07:56
PROVIDERS: Visit Provider Urology
DX: Z12.5 Encounter for screening for malignant neoplasm of prostate (principal)
CPT/HCPCS: 36415; 84153

== ENCOUNTER 2025-01-20 09:52 | Outpatient (AMB) | payer MEDICAID, SELFPAY ==
--- OUTSIDE RECORDS SUMMARY | 2024-08-28 16:30 | XMS_ITS ---
Author Organization [employer] Address [address] [place], [place] [phone] Care Team Providers Care Rn Telephone Triage Name Role Phone Fausto Joe MD Primary Care Provider [phone] Migration, Provider Unavailable Unavailable REASON FOR VISIT [...] Provider Diagnosis [facility] [address] [place] [phone] 08/28/2024 Provider Migration Plan Of Treatment Medication [...] * Rip HUSSEINoDOB: [birth year] (54 yo M)Acc No.[id number]:08/28/2024 Patient: Cortez JOSÉ Provider: :1970 A ge:53 Y S ex:Male Date:08/28/2024 Address:[address] [place], [place] [phone] Pcp:Fausto Joe MD Subjective: * Chief Complaints: [...] Electronic signature of Prov ider Migration on 01/20/2025 at 11:18 AM EST Sign off status: Pending * Provider: Date: 08/28/2024 Generated for Eulalio vergara/Dia/Annaitting on: 03/22/2024 11:18 AM EST
--- OUTSIDE RECORDS SUMMARY | 2024-11-05 07:30 | XMS_ITS ---
Author Organization [facility] Address [address] [place] [address] Care Team Providers Care Fund Accountant Name Role Phone Keli Montalvo Primary Care Provider Darshan Ball [phone] REASON FOR VISIT screening,hx polyps,serrated polyp of colon, fam hx colon cancer Encounters Encounter Location Date Provider Diagnosis [facility] [place] [address] [place] [phone] 11/05/2024 Darshan Khan Plan Of Treatment No Information Progress Notes * JAROD HUSSEIN ADOB:[birth year] (54 yo M)Acc No.[id number]:11/05/2024 COLON WITH MAC Patient: JAROD JOSÉ Provider: Hadley Khan MD :1970 A ge:54 Y S ex:Male Date:11/05/2024 Address:[address] [place], [place] [phone] Pcp:Keli Colon Subjective: * Chief Complaints: * [...] 0 11/05/2024 Generated for Eulalio vergara/Dia/eTransmitting on: 03/22/2024 11:17 AM EST
--- NOTE | 2025-01-20 10:17 | A.OFFVIS_ITS ---
Intake Visit Reasons: 1y/US/PSA Intake Note: Patient is present for a 1yr/US/PSA * 01/14 Renal US * 01/19 Total PSA:0.12 Urology Medication:NONE Antibiotic Allergy:NONE Blood Thinner:NONE Frame Sample And Pattern Supervisor Required: No Allergies No Known Allergies Allergy (Verified 01/20/25 10:18) Medication List - Last Reconciled 01/20/25 by Jerome Cutler MD amlodipine 10 mg PO DAILY amlodipine 5 mg PO DAILY ascorbic acid (vitamin C) 250 mg PO QAM cetirizine 10 mg PO DAILY escitalopram oxalate 20 mg PO QAM ferrous gluconate 324 mg PO QAM multivitamin 1 tab PO DAILY nicotine (polacrilex) 2 mg PO BID omega 1-plm-ohe-fish oil 300 mg (120 mg- 180mg)-1,000 mg 1 cap PO DAILY omeprazole 20 mg PO QAM propranolol ER 60 mg PO QAM 90 days testosterone cypionate 100 mg IM QWEEK HPI Comments Details: 01/20/2025--Cortez is followed for nephrolithiasis he is here for 1 year follow- up he had a renal ultrasound done on 01/14/2025 also PSA screening on 01/19/2025 PSA was 0.12 History of Present Illness The patient is a 54-year-old male presenting for a follow-up on nephrolithiasis and preventative care PSA screening. The patient has a history of nephrolithiasis and is currently being followed for this condition. A recent renal ultrasound revealed a stable 3 mm stone in the right kidney, which is small enough to potentially pass naturally. The patient has been advised to maintain adequate hydration and dietary modifications to manage the condition. The patient underwent a PSA screening as part of preventative care, which returned a result of 0.12. The patient is also under the care of an construction site manager for testosterone management and is compliant with prescribed medications. Results - Renal ultrasound: 3 mm stone in the right kidney - PSA screenin.12 (normal range: 0-4) Plan 1. Nephrolithiasis - Continue monitoring the 3 mm right renal stone, as it is stable and small enough to pass naturally. - Encourage adequate hydration and dietary modifications, including reduced sodium and oxalate intake. - Plan for follow-up with renal ultrasound and blood work in one year 2. Preventative Care: Psa Screening - PSA level is within normal limits; continue routine screening as per guidelines. 01/22/24--telehealth video follow-up, history of nephrolithiasis. Discussed 24 hour urine results: Total volume 1.6 L, Calcium 80 mg; Oxalate 34 mg, Sodium 95, Citrate 338 mg. Instructed on importance of fluid intake, Low oxalate diet, low sodium diet. Discussed increase fluids, increase citrate in the diet. Plan monitor kidneys. PSA screening. Follow-up in 1 year renal ultrasound and PSA prior. 10/23/23--Cortez is a 53-year-old male who is here has been evaluation due to history of kidney stones. History of nicotine use. The patient states that he has had kidney stones for over 10 years. He has previously passed stones. I have reviewed renal ultrasound 07/2023, 4 mm nonobstructing right renal stone and 0.7 cm exophytic simple left renal cyst. The patient states that he drinks a lot of water with lemon. I have discussed checking a 24 hour urine collection and will continue to monitor kidney stone. [facility] Medical History Renal lesion Skin lesion Anemia, unspecified Tremor of both hands Hyperlipidemia Nicotine dependence, cigarettes, uncomplicated History of colon polyps (~2017) Microscopic hematuria Nephrolithiasis Depression HTN (hypertension) GERD (gastroesophageal reflux disease) Surgical History History of excision of pilonidal cyst History of esophagogastroduodenoscopy (EGD) History of colonoscopy Family History Father Oral cancer Maternal Grandmother Bicuspid aortic valve Mother Heart problem Brother Tremor Social History Alcohol intake: former Patient Tobacco Use Status: Current everyday Tobacco user Tobacco use type: Cigarette Cigarette Packs Per Day: 0.5 Cigarettes Per Day: 10.0 Years Smoked: (onset 15yo, 1/2-1ppd x 37yrs, 25+PYH) Second Hand Smoke Exposure: No Review of Systems Const All systems reviewed & are unremarkable except as noted in HPI and below Reports no additional complaints Eyes Reports no additional complaints ENT Reports no additional complaints Card Reports no additional complaints Resp Reports no additional complaints GI Reports no additional complaints Reports as per HPI Musc Reports no additional complaints Skin/Breast Reports system reviewed and no additional complaints, except as documented Neuro Reports no additional complaints Psych Reports no additional complaints Endo Reports no additional complaints Tomer/Lymph Reports no additional complaints Aller/Immun Reports no additional complaints Results AMB Urinalysis, Automated UA Leukoctes 0 Leah/uL Last Edit by Crystal Joseph on 01/20/25 16:10 UA Nitrite Negative Last Edit by Crystal Joseph on 01/20/25 16:10 UA Urobilinogen 0.2 mg/dL Last Edit by Crystal Joseph on 01/20/25 16:10 UA Protein 0 mg/dL Last Edit by Crystal Joseph on 01/20/25 16:10 UA pH 5.5 Last Edit by Crystal Joseph on 01/20/25 16:10 UA Blood 0 Jimbo/uL Last Edit by Crystal Joseph on 01/20/25 16:10 UA Specific Rhododendron 1.015 Last Edit by Crystal Joseph on 01/20/25 16:10 UA Ketone Negative Last Edit by Crystal Joseph on 01/20/25 16:10 UA Bilirubin 0 mg/dL Last Edit by Crystal Joseph on 01/20/25 16:10 UA Glucose 0 mg/dL Last Edit by Crystal Joseph on 01/20/25 16:10 Results Reviewed Results Reviewed: Laboratory Last Values Urine pH (Auto) 5.5 01/20/25 12:45 Specific Rhododendron (Auto) 1.015 01/20/25 12:45 Urine Protein (Auto) 0 mg/dL 01/20/25 12:45 Glucose (UA)(Auto) 0 mg/dL 01/20/25 12:45 Urine Ketones (Auto) Negative 01/20/25 12:45 Urine Blood (Auto) 0 Jimbo/uL 01/20/25 12:45 Urine Nitrite (Auto) Negative 01/20/25 12:45 Urine Bilirubin (Auto) 0 mg/dL 01/20/25 12:45 Urine Urobilinogen (Auto) 0.2 mg/dL 01/20/25 12:45 Leukocyte Esterase (Auto) 0 Leah/uL 01/20/25 12:45 Date of Service: 01/14/25 Procedure(s): US renal BI Accession Number(s): [id number] cc: Jerome Cutler MD; Keli Montalvo MD~ Reason for Exam: N20.0 - Calculus of kidney EXAMINATION: US RETROPERITONEAL LIMITED (RENAL ONLY) CLINICAL INFORMATION: Kidney stone. COMPARISON: Previous renal ultrasound most recent July 2023, abdominal ultrasound November [address] of the abdomen and pelvis March 2011 TECHNIQUE: Real-time imaging of the kidneys. FINDINGS: RIGHT KIDNEY: 12.2 x 5.2 x 4.5 cm (SAG x AP x TRV). The kidney is normal in size, contour, and echogenicity. Renal cortical thickness is normal. 3 mm stone in the midpole. 0.9 x 0.5 x 0.5 cm cyst in the midpole. Probable junctional parenchymal defect in the upper pole. No hydronephrosis. LEFT KIDNEY: 12.8 x 6.4 x 5.1 cm (SAG x AP x TRV). The kidney is normal in size, contour, and echogenicity. Renal cortical thickness is normal. No calculi or focal parenchymal lesions. No hydronephrosis. IMPRESSION: Small right renal stone. Small right renal cyst. Normal left kidney. Date of Service: 08/08/23 EXAMINATION: US RETROPERITONEAL LIMITED (RENAL ONLY) CLINICAL INFORMATION: Noted in CT abdomen left kidney lesion of 0.8 cm described as exophytic lesion. COMPARISON: Ultrasound abdomen 10/18/2016. CT abdomen and pelvis 04/04/2011. TECHNIQUE: Real-time imaging of the kidneys. FINDINGS: RIGHT KIDNEY: 11.8 x 5.0 x 5.0 cm (SAG x AP x TRV). The kidney is normal in size, contour, and echogenicity. Renal cortical thickness is normal. No focal parenchymal lesions or hydronephrosis. 0.4 x 0.2 x 0.4 cm nonobstructing calculus is seen in the mid to lower pole. LEFT KIDNEY: 12.0 x 6.1 x 5.1 cm (SAG x AP x TRV). The kidney is normal in size, contour, and echogenicity. Renal cortical thickness is normal. No renal calculi or hydronephrosis. 0.5 x 0.4 x 0.7 cm simple exophytic cyst is seen in the mid kidney, no imaging follow-up is recommended. IMPRESSION: 1. 0.4 cm nonobstructing calculus in the mid to lower pole of the right kidney. 2. 0.7 cm simple exophytic cyst in the mid left kidney, no imaging follow-up is recommended. Assessment & Plan Assessment & Plan (1) Nephrolithiasis: Code(s): N20.0 - Calculus of kidney Category: Medical (2) Renal cyst: Code(s): N28.1 - Cyst of kidney, acquired Category: Medical (3) Screening PSA (prostate specific antigen): Code(s): Z12.5 - Encounter for screening for malignant neoplasm of prostate Category: Medical Plan Plan 1. Nephrolithiasis - Continue monitoring the 3 mm right renal stone, as it is stable and small enough to pass naturally. - Encourage adequate hydration and dietary modifications, including reduced sodium and oxalate intake. - Plan for follow-up with renal ultrasound and blood work in one year 2. Preventative Care: Psa Screening - PSA level is within normal limits; continue routine screening as per guidelines. Orders: Orders AMB Urinalysis Automated Today Z13.9 - Encounter for screening, unspecified Patient Instructions: The patient had an opportunity to ask questions regarding treatment plan. The patient expressed understanding and agreement with the above treatment plan. The patient is aware they should contact our office by phone for worsening of their current condition or the appearance of new symptoms. Compliance is encouraged with any medications and followup testing that is ordered. It is a privilege to be allowed the opportunity to participate in the urologic care of your patient. If you have any questions or concerns regarding treatment for the above conditions please do not hesitate to contact me. The office telephone contact is [phone]. This note is constructed in part using voice recognition software. While every e ffort has been made to ensure accuracy registered nurse cardiac telemetry errors may have been included. Yours sincerely, Jerome Cutler MD Scribe Plan - Not visible on output: Patient was informed and verbally consented to the use of an ambient scribe for clinic note documentation during this visit. Coding Level of Care Code Est Pt Level 3 (23223) Complex EM visit Add On G2211 Diagnoses Nephrolithiasis N20.0 Renal cyst N28.1 Screening PSA (prostate specific antigen) Z12.5
--- OUTSIDE RECORDS SUMMARY | 2025-01-20 11:17 | XMS_ITS | Clinical Summary ---
Author Organization [employer] Address [address] [place] [address] Care Team Providers Care Web Analytics Developer Name Role Phone Keli Montalvo MD [...] 1 04/27/19 25 026 Active sodium chloride ([place] Nasal [place]) 0.65 % nasal spray Administer 1 spray [...] tablet 1 12/22/19 25 Active omega-3 (Ultra [place] 3) 1000 MG capsule TAKE 1 CAPSULE [...] MORNING 90 tablet 1 01/04/20 25 Active escitalopram (Lexapro) 20 MG tablet [...] to go to alcohol abuse program at [facility] and pt agreed -cced today this note [...] neg -Continue amlodipine 5 mg daily -saw ux design lead in 05/2022 Normal complete exam per pt [...] BP readings 3 times a week -saw ux design lead in 05/2022 Normal complete exam per pt [...] -will monitor BP at next visit -saw ux design lead in 05/2022 Normal complete exam per pt [...] Type Department Care Team Description 01/10/2025 Telephone [facility] [address] [place] [address] Keli Montalvo MD artie recall 01/07/2025 2:00 PM EDT Office Visit [facility] [address] [place] [address] Tyson Ortega MD Alcohol use disorder, severe, dependence (CMS/HCC) (HCC) (Primary Dx) 01/07/2025 Travel 12/31/2024 Refill [facility] [address] [place] [address] Keli Montalvo MD 12/31/2024 Refill [facility] [address] [place] [address] Keli Montalvo MD 12/29/2024 Orders Only [facility] External Provider, [facility] 12/21/2024 Refill [facility] [address] [place] [address] Keli Montalvo MD Alcohol use disorder, severe, dependence (CMS/HCC) (HCC) 12/21/2024 Refill [facility] [address] [place] [phone] Alma Rosa Ochoa ANP 12/21/2024 Refill [facility] [address] [place] [address] Tyson Ortega MD Alcohol use disorder, severe, dependence (CMS/HCC) (HCC) 12/10/2024 1:30 PM EDT Office Visit [address] [address] Tyson Ortega MD Alcohol use disorder, severe, dependence (CMS/HCC) (Primary Dx) 12/10/2024 Travel 12/09/2024 Travel 12/09/[address] [address] Keli Montalvo MD 12/08/2024 Results Follow-Up [address] [address] Keli Motnalvo MD US Abdomen Comp w elastography 12/06/[address] [address] Keli Montalvo MD chart prep 12/03/2024 1:00 PM EDT Telemedicine [address] [address] Tyson Ortega MD Alcohol use disorder, severe, dependence (CMS/HCC) (Primary Dx) 12/03/2024 Travel 11/28/2024 Refill [facility] [address] [place] [phone] Keli Montalvo MD 11/28/2024 Refill [facility] [address] [place] [phone] Jesus Quach MD 11/12/2024 1:15 PM EDT Office Visit [address] [address] Tyson Ortega MD Alcohol use disorder, severe, dependence (CMS/HCC) (Primary Dx) 11/12/2024 Travel 11/08/2024 Refill [facility] [address] [place] [address] Keli Montalvo MD 11/08/2024 Refill [facility] [address] [facility] [place] [address] Keli Montalvo MD 11/05/2024 Orders Only GENERIC [...] 04/08/2025 2:00 PM EST Office Visit [facility] [address] [place] [address] Tyson Ortega MD [address] [place] [address] Health Maintenance Due Date Last Done Comments [...] PM EDT Narrative 01/14/2025 2:50 PM EDT [address] [address] Ultrasound Report Signed Patient: Cortez Westfall MR#: [id number] 2076 : 1970 Acct:[id number] Age/Sex: 54 / M ADM Date: 01/14/25 Loc: HO.US Attending Dr: Jerome Cutler MD Ordering Physician: Jerome Cutler MD Date of Service: 01/14/25 Procedure(s): US renal BI Accession Number(s): [id number] cc: Jerome Cutler MD; Keli Montalvo MD [...] 01/14/25 1447 DD/ 1356 TD/TT: 01/14/25 1423 Clinic Charge Nurse: DAHLIA Procedure Note Donotuseinterpreter, Image - 01/14/[address] [address] Ultrasound Report Signed Patient: Jose Westfall#: [id number] 2076 : 1970Acct:[id number] Age/Sex: 54 / MADM Date: 01/14/25 Loc: HO.US Attending Dr: Jerome Cutler MD Ordering Physician: Jerome Cutler MD Date of Service: 01/14/25 Procedure(s): US renal BI Accession Number(s): [id number] cc: Jerome Cutler MD; Keli Montalvo MD [...] 01/14/25 1447 DD/ 1356 TD/TT: 01/14/25 1423 Clinic Charge Nurse: DAHLIA us [facility] External Provider IMG US PROCEDURES Final Result * CT Lung Screening Low dose (12/29/2024 10:02 AM EDT) Anatomical Region Laterality Modality Lung Computed Tomogra phy 12/29/2024 10:0 2 AM EDT Narrative 12/29/2024 10:35 AM EDT [place] [address] CT Scan Report Signed Patient: Cortez Westfall MR#: [id number] [birth year]76 : 1970 Acct:[id number] Age/Sex: 54 / M ADM Date: 12/29/24 Loc: .CT Attending Dr: Sofia Vázquez PA-C Ordering Physician: Sofia Vázquez PA-C Date of Service: 12/29/24 Procedure(s): CT lung screening Accession Number(s): [id number] cc: Sofia Vázquez PA-C; Keli Montalvo MD Report Number: [id number]: Total DLP = 55.00 mGy-cm Reason for [...] 12/29/24 1032 DD/ 1002 TD/TT: 12/29/24 1014 Clinic Charge Nurse: DAHLIA Procedure Note Donotuseinterpreter, Image - 12/29/[address] [address] [address] Scan Report Signed Patient: Jose Westfall#: [id number] 2076 : 1970Acct:[id number] Age/Sex: 54 / MADM Date: 12/29/24 Loc: HO.CT Attending Dr: Sofia Vázquez PA-C Ordering Physician: Sofia Vázquez PA-C Date of Service: 12/29/24 Procedure(s): CT lung screening Accession Number(s): [id number] cc: Sofia Vázquez PA-C; Keli Montalvo MD Report Number: [id number]: Total DLP = 55.00 mGy-cm Reason for [...] 12/29/24 1032 DD/ 1002 TD/TT: 12/29/24 1014 Clinic Charge Nurse: DAHLIA us [facility] External Provider IMG CT PROCEDURES Final Result * US Abdomen Comp w elastography (12/08/2024 9:00 AM EDT) Anatomical Region Laterality Modality Abdomen Ultrasound 12/08/2024 9:00 AM EDT Narrative 12/08/2024 12:03 PM EDT [address] [address] Ultrasound Report Signed Patient: Cortez Westfall MR#: [id number] [birth year]76 : 1970 Acct:[id number] Age/Sex: 54 / M ADM Date: 12/08/24 Loc: HO.US Attending Dr: Keli Colon MD Ordering Physician: Keli Montalvo MD Date of Service: 12/08/24 Procedure(s): US abdomen comp w elastography Accession Number(s): [id number] cc: Keli Montalvo MD Reason for Exam: [...] Joey Dobbs MD 12/08/2024 12:01 PM EDT RP Dictated By: Joey Dobbs MD Signed By: <Electronically signed by Joey Dobbs MD in OV> 12/08/24 1201 DD/ 0900 TD/TT: 12/08/24 0941 Clinic Charge Nurse: Procedure Note Donotuseinterpreter, Image - 12/08/2024 [place] [address] Ultrasound Report Signed Patient: Jose Westfall#: [id number] 2076 : 1970Acct:[id number] Age/Sex: 54 / MADM Date: 12/08/24 Loc: HO.US Attending Dr: Keli Colon MD Ordering Physician: Keli Montalvo MD Date of Service: 12/08/24 Procedure(s): US abdomen comp w elastography Accession Number(s): [id number] cc: Keli Montalvo MD Reason for Exam: pt w alcohol abuse , noted enlarged abominal girth EXAMINATION: US COMPLETE ABDOMEN WITH LIVER ELASTOGRAPHY CLINICAL INFORMATION: alcohol abuse/dependence, noted enlarged abdominal girth COMPARISON: Abdomen ultrasound 10/18/2016 TECHNIQUE: Real-time imaging of the abdominal viscera. Noninvasive ultrasound liver fibrosis assessment is performed using XGIMI ElastPQ point quantification shear wave elastography (pSWE) [...] 12/08/24 1201 DD/ 0900 TD/TT: 12/08/24 0941 Clinic Charge Nurse: us Keli Colon MD IM US PROCEDURES Final Result * Hematoxylin and Eosin Stain (11/05/2024 2:14 PM EDT) 11/05/2024 2:14 PM EDT 11/08/2024 8:22 AM EDT [facility] - 11/09/2024 11:38 AM EDT ----- ------- Name: Cortez Westfall Age/Sex: 54/M : 1970 Unit#: [id number] Attend Dr: Darshan Khan MD Re11/05/24 Status: [facility] Location: [facility] Disch: ----- ------- SPEC : [id number] RECD: 11/08/24 [facility] NUM: [id number] PEMA: 11/05/24-[address] [facility] [address]: Darshan Khan MD ENTERED: 11/08/24 SP [...] Cortez Westfall Age/Sex: 54/M : 1970 Unit#: [id number] Attend Dr: Darshan Khan MD Re11/05/24 Status: [facility] Location: [facility] Disch: ----- ------- SPEC : [id number] RECD: 11/08/24 STATUS: VINCENT FULLER NUM: [id number] PEMA: 11/05/24-[address] [facility] [address]: Darshan Khan MD ENTERED: 11/08/24 SP [...] developed and their performance characteristics determined by [facility]. They have not been cleared or approved by the U.S. Food and Drug Administration (FDA). However, the FDA has determined that such clearance or approval is not necessary. This laboratory is certified under the Clinical Laboratory Improvement Amendments of 1988 (CLIA) as qualified to perform high complexity clinical laboratory testing. Copies To: Keli Montalvo MD [address] [place], [place] [phone] Darshan Khan MD [facility] [address] [place] [address] ----- ------- Signed (signature on file) Aroldo Camacho MD 11/09/24 1138 ----- ------- END OF REPORT us Generic External Data Provider LAB BLOOD ORDERAB LES Final Result [facility] [address] [place] [phone] * (ABNORMAL) Lipid Panel, Standard (04/27/2024 8:11 AM EST) Triglycerides 178(H) <150 mg/dL [facility] Comment:Desirable Triglyceri de: less than 150 mg/dLBorderline High Triglyceride 150-199 mg/dLHigh Triglyceride: 200-499 mg/dLVery High Triglyceride: greater than or equal to 5OO mg/dL Cholesterol 173 <200 mg/dL [facility] Comment:Desirable Cholestero l: less than 200 mg/dLBorderline High Cholesterol: 200-239 mg/dLHigh Cholesterol: greater than 239 mg/dL LDL Cholesterol Calculated 96 <100 mg/dL [facility] Comment:Desirable LDL: less than 100 mg/dLNear Optimal/Above Optimal LDL: 110- 129 mg/dLBorderline High LDL: 130-159 mg/dLHigh LDL: 160-189 mg/dLVery High LDL: greater than or equal to 190 mg/dL HDL Cholesterol 42 >40 mg/dL [facility] Comment:Desirable HDL: great er than 40 mg/dL Note: This HDL assay may give artificially low results in patients with liver disease. Blood Venous blood specimen / Unknown 04/27/2024 8:11 AM EST 04/27/2024 10:51 AM EST Keli Colon MD LAB BLOOD ORDERAB LES Final Result Performing Organization Address [facility]/ZIP Co de Phone Number [facility] [address] [place] [phone] * Hepatitis C Antibody with Reflex to HCV, RNA, Quantitative, Real-Time PCR (10/09/2023 8:05 AM EDT) Hepatitis C Antibody Nonreactive Nonreactive [facility] Comment:Antibodies to HCV no t detected; does not exclude early acuteHCV infection. Blood Venous blood specimen / Unknown 10/09/2023 8:05 AM EDT 10/09/2023 11:21 AM EDT us Keli Colon MD LAB BLOOD ORDERAB LES Final Result Performing Organization Address City/[facility]/ZIP Co de Phone Number [facility] [address] [place] [phone] * HIV-1/2 Antigen and Antibodies, Fourth Generation, with Reflexes (10/09/2023 8:05 AM EDT) HIV AB/AG Nonreactive Nonreactive [facility] Comment:HIV-1 p24 Ag and/or HIV-1/HIV-2 Ab not detected.A test result that is nonreactive does not exclude thepossibility of exposure to or infection with HIV-1 and/orHIV-2. Nonreactive results in this assay for individualswith prior exposure to HIV-1 and/or HIV-2 may be due toantigen and antibody levels that are below the limit ofdetection of this assay.The Luminescent Alinity HIV Ag/Ab Combo assay result andsupplemental assay results should be interpreted inconjunction with the patient's clinical presentation,history and other laboratory results. If the results areinconsistent with clinical evidence, additional testing issuggested to confirm the result. Blood Venous blood specimen / Unknown 10/09/2023 8:05 AM EDT 10/09/2023 11:21 AM EDT Keli Colon MD LAB BLOOD ORDERAB LES Final Result [facility] [address] [place] [phone] * Hm Colonoscopy (01/24/2023 11:12 AM EST) us Historical Provider HEALTH MAINTENANCE Final Result from Last 3 Months or Most Recently Relevant to Health Maintenance Insurance [facility] C3 [facility]ENTAL-[facility] MEDICAID STAND ADULT Care Teams Web Analytics Developer Relationship Specialty Start Date End Date Keli Montalvo MD [address] [place] [phone] PCP - General Internal Medicine 11/14/22
--- OUTSIDE RECORDS SUMMARY | 2025-01-20 11:17 | XMS_ITS | Patient Health Record ---
Author Organization [employer] Address [address] [place], [place] [id number] Care Team Providers Care It Senior Analyst Name Role Phone Fausto Joe MD Primary Care Provider Migration, Provider Unavailable Unavailable Reason For Referral No Information Medications Medication SIG (Take, Route, Frequency, Duration) Notes Start Date End Date Status Wellbutrin XL 150 MG/24 HOURS 1 TAB(S) ORALLY EVERY 24 HOURS; Duration: 90 *Please review and pick correct strength-formulation from [employer] options. If intended option is not shown, [...] Status W/U Status Risk Notes Problem Hypercholesterolemia (01648869) Hypercholesterolemia NOS (272.4) Active confirmed Problem Essential hypertension (86108671) HTN [Hypertension] (401.9) Active confirmed Encounters Encounter Location Date Provider Diagnosis [facility] [address], [place] [id number] 08/28/2024 Provider Migration Plan Of Treatment Pending Test Test Name Order Date PSA 01/07/2014 PSA 12/29/2012 PSA 12/26/2011 PSA 05/23/2009 BMP 05/23/2009 BMP 12/26/2011 BMP 12/29/2012 BMP 01/07/2014 BMP 03/03/2008 LIPID PROFILE 03/03/2008 LIPID PROFILE 01/07/2014 LIPID PROFILE 12/29/2012 LIPID PROFILE 12/26/2011 LIPID PROFILE 05/23/2009 URINALYSIS, AUTOMATED ONLY 05/23/2009 URINALYSIS, AUTOMATED ONLY 12/26/2011 URINALYSIS, AUTOMATED ONLY 12/29/2012 URINALYSIS, AUTOMATED ONLY 01/07/2014 URINALYSIS, AUTOMATED ONLY 03/03/2008 CBC With Differential/Platelet 8 CBC With Differential/Platelet 4 CBC With Differential/Platelet 3 CBC With Differential/Platelet 2 CBC With Differential/Platelet 0 ALT/SGPT 01/07/2014 AST/SGOT 01/07/2014 Insurance Providers Payer Name Payer Address Payer Phone Subscriber Number Group Number Insured Name Patient Relationship to Insured Coverage Start Date Coverage End Date [facility] [address] [place] [phone] [id number] Cortez Westfall Self - patient is the insured Medical (General) History Medical History History ICD Code allergic rhinitis hypertension headache anxiety depression nephrolithiasis hyperlipidemia onychomycosis Surgical History Surgery Date(Month/Year) Pilonidal cyst
--- OUTSIDE RECORDS SUMMARY | 2025-01-20 11:18 | XMS_ITS | Encounter Summary ---
Author Organization [employer] Address [address] [place] [address] [place] [address] Care Team Providers Care Waste Paper Hammermill Operator Name Role Phone Keli Montalvo MD Primary Care Pro vider Reason for Visit * Reason Onset Date Comments Med Refill 11/08/2024 Encounter Details Date Type Department Care Team (Late st Contact Info) Description 11/08/2024 Refill [facility] MED[facility]INE [address] [place] [address] Keli Montalvo MD [address] [place] [address] Social History Tobacco Use Types Packs/Day Years [...] 04/08/2025 2:00 PM EST Office Visit [facility] MED[facility]INE [address] [place] [address] Tyson Ortega MD 230 [place] [address] documented as of this encounter Visit Diagnoses Not on filedocumented in this encounter Additional Health Concerns Assessment Noted Time PHQ-9 Depression Total Score: 0 10/14/19 25 11:04 AM EDT documented as of this encounter Care Teams Waste Paper Hammermill Operator Relationship Specialty Start Date End Date Keli Montalvo MD [address] [place] [address] PCP - General Internal Medicine 11/14/22 documented as of this encounter
--- OUTSIDE RECORDS SUMMARY | 2025-01-20 11:18 | XMS_ITS | Encounter Summary ---
Author Organization [employer] Address 75 [facility] 7 [place] [address] Care Team Providers Care Ampoule Filler And Sealer Name Role Phone Keli Montalvo MD Primary Care Pro vider Reason for Visit * Reason Onset Date Comments New Patient Appt 07/31/2022 Encounter Details Date Type Department Care Team ([facility] st Contact Info) Description 07/31/2022 Telephone [facility] MEDICINE [address] [place], [place] [phone] Jesus Quach MD 230 [place] [address] New Patient Appt Social History Tobacco Use [...] left voicemail to give a call at [phone]. documented in this encounter Plan of Treatment Upcoming Encounters Date Type Department Care Team (Late st Contact Info) Description 04/08/2025 2:00 PM EST Office Visit [facility] MEDICINE [address] [place] [address] Tyson Ortega MD [address] [place] [phone] documented as of this encounter Visit Diagnoses Not on filedocumented in this encounter Care Teams Ampoule Filler And Sealer Relationship Specialty Start Date End Date Keli Montalvo MD [address] [place] [address] PCP - General Internal Medicine 11/14/22 documented as of this encounter
--- OUTSIDE RECORDS SUMMARY | 2025-01-20 11:18 | XMS_ITS | Encounter Summary ---
Author Organization [employer] Address [address] [place] [address] [place] [address] Care Team Providers Care Rehabilitation Aide/Scheduler Name Role Phone Keli Montalvo MD Primary Care Pro vider Reason for Visit * Reason Onset Date Comments Med Refill 11/28/2024 Encounter Details Date Type Department Care Team (Late st Contact Info) Description 11/28/2024 Refill [facility] MEDICINE 230 [place] [address] Keli Montalvo MD 230 [place] [address] Social History Tobacco Use Types Packs/Day Years [...] Description 04/08/2025 2:00 PM EST Office Visit [facility] MEDICINE [address] [place] [address] Tyson Ortega MD 230 [place] [address] documented as of this encounter Visit Diagnoses Not on filedocumented in this encounter Additional Health Concerns Assessment Noted Time PHQ-9 Depression Total Score: 0 10/14/19 25 11:04 AM EDT documented as of this encounter Care Teams Rehabilitation Aide/Scheduler Relationship Specialty Start Date End Date Keli Montalvo MD [address] [place] [address] PCP - General Internal Medicine 11/14/22 documented as of this encounter
--- OUTSIDE RECORDS SUMMARY | 2025-01-20 11:18 | XMS_ITS | Encounter Summary ---
Author Organization [employer] Address 75 [facility] 7t [place] [address] Care Team Providers Care Thread Drawer Name Role Phone Keli Montalvo MD Primary Care Pro vider Encounter Details Date Type Department Care Team ([facility] Contact Info) Description 06/12/2022 Abstract [facility] ADULT DENTAL [address] [place] [address] Pippa, Keyanna [address] [place] [address] Social History Tobacco Use Types Packs/Day Years [...] Description 04/08/2025 2:00 PM EST Office Visit [facility] MEDICINE [address] [place], [place] [phone] Tyson Ortega MD 230 [place] [address] documented as of this encounter Visit Diagnoses Not on filedocumented in this encounter Care Teams Thread Drawer Relationship Specialty Start Date End Date Keli Montalvo MD 230 [place] [address] PCP - General Internal Medicine 11/14/22 documented as of this encounter
--- OUTSIDE RECORDS SUMMARY | 2025-01-20 11:18 | XMS_ITS | Encounter Summary ---
Author Organization [employer] Address [address] [facility] [address] 7t [place] [address] Care Team Providers Care Warp Tester Name Role Phone Keli Montalvo MD Primary Care Pro vider Encounter Details Date Type Department Care Team (Late st Contact Info) Description 03/04/2024 Orders Only [facility] MEDICINE [address] [place] [address] Provider, MD Katia Social History Tobacco Use [...] 2:00 PM EST Office Visit [facility] MEDICINE [address] [place] [address] Tyson Ortega MD [address] [place] [address] documented as of this encounter Procedures Procedure [...] documented as of this encounter Care Teams Warp Tester Relationship Specialty Start Date End Date Keli Montalvo MD [address] [place] [address] PCP - General Internal Medicine 11/14/22 documented as of this encounter
--- OUTSIDE RECORDS SUMMARY | 2025-01-20 11:18 | XMS_ITS | Encounter Summary ---
Author Organization [employer] Address 75 [facility] 7t [place] [address] Care Team Providers Care Farmworker Turkey Farm Name Role Phone Keli Montalvo MD Primary Care Pro vider Encounter Details Date Type Department Care Team ([facility] Contact Info) Description 06/24/2022 Abstract [facility] ADULT DENTAL [address] [place] [address] Pippa, Keyanna [address] [place] [address] Social History Tobacco Use Types Packs/Day Years [...] Description 04/08/2025 2:00 PM EST Office Visit [facility] MEDICINE [address] [place], [place] [phone] Tyson Ortega MD 230 [place] [address] documented as of this encounter Visit Diagnoses Not on filedocumented in this encounter Care Teams Farmworker Turkey Farm Relationship Specialty Start Date End Date Keli Montalvo MD [address] [place] [address] PCP - General Internal Medicine 11/14/22 documented as of this encounter
--- OUTSIDE RECORDS SUMMARY | 2025-01-20 11:18 | XMS_ITS | Encounter Summary ---
Author Organization [employer] Address 75 [facility] 7t [place] [address] Care Team Providers Care Jig Mill Operator Name Role Phone Keli Montalvo MD Primary Care Pro vider Encounter Details Date Type Department Care Team (Late Contact Info) Description 05/17/2022 Abstract [facility] ADULT DENTAL [address] [place] [address] El Lockhart DMD Social History Tobacco Use [...] 2:00 PM EST Office Visit [facility] MEDICINE [address] [place] [address] Tyson Ortega MD [address] [place], [place] [phone] documented as of this encounter Visit Diagnoses Not on filedocumented in this encounter Care Teams Jig Mill Operator Relationship Specialty Start Date End Date Keli Montalvo MD [address] [place] [address] [phone] PCP - General Internal Medicine 11/14/22 documented as of this encounter
--- OUTSIDE RECORDS SUMMARY | 2025-01-20 11:18 | XMS_ITS | Encounter Summary ---
Author Organization [employer] Address [address] [place] [address] [place] [address] Care Team Providers Care Pickup Driver Name Role Phone Keli Montalvo MD Primary Care Pro vider Reason for Visit * Reason Onset Date Comments Med Refill 11/08/2024 Encounter Details Date Type Department Care Team (Late st Contact Info) Description 11/08/2024 Refill [facility] MEDICINE [address] [place] [address] Keli Montalvo MD [address] [place] [address] Social History Tobacco Use Types Packs/Day Years [...] [facility] MEDICINE [address] [place] [address] Tyson Ortega MD [address] [place] [address] documented as of this encounter Visit Diagnoses Not on filedocumented in this encounter Additional Health Concerns Assessment Noted Time PHQ-9 Depression Total Score: 0 10/14/19 25 11:04 AM EDT documented as of this encounter Care Teams Pickup Driver Relationship Specialty Start Date End Date Keli Montalvo MD [address] [place] [address] PCP - General Internal Medicine 11/14/22 documented as of this encounter
--- OUTSIDE RECORDS SUMMARY | 2025-01-20 11:18 | XMS_ITS | Patient Health Record ---
Author Organization [employer] Address [address] [facility] [address] [place] [phone] Care Team Providers Care Lean Specialist Name Role Phone Keli Montalvo Primary Care Provider Darshan Ball Unavailable [phone] Allergies Allergen (clinical drug ingredient) Drug/Non Drug Allergy documented on EMR Reaction Allergy Type Onset Date Status seasonal (uncoded) Unknown Allergy A ctive Results Component Value Reference Range Notes Pathology (Not yet reviewed by provider) Interpretation: Performing Lab:[facility], [address] [place] [phone] Notes/Report: Reason For Referral Referring Provider First Name Keli Referring Provider Last Name Anuj beltran Referred Organization [facility] Referred Provider Darshan Khan Referred Address [address] [place] [address], ite [address] [place] [phone], Referred Provider Specialty Gastroentero logy General Notes Tara Zuniga 2024 07:39:37 AM >requested a m;[facility] referral from [facility] for visit with Dr. Khan on [...] 10 MG TAKE 1 TABLET BY [place] [facility] DAILY Oral; Duration: 90 Days Active Testosterone [...] Status Risk Notes Problem Colon cancer screening (984545716) Colon cancer screening (Z12.11) Active confirmed Problem Screening for malignant neoplasm of colon (837320396) Encounter for screening for malignant neoplasm of colon (Z12.11) Active confirmed Problem Diverticular disease of colon (982038390) Diverticulosis of large intestine without perforation or abscess without bleeding (K57.30) Active confirmed Problem Epigastric pain (44829258) Abdominal pain, epigastric (R10.13) Active confirmed Problem Gastroesophageal reflux disease (323392416) Gastroesophageal reflux disease, esophagitis presence not specified (K21.9) Active confirmed Problem Family History of Cancer of Colon (Situation) (206151551) Family history of colon cancer (Z80.0) Active confirmed Problem Irritable bowel syndrome (82719174) Irritable bowel syndrome, unspecified type (K58.9) Active confirmed Problem Serrated polyp of colon (721639385) Serrated polyp of colon (K63.5) Active confirmed Problem Gastroesophageal reflux disease with esophagitis (disorder) (760792089) Gastroesophageal reflux disease with esophagitis without hemorrhage (K21.00) Active confirmed Problem History of adenomatous polyp of colon (938929465) History of adenomatous polyp of colon (Z86.0101) [...] [facility] Outpatient [address] [place], [place] [phone] 11/05/2024 Darshan Khan [facility] [address] [place] [address] 10/19/2024 Darshan Khan Gastroesophageal ref lux disease, [...] again for allowing me to participate in Jraod's care. I shall continue to keep you [...] Start Date Coverage End Date MEDICAID OF [facility] [address] [place] [phone] [id number] JAROD HUSSEIN Self - patient is the [...]
--- OUTSIDE RECORDS SUMMARY | 2025-01-20 11:18 | XMS_ITS | Encounter Summary ---
Author Organization [employer] Address [address] [place] [address] [place] [address] Care Team Providers Care Cte Teacher Name Role Phone Keli Montalvo MD Primary Care Pro vider Reason for Visit * Reason Onset Date Comments Med Refill 12/31/2024 Encounter Details Date Type Department Care Team (Late st Contact Info) Description 12/31/2024 Refill [facility] [address] [place] [address] Keli Montalvo MD [address] [place] [address] Social History Tobacco Use Types Packs/Day Years [...] 04/08/2025 2:00 PM EST Office Visit [facility] 230 [place] [address] Tyson Ortega MD 230 [place] [address] documented as of this encounter Visit Diagnoses Not on filedocumented in this encounter Additional Health Concerns Assessment Noted Time PHQ-9 Depression Total Score: 0 10/14/19 25 11:04 AM EDT documented as of this encounter Care Teams Cte Teacher Relationship Specialty Start Date End Date Keli Montalvo MD [address] [place] [address] PCP - General Internal Medicine 11/14/22 documented as of this encounter
--- OUTSIDE RECORDS SUMMARY | 2025-01-20 11:19 | XMS_ITS | Encounter Summary ---
Author Organization [employer] Address 75 [facility] 7t [place] [address] Care Team Providers Care Warp Picker Name Role Phone Keli Montalvo MD Primary Care Pro vider Reason for Visit * Reason Onset Date Comments Med Refill 12/21/2024 Encounter Details Date Type Department Care Team (Late st Contact Info) Description 12/21/[address] [facility] MEDICINE 230 [place] [address] Alma Rosa Ochoa, ANP 230 [place] [address] Social History Tobacco Use Types Packs/Day Years [...] 04/08/2025 2:00 PM EST Office Visit [facility] MEDICINE [address] [place] [address] Tyson Ortega MD 230 [place] [address] documented as of this encounter Visit Diagnoses Not on filedocumented in this encounter Additional Health Concerns Assessment Noted Time PHQ-9 Depression Total Score: 0 10/14/19 25 11:04 AM EDT documented as of this encounter Care Teams Warp Picker Relationship Specialty Start Date End Date Keli Montalvo MD [address] [place] [address] PCP - General Internal Medicine 11/14/22 documented as of this encounter
--- OUTSIDE RECORDS SUMMARY | 2025-01-20 11:19 | XMS_ITS | Encounter Summary ---
Author Organization [employer] Address [address] [place] [address] [place] [address] Care Team Providers Care Route Vending Machine Servicer Name Role Phone Keli Montalvo MD Primary Care Pro vider Reason for Visit * Reason Onset Date Comments Med Refill 08/19/2024 Encounter Details Date Type Department Care Team (Late st Contact Info) Description 08/19/2024 Refill [facility] MEDICINE 230 [place] [address] Keli Montalvo MD [address] [place] [address] Social History Tobacco Use Types Packs/Day Years [...] Description 04/08/2025 2:00 PM EST Office Visit [facility] MEDICINE [address] [place] [address] Tyson Ortega MD 230 [place] [address] documented as of this encounter Visit Diagnoses Not on filedocumented in this encounter Additional Health Concerns Assessment Noted Time PHQ-9 Depression Total Score: 2 09/16/19 24 10:50 AM EDT documented as of this encounter Care Teams Route Vending Machine Servicer Relationship Specialty Start Date End Date Keli Montalvo MD [address] [place] [address] PCP - General Internal Medicine 11/14/22 documented as of this encounter
--- OUTSIDE RECORDS SUMMARY | 2025-01-20 11:19 | XMS_ITS | Encounter Summary ---
Author Organization [employer] Address 75 [facility] 7t [place] [address] Care Team Providers Care Film Washer Name Role Phone Keli Montalvo MD Primary Care Pro vider Reason for Visit * Reason Onset Date Comments Med Refill 08/20/2024 Encounter Details Date Type Department Care Team (Late st Contact Info) Description 08/20/[address] [facility] MEDICINE [address] [place], [place] [phone] Jesus Quach MD [address] [place] [address] Social History Tobacco Use Types Packs/Day Years [...] 2:00 PM EST Office Visit [facility] MEDICINE [address] [place] [address] Tyson Ortega MD [address] [place] [address] documented as of this encounter Visit Diagnoses Not on filedocumented in this encounter Additional Health Concerns Assessment Noted Time PHQ-9 Depression Total Score: 2 09/16/19 24 10:50 AM EDT documented as of this encounter Care Teams Film Washer Relationship Specialty Start Date End Date Keli Montalvo MD [address] [place] [phone] PCP - General Internal Medicine 11/14/22 documented as of this encounter
--- OUTSIDE RECORDS SUMMARY | 2025-01-20 11:19 | XMS_ITS | Encounter Summary ---
Author Organization [employer] Address [address] [facility] 7t [place] [address] Care Team Providers Care Manager Mortgage Name Role Phone Keli Montalvo MD Primary Care Pro vider Reason for Visit * Reason Onset Date Comments Med Refill 12/21/2024 Encounter Details Date Type Department Care Team (Late st Contact Info) Description 12/21/2024 Refill [facility] MEDICINE 230 [place] [address] Tyson Ortega MD [address] [place] [address] Alcohol use disorder, severe, dependence (CMS/HCC) (HCC) [...] 2:00 PM EST Office Visit [facility] MEDICINE 230 [place] [address] Tyson Ortega MD [address] [place] [address] documented as of this encounter Visit Diagnoses Diagnosis Alcohol use disorder, severe, dependence (CMS/HCC) (HCC) documented in this encounter Additional Health Concerns Assessment Noted Time PHQ-9 Depression Total Score: 0 10/14/19 25 11:04 AM EDT documented as of this encounter Care Teams Manager Mortgage Relationship Specialty Start Date End Date Keli Montalvo MD [address] [place] [address] PCP - General Internal Medicine 11/14/22 documented as of this encounter
--- OUTSIDE RECORDS SUMMARY | 2025-01-20 11:19 | XMS_ITS | Encounter Summary ---
Author Organization [employer] Address [address] [facility] 7t [place] [address] Care Team Providers Care Silvering Department Supervisor Name Role Phone Keli Montalvo MD Primary Care Pro vider Encounter Details Date Type Department Care Team (Latest Contact Info) Description 12/08/2024 Results Follow-Up [facility] MEDICINE [address] [place] [address] Keli Montalvo MD [address] [place] [address] US Abdomen Comp w elastography Social History [...] Description 04/08/2025 2:00 PM EST Office Visit [facility] MEDICINE [address] [place] [address] Tyson Ortega MD 230 [place] [address] documented as of this encounter Visit Diagnoses Not on filedocumented in this encounter Additional Health Concerns Assessment Noted Time PHQ-9 Depression Total Score: 0 10/14/19 25 11:04 AM EDT documented as of this encounter Care Teams Silvering Department Supervisor Relationship Specialty Start Date End Date Keli Montalvo MD [address] [place] [address] [place] [address] PCP - General Internal Medicine 11/14/22 documented as of this encounter
--- OUTSIDE RECORDS SUMMARY | 2025-01-20 11:19 | XMS_ITS | Encounter Summary ---
Author Organization [employer] Address [address] [facility] 7 [place] [address] Care Team Providers Care Dip Guider Stoves Name Role Phone Keli Montalvo MD Primary Care Pro vider Reason for Visit * Reason Onset Date Comments New Patient Appt 09/19/2022 Encounter Details Date Type Department Care Team ([facility] st Contact Info) Description 09/19/2022 Telephone [facility] MEDICINE [address] [place], [place] [phone] Jesus Quach MD [address] [place] [address] New Patient Appt Social History Tobacco Use [...] AM EDT Tc to , to offer LIQUOR COMMISSIONER Appt, pt states is not interested at the time for Operating Room Technologist with Facility. Advised if change of mind to please give facility a call at [phone] documented in this encounter Plan of Treatment Upcoming Encounters Date Type Department Care Team (Late st Contact Info) Description 04/08/2025 2:00 PM EST Office Visit [facility] MEDICINE [address] [place] [phone] Tyson Ortega MD [address] [place] [address] [phone] documented as of this encounter Visit Diagnoses Not on filedocumented in this encounter Additional Health Concerns Assessment Noted Time PHQ-9 Depression Total Score: 15 023 2:15 PM EDT documented as of this encounter Care Teams Dip Guider Stoves Relationship Specialty Start Date End Date Keli Montalvo MD [address] [place] [address] [phone] PCP - General Internal Medicine 11/14/22 documented as of this encounter
--- OUTSIDE RECORDS SUMMARY | 2025-01-20 11:19 | XMS_ITS | Encounter Summary ---
Author Organization [employer] Address [address] [place] [address] [place] [address] Care Team Providers Care Membership Secretary Name Role Phone Keli Montalvo MD Primary Care Pro vider Reason for Visit * Reason Onset Date Comments Med Refill 07/28/2024 Encounter Details Date Type Department Care Team (Late st Contact Info) Description 07/28/2024 Refill [facility] [address] [place] [address] Keli Montalvo MD [address] [place] [address] Social History Tobacco Use Types Packs/Day Years [...] 04/08/2025 2:00 PM EST Office Visit [facility] [address] [place] [address] Tyson Ortega MD [address] [place] [address] documented as of this encounter Visit Diagnoses Not on filedocumented in this encounter Additional Health Concerns Assessment Noted Time PHQ-9 Depression Total Score: 2 09/16/19 24 10:50 AM EDT documented as of this encounter Care Teams Membership Secretary Relationship Specialty Start Date End Date Keli Montalvo MD [address] [place] [id number] PCP - General Internal Medicine 11/14/22 documented as of this encounter
--- OUTSIDE RECORDS SUMMARY | 2025-01-20 11:19 | XMS_ITS | Encounter Summary ---
Author Organization [employer] Address [address] [place] [address] [place] [address] Care Team Providers Care Sales Order Administrator Name Role Phone Keli Montalvo MD Primary Care Pro vider Reason for Visit * Reason Onset Date Comments Med Refill 07/28/2024 Encounter Details Date Type Department Care Team (Late st Contact Info) Description 07/28/2024 Refill [facility] [address] [place] [address] Keli Montalvo MD [address] [place] [address] Social History Tobacco Use Types Packs/Day Years [...] Description 04/08/2025 2:00 PM EST Office Visit [facility] [address] [place] [address] Tyson Ortega MD [address] [place] [address] documented as of this encounter Visit Diagnoses Not on filedocumented in this encounter Additional Health Concerns Assessment Noted Time PHQ-9 Depression Total Score: 2 09/16/19 24 10:50 AM EDT documented as of this encounter Care Teams Sales Order Administrator Relationship Specialty Start Date End Date Keli Montalvo MD [address] [place] [phone] PCP - General Internal Medicine 11/14/22 documented as of this encounter
--- OUTSIDE RECORDS SUMMARY | 2025-01-20 11:19 | XMS_ITS | Encounter Summary ---
Author Organization [employer] Address [address] [facility] [address] [place] [address] Care Team Providers Care Systems Developer Name Role Phone Keli Montalvo MD Primary Care Pro vider Reason for Visit * Reason Onset Date Comments Med Refill 09/23/2024 Encounter Details Date Type Department Care Team (Late st Contact Info) Description 09/23/2024 Refill [facility] [address] [place] [address] Jesus Quach MD [address] [place] [address] Social History Tobacco Use Types Packs/Day Years [...] Description 04/08/2025 2:00 PM EST Office Visit [facility] [address] [place] [address] Tyson Ortega MD [address] [place] [address] documented as of this encounter Visit Diagnoses Not on filedocumented in this encounter Additional Health Concerns Assessment Noted Time PHQ-9 Depression Total Score: 2 09/16/19 24 10:50 AM EDT documented as of this encounter Care Teams Systems Developer Relationship Specialty Start Date End Date Keli Montalvo MD [address] [place] [phone] PCP - General Internal Medicine 11/14/22 documented as of this encounter
--- OUTSIDE RECORDS SUMMARY | 2025-01-20 11:19 | XMS_ITS | Encounter Summary ---
Author Organization [email or web address] Address [address] [place] [address] [place] [address] Care Team Providers Care Staff Counselor Name Role Phone Keli Montalvo MD Primary Care Pro vider Reason for Visit * Reason Onset Date Comments Med Refill 05/14/2023 Encounter Details Date Type Department Care Team (Late st Contact Info) Description 05/14/2023 Refill [facility] [address] [place] [address] Keli Montalvo MD [address] [place] [address] Social History Tobacco Use Types Packs/Day Years [...] Description 04/08/2025 2:00 PM EST Office Visit [facility] [address] [place] [address] Tyson Ortega MD [address] [place] [address] documented as of this encounter Visit Diagnoses Not on filedocumented in this encounter Additional Health Concerns Assessment Noted Time PHQ-9 Depression Total Score: 2 01/14/20 9:57 AM EDT documented as of this encounter Care Teams Staff Counselor Relationship Specialty Start Date End Date Keli Montalvo MD [address] [place] [phone] PCP - General Internal Medicine 11/14/22 documented as of this encounter
--- OUTSIDE RECORDS SUMMARY | 2025-01-20 11:19 | XMS_ITS | Encounter Summary ---
Author Organization [employer] Address [address] [place] [address] [place] [address] Care Team Providers Care Garnett Fixer Name Role Phone Keli Montalvo MD Primary Care Pro vider Reason for Visit * Reason Onset Date Comments Med Refill 07/22/2024 Encounter Details Date Type Department Care Team (Late st Contact Info) Description 07/22/2024 Refill [facility] [address] [place] [address] Keli Montalvo MD [address] [place] [address] Social History Tobacco Use Types Packs/Day Years [...] Description 04/08/2025 2:00 PM EST Office Visit [facility] [address] [place] [address] Tyson Ortega MD [address] [place] [address] documented as of this encounter Visit Diagnoses Not on filedocumented in this encounter Additional Health Concerns Assessment Noted Time PHQ-9 Depression Total Score: 2 09/16/19 24 10:50 AM EDT documented as of this encounter Care Teams Garnett Fixer Relationship Specialty Start Date End Date Keli Montalvo MD [address] [place] [id number] PCP - General Internal Medicine 11/14/22 documented as of this encounter
== END 2025-01-20 11:00 | disposition home or self-care (01) ==
LOC: HO.HUSH 09:53
PROVIDERS: PCP Student in an Organized Health Care Education/Training Program; Visit Provider Urology
DX: Z13.9 Encounter for screening, unspecified (principal)

== ENCOUNTER → 2025-01-20 09:52 | Outpatient (BNVA) | payer MEDICAID, SELFPAY | PROVIDERS: PCP Student in an Organized Health Care Education/Training Program; Visit Provider Urology | DX: N20.0 Calculus of kidney (principal); N28.1 Cyst of kidney, acquired | CPT/HCPCS: 81003; 99212 ==